=== PATIENT | male | born 1940 | race Caucasian/White ===

== ENCOUNTER 2021-01-19 20:39 | Inpatient (IN) | payer MEDICARE, SELFPAY ==
--- NOTE | 2021-01-19 | ECG_ITS ---
Test Reason : WEAKNESS Blood Pressure : / mmHG Vent. Rate : 116 BPM Atrial Rate : 104 BPM P-R Int : 000 ms QRS Dur : 086 ms QT Int : 344 ms P-R-T Axes : 000 -20 235 degrees QTc Int : 478 ms Atrial fibrillation with rapid ventricular response with premature ventricular or aberrantly conducted complexes Nonspecific T wave abnormality Abnormal ECG When compared with ECG of 15-SEP-2019 12:38, No significant change was found Referred By: Nohemi Das Electronically Signed By:CATERINA PROCTOR MD
--- NOTE | ~2021-01-19 | XR_ITS ---
EXAMINATION: XR CHEST CLINICAL INFORMATION: Shortness of breath COMPARISON: Previous chest x-ray March 2019 TECHNIQUE: Frontal view of the chest was obtained. FINDINGS: The cardiac and mediastinal contours are stable. There are post-CABG changes. The lungs are clear. There is no pleural effusion or pneumothorax. Bony structures are unremarkable. XR/XR chest 1V IMPRESSION: No evidence for acute disease in the chest.
[2021-01-19 20:46] VITALS: BP 138/59; PULSE 105; RESP 20; TEMP 36.6; O2SAT 99; BMI 31.2
--- NOTE | 2021-01-19 20:59 | ED.SOB ---
HPI - SOB/Dyspnea General Chief Complaint: Dyspnea Stated Complaint: RESPIRATORY DIFFICULTY Time Seen by Provider: 01/19/21 20:41 Source: patient Mode of arrival: EMS Limitations: no limitations History of Present Illness HPI Narrative: Patient comes emergency room complaining of shortness of breath. Patient states this afternoon he started having difficulty taking a deep breath, states he has substernal chest pressure. Patient complaining of cough and chills. Patient states he does not have chest pain, it is chest pressure and feeling that he can not get a full breath. Patient has history of asthma, states he has been using his inhalers at home Pertinent past history: asthma Related Data Home Medications Medication Instructions Recorded Confirmed aspirin 81 mg PO DAILY 01/19/21 01/19/21 atorvastatin 40 mg PO DAILY 01/19/21 01/19/21 furosemide 40 mg PO BID 01/19/21 01/19/21 gabapentin 100 mg PO QAM 01/19/21 01/19/21 metoprolol tartrate 50 mg PO BID 01/19/21 01/19/21 pantoprazole 40 mg PO BID 01/19/21 01/19/21 potassium chloride 10 meq PO BID 01/19/21 01/19/21 quetiapine 12.5 mg PO BEDTIME 01/19/21 01/19/21 spironolactone 25 mg PO DAILY 01/19/21 01/19/21 warfarin 5 mg PO DAILY 01/19/21 01/19/21 Allergies Allergy/AdvReac Type Severity Reaction Status Date / Time oxycodone [OXYCODONE] Allergy Intermediate ITCHING Verified 01/20/21 00:06 ANTIBIOITIC-? NAME Allergy Intermediate ITCHING Uncoded 07/23/20 14:50 Review of Systems Review of Systems: Constitutional : No Weight loss, No Fever, No Chills, No Night Sweats, No Fatigue, No Malaise ENT/Mouth : No Hearing loss, No Ear Pain, No Nasal Congestion, No Sinus Pain, No Hoarseness, No sore throat, No Rhinorrhea, No Swallowing Difficulty Eyes: No Eye Pain, No Swelling, No Redness, No Foreign Body, No Discharge, No Vision Changes Cardiovascular : No Chest Pain, complaining of shortness of breath, worse with exertion or lying flat, no palpitations Respiratory : Reports new mild Cough, No Sputum, No Wheezing, No Smoke Exposure, complaining of dyspnea Gastrointestinal : No Nausea, No Vomiting, No Diarrhea, No Constipation, No abdominal Pain, No Hematochezia, No Melena Genitourinary : no irregular bleeding, No Dysuria, No Urinary Frequency, No Hematuria, No Urinary Incontinence, No Urgency, No Flank Pain, No Urinary Flow Changes, No Hesitancy Musculoskeletal : No joint pain, No Myalgias, No Joint Swelling Skin : No Skin Lesions, No rash Neuro : No Weakness, No Numbness, No Paresthesias, No Loss of Consciousness, No Dizziness, No Headache Psych : No Anxiety/Panic, No Depression, No SI/HI/AH/VH, No Social Issues, Heme/Lymph: No Bruising, No Bleeding,No Lymphadenopathy Endocrine : No Polyuria, No Polydipsia, No Temperature Intolerance [facility] Past Medical History Medical History Above knee amputation of left lower extremity Afib FH: mitral valve repair GERD (gastroesophageal reflux disease) Heart failure HLD (hyperlipidemia) HTN (hypertension) Neuropathy Social History Social History Alcohol intake: never Smoking Status: Never smoker Use of substances other than those prescribed or required for medical reasons: No Advance Directives: No Physical Exam Vital Signs: Vital Signs: Last Vital Signs Temp 97.8 F 01/19/21 23:30 Pulse 107 H 01/19/21 23:30 Resp 18 01/19/21 23:30 BP 149/56 H 01/19/21 23:30 Pulse Ox 98 01/19/21 23:30 Body Mass Index 31.2 Appearance: Alert. Oriented X3. No acute distress. Eyes: Pupils equal, round and reactive to light. ENT: Pharynx normal. Neck: Normal inspection. Neck supple. No lymph nodes noted. No crepitus CVS: Rate is irregularly irregular, ranging from 100-150 Respiratory: No respiratory distress. Breath sounds normal. No Wheezing. No rales Abdomen: Soft and nontender. No rigidity. No distention. good BS x4 Skin: Skin warm and dry. Normal skin color. Normal skin turgor. Extremities: No lower extremity edema. BKA on the left side Neuro: Oriented X 3. No motor deficit. No sensory deficit. Moving all extermities. No slurred speech. Course Course Course Narrative: Patient has no chest pain, states that he occasionally feels that he can get a big breath in. D-dimer was slightly elevated at 430, however patient is already on Coumadin and is therapeutic. Patient may need a V/Q scan in the morning. Patient's creatinine is elevated 2.63. CTA cannot be performed At this time, it is unclear why patient feels short of breath. Chest x-ray is negative for any acute pathology, pneumonia is not suspected MDM - SOB/Dyspnea Lab Data Result diagrams: 01/19/21 21:05 01/19/21 21:05 Labs: Lab Results 01/19/21 01/19/21 01/19/21 Range/Units 21:05 21:05 21:05 WBC 10.7 (4.8-10.8) X10*3/uL RBC 3.04 L (4.60-5.80) X10*6/uL Hgb 8.8 L (14.0-18.0) g/dl Hct 28.6 L (42-52) % MCV 94.1 (80-98) fL MCH 28.9 (27.0-33.0) pg MCHC 30.8 L (31.0-36.0) g/dl RDW 17.4 H (11.0-16.0) % Plt Count 341 (160-400) X10*3/uL MPV 10.8 (9.4-12.4) fL Immature Gran % (Auto) 0.4 (0.0-0.4) % Neut % (Auto) 64.4 (45-73) % Lymph % (Auto) 17.1 L (20-40) % Vilas % (Auto) 9.1 (2-11) % Eos % (Auto) 8.5 H (0-4) % Baso % (Auto) 0.5 (0-2) % Lymph # (Auto) 1.8 (1.2-4.9) X10*3/uL Vil[place] # (Auto) 1.0 (0.1-1.2) X10*3/uL Eos # (Auto) 0.9 H (0.0-0.4) X10*3/uL Baso # (Auto) 0.1 (0.0-0.2) X10*3/uL Abs Immat Gran (auto) 0.04 H (0.00-0.03) X10*3/uL Absolute Neuts (auto) 6.9 (2.0-8.3) X10*3/uL Absolute Nucleated RBC 0.000 (0.0-0.012) X10*3/uL Nucleated RBC % (auto) 0.0 (0.0-0.2) /100WBC PT (10.8-13.0) SEC INR (0.9-1.1) D-Dimer NG/ML Sodium 142 (135-145) mmol/L Potassium 4.3 (3.3-5.1) mmol/L Chloride 104 (96-108) mmol/L Carbon Dioxide 27 (22-29) mmol/L Anion Gap 15 (12-20) BUN 60 H (9-16) mg/dL Creatinine 2.62 H (0.5-1.4) mg/dL Estim Creat Clear Calc 21.4 Estimated GFR 24 Random Glucose 129 H (60-115) mg/dL Lactic Acid 1.9 (0.5-2.0) mmol/L Calcium 9.0 (8.4-10.2) mg/dL Total Bilirubin 0.6 (0.0-1.0) mg/dL Direct Bilirubin 0.2 (0.0-0.5) mg/dL AST 23 (5-37) U/L ALT 17 (0-40) U/L Alkaline Phosphatase 116 (39-117) U/L Troponin I High Sens (<3.5-35.0) ng/L B-Natriuretic Peptide (<100) pg/mL Total Protein 7.0 (6.5-8.0) g/dL Albumin 3.9 (3.5-5.0) g/dL Coronavirus (PCR) (Negative) Influenza Type A (PCR) (Negative) Influenza Type B (PCR) (Negative) RSV RNA Qual (PCR) (Negative) 01/19/21 01/19/21 01/19/21 Range/Units 21:05 21:05 21:35 WBC (4.8-10.8) X10*3/uL RBC (4.60-5.80) X10*6/uL Hgb (14.0-18.0) g/dl Hct (42-52) % MCV (80-98) fL MCH (27.0-33.0) pg MCHC (31.0-36.0) g/dl RDW (11.0-16.0) % Plt Count (160-400) X10*3/uL MPV (9.4-12.4) fL Immature Gran % (Auto) (0.0-0.4) % Neut % (Auto) (45-73) % Lymph % (Auto) (20-40) % Vilas % (Auto) (2-11) % Eos % (Auto) (0-4) % Baso % (Auto) (0-2) % Lymph # (Auto) (1.2-4.9) X10*3/uL Vilas # (Auto) (0.1-1.2) X10*3/uL Eos # (Auto) (0.0-0.4) X10*3/uL Baso # (Auto) (0.0-0.2) X10*3/uL Abs Immat Gran (auto) (0.00-0.03) X10*3/uL Absolute Neuts (auto) (2.0-8.3) X10*3/uL Absolute Nucleated RBC (0.0-0.012) X10*3/uL Nucleated RBC % (auto) (0.0-0.2) /100WBC PT 32.4 H (10.8-13.0) SEC INR 2.7 H (0.9-1.1) D-Dimer 430 NG/ML Sodium (135-145) mmol/L Potassium (3.3-5.1) mmol/L Chloride (96-108) mmol/L Carbon Dioxide (22-29) mmol/L Anion Gap (12-20) BUN (9-16) mg/dL Creatinine (0.5-1.4) mg/dL Estim Creat Clear Calc Estimated GFR Random Glucose (60-115) mg/dL Lactic Acid (0.5-2.0) mmol/L Calcium (8.4-10.2) mg/dL Total Bilirubin (0.0-1.0) mg/dL Direct Bilirubin (0.0-0.5) mg/dL AST (5-37) U/L ALT (0-40) U/L Alkaline Phosphatase (39-117) U/L Troponin I High Sens 21.1 (<3.5-35.0) ng/L B-Natriuretic Peptide 140 H (<100) pg/mL Total Protein (6.5-8.0) g/dL Albumin (3.5-5.0) g/dL Coronavirus (PCR) NEGATIVE (Negative) Influenza Type A (PCR) NEGATIVE (Negative) Influenza Type B (PCR) NEGATIVE (Negative) RSV RNA Qual (PCR) NEGATIVE (Negative) Imaging Data Chest x-ray: Radiologist's impression: The cardiac and mediastinal contours are stable. There are post-CABG changes. The lungs are clear. There is no pleural effusion or pneumothorax. Bony structures are unremarkable. XR/XR chest 1V IMPRESSION: No evidence for acute disease in the chest. ECG Data Attestation: I personally reviewed and interpreted this ECG as follows: (Atrial fibrillation, heart rate 116, no ST segment depression or elevation, no T-wave inversions, occasional PVCs) Discharge Plan Discharge Clinical Impression: Acute dyspnea, Acute kidney injury Patient Disposition: Admitted As Inpatient Prescriptions: No Action furosemide 40 mg tablet 40 mg PO BID RF: 0 aspirin 81 mg tablet,delayed release (DR/EC) 81 mg PO DAILY RF: 0 spironolactone 25 mg tablet 25 mg PO DAILY RF: 0 pantoprazole 40 mg tablet,delayed release (DR/EC) 40 mg PO BID RF: 0 metoprolol tartrate 50 mg tablet 50 mg PO BID RF: 0 quetiapine 25 mg tablet 12.5 mg PO BEDTIME RF: 0 atorvastatin 40 mg tablet 40 mg PO DAILY RF: 0 potassium chloride 10 mEq tablet extended release 10 meq PO BID RF: 0 warfarin 5 mg tablet 5 mg PO DAILY RF: 0 gabapentin 100 mg capsule 100 mg PO QAM RF: 0
[2021-01-19 21:16] LABS: MANUAL DIFF FLAG NO
[2021-01-19 21:18] LABS: Basophils Absolute Auto 0.1 X10*3/uL (0.0-0.2); Basophils Percent Auto 0.5 % (0-2); Eosinophils Absolute Auto 0.9 X10*3/uL (0.0-0.4); Eosinophils Percent Auto 8.5 % (0-4); Hematocrit 28.6 % (42-52); Hemoglobin 8.8 g/dl (14.0-18.0); Imm Gran Abs Auto 0.04 X10*3/uL (0.00-0.03); Imm Gran Pct Auto 0.4 % (0.0-0.4); Lymphocytes Absolute Auto 1.8 X10*3/uL (1.2-4.9); Lymphocytes Percent Auto 17.1 % (20-40); Mean Corpuscular HGB Conc 30.8 g/dl (31.0-36.0); Mean Corpuscular Hemoglobin 28.9 pg (27.0-33.0); Mean Corpuscular Volume 94.1 fL (80-98); Mean Platelet Volume 10.8 fL (9.4-12.4); Monocytes Percent Auto 9.1 % (2-11); Neutrophils Absolute Auto 6.9 X10*3/uL (2.0-8.3); Neutrophils Percent Auto 64.4 % (45-73); Platelet Count 341 X10*3/uL (160-400); Red Blood Count 3.04 X10*6/uL (4.60-5.80); Red Cell Distribution Width 17.4 % (11.0-16.0); White Blood Count 10.7 X10*3/uL (4.8-10.8)
[2021-01-19 21:23] LABS: INTERNATIONAL NORM RATIO 2.7 (0.9-1.1); Prothrombin Time 32.4 SEC (10.8-13.0)
[2021-01-19 21:54] LABS: Lactic Acid 1.9 mmol/L (0.5-2.0)
[2021-01-19 21:59] LABS: Alanine Aminotransferase 17 U/L (0-40); Albumin Level 3.9 g/dL (3.5-5.0); Alkaline Phosphatase 116 U/L (39-117); Anion Gap 15 (12-20); Aspartate Amino Transferase 23 U/L (5-37); Bilirubin Direct 0.2 mg/dL (0.0-0.5); Bilirubin Total 0.6 mg/dL (0.0-1.0); Blood Urea Nitrogen 60 mg/dL (9-16); Carbon Dioxide 27 mmol/L (22-29); Chloride 104 mmol/L (96-108); Creatinine Clr Calc Pharmacy 21.4; Estimated Glomerular Filt Rate 24; Glucose Random 129 mg/dL (60-115); Potassium 4.3 mmol/L (3.3-5.1); Sodium 142 mmol/L (135-145)
[2021-01-19 22:01] LABS: B Type Natriuretic Peptide 140 pg/mL (<100); Troponin-I High Sensitivity 21.1 ng/L (<3.5-35.0)
[2021-01-19 22:25] LABS: Influenza A PCR NEGATIVE (Negative); Influenza B PCR NEGATIVE (Negative); Resp Syncy Virus RNA Qual PCR NEGATIVE (Negative); SARS COV2 PCR INHOUSE NEGATIVE (Negative)
--- NOTE | 2021-01-19 22:38 | PC.NURSE ---
PT RESTING UPRIGHT IN BED BREATHING WITH EASE, RR EVEN UNLABORED, SKIN WPD, AOX3. PT REPORTS FEELING MARKEDLY IMPROVED SINCE ARRIVAL, STS SX FEEL RESOLVED. PT AWAITING PROVIDER RE-EVAL.
[2021-01-19 23:30] VITALS: BP 149/56; PULSE 107; RESP 18; TEMP 36.6; O2SAT 98
--- NOTE | 2021-01-19 23:30 | PC.NURSE ---
PATIENT STATES VISITING NURSE DOES HIS MEDS WHEN SHE COMES. DOES NOT KNOW OTHER THAN HAS BOTTLES SOME ARE MORE THAN 2 YEARS OLD.
--- NOTE | 2021-01-19 23:35 | PC.NURSE ---
LUNGS CLEAR TO AUSCULTATION. PATIENT REPORTS FEELING SOB AFTER SITTING UP TO ALLOW AUSCULATION OF LUNGS.
[2021-01-20] VITALS (8 sets, daily range): BP systolic 106–147; BP diastolic 36–97; PULSE 70–106; RESP 15–20; TEMP 36.2–36.7; O2SAT 96–98
--- NOTE | 2021-01-20 | ECG_ITS ---
Test Reason : REPEAT Blood Pressure : / mmHG Vent. Rate : 084 BPM Atrial Rate : 500 BPM P-R Int : 000 ms QRS Dur : 082 ms QT Int : 418 ms P-R-T Axes : 000 -19 -41 degrees QTc Int : 493 ms Atrial fibrillation Nonspecific T wave abnormality Abnormal ECG When compared with ECG of 19-JAN-2021 20:50, Nonspecific T wave abnormality now evident in Anterior leads Referred By: Jerrod Ureña Electronically Signed By:CATERINA PROCTOR MD
[2021-01-20 00:05] LABS: D Dimer 430 NG/ML
[2021-01-20] MEDS: 0.9 % Sodium Chloride 1,000 ML 999 ML IVCONT (00:06)
--- NOTE | 2021-01-20 00:18 | P.HPHOSP_ITS ---
History of Present Illness Date of Service: 01/20/21 Chief Complaint: sob 80-year-old male With a past medical history of hypertension, hyperlipidemia, neuropathy, GERD, CHF, AFib on Coumadin, history of left lower extremity below- knee amputation presented to the hospital with a chief complaint of shortness of breath. Mentions that he was feeling fine until yesterday; today noted to have increased shortness of breath and dyspnea on exertion with minimal activity. As the symptoms were not improving decided to come to the hospital for further evaluation. Denies any chest pain palpitations lightheadedness or dizziness. Denies any GI or symptoms. Review of all other systems is negative except mentioned above ER course: Per ER team patient exam was fairly benign, good air entry on lung exam, EKG showed AFib with heart rate of 116, no ischemic changes, INR was therapeutic at 2.7, on labs noted to have creatinine of 2.6-elevated from prior value of 1.2. Hemoglobin fairly stable at his baseline; admitted to the hospital for further management. COVID-19 negative. [facility] Medical History (Updated 01/30/21 @ 00:01 by Background Daemon) Above knee amputation of left lower extremity Afib FH: mitral valve repair GERD (gastroesophageal reflux disease) Heart failure HLD (hyperlipidemia) HTN (hypertension) Neuropathy PVD (peripheral vascular disease) Surgical History (Updated 01/30/21 @ 00:01 by Background Daemon) Status post transcatheter aortic valve replacement Social History Household Members: None Housing: Assisted Living Facility Alcohol intake: never Smoking Status: Never smoker service: No Current occupational status: retired Meds Allergies Allergy/AdvReac Type Severity Reaction Status Date / Time oxycodone [OXYCODONE] Allergy Intermediate ITCHING Verified 01/20/21 00:06 ANTIBIOITIC-? NAME Allergy Intermediate ITCHING Uncoded 07/23/20 14:50 Active Medications: Current Medications Generic Name Dose Route Start Last Admin Trade Name Freq PRN Reason Stop Dose Admin Acetaminophen 650 mg 01/20/21 00:13 Acetaminophen 325 Mg Tablet PO Q6H PRN Pain, Mild (Pain Scale 1-3) Albuterol/Ipratropium 3 ml 01/20/21 00:13 Albuterol/Iprat 2.5/0.5mg 3 Ml Ampul.Neb INHALE RQ4H PRN Shortness of Breath/Wheezing Aspirin 81 mg 01/20/21 09:00 Aspirin Enteric Coated 81 Mg Tablet.Dr PO DAILY [facility] Atorvastatin Calcium 40 mg 01/20/21 09:00 Atorvastatin Calcium 40 Mg Tablet PO DAILY [facility] Gabapentin 100 mg 01/20/21 00:30 Gabapentin 100 Mg Capsule PO QAM [facility] Sodium Chloride 1,000 mls @ 999 mls/hr 01/19/21 23:53 01/20/21 00:06 Ns IVCONT 01/20/21 00:53 999 mls/hr .Q1H1M ONE Infusion Dextrose/Sodium Chloride 1,000 mls @ 100 mls/hr 01/20/21 00:15 D51/2ns IVCONT .Q10H [facility] Metoprolol Tartrate 50 mg 01/20/21 09:00 Metoprolol Tartrate 50 Mg Tablet PO BID [facility] Protocol Nitroglycerin 0.4 mg 01/20/21 00:13 Nitroglycerin 0.4 Mg Tab.Subl SUBLINGUAL Q5M PRN Chest Pain Non-Formulary Medication 40 mg 01/20/21 09:00 Pantoprazole PO DAILY [facility] Pharmacy Consult 1 each 01/20/21 00:15 Consult Rx Perform Med Rec MISCELLANE ONCE PRN Consult order Potassium Chloride 10 meq 01/20/21 09:00 Potassium Chloride Er 10 Meq Capsule.Er PO BID [facility] Quetiapine Fumarate 12.5 mg 01/20/21 21:00 Quetiapine Fumarate 25 Mg Tablet PO BEDTIME [facility] Sodium Chloride 3 ml 01/20/21 08:00 0.9 % Sodium Chloride Flush 3 Ml Syringe IVFLUSH QSHIFT [facility] Warfarin Sodium 5 mg 01/20/21 09:00 Warfarin Sodium 5 Mg Tablet PO DAILY [facility] Home Medications Medication Instructions Recorded Confirmed Last Taken Type aspirin 81 mg PO DAILY 01/19/21 01/19/21 Unknown History atorvastatin 40 mg PO DAILY 01/19/21 01/19/21 Unknown History furosemide 40 mg PO BID 01/19/21 01/19/21 Unknown History gabapentin 100 mg PO QAM 01/19/21 01/19/21 Unknown History metoprolol tartrate 50 mg PO BID 01/19/21 01/19/21 Unknown History pantoprazole 40 mg PO BID 01/19/21 01/19/21 Unknown History potassium chloride 10 meq PO BID 01/19/21 01/19/21 Unknown History quetiapine 12.5 mg PO BEDTIME 01/19/21 01/19/21 Unknown History spironolactone 25 mg PO DAILY 01/19/21 01/19/21 Unknown History warfarin 5 mg PO DAILY 01/19/21 01/19/21 Unknown History diltiazem HCl 120 mg PO DAILY 01/20/21 01/20/21 Unknown History melatonin 5 mg PO BEDTIME PRN 01/20/21 01/20/21 Unknown History thiamine HCl (vitamin B1) 100 mg PO DAILY 01/20/21 01/20/21 Unknown History Physical Exam Vital Signs and Narrative: Vital Signs: Last Vital Signs Temp 97.8 F 01/19/21 23:30 Pulse 107 H 01/19/21 23:30 Resp 18 01/19/21 23:30 BP 149/56 H 01/19/21 23:30 Pulse Ox 98 01/19/21 23:30 Body Mass Index 31.2 Gen: Appears be in no acute distress HEENT: NCAT, Moist mucosa. Pulmonary: Mildly coarse breath sounds CVS: Normal S1-S2 Abdomen: BS+, Soft, Nontender Extremities: Warm well perfused Neuro: Alert and awake. Results Labs CBC and Chem 7: 01/21/21 06:03 01/22/21 06:13 Labs: Laboratory Results - last 24 hr 01/19/21 01/19/21 01/19/21 21:05 21:05 21:05 MCV 94.1 MCH 28.9 MCHC 30.8 L RDW 17.4 H Plt Count 341 MPV 10.8 Immature Gran % (Auto) 0.4 Neut % (Auto) 64.4 Lymph % (Auto) 17.1 L Gilchrist % (Auto) 9.1 Eos % (Auto) 8.5 H Baso % (Auto) 0.5 Lymph # (Auto) 1.8 Gilchrist # (Auto) 1.0 Eos # (Auto) 0.9 H Baso # (Auto) 0.1 Abs Immat Gran (auto) 0.04 H Absolute Neuts (auto) 6.9 Absolute Nucleated RBC 0.000 Nucleated RBC % (auto) 0.0 PT INR D-Dimer Anion Gap 15 Estim Creat Clear Calc 21.4 Estimated GFR 24 Random Glucose 129 H Lactic Acid 1.9 Calcium 9.0 Total Bilirubin 0.6 Direct Bilirubin 0.2 AST 23 ALT 17 Alkaline Phosphatase 116 Troponin I High Sens B-Natriuretic Peptide Total Protein 7.0 Albumin 3.9 Coronavirus (PCR) Influenza Type A (PCR) Influenza Type B (PCR) RSV RNA Qual (PCR) 01/19/21 01/19/21 01/19/21 21:05 21:05 21:35 MCV MCH MCHC RDW Plt Count MPV Immature Gran % (Auto) Neut % (Auto) Lymph % (Auto) Gilchrist % (Auto) Eos % (Auto) Baso % (Auto) Lymph # (Auto) Gilchrist # (Auto) Eos # (Auto) Baso # (Auto) Abs Immat Gran (auto) Absolute Neuts (auto) Absolute Nucleated RBC Nucleated RBC % (auto) PT 32.4 H INR 2.7 H D-Dimer 430 Anion Gap Estim Creat Clear Calc Estimated GFR Random Glucose Lactic Acid Calcium Total Bilirubin Direct Bilirubin AST ALT Alkaline Phosphatase Troponin I High Sens 21.1 B-Natriuretic Peptide 140 H Total Protein Albumin Coronavirus (PCR) NEGATIVE Influenza Type A (PCR) NEGATIVE Influenza Type B (PCR) NEGATIVE RSV RNA Qual (PCR) NEGATIVE Imaging Radiologist's Impressions: Impressions Chest X-Ray 01/19/21 20:52 IMPRESSION: No evidence for acute disease in the chest. Assessment and Plan (1) Acute dyspnea: Status: Resolved 80-year-old male with a past medical history of hypertension, hyperlipidemia, CHF, AFib on Coumadin, GERD, neuropathy, history of left lower extremity amputation presented to the hospital with a chief complaint of shortness of breath. Shortness of breath: Unclear etiology. EKG nonischemic, initial troponin 21. Follow-up troponin pending. Patient denies any chest pain. COVID-19 negative Chest x-ray showed no acute findings Does not appear to be in fluid overload Telemetry Cycle enzymes Cardiology consultation History of asthma: No significant wheezing noticed. Nebulizations p.r.n.. Acute kidney injury: Patient's creatinine of 1.2. Today on presentation creatinine is 2.6. Hold home diuretics. Avoid nephrotoxins. Monitor renal function. Nephrology consult. Atrial fibrillation: Patient has mild RVR. Continue home metoprolol. INR therapeutic. Continue Coumadin. Hypertension/hyperlipidemia: Continue home aspirin, statin, metoprolol. For all other chronic conditions home medications continued DVT prophylaxis:Patient on Coumadin Code status: Full code
[2021-01-20 01:43] LABS: Troponin-I High Sensitivity 22.7 ng/L (<3.5-35.0)
[2021-01-20] MEDS: Acetaminophen 325 MG TABLET 650 MG PO (02:46)
[2021-01-20] MEDS: Dextrose 5 % and 0.45 % NaCl 1,000 ML 100 ML IVCONT ×2 (02:47→10:29)
--- NOTE | 2021-01-20 04:05 | PC.NURSE ---
REPORT FROM GLENNA PORRAS AT 0300. PT SLEEPING
[2021-01-20] MEDS: Omeprazole 20 MG CAPSULE.DR PO (06:14)
[2021-01-20] MEDS: Metoprolol Tartrate 50 MG TABLET PO ×2 (08:07→20:49)
[2021-01-20] MEDS: Aspirin Enteric Coated 81 MG TABLET.DR PO (08:07)
[2021-01-20] MEDS: Gabapentin 100 MG CAPSULE PO (08:07)
[2021-01-20] MEDS: Atorvastatin Calcium 40 MG TABLET PO (08:07)
--- NOTE | 2021-01-20 08:38 | PC.NURSE ---
Pt alert, rr even, speaks in full sentences, skin is pwdi, and he is in nad. Offered moisturizing cream for dry itchy skin to lower extremity and upper extremities bilat. He was medicated per emar. Currently offers no complaints, awaiting bed assignment.
[2021-01-20 09:05] LABS: Hematocrit 26.9 % (42-52); Hemoglobin 8.1 g/dl (14.0-18.0); Mean Corpuscular HGB Conc 30.1 g/dl (31.0-36.0); Mean Corpuscular Hemoglobin 28.6 pg (27.0-33.0); Mean Corpuscular Volume 95.1 fL (80-98); Mean Platelet Volume 10.5 fL (9.4-12.4); Platelet Count 312 X10*3/uL (160-400); Red Blood Count 2.83 X10*6/uL (4.60-5.80); Red Cell Distribution Width 17.3 % (11.0-16.0); White Blood Count 9.4 X10*3/uL (4.8-10.8)
[2021-01-20 09:10] LABS: INTERNATIONAL NORM RATIO 2.5 (0.9-1.1)
[2021-01-20 09:35] LABS: Anion Gap 12 (12-20); Blood Urea Nitrogen 57 mg/dL (9-16); Calcium 8.7 mg/dL (8.4-10.2); Carbon Dioxide 27 mmol/L (22-29); Chloride 107 mmol/L (96-108); Creatinine Clr Calc Pharmacy 25.3; Estimated Glomerular Filt Rate 29; Glucose Random 132 mg/dL (60-115); Potassium 4.4 mmol/L (3.3-5.1); Sodium 142 mmol/L (135-145)
[2021-01-20 09:36] LABS: Anion Gap 10 (12-20); Blood Urea Nitrogen 57 mg/dL (9-16); Calcium 8.6 mg/dL (8.4-10.2); Carbon Dioxide 29 mmol/L (22-29); Chloride 107 mmol/L (96-108); Estimated Glomerular Filt Rate 29; Glucose Random 133 mg/dL (60-115); Magnesium 1.7 mg/dL (1.6-2.6); Potassium 4.1 mmol/L (3.3-5.1); Sodium 142 mmol/L (135-145)
--- NOTE | 2021-01-20 12:35 | P.PNIM_ITS ---
Subjective Subjective Date of Service: 01/20/21 <Frances Wagner NP - Last Filed: 01/20/21 13:54> 01/20/21 <Jerrod Ureña MD - Last Filed: 01/20/21 14:11> Interval History: Follow up shortness of breath. No breathing difficulties today. <Frances Wagner NP - Last Filed: 01/20/21 13:54> Physical Exam Vital Signs: Vital Signs: Last Vital Signs Temp 97.8 F 01/19/21 23:30 Pulse 77 01/20/21 10:29 Resp 18 01/20/21 10:29 BP 147/74 H 01/20/21 10:29 Pulse Ox 98 01/20/21 10:29 Body Mass Index 31.2 <Frances Wagner NP - Last Filed: 01/20/21 13:54> Appearing in no acute distress head is normocephalic atraumatic eyes pupils are PERRLA sclera is anicteric mouth throat mucous membranes are intact and moist neck is supple no lymphadenopathy, no JVD noted lung sounds are clear to auscultation heart regular rate rhythm, clear S1, S2 positive bowel sounds, abdomen is soft, nontender neuro patient is alert x3, no focal deficits <Frances Wagner NP - Last Filed: 01/20/21 13:54> Objective Data Current Medications Generic Name Dose Route Start Last Admin Trade Name Freq PRN Reason Stop Dose Admin Acetaminophen 650 mg 01/20/21 00:13 01/20/21 02:46 Acetaminophen 325 Mg Tablet PO 650 mg Q6H PRN Administration Pain, Mild (Pain Scale 1-3) Albuterol/Ipratropium 3 ml 01/20/21 00:13 Albuterol/Iprat 2.5/0.5mg 3 Ml Ampul.Neb INHALE RQ4H PRN Shortness of Breath/Wheezing Aspirin 81 mg 01/20/21 09:00 01/20/21 08:07 Aspirin Enteric Coated 81 Mg Tablet. PO 81 mg DAILY [facility]STINE Administration Atorvastatin Calcium 40 mg 01/20/21 09:00 01/20/21 08:07 Atorvastatin Calcium 40 Mg Tablet PO 40 mg DAILY [facility]INE Administration Gabapentin 100 mg 01/20/21 09:00 01/20/21 08:07 Gabapentin 100 Mg Capsule PO 100 mg DAILY [facility]INE Administration Dextrose/Sodium Chloride 1,000 mls @ 100 mls/hr 01/20/21 00:15 01/20/21 10:29 D51/2ns IVCONT 100 mls/hr .Q10H [facility]INE Administration Metoprolol Tartrate 50 mg 01/20/21 09:00 01/20/21 08:07 Metoprolol Tartrate 50 Mg Tablet PO 50 mg BID [facility]STINE Administration Protocol Nitroglycerin 0.4 mg 01/20/21 00:13 Nitroglycerin 0.4 Mg Tab.Subl SUBLINGUAL Q5M PRN Chest Pain Omeprazole 20 mg 01/20/21 06:30 01/20/21 06:14 Omeprazole 20 Mg Capsule.Dr PO 20 mg DAILY@0630 COUNT INCLUDES THE [facility] Administration Pharmacy Consult 1 each 01/20/21 00:15 Consult Rx Perform Med Rec MISCELLANE ONCE PRN Consult order Potassium Chloride 10 meq 01/20/21 09:00 01/20/21 08:07 Potassium Chloride Er 10 Meq Capsule.Er PO 10 meq BID [facility]INE Administration Quetiapine Fumarate 12.5 mg 01/20/21 21:00 Quetiapine Fumarate 25 Mg Tablet PO BEDTIME COUNT INCLUDES THE [facility] Sodium Chloride 3 ml 01/20/21 08:00 01/20/21 08:07 0.9 % Sodium Chloride Flush 3 Ml Syringe IVFLUSH Not Given QSHIFT COUNT INCLUDES THE [facility] Warfarin Sodium 5 mg 01/20/21 16:00 Warfarin Sodium 5 Mg Tablet PO DAILY@1600 COUNT INCLUDES THE [facility] <Frances Wagner NP - Last Filed: 01/20/21 13:54> Labs CBC & Chem 7: : 01/20/21 08:53 01/20/21 08:53 <Frances Wagner NP - Last Filed: 01/20/21 13:54> Assessment and Plan (1) Acute kidney injury: Status: Acute <Frances Wagner NP - Last Filed: 01/20/21 13:54> (2) Acute dyspnea: Status: Acute <Frances Wagner NP - Last Filed: 01/20/21 13:54> Assessment and Plan: 80 year old man admitted with dyspnea initially, he was never noted to by hypoxic and CXR was negative for consolidation. He was found to have urinary retension and arredondo catheter was placed. DARNELL. Secondary to urinary retention. -Stop IV fluids -Nephrology consultation -Follow BMP Urinary retention. Follow catheter was placed and drained over 1000ml. -Monitor output closely to avoid post obstruction diuresis. Afib rvr. Mild. Now controlled. -Continue warfarin and metoprolol Asthma. No exacerbation -nebs as needed. Attending: Dr. Ureña <Frances Wagner NP - Last Filed: 01/20/21 13:54>
--- NOTE | 2021-01-20 13:34 | P.CONCA_ITS ---
History of Present Illness History of Present Illness Date of Service: 01/20/21 Requesting physician: Jerrod Ureña Consult reason: shortness of breath Chief complaint: DARNELL Narrative: We were asked to see Arturo in cardiology consultation today for prior extensive cardiovascular history, has not seen his hose mender for some time as per him. Also has not seen his vascular surgeon for some time. Yesterday while he was at home he felt some tingling and discomfort burning in his right lower extremity, got concerned because of his prior left lower extremity amputation and was very anxious and subsequently got short of breath due to panic attack he says. This was very sudden onset. However he came to the hospital and because of his prior cardiac history he was admitted. He is known to have chronic atrial fibrillation. He is status post transcatheter aortic valve replacement, congestive heart failure, peripheral vascular disease status post left lower extremity amputations, coronary artery disease, hypertension, neuropathy. On admission he was noted to be in atrial fibrillation with controlled ventricular response. Also knows noted to have acute kidney injury, currently receiving IV fluid. He was noted to have slightly elevated BNP but without any overt heart failure. Review of Systems Constitutional: Constitutional: Reports no additional constitutional complaints Cardiovascular: Cardiovascular: Denies chest pain, Denies syncope, Denies leg edema, Denies lightheadedness, Denies radiating jaw, neck or arm pain, Denies palpitations and Reports dyspnea on exertion Respiratory: Respiratory: Reports no additional respiratory complaints and Reports dyspnea on exertion Gastrointestinal: Gastrointestinal: Reports no additional gastrointestinal complaints Genitourinary: Genitourinary: Reports no additional male genitourinary complaints Musculoskeletal: Musculoskeletal: Reports no additional musculoskeletal complaints Neurologic: Reports system reviewed and no additional complaints, except as documented and Denies syncope Psychiatric: Psychiatric: Reports no additional psychiatric complaints Endocrine: Endocrine: Reports no additional endocrine complaints and Denies palpitations [facility] Past Medical History Medical History (Updated 01/20/21 @ 13:39 by Nikos Alaniz MD) Above knee amputation of left lower extremity Afib FH: mitral valve repair GERD (gastroesophageal reflux disease) Heart failure HLD (hyperlipidemia) HTN (hypertension) Neuropathy Social History Social History Alcohol intake: never Smoking Status: Never smoker Use of substances other than those prescribed or required for medical reasons: No Advance Directives: No Meds Allergies Allergy/AdvReac Type Severity Reaction Status Date / Time oxycodone [OXYCODONE] Allergy Intermediate ITCHING Verified 01/20/21 00:06 ANTIBIOITIC-? NAME Allergy Intermediate ITCHING Uncoded 07/23/20 14:50 Active Medications: Current Medications Generic Name Dose Route Start Last Admin Trade Name Freq PRN Reason Stop Dose Admin Acetaminophen 650 mg 01/20/21 00:13 01/20/21 02:46 Acetaminophen 325 Mg Tablet PO 650 mg Q6H PRN Administration Pain, Mild (Pain Scale 1-3) Albuterol/Ipratropium 3 ml 01/20/21 00:13 Albuterol/Iprat 2.5/0.5mg 3 Ml Ampul.Neb INHALE RQ4H PRN Shortness of Breath/Wheezing Aspirin 81 mg 01/20/21 09:00 01/20/21 08:07 Aspirin Enteric Coated 81 Mg Tablet. PO 81 mg DAILY [facility] Administration Atorvastatin Calcium 40 mg 01/20/21 09:00 01/20/21 08:07 Atorvastatin Calcium 40 Mg Tablet PO 40 mg DAILY CHRISTINE Administration Gabapentin 100 mg 01/20/21 09:00 01/20/21 08:07 Gabapentin 100 Mg Capsule PO 100 mg DAILY [facility] Administration Metoprolol Tartrate 50 mg 01/20/21 09:00 01/20/21 08:07 Metoprolol Tartrate 50 Mg Tablet PO 50 mg BID [facility] Administration Protocol Nitroglycerin 0.4 mg 01/20/21 00:13 Nitroglycerin 0.4 Mg Tab.Subl SUBLINGUAL Q5M PRN Chest Pain Omeprazole 20 mg 01/20/21 06:30 01/20/21 06:14 Omeprazole 20 Mg Capsule. PO 20 mg DAILY@0630 [facility] Administration Pharmacy Consult 1 each 01/20/21 00:15 Consult Rx Perform Med Rec MISCELLANE ONCE PRN Consult order Potassium Chloride 10 meq 01/20/21 09:00 01/20/21 08:07 Potassium Chloride Er 10 Meq Capsule.Er PO 10 meq BID [facility] Administration Quetiapine Fumarate 12.5 mg 01/20/21 21:00 Quetiapine Fumarate 25 Mg Tablet PO BEDTIME [facility] Sodium Chloride 3 ml 01/20/21 08:00 01/20/21 08:07 0.9 % Sodium Chloride Flush 3 Ml Syringe IVFLUSH Not Given QSHIFT [facility] Warfarin Sodium 5 mg 01/20/21 16:00 Warfarin Sodium 5 Mg Tablet PO DAILY@1600 [facility] Home Medications Medication Instructions Recorded Confirmed Last Taken Type aspirin 81 mg PO DAILY 01/19/21 01/19/21 Unknown History atorvastatin 40 mg PO DAILY 01/19/21 01/19/21 Unknown History furosemide 40 mg PO BID 01/19/21 01/19/21 Unknown History gabapentin 100 mg PO QAM 01/19/21 01/19/21 Unknown History metoprolol tartrate 50 mg PO BID 01/19/21 01/19/21 Unknown History pantoprazole 40 mg PO BID 01/19/21 01/19/21 Unknown History potassium chloride 10 meq PO BID 01/19/21 01/19/21 Unknown History quetiapine 12.5 mg PO BEDTIME 01/19/21 01/19/21 Unknown History spironolactone 25 mg PO DAILY 01/19/21 01/19/21 Unknown History warfarin 5 mg PO DAILY 01/19/21 01/19/21 Unknown History diltiazem HCl 120 mg PO DAILY 01/20/21 01/20/21 Unknown History melatonin 5 mg PO BEDTIME PRN 01/20/21 01/20/21 Unknown History thiamine HCl (vitamin B1) 100 mg PO DAILY 01/20/21 01/20/21 Unknown History Physical Exam Vital Signs: Vital Signs: Last Vital Signs Temp 97.8 F 01/19/21 23:30 Pulse 77 01/20/21 10:29 Resp 18 01/20/21 10:29 BP 147/74 H 01/20/21 10:29 Pulse Ox 98 01/20/21 10:29 Body Mass Index 31.2 Const: General: cooperative, comfortable, no acute distress, alert and awake Nutritional Appearance: obese Orientation/consciousness: patient oriented x3 HENMT: Head: Yes normocephalic and Yes atraumatic Neck: Neck: Yes trachea midline, Yes supple and Yes no JVD Resp: Effort & Inspection: normal respiratory effort Auscultation: clear to auscultation bilaterally Cardio: Jugular venous distension: no JVD Rhythm: abnormal rhythm irregularly irregular Heart sounds: S1 normal heart sound present and S2 normal heart sound present GI: Auscultation: normal bowel sounds Skin: General skin exam: no rashes or lesions noted Neuro: General: patient oriented x3 and no focal motor deficits Extrem: General: Yes no clubbing, cyanosis or edema Psych: Appearance: grossly normal Results Labs and Meds Result diagrams: 01/20/21 08:53 01/20/21 08:53 Lab results: Laboratory Results - last 24 hr 01/19/21 01/19/21 01/19/21 21:05 21:05 21:05 WBC 10.7 RBC 3.04 L Hgb 8.8 L Hct 28.6 L MCV 94.1 MCH 28.9 MCHC 30.8 L RDW 17.4 H Plt Count 341 MPV 10.8 Immature Gran % (Auto) 0.4 Neut % (Auto) 64.4 Lymph % (Auto) 17.1 L Granite % (Auto) 9.1 Eos % (Auto) 8.5 H Baso % (Auto) 0.5 Lymph # (Auto) 1.8 Granite # (Auto) 1.0 Eos # (Auto) 0.9 H Baso # (Auto) 0.1 Abs Immat Gran (auto) 0.04 H Absolute Neuts (auto) 6.9 Absolute Nucleated RBC 0.000 Nucleated RBC % (auto) 0.0 PT INR D-Dimer Sodium 142 Potassium 4.3 Chloride 104 Carbon Dioxide 27 Anion Gap 15 BUN 60 H Creatinine 2.62 H Estim Creat Clear Calc 21.4 Estimated GFR 24 Random Glucose 129 H Lactic Acid 1.9 Calcium 9.0 Magnesium Total Bilirubin 0.6 Direct Bilirubin 0.2 AST 23 ALT 17 Alkaline Phosphatase 116 Troponin I High Sens B-Natriuretic Peptide Total Protein 7.0 Albumin 3.9 Coronavirus (PCR) Influenza Type A (PCR) Influenza Type B (PCR) RSV RNA Qual (PCR) 01/19/21 01/19/21 01/19/21 21:05 21:05 21:35 WBC RBC Hgb Hct MCV MCH MCHC RDW Plt Count MPV Immature Gran % (Auto) Neut % (Auto) Lymph % (Auto) Granite % (Auto) Eos % (Auto) Baso % (Auto) Lymph # (Auto) Granite # (Auto) Eos # (Auto) Baso # (Auto) Abs Immat Gran (auto) Absolute Neuts (auto) Absolute Nucleated RBC Nucleated RBC % (auto) PT 32.4 H INR 2.7 H D-Dimer 430 Sodium Potassium Chloride Carbon Dioxide Anion Gap BUN Creatinine Estim Creat Clear Calc Estimated GFR Random Glucose Lactic Acid Calcium Magnesium Total Bilirubin Direct Bilirubin AST ALT Alkaline Phosphatase Troponin I High Sens 21.1 B-Natriuretic Peptide 140 H Total Protein Albumin Coronavirus (PCR) NEGATIVE Influenza Type A (PCR) NEGATIVE Influenza Type B (PCR) NEGATIVE RSV RNA Qual (PCR) NEGATIVE 01/20/21 01/20/21 01/20/21 00:55 08:53 08:53 WBC 9.4 RBC 2.83 L Hgb 8.1 L Hct 26.9 L MCV 95.1 MCH 28.6 MCHC 30.1 L RDW 17.3 H Plt Count 312 MPV 10.5 Immature Gran % (Auto) Neut % (Auto) Lymph % (Auto) Granite % (Auto) Eos % (Auto) Baso % (Auto) Lymph # (Auto) Granite # (Auto) Eos # (Auto) Baso # (Auto) Abs Immat Gran (auto) Absolute Neuts (auto) Absolute Nucleated RBC 0.000 Nucleated RBC % (auto) 0.0 PT INR D-Dimer Sodium 142 Potassium 4.1 Chloride 107 Carbon Dioxide 29 Anion Gap 10 L BUN 57 H Creatinine 2.16 H Estim Creat Clear Calc 26.0 Estimated GFR 29 Random Glucose 133 H Lactic Acid Calcium 8.6 Magnesium 1.7 Total Bilirubin Direct Bilirubin AST ALT Alkaline Phosphatase Troponin I High Sens 22.7 B-Natriuretic Peptide Total Protein Albumin Coronavirus (PCR) Influenza Type A (PCR) Influenza Type B (PCR) RSV RNA Qual (PCR) 01/20/21 01/20/21 08:53 08:53 WBC RBC Hgb Hct MCV MCH MCHC RDW Plt Count MPV Immature Gran % (Auto) Neut % (Auto) Lymph % (Auto) Granite % (Auto) Eos % (Auto) Baso % (Auto) Lymph # (Auto) Granite # (Auto) Eos # (Auto) Baso # (Auto) Abs Immat Gran (auto) Absolute Neuts (auto) Absolute Nucleated RBC Nucleated RBC % (auto) PT 30.0 H INR 2.5 H D-Dimer Sodium 142 Potassium 4.4 Chloride 107 Carbon Dioxide 27 Anion Gap 12 BUN 57 H Creatinine 2.22 H Estim Creat Clear Calc 25.3 Estimated GFR 29 Random Glucose 132 H Lactic Acid Calcium 8.7 Magnesium Total Bilirubin Direct Bilirubin AST ALT Alkaline Phosphatase Troponin I High Sens B-Natriuretic Peptide Total Protein Albumin Coronavirus (PCR) Influenza Type A (PCR) Influenza Type B (PCR) RSV RNA Qual (PCR) EKG shows atrial fibrillation with rapid ventricular response with PVC with nonspecific T-wave changes Imaging Radiologist's impression: Impressions Chest X-Ray 01/19/21 20:52 IMPRESSION: No evidence for acute disease in the chest. Assessment and Plan (1) Acute dyspnea: Status: Acute Patient present with acute shortness of breath with no obvious abnormality. Has chronic atrial fibrillation. Not in overt heart failure with minimally elevated BNP, not clinically fluid overloaded. He says that he got very anxious when he got symptoms in his right lower extremity thinking that he would loses right lower extremity as well. I think this appears to be more anxiety/panic attack rather than any cardiovascular issue at this point in time. (2) Afib: Status: Acute Atrial fibrillation, currently rate controlled. Continue current rate control strategy. Currently on metoprolol therapy, continue the same. Also on Cardizem therapy. Last known LVEF within normal limits and is appropriate to continue Cardizem therapy at this point in time. Continue full oral anticoagulation, currently on warfarin therapy. Maintain target INR between 2 and 3. (3) Status post transcatheter aortic valve replacement: Status: Acute Prior history of transcatheter aortic valve replacement, clinically appears to be functioning well. No further interventions or workup required at this point in time. Continue warfarin therapy as above. Blood pressure is well optimized. On the long run SBE prophylaxis as per ACC/[facility] guidelines. (4) PVD (peripheral vascular disease): Status: Acute Peripheral vascular disease status post left lower extremity amputation with significant concern for him for losing his right leg as well. He does have poor pulses distally. He is recommended to continue close follow-up as outpatient with his vascular surgeon which is very important. Will sign of the case. Feel free to call us for any further issues
[2021-01-20] MEDS: Nitroglycerin 0.4 MG TAB.SUBL SUBLINGUAL ×2 (14:32→14:58)
[2021-01-20 15:29] LABS: Troponin-I High Sensitivity 22.3 ng/L (<3.5-35.0)
--- NOTE | 2021-01-20 15:45 | PC.NURSE ---
At approx 1440 pt c/o 5/10 chest pressure. Pt given a total of 2 sl nitro ultimately, ekg done, and MARCELINO Daniels notified who ordered a stat troponin. Pt currently resting quietly. Will continue to monitor.
[2021-01-20] MEDS: Warfarin Sodium 5 MG TABLET PO (16:30)
--- NOTE | 2021-01-20 18:01 | MHC.CM.PN ---
CM met with pt. Awaiting room assignment. A&Ox3. Very pleasant and very talkative. Pt is AKA and uses a wheelchair. Resident at [facility]. IMM reviewed and signed per protocol. HCP on file. Pt tells CM that his HCP has and would probably need to make another. Requests his niece, Brandie Zambrano ([phone]). Pt is unsure of her name. Called into niece, message left to return call. Pt also has a [facility]OLST on file-full code, transfer to hospital. D/C plan is to return to [facility]. Will need BLS transport. Return referral placed. CM to follow for d/c needs.
--- NOTE | 2021-01-20 18:26 | PM.CNNEP ---
History of Present Illness Reason for Consult Consult date: 01/20/21 Chief Complaint Chief complaint: DARNELL History of Present Illness Narrative: Asked to see for DARNELL. PT is a poor historian and info obtainedfrom EHR, however he states he had issue with BPH and urinary retention and has required arredondo in past and once had it place for several weeks !! Arredondo placed and 1000 ml came out within the first 10 minutes ! Past medical history of hypertension, hyperlipidemia, neuropathy, GERD, CHF, TAVR, AFib on Coumadin, history of left lower extremity below-knee amputation presented to the hospital with a chief complaint of shortness of breath. Review of Systems Review of Systems Constitutional : No Weight loss, No Fever, No Chills, No Night Sweats, No Fatigue, No Malaise ENT/Mouth : No Hearing loss, No Ear Pain, No Nasal Congestion, No Sinus Pain, No Hoarseness, No sore throat, No Rhinorrhea, No Swallowing Difficulty Eyes: No Eye Pain, No Swelling, No Redness, No Foreign Body, No Discharge, No Vision Changes Cardiovascular : No Chest Pain, complaining of shortness of breath, worse with exertion or lying flat, no palpitations Respiratory : Reports new mild Cough, No Sputum, No Wheezing, No Smoke Exposure, complaining of dyspnea Gastrointestinal : No Nausea, No Vomiting, No Diarrhea, No Constipation, No abdominal Pain, No Hematochezia, No Melena Genitourinary : no irregular bleeding, No Dysuria, No Urinary Frequency, No Hematuria, No Urinary Incontinence, No Urgency, No Flank Pain, No Urinary Flow Changes, No Hesitancy Musculoskeletal : No joint pain, No Myalgias, No Joint Swelling Skin : No Skin Lesions, No rash Neuro : No Weakness, No Numbness, No Paresthesias, No Loss of Consciousness, No Dizziness, No Headache Psych : No Anxiety/Panic, No Depression, No SI/HI/AH/VH, No Social Issues, Heme/Lymph: No Bruising, No Bleeding,No Lymphadenopathy Endocrine : No Polyuria, No Polydipsia, No Temperature Intolerance Constitutional: Reports no additional constitutional complaints Cardiovascular: Denies chest pain, Denies syncope, Denies leg edema, Denies lightheadedness, Denies radiating jaw, neck or arm pain, Denies palpitations and Reports dyspnea on exertion Respiratory: Reports no additional respiratory complaints and Reports dyspnea on exertion Gastrointestinal: Reports no additional gastrointestinal complaints Genitourinary: Reports no additional male genitourinary complaints Musculoskeletal: Reports no additional musculoskeletal complaints Reports system reviewed and no additional complaints, except as documented and Denies syncope Psychiatric: Reports no additional psychiatric complaints Endocrine: Reports no additional endocrine complaints and Denies palpitations PMFSH Past Medical History Medical History (Updated 01/20/21 @ 13:39 by Nikos Alaniz MD) Above knee amputation of left lower extremity Afib FH: mitral valve repair GERD (gastroesophageal reflux disease) Heart failure HLD (hyperlipidemia) HTN (hypertension) Neuropathy Social History Social History Alcohol intake: never Smoking Status: Never smoker Use of substances other than those prescribed or required for medical reasons: No Advance Directives: No service: No Current occupational status: retired [employer] Interactions Allergies Allergy/AdvReac Type Severity Reaction Status Date / Time oxycodone [OXYCODONE] Allergy Intermediate ITCHING Verified 01/20/21 00:06 ANTIBIOITIC-? NAME Allergy Intermediate ITCHING Uncoded 07/23/20 14:50 Active Medications: Current Medications Generic Name Dose Route Start Last Admin Trade Name Freq PRN Reason Stop Dose Admin Acetaminophen 650 mg 01/20/21 00:13 01/20/21 02:46 Acetaminophen 325 Mg Tablet PO 650 mg Q6H PRN Administration Pain, Mild (Pain Scale 1-3) Albuterol/Ipratropium 3 ml 01/20/21 00:13 Albuterol/Iprat 2.5/0.5mg 3 Ml Ampul.Neb INHALE RQ4H PRN Shortness of Breath/Wheezing Aspirin 81 mg 01/20/21 09:00 01/20/21 08:07 Aspirin Enteric Coated 81 Mg Tablet. PO 81 mg DAILY CHRISTINE Administration Atorvastatin Calcium 40 mg 01/20/21 09:00 01/20/21 08:07 Atorvastatin Calcium 40 Mg Tablet PO 40 mg DAILY [facility]CRISTINE Administration Gabapentin 100 mg 01/20/21 09:00 01/20/21 08:07 Gabapentin 100 Mg Capsule PO 100 mg DAILY CHRISTINE Administration Metoprolol Tartrate 50 mg 01/20/21 09:00 01/20/21 08:07 Metoprolol Tartrate 50 Mg Tablet PO 50 mg BID CHRISTINE Administration Protocol Nitroglycerin 0.4 mg 01/20/21 00:13 01/20/21 14:58 Nitroglycerin 0.4 Mg Tab.Subl SUBLINGUAL 0.4 mg Q5M PRN Administration Chest Pain Omeprazole 20 mg 01/20/21 06:30 01/20/21 06:14 Omeprazole 20 Mg Capsule. PO 20 mg DAILY@0630 [facility] Administration Pharmacy Consult 1 each 01/20/21 00:15 Consult Rx Perform Med Rec MISCELLANE ONCE PRN Consult order Potassium Chloride 10 meq 01/20/21 09:00 01/20/21 08:07 Potassium Chloride Er 10 Meq Capsule.Er PO 10 meq BID [facility] Administration Quetiapine Fumarate 12.5 mg 01/20/21 21:00 Quetiapine Fumarate 25 Mg Tablet PO BEDTIME [facility] Sodium Chloride 3 ml 01/20/21 08:00 01/20/21 16:32 0.9 % Sodium Chloride Flush 3 Ml Syringe IVFLUSH Not Given QSHIFT [facility] Warfarin Sodium 5 mg 01/20/21 16:00 01/20/21 16:30 Warfarin Sodium 5 Mg Tablet PO 5 mg DAILY@1600 [facility] Administration Home Medications Medication Instructions Recorded Confirmed Last Taken Type aspirin 81 mg PO DAILY 01/19/21 01/19/21 Unknown History atorvastatin 40 mg PO DAILY 01/19/21 01/19/21 Unknown History furosemide 40 mg PO BID 01/19/21 01/19/21 Unknown History gabapentin 100 mg PO QAM 01/19/21 01/19/21 Unknown History metoprolol tartrate 50 mg PO BID 01/19/21 01/19/21 Unknown History pantoprazole 40 mg PO BID 01/19/21 01/19/21 Unknown History potassium chloride 10 meq PO BID 01/19/21 01/19/21 Unknown History quetiapine 12.5 mg PO BEDTIME 01/19/21 01/19/21 Unknown History spironolactone 25 mg PO DAILY 01/19/21 01/19/21 Unknown History warfarin 5 mg PO DAILY 01/19/21 01/19/21 Unknown History diltiazem HCl 120 mg PO DAILY 01/20/21 01/20/21 Unknown History melatonin 5 mg PO BEDTIME PRN 01/20/21 01/20/21 Unknown History thiamine HCl (vitamin B1) 100 mg PO DAILY 01/20/21 01/20/21 Unknown History Physical Exam Vital Signs: Last Vital Signs Temp 97.8 F 01/19/21 23:30 Pulse 70 01/20/21 14:58 Resp 20 01/20/21 14:34 BP 140/78 H 01/20/21 14:58 Pulse Ox 97 01/20/21 14:34 Body Mass Index 31.2 Const General: cooperative, comfortable, no acute distress, alert and awake Nutritional Appearance: obese Orientation/consciousness: patient oriented x3 HENMT Head: Yes normocephalic and Yes atraumatic Neck Neck: Yes trachea midline, Yes supple and Yes no JVD Resp Effort & Inspection: normal respiratory effort Auscultation: clear to auscultation bilaterally Cardio Jugular venous distension: no JVD Rhythm: abnormal rhythm irregularly irregular Heart sounds: S1 normal heart sound present and S2 normal heart sound present GI Auscultation: normal bowel sounds Skin General skin exam: no rashes or lesions noted Neuro General: patient oriented x3 and no focal motor deficits Extrem General: Yes no clubbing, cyanosis or edema Psych Appearance: grossly normal Results Lab Results Result Diagrams: 01/20/21 08:53 01/20/21 08:53 Lab results: Chemistry 01/19/21 01/20/21 01/20/21 21:05 08:53 08:53 Sodium 142 142 142 Potassium 4.3 4.1 4.4 Carbon Dioxide 27 29 27 BUN 60 H 57 H 57 H Creatinine 2.62 H 2.16 H 2.22 H Calcium 9.0 8.6 8.7 Hematology 01/19/21 01/20/21 21:05 08:53 WBC 10.7 9.4 Hgb 8.8 L 8.1 L Plt Count [id number] Assessment and Plan (1) Acute kidney injury: Status: Acute 1. DARNELL: OBS uropathy likely playing a signif role if not the whole role in hsi darnell; renal hyporefusion from dehydrattion; other poss such as AGN/AIN seem unlikely 2.Anemai 3. SALVADOR: willneed uro eval 4. H/O HF rec: track uop and watch for post-obs diuresis which can on rare occassions casue IV vol depletion; if renal func does not improve by am then furhter eval as to cause of DARNELL willbe needed will follow ross with team
[2021-01-20] MEDS: QUEtiapine Fumarate 25 MG TABLET 12.5 MG PO (20:50)
[2021-01-20] MEDS: 0.9 % Sodium Chloride Flush 3 ML SYRINGE IVFLUSH (23:47)
[2021-01-21 03:55] VITALS: BP 140/45; PULSE 71; RESP 20; TEMP 36.2; O2SAT 97
--- NOTE | 2021-01-21 04:52 | PC.NURSE ---
around 0400 pt had 3 beats of vtach and a few couplets, pt is asymptomatic and vitals are stable. Dr Anthony is aware.
[2021-01-21] MEDS: Omeprazole 20 MG CAPSULE.DR PO (05:46)
[2021-01-21 06:17] LABS: MANUAL DIFF FLAG NO
[2021-01-21 06:39] LABS: INTERNATIONAL NORM RATIO 2.4 (0.9-1.1); Prothrombin Time 29.1 SEC (10.8-13.0)
[2021-01-21 06:47] LABS: Basophils Absolute Auto 0.1 X10*3/uL (0.0-0.2); Basophils Percent Auto 0.6 % (0-2); Eosinophils Percent Auto 8.3 % (0-4); Hematocrit 26.9 % (42-52); Hemoglobin 8.5 g/dl (14.0-18.0); Imm Gran Abs Auto 0.05 X10*3/uL (0.00-0.03); Imm Gran Pct Auto 0.4 % (0.0-0.4); Lymphocytes Absolute Auto 1.7 X10*3/uL (1.2-4.9); Lymphocytes Percent Auto 14.6 % (20-40); Mean Corpuscular HGB Conc 31.6 g/dl (31.0-36.0); Mean Corpuscular Hemoglobin 28.8 pg (27.0-33.0); Mean Corpuscular Volume 91.2 fL (80-98); Mean Platelet Volume 11.3 fL (9.4-12.4); Monocytes Absolute Auto 0.9 X10*3/uL (0.1-1.2); Monocytes Percent Auto 7.7 % (2-11); Neutrophils Absolute Auto 7.8 X10*3/uL (2.0-8.3); Neutrophils Percent Auto 68.4 % (45-73); Platelet Count 336 X10*3/uL (160-400); Red Blood Count 2.95 X10*6/uL (4.60-5.80); Red Cell Distribution Width 17.2 % (11.0-16.0); White Blood Count 11.4 X10*3/uL (4.8-10.8)
[2021-01-21 06:58] LABS: Anion Gap 13 (12-20); Blood Urea Nitrogen 44 mg/dL (9-16); Calcium 8.7 mg/dL (8.4-10.2); Carbon Dioxide 24 mmol/L (22-29); Chloride 109 mmol/L (96-108); Creatinine Clr Calc Pharmacy 31.5; Estimated Glomerular Filt Rate 37; Glucose Random 88 mg/dL (60-115); Sodium 142 mmol/L (135-145)
[2021-01-21 07:37] VITALS: BP 141/66; PULSE 73; RESP 16; TEMP 36.3; O2SAT 96
--- NOTE | 2021-01-21 08:35 | P.CDIC_ITS ---
CDI Concurrent Query Service Date: 01/21/21 Documentation Clarification: Please clarify if you are treating a proba ble/suspected/likely or confirmed: Specifics: Chronic diastolic and/or systolic Congestive heart failure Please specify if known Chronic Diastolic CHF Provider Response: Other Other Diagnosis: Chronic Diastolic CHF PLEASE DO NOT DELETE/MODIFY EXISTING CONTENT Additional information is needed in order to code to the highest accuracy and appropriate Severity of Illness (SOI). Please clarify the information noted below in your progress notes and discharge summary. Risk Factors/Clinical Indicators/Treatments H&P: PMH Heart failure CHF BNP 140 H Home meds: Furosemide 40mg PO BID Dyspnea on exertion, shortness of breath, for all chronic conditions continue home meds. Cardiology consult CDS: Mariam Zarco CCS, CDIS Contact Number: [phone]. [phone] Please Review the information above and exercise your independent professional judgment in responding to the query. If you concur, pleas document in the PROGRESS NOTES and DISCHARGE SUMMARY. If you do not agree with the query, please document in the query above. THIS QUERY IS PART OF THE PERMANENT MEDICAL RECORD
[2021-01-21] MEDS: Gabapentin 100 MG CAPSULE PO (09:04)
[2021-01-21] MEDS: Aspirin Enteric Coated 81 MG TABLET.DR PO (09:04)
[2021-01-21] MEDS: Metoprolol Tartrate 50 MG TABLET PO ×2 (09:04→21:06)
[2021-01-21] MEDS: Atorvastatin Calcium 40 MG TABLET PO (09:04)
[2021-01-21] MEDS: 0.9 % Sodium Chloride Flush 3 ML SYRINGE IVFLUSH ×3 (09:05→21:07)
--- NOTE | 2021-01-21 11:26 | HO.PM.IMPN ---
Subjective Subjective Date of Service: 01/21/21 Interval History: f/u DARNELL/urinary retention angry about having arredondo Burning in right leg No overnight events He denies shortness of breath Review of Systems Review of Systems: Yes all other systems are reviewed and are negative Constitutional Constitutional: Denies chills and Denies fever(s) Cardiovascular Cardiovascular: Denies chest pain Respiratory Respiratory: Denies cough Gastrointestinal Gastrointestinal: Denies abdominal pain Physical Exam Vital Signs: Vital Signs: Last Vital Signs Temp 97.3 F 01/21/21 07:37 Pulse 73 01/21/21 07:37 Resp 16 01/21/21 07:37 BP 141/66 H 01/21/21 07:37 Pulse Ox 96 01/21/21 07:37 Body Mass Index 31.2 Const: General: no acute distress, alert and awake Nutritional Appearance: well nourished Orientation/consciousness: patient oriented x3 HENMT: Head: Yes normocephalic and Yes atraumatic Eyes: Sclerae: sclerae normal Chest: Chest palpation & inspection: normal inspection of the chest Resp: Effort & Inspection: normal respiratory effort and no respiratory distress Auscultation: clear to auscultation bilaterally Cardio: Rate: regular rate Rhythm: abnormal rhythm (irregular) GI: Palpation (GI): Soft to palpation and nontender : Other: arredondo Skin: General skin exam: no rashes or lesions noted Neuro: General: patient oriented x3 Cranial nerves: Yes CN's II-XII intact bilaterally and Yes Bilaterally intact EOM present Extrem: Other: s/p L AKA; right leg warm, no erythema General: Yes normal to inspection Objective Data Current Medications Generic Name Dose Route Start Last Admin Trade Name Jobyq PRN Reason Stop Dose Admin Acetaminophen 650 mg 01/20/21 00:13 01/20/21 02:46 Acetaminophen 325 Mg Tablet PO 650 mg Q6H PRN Administration Pain, Mild (Pain Scale 1-3) Albuterol/Ipratropium 3 ml 01/20/21 00:13 Albuterol/Iprat 2.5/0.5mg 3 Ml Ampul.Neb INHALE RQ4H PRN Shortness of Breath/Wheezing Aspirin 81 mg 01/20/21 09:00 01/21/21 09:04 Aspirin Enteric Coated 81 Mg Tablet. PO 81 mg DAILY CHRISTINE Administration Atorvastatin Calcium 40 mg 01/20/21 09:00 01/21/21 09:04 Atorvastatin Calcium 40 Mg Tablet PO 40 mg DAILY CHRISTINE Administration Gabapentin 100 mg 01/20/21 09:00 01/21/21 09:04 Gabapentin 100 Mg Capsule PO 100 mg DAILY CHRISTINE Administration Metoprolol Tartrate 50 mg 01/20/21 09:00 01/21/21 09:04 Metoprolol Tartrate 50 Mg Tablet PO 50 mg BID CHRISTINE Administration Protocol Nitroglycerin 0.4 mg 01/20/21 00:13 01/20/21 14:58 Nitroglycerin 0.4 Mg Tab.Subl SUBLINGUAL 0.4 mg Q5M PRN Administration Chest Pain Omeprazole 20 mg 01/20/21 06:30 01/21/21 05:46 Omeprazole 20 Mg Capsule.Dr PO 20 mg DAILY@0630 [facility] Administration Pharmacy Consult 1 each 01/20/21 00:15 Consult Rx Perform Med Rec MISCELLANE ONCE PRN Consult order Potassium Chloride 10 meq 01/20/21 09:00 01/21/21 09:04 Potassium Chloride Er 10 Meq Capsule.Er PO 10 meq BID CHRISTINE Administration Quetiapine Fumarate 12.5 mg 01/20/21 21:00 01/20/21 20:50 Quetiapine Fumarate 25 Mg Tablet PO 12.5 mg BEDTIME CHRISTINE Administration Sodium Chloride 3 ml 01/20/21 08:00 01/21/21 09:05 0.9 % Sodium Chloride Flush 3 Ml Syringe IVFLUSH 3 ml QSHIFT CHRISTINE Administration Warfarin Sodium 5 mg 01/20/21 16:00 01/20/21 16:30 Warfarin Sodium 5 Mg Tablet PO 5 mg DAILY@1600 [facility] Administration Labs CBC & Chem 7: 01/21/21 06:03 01/21/21 06:03 Microbiology Microbiology Results: Microbiology 01/19/21 21:05 Blood - Venous Blood Culture - Preliminary No growth after 24 hours. 01/19/21 21:05 Blood - Venous Blood Culture - Preliminary No growth after 24 hours. Assessment and Plan (1) PVD (peripheral vascular disease): Status: Acute (2) Status post transcatheter aortic valve replacement: Status: Acute (3) Afib: Status: Acute (4) Acute kidney injury: Status: Acute Assessment and Plan: This is 80 year old man admitted with dyspnea initially, he was never noted to by hypoxic and CXR was negative for consolidation. He was found to have urinary retension and arredondo catheter was placed. DARNELL. Secondary to urinary retention. -creatinine improved from 2.62 to 1.78 after arredondo drained 1L -Nephrology following Urinary retention. Follow catheter was placed and drained over 1000ml. Recommended to keep Arredondo in place, patient declined and asking for arredondo removal -will DC Arredondo, voiding trial -urology consult -flomax Afib. HR controlled. INR 2.4 -Continue warfarin and metoprolol -resume cardizem Asthma. No exacerbation -nebs as needed. Chronic HFpEF lasix, spironolactone on hold for DARNELL Monitor fluid status closely gerd Continue Prilosec Mood Continue Seroquel PVD continue asa, statin neuropathy Continue gabapentin DVT ppx - coumadin Attending: Dr. Ureña
[2021-01-21 11:52] VITALS: BP 129/56; PULSE 95; RESP 16; TEMP 36.6; O2SAT 98
--- NOTE | 2021-01-21 12:16 | PC.NURSE ---
[facility] CATH REMOVED AT 1200 PT DTV #1 AT 1800
--- NOTE | 2021-01-21 12:54 | PM.PNNEP ---
Subjective Subjective Date of Service: 01/21/21 Interval history: Seen and examined. events noted Physical Exam Vital Signs: Vital Signs: Last Vital Signs Temp 97.9 F 01/21/21 11:52 Pulse 95 01/21/21 11:52 Resp 16 01/21/21 11:52 BP 129/56 L 01/21/21 11:52 Pulse Ox 98 01/21/21 11:52 Body Mass Index 31.2 Const: General: cooperative, comfortable, no acute distress, alert and awake Nutritional Appearance: obese Orientation/consciousness: patient oriented x3 HENMT: Head: Yes normocephalic and Yes atraumatic Neck: Neck: Yes trachea midline, Yes supple and Yes no JVD Resp: Effort & Inspection: normal respiratory effort Auscultation: clear to auscultation bilaterally Cardio: Jugular venous distension: no JVD Rhythm: abnormal rhythm irregularly irregular Heart sounds: S1 normal heart sound present and S2 normal heart sound present GI: Auscultation: normal bowel sounds Skin: General skin exam: no rashes or lesions noted Neuro: General: patient oriented x3 and no focal motor deficits Extrem: General: Yes no clubbing, cyanosis or edema Psych: Appearance: grossly normal Objective Data Labs CBC & Chem 7: 01/21/21 06:03 01/21/21 06:03 Labs: Laboratory Results - last 24 hr 01/20/21 01/21/21 01/21/21 14:49 06:03 06:03 WBC 11.4 H RBC 2.95 L Hgb 8.5 L Hct 26.9 L MCV 91.2 MCH 28.8 MCHC 31.6 RDW 17.2 H Plt Count 336 MPV 11.3 Immature Gran % (Auto) 0.4 Neut % (Auto) 68.4 Lymph % (Auto) 14.6 L Metcalfe % (Auto) 7.7 Eos % (Auto) 8.3 H Baso % (Auto) 0.6 Lymph # (Auto) 1.7 Metcalfe # (Auto) 0.9 Eos # (Auto) 1.0 H Baso # (Auto) 0.1 Abs Immat Gran (auto) 0.05 H Absolute Neuts (auto) 7.8 Absolute Nucleated RBC 0.000 Nucleated RBC % (auto) 0.0 PT INR Sodium 142 Potassium 4.0 Chloride 109 H Carbon Dioxide 24 Anion Gap 13 BUN 44 H Creatinine 1.78 H Estim Creat Clear Calc 31.5 Estimated GFR 37 Random Glucose 88 Calcium 8.7 Troponin I High Sens 22.3 01/21/21 06:03 WBC RBC Hgb Hct MCV MCH MCHC RDW Plt Count MPV Immature Gran % (Auto) Neut % (Auto) Lymph % (Auto) Metcalfe % (Auto) Eos % (Auto) Baso % (Auto) Lymph # (Auto) Metcalfe # (Auto) Eos # (Auto) Baso # (Auto) Abs Immat Gran (auto) Absolute Neuts (auto) Absolute Nucleated RBC Nucleated RBC % (auto) PT 29.1 H INR 2.4 H Sodium Potassium Chloride Carbon Dioxide Anion Gap BUN Creatinine Estim Creat Clear Calc Estimated GFR Random Glucose Calcium Troponin I High Sens Microbiology Microbiology Results: Microbiology 01/19/21 21:05 Blood - Venous Blood Culture - Preliminary No growth after 24 hours. 01/19/21 21:05 Blood - Venous Blood Culture - Preliminary No growth after 24 hours. Assessment & Plan Assessment and plan (1) Acute kidney injury: Status: Acute Assessment and Plan: 1. DARNELL: OBS uropathy with decr SCr with arredondo in place 2.Anemia: s/pxfusion 3. SALVADOR: will need uro eval 4. H/O HF rec: cont to track renal func/uop;trial of flomax and urol eval; check fe stores; avoid ntoxins will follow ross with team Time Spent With Patient Time: Total time spent is greater than 50% in coordination of care (as documented) at patient's floor/unit and/or counseling patient:
[2021-01-21 13:48] LABS: Iron 17 mcg/dL (45-160); Percent Iron Saturation 4 % (15-50); Total Iron Binding Capacity 385 mcg/dL (228-428); Unsaturated Iron Binding 368 ug/dL
[2021-01-21 13:52] LABS: Ferritin 16 ng/mL (20-250)
[2021-01-21 13:55] VITALS: BMI 31.2
[2021-01-21 15:23] VITALS: BP 146/68; PULSE 105; RESP 16; TEMP 36.3; O2SAT 98
[2021-01-21] MEDS: Tamsulosin HCL 0.4 MG CAPSULE PO (16:16)
[2021-01-21] MEDS: Warfarin Sodium 5 MG TABLET PO (16:16)
--- NOTE | 2021-01-21 18:41 | MHC.CM.PN ---
CM placed return referral to [facility], as face sheet and EMS sheet stated he was there. Received word from Marilia in [employer]scripts that pt was d/c from facility in October. Upon further investigation, Pt is living in the independent living with services at [facility]. I do not know what services he has. I expect he will return to his current living situation. CM to follow for d/c needs.
[2021-01-21 19:20] VITALS: BP 115/44; PULSE 82; RESP 15; TEMP 37.1; O2SAT 96
[2021-01-21 21:06] VITALS: BP 114/47; PULSE 87
[2021-01-21] MEDS: QUEtiapine Fumarate 25 MG TABLET 12.5 MG PO (21:06)
[2021-01-22 03:54] VITALS: BP 135/76; PULSE 95; RESP 20; TEMP 35.9; O2SAT 95
[2021-01-22] MEDS: Omeprazole 20 MG CAPSULE.DR PO (05:38)
[2021-01-22 07:04] LABS: INTERNATIONAL NORM RATIO 2.9 (0.9-1.1); Prothrombin Time 34.7 SEC (10.8-13.0)
[2021-01-22 07:18] LABS: Anion Gap 12 (12-20); Blood Urea Nitrogen 40 mg/dL (9-16); Calcium 8.4 mg/dL (8.4-10.2); Carbon Dioxide 24 mmol/L (22-29); Chloride 110 mmol/L (96-108); Creatinine Clr Calc Pharmacy 30.3; Estimated Glomerular Filt Rate 35; Glucose Random 81 mg/dL (60-115); Potassium 4.1 mmol/L (3.3-5.1); Sodium 142 mmol/L (135-145)
[2021-01-22 07:31] VITALS: BP 132/71; PULSE 76; RESP 17; TEMP 36.6; O2SAT 98
[2021-01-22 08:04] VITALS: BP 147/69; PULSE 85; O2SAT 97
[2021-01-22] MEDS: dilTIAZem HCL CD 120 MG CAP.ER.DEG PO (10:42)
[2021-01-22] MEDS: Aspirin Enteric Coated 81 MG TABLET.DR PO (10:42)
[2021-01-22] MEDS: Atorvastatin Calcium 40 MG TABLET PO (10:42)
[2021-01-22] MEDS: Gabapentin 100 MG CAPSULE PO (10:42)
[2021-01-22] MEDS: Metoprolol Tartrate 50 MG TABLET PO (10:42)
[2021-01-22] MEDS: 0.9 % Sodium Chloride Flush 3 ML SYRINGE IVFLUSH (10:43)
--- NOTE | 2021-01-22 12:09 | P.DS_ITS ---
DS: Providers Provider Date of Service: 01/22/21 Date of admission: 01/20/21 00:13 Primary care physician: Ryan Herrera MD Consults: 01/20/21 00:13 Consult to Cardiology Routine Consulting Provider: Nikos Alaniz Reason for consultation: HINES Consult to Nephrology Routine Consulting Provider: Sandra Chavira Reason for consultation: Darnell 01/21/21 10:06 Consult to Urology Routine Consulting Provider: Quinten Correia Reason for consultation: urinary retension Has provider been notified: No DS: Diagnosis Discharge Diagnosis (1) PVD (peripheral vascular disease): Status: Acute (2) Status post transcatheter aortic valve replacement: Status: Acute (3) Afib: Status: Acute (4) Acute kidney injury: Status: Acute DS: Medications Discharge Medications Home Medications: Home Medications Medication Instructions Recorded Confirmed aspirin 81 mg PO DAILY 01/19/21 01/19/21 atorvastatin 40 mg PO DAILY 01/19/21 01/19/21 furosemide 40 mg PO BID 01/19/21 01/19/21 gabapentin 100 mg PO QAM 01/19/21 01/19/21 metoprolol tartrate 50 mg PO BID 01/19/21 01/19/21 pantoprazole 40 mg PO BID 01/19/21 01/19/21 potassium chloride 10 meq PO BID 01/19/21 01/19/21 quetiapine 12.5 mg PO BEDTIME 01/19/21 01/19/21 spironolactone 25 mg PO DAILY 01/19/21 01/19/21 warfarin 5 mg PO DAILY 01/19/21 01/19/21 diltiazem HCl 120 mg PO DAILY 01/20/21 01/20/21 melatonin 5 mg PO BEDTIME PRN 01/20/21 01/20/21 thiamine HCl (vitamin B1) 100 mg PO DAILY 01/20/21 01/20/21 DS: Summary Hospital Course Hospital Course: This is 80 year old man admitted with dyspnea initially, he was never noted to by hypoxic and CXR was negative for consolidation. He was found to have urinary retension and arredondo catheter was placed. DARNELL. Secondary to urinary retention. -creatinine improved from 2.62 to 1.78 after arredondo drained 1L. Patient requested to have Arredondo removed despite recommendations to keep in place. He was evaluated by Nephrology who recommended holding diuretics on discharge. Patient should follow-up with PCP as an outpatient to follow renal function. He was started on iron supplementation. Urinary retention. Follow catheter was placed and drained over 1000ml. Recommended to keep Arredondo in place, patient declined and asking for arredondo removal. Patient was started on Flomax. Seen by Urology who recommended to continue flomax. Can follow up with urology as an outpatient. Time Spent with Patient Time attestation: Total time spent providing and/or coordinating discharge services: Discharge coordination time: Greater than 30 minutes Physical Exam Vital Signs: Vital Signs: Last Vital Signs Temp 97.9 F 01/22/21 07:31 Pulse 85 01/22/21 08:04 Resp 17 01/22/21 07:31 BP 147/69 H 01/22/21 08:04 Pulse Ox 97 01/22/21 08:04 Body Mass Index 31.2 Const: General: no acute distress, alert and awake Nutritional Appearance: well nourished Orientation/consciousness: patient oriented x3 HENMT: Head: Yes normocephalic and Yes atraumatic Eyes: Sclerae: sclerae normal Chest: Chest palpation & inspection: normal inspection of the chest Resp: Effort & Inspection: normal respiratory effort and no respiratory distress Auscultation: clear to auscultation bilaterally Cardio: Rate: regular rate Rhythm: abnormal rhythm (irregular) GI: Palpation (GI): Soft to palpation and nontender : Other: arredondo Skin: General skin exam: no rashes or lesions noted Neuro: General: patient oriented x3 Cranial nerves: Yes CN's II-XII intact bilaterally and Yes Bilaterally intact EOM present Extrem: Other: s/p L AKA; right leg warm, no erythema General: Yes normal to inspection DS: Data Data Completed and Pending Labs on day of discharge: Laboratory Results - last 24 hr 01/21/21 01/22/21 01/22/21 06:03 06:13 06:13 PT 34.7 H INR 2.9 H Sodium 142 Potassium 4.1 Chloride 110 H Carbon Dioxide 24 Anion Gap 12 BUN 40 H Creatinine 1.85 H Estim Creat Clear Calc 30.3 Estimated GFR 35 Random Glucose 81 Calcium 8.4 Iron 17 L TIBC 385 % Saturation 4 L Unsat Iron Binding 368 Ferritin 16 L Preliminary micro results at discharge 01/19/21 21:05 Blood Culture - Preliminary Blood - Venous No growth after 48 hours. 01/19/21 21:05 Blood Culture - Preliminary Blood - Venous No growth after 48 hours. Discharge Plan Discharge Patient Disposition: Home, Self-Care Referrals: Quinten Correia MD [Physician] - (call office for appt) Ryan Herrera MD [Primary Care Provider] - Calvin Cerrato MD [Physician] - Discharge Medications: New tamsulosin 0.4 mg Capsule 0.4 mg PO DAILY@1730 Qty: 30 RF: 0 ferrous sulfate 325 mg (65 mg iron) tablet 325 mg PO Q OTHER DAY Qty: 30 RF: 0 Continued aspirin 81 mg tablet,delayed release (DR/EC) 81 mg PO DAILY RF: 0 pantoprazole 40 mg tablet,delayed release (DR/EC) 40 mg PO BID RF: 0 metoprolol tartrate 50 mg tablet 50 mg PO BID RF: 0 quetiapine 25 mg tablet 12.5 mg PO BEDTIME RF: 0 atorvastatin 40 mg tablet 40 mg PO DAILY RF: 0 potassium chloride 10 mEq tablet extended release 10 meq PO BID RF: 0 warfarin 5 mg tablet 5 mg PO DAILY RF: 0 gabapentin 100 mg capsule 100 mg PO QAM RF: 0 thiamine HCl (vitamin B1) 100 mg Tablet 100 mg PO DAILY RF: 0 diltiazem HCl 120 mg capsule,extended release 24hr 120 mg PO DAILY RF: 0 melatonin 5 mg Tablet 5 mg PO BEDTIME PRN (Reason: Insomnia) RF: 0 Held furosemide 40 mg tablet 40 mg PO BID RF: 0 Hold Instructions: Resume on 01/29/21. do not restart until seen by your primary care doctor spironolactone 25 mg tablet 25 mg PO DAILY RF: 0 Hold Instructions: Resume on 01/29/21. do not restart until seen by primary care doctor Discharge Orders: Discharge Order (Routine); Ordered 01/22/21 Ordered By: Shereen Menendez Diet: advance to usual diet Activity on Discharge: As tolerated Stand Alone Forms: Patient Portal Discharge page Other Ambulatory Orders: Basic Metabolic Panel (Routine) Timeframe: 20210127 Facility: [facility] - Location: Laboratory Ordered By: Jerrod Ureña Care Plan Goals: To stay healthy and out of the hospital. Health Concerns: DARNELL Urinary Retention Low Iron levels Plan of Treatment: DARNELL - due to urinary retention. Do not take your Lasix/Aldactone until you have been told to do so by your doctors. Check your kidney function next week. Urinary Retention - Folllow up with Dr. Correia. Low Iron levels - Take iron pills every other day
[2021-01-22 12:14] VITALS: BP 117/58; PULSE 87; O2SAT 97
[2021-01-22] MEDS: Acetaminophen 325 MG TABLET 650 MG PO (12:35)
--- NOTE | 2021-01-22 13:03 | MHC.CM.PN ---
PATIENT IS DISCHARGED HOME WITH NO NEED FOR SERVICES. RN AWARE OF PLAN. [facility] TO TRANSPORT. PER RN DISCUSSION WITH PATIENT, CORRECT ADDRESS IS [address] [place] [id number]
--- NOTE | 2021-01-22 13:08 | P.CNUR_ITS ---
History of Present Illness Consult details Narrative: BPH Increase Flomax to 2 tabs each evening Follow-up in 2 weeks in office [facility] Past Medical History Medical History (Updated 01/20/21 @ 13:39 by Nikos Alaniz MD) Above knee amputation of left lower extremity Afib FH: mitral valve repair GERD (gastroesophageal reflux disease) Heart failure HLD (hyperlipidemia) HTN (hypertension) Neuropathy Social History Social History Household Members: None Housing: Assisted Living Facility Alcohol intake: never Smoking Status: Never smoker service: No Current occupational status: retired [employer] Allergies Allergy/AdvReac Type Severity Reaction Status Date / Time oxycodone [OXYCODONE] Allergy Intermediate ITCHING Verified 01/20/21 00:06 ANTIBIOITIC-? NAME Allergy Intermediate ITCHING Uncoded 07/23/20 14:50 Active Medications: Current Medications Generic Name Dose Route Start Last Admin Trade Name Freq PRN Reason Stop Dose Admin Acetaminophen 650 mg 01/20/21 00:13 01/22/21 12:35 Acetaminophen 325 Mg Tablet PO 650 mg Q6H PRN Administration Pain, Mild (Pain Scale 1-3) Albuterol/Ipratropium 3 ml 01/20/21 00:13 Albuterol/Iprat 2.5/0.5mg 3 Ml Ampul.Neb INHALE RQ4H PRN Shortness of Breath/Wheezing Aspirin 81 mg 01/20/21 09:00 01/22/21 10:42 Aspirin Enteric Coated 81 Mg Tablet.Dr PO 81 mg DAILY CHRISTINE Administration Atorvastatin Calcium 40 mg 01/20/21 09:00 01/22/21 10:42 Atorvastatin Calcium 40 Mg Tablet PO 40 mg DAILY CHRISTINE Administration Diltiazem HCl 120 mg 01/22/21 09:00 01/22/21 10:42 Diltiazem Hcl Cd 120 Mg Cap.Er.Deg PO 120 mg DAILY CHRISTINE Administration Protocol Gabapentin 100 mg 01/20/21 09:00 01/22/21 10:42 Gabapentin 100 Mg Capsule PO 100 mg DAILY CHRISTINE Administration Metoprolol Tartrate 50 mg 01/20/21 09:00 01/22/21 10:42 Metoprolol Tartrate 50 Mg Tablet PO 50 mg BID CHRISTINE Administration Protocol Nitroglycerin 0.4 mg 01/20/21 00:13 01/20/21 14:58 Nitroglycerin 0.4 Mg Tab.Subl SUBLINGUAL 0.4 mg Q5M PRN Administration Chest Pain Omeprazole 20 mg 01/20/21 06:30 01/22/21 05:38 Omeprazole 20 Mg Capsule.Dr PO 20 mg DAILY@0630 [facility] Administration Pharmacy Consult 1 each 01/20/21 00:15 Consult Rx Perform Med Rec MISCELLANE ONCE PRN Consult order Potassium Chloride 10 meq 01/20/21 09:00 01/22/21 10:42 Potassium Chloride Er 10 Meq Capsule.Er PO 10 meq BID CHRISTINE Administration Quetiapine Fumarate 12.5 mg 01/20/21 21:00 01/21/21 21:06 Quetiapine Fumarate 25 Mg Tablet PO 12.5 mg BEDTIME CHRISTINE Administration Sodium Chloride 3 ml 01/20/21 08:00 01/22/21 10:43 0.9 % Sodium Chloride Flush 3 Ml Syringe IVFLUSH 3 ml QSHIFT [facility] Administration Tamsulosin HCl 0.4 mg 01/21/21 17:30 01/21/21 16:16 Tamsulosin Hcl 0.4 Mg Capsule PO 0.4 mg DAILY@1730 [facility] Administration Warfarin Sodium 5 mg 01/20/21 16:00 01/21/21 16:16 Warfarin Sodium 5 Mg Tablet PO 5 mg DAILY@1600 [facility] Administration Home Medications Medication Instructions Recorded Confirmed Last Taken Type aspirin 81 mg PO DAILY 01/19/21 01/19/21 Unknown History atorvastatin 40 mg PO DAILY 01/19/21 01/19/21 Unknown History furosemide 40 mg PO BID 01/19/21 01/19/21 Unknown History gabapentin 100 mg PO QAM 01/19/21 01/19/21 Unknown History metoprolol tartrate 50 mg PO BID 01/19/21 01/19/21 Unknown History pantoprazole 40 mg PO BID 01/19/21 01/19/21 Unknown History potassium chloride 10 meq PO BID 01/19/21 01/19/21 Unknown History quetiapine 12.5 mg PO BEDTIME 01/19/21 01/19/21 Unknown History spironolactone 25 mg PO DAILY 01/19/21 01/19/21 Unknown History warfarin 5 mg PO DAILY 01/19/21 01/19/21 Unknown History diltiazem HCl 120 mg PO DAILY 01/20/21 01/20/21 Unknown History melatonin 5 mg PO BEDTIME PRN 01/20/21 01/20/21 Unknown History thiamine HCl (vitamin B1) 100 mg PO DAILY 01/20/21 01/20/21 Unknown History Physical Exam Vital Signs: Vital Signs: Last Vital Signs Temp 97.9 F 01/22/21 07:31 Pulse 87 01/22/21 12:14 Resp 17 01/22/21 07:31 BP 117/58 L 01/22/21 12:14 Pulse Ox 97 01/22/21 12:14 Body Mass Index 31.2 Results Labs Result diagrams: 01/21/21 06:03 01/22/21 06:13 Labs: Abnormal lab results 01/21/21 01/22/21 01/22/21 Range/Units 06:03 06:13 06:13 PT 34.7 H (10.8-13.0) SEC INR 2.9 H (0.9-1.1) Chloride 110 H (96-108) mmol/L BUN 40 H (9-16) mg/dL Creatinine 1.85 H (0.5-1.4) mg/dL Iron 17 L (45-160) mcg/dL % Saturation 4 L (15-50) % Ferritin 16 L (20-250) ng/mL BMP 01/22/21 06:13 Sodium 142 Potassium 4.1 Chloride 110 H Carbon Dioxide 24 BUN 40 H Creatinine 1.85 H Calcium 8.4 All other labs normal.
[2021-01-22 15:21] VITALS: BP 125/60; PULSE 64; RESP 17; TEMP 36.5; O2SAT 98
== END 2021-01-22 15:45 | disposition home or self-care (01) | DRG 683 ==
LOC: HO.ED 01-20 00:21 → HO.EDOVER 01-20 01:08 → HO.S3 01-20 18:35
PROVIDERS: Internal Medicine Nephrology; Nurse Practitioner Acute Care; Physician Assistant Medical; Admitting Provider Hospitalist; Emergency Provider Emergency Medicine; PCP Internal Medicine; Visit Provider Family Medicine
DX: N17.9 Acute kidney failure, unspecified (principal); I50.32 Chronic diastolic (congestive) heart failure; N13.8 Other obstructive and reflux uropathy; K21.9 Gastro-esophageal reflux disease without esophagitis; E78.5 Hyperlipidemia, unspecified; F39 Unspecified mood [affective] disorder; I11.0 Hypertensive heart disease with heart failure; N40.1 Benign prostatic hyperplasia with lower urinary tract symptoms; G62.9 Polyneuropathy, unspecified; I73.9 Peripheral vascular disease, unspecified; I48.91 Unspecified atrial fibrillation; Z20.822 Contact with and (suspected) exposure to COVID-19; Z89.612 Acquired absence of left leg above knee; Z88.5 Allergy status to narcotic agent; Z79.01 Long term (current) use of anticoagulants; Z79.899 Other long term (current) drug therapy
CPT/HCPCS: 0241U; 36415; 71045; 80048; 80076; 82728; 83540; 83605; 83735; 83880; 84484; 85025; 85027; 85379; 85610; 87040; 93005; 99285; C1758

== ENCOUNTER → 2021-02-16 10:26 | Outpatient (BNVA) | payer MEDICARE, SELFPAY | PROVIDERS: PCP Internal Medicine; Visit Provider Urology | DX: Z13.89 Encounter for screening for other disorder (principal) | CPT/HCPCS: 51798; 99212 ==

== ENCOUNTER 2021-02-17 12:53 | Inpatient (IN) | payer MEDICARE, SELFPAY ==
--- NOTE | ~2021-02-17 | NM_ITS ---
EXAMINATION: NM LUNG IMAGE PERFUSION CLINICAL INFORMATION: Hemoptysis, elevated d-dimer COMPARISON: None TECHNIQUE: Following intravenous administration of 2.6 mCi of 90 9M technetium MAA imaging of both lungs were obtained multiple projections. Ventilation study was not performed. FINDINGS: On ventilation imaging there is normal perfusion seen to all segments of the lungs. There is no segmental or subsegmental defects seen. The soft tissues are normal. NM/NM pul perfusion IMPRESSION: Normal perfusion scan.
--- NOTE | ~2021-02-17 | XR_ITS ---
EXAMINATION: XR CHEST CLINICAL INFORMATION: Shortness of breath. COMPARISON: Chest 01/19/2021. TECHNIQUE: Frontal view of the chest was obtained. FINDINGS: Lungs are hypoexpanded and clear. The heart size is borderline enlarged. Pulmonary vascularity is normal. 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 No gross bony abnormality seen. XR/XR chest 1V IMPRESSION: Borderline enlarged heart. Hypoexpanded lungs with no acute process.
--- NOTE | ~2021-02-17 | CT_ITS ---
EXAMINATION: CT CHEST WITHOUT CONTRAST CLINICAL INFORMATION: Hemoptysis. COMPARISON: Nuclear medicine pulmonary perfusion and chest x-ray of 02/07/2021. CTA of chest of 11/02/2016. TECHNIQUE: Multidetector volumetric CT imaging of the chest was done. Axial MIP volume rendering provided. Sagittal and coronal reformatted images were obtained. This CT examination was performed using dose optimization techniques as appropriate, variously including the following: *Automated exposure control *Adjustment of mA and/or kV according to patient size (this includes techniques or standardized protocols for targeted exams where dose is matched to indication/reason for exam; i.e. extremities or head) *Use of iterative reconstruction technique DLP: 345 mGy-cm. FINDINGS: LUNGS: Central airways are patent. There is some bronchial wall thickening seen centrally. There is left lower lobe consolidation with air bronchograms present. There are foci of peripheral disease with some regions of peripheral ground-glass disease with tree-in-bud configuration, likely related to small airways disease. No definite suspicious circumscribed lung nodules are identified. No definite endobronchial lesions appreciated. MEDIASTINUM: Visualized portions of the thyroid appear unremarkable. Heart upper limits of normal in size. No pericardial effusion. TAVR in place. There is some mitral annulus calcification seen. Coronary artery calcifications are noted. Patient is status post median sternotomy and CABG. There is a prominent but nonocclusive thoracic aortic calcification including origin of the arch vessels. The ascending thoracic aorta measures up to 4.3 cm in diameter. There is a 1.8 cm precarinal lymph node present. No hilar lymphadenopathy is appreciated. PLEURA: There are small bilateral pleural effusions. AXILLA: No lymphadenopathy. UPPER ABDOMEN: No adrenal gland masses. There is prominent abdominal aortic calcification present with large amount of calcific cases origin of the celiac and superior mesenteric arteries. I cannot tell whether these may be hemodynamically significant lesions. OSSEOUS STRUCTURES: No suspicious destructive bony lesions identified. There is multilevel degenerative disc disease seen throughout the thoracic spine as well as calcification of the anterior longitudinal ligament. CT/CT chest wo con IMPRESSION: Small bilateral pleural effusions. Airspace disease with air bronchograms within the left lower lobe which may be related to pneumonitis or possible site of hemoptysis with preferential aspiration of blood. Less likely, this could be related to resolving pulmonary edema since no definite predominant central disease is appreciated. Thoracic aortic aneurysm up to 4.3 cm in diameter with TAVR in place. 1.8 cm precarinal lymph node. Atherosclerosis.
--- NOTE | 2021-02-17 13:12 | ECG_ITS ---
Test Reason : SHORTNESS OF BREATH Blood Pressure : / mmHG Vent. Rate : 086 BPM Atrial Rate : 066 BPM P-R Int : 000 ms QRS Dur : 086 ms QT Int : 322 ms P-R-T Axes : 000 -10 180 degrees QTc Int : 385 ms Atrial fibrillation Nonspecific T wave abnormality Abnormal ECG When compared with ECG of 20-JAN-2021 14:39, No significant changes seen Referred By: Generic ED Physician Electronically Signed By:ALDAIR MENG
[2021-02-17 13:14] VITALS: BP 136/70; BP 150/55; PULSE 85; PULSE 86; RESP 20; TEMP 36.8; O2SAT 97; BMI 34.2
[2021-02-17 13:32] LABS: MANUAL DIFF FLAG NO
[2021-02-17 13:42] LABS: Basophils Absolute Auto 0.1 X10*3/uL (0.0-0.2); Basophils Percent Auto 0.7 % (0-2); Eosinophils Absolute Auto 0.7 X10*3/uL (0.0-0.4); Eosinophils Percent Auto 9.3 % (0-4); Hematocrit 28.4 % (42-52); Hemoglobin 8.6 g/dl (14.0-18.0); Imm Gran Abs Auto 0.02 X10*3/uL (0.00-0.03); Imm Gran Pct Auto 0.3 % (0.0-0.4); Lymphocytes Absolute Auto 1.1 X10*3/uL (1.2-4.9); Lymphocytes Percent Auto 14.5 % (20-40); Mean Corpuscular HGB Conc 30.3 g/dl (31.0-36.0); Mean Corpuscular Hemoglobin 27.4 pg (27.0-33.0); Mean Corpuscular Volume 90.4 fL (80-98); Mean Platelet Volume 10.6 fL (9.4-12.4); Monocytes Absolute Auto 0.7 X10*3/uL (0.1-1.2); Monocytes Percent Auto 9.5 % (2-11); Neutrophils Absolute Auto 5.1 X10*3/uL (2.0-8.3); Neutrophils Percent Auto 65.7 % (45-73); Platelet Count 260 X10*3/uL (160-400); Red Blood Count 3.14 X10*6/uL (4.60-5.80); Red Cell Distribution Width 19.3 % (11.0-16.0); White Blood Count 7.7 X10*3/uL (4.8-10.8)
[2021-02-17 14:09] LABS: Anion Gap 12 (12-20); Blood Urea Nitrogen 22 mg/dL (9-16); Calcium 9.3 mg/dL (8.4-10.2); Carbon Dioxide 24 mmol/L (22-29); Chloride 111 mmol/L (96-108); Estimated Glomerular Filt Rate 36; Glucose Random 97 mg/dL (60-115); Sodium 142 mmol/L (135-145)
[2021-02-17 14:15] LABS: B Type Natriuretic Peptide 505 pg/mL (<100); Troponin-I High Sensitivity 31.3 ng/L (<3.5-35.0)
[2021-02-17 15:38] VITALS: BP 168/81; PULSE 89; RESP 20; TEMP 36.8; O2SAT 93
--- NOTE | 2021-02-17 15:39 | ED.GENADULT ---
HPI - General Adult General Chief complaint: General Medical Stated complaint: SOB,SPITTING UP BLOOD Time Seen by Provider: 02/17/21 15:39 Source: EMS Mode of arrival: EMS Limitations: no limitations History of Present Illness HPI narrative: 80-year-old male with history of heart failure, atrial fibrillation chronically anticoagulated on Coumadin, hyperlipidemia, hypertension, neuropathy who presents from his PCP office with complaint of shortness of breath also reporting that he has been coughing up blood for past 17 days. States his symptoms have been progressively getting worse and he was recently taking off of his diuretic. Onset (ago): week(s) (2 weeks) Radiation: non-radiation Severity: moderate Relieving factors: none Exacerbating factors: none Associated symptoms: chest pain (Pressure-like sometimes) Treatments prior to arrival: none Related Data Home Medications Medication Instructions Recorded Confirmed aspirin 81 mg PO DAILY 01/19/21 02/17/21 atorvastatin 40 mg PO DAILY 01/19/21 02/17/21 furosemide 40 mg PO BID 01/19/21 02/17/21 gabapentin 100 mg PO QAM 01/19/21 02/17/21 metoprolol tartrate 50 mg PO BID 01/19/21 02/17/21 pantoprazole 40 mg PO BID 01/19/21 02/17/21 potassium chloride 10 meq PO BID 01/19/21 02/17/21 quetiapine 12.5 mg PO BEDTIME 01/19/21 02/17/21 spironolactone 25 mg PO DAILY 01/19/21 02/17/21 warfarin 5 mg PO DAILY 01/19/21 01/19/21 diltiazem HCl 120 mg PO DAILY 01/20/21 02/17/21 melatonin 5 mg PO BEDTIME PRN 01/20/21 02/17/21 thiamine HCl (vitamin B1) 100 mg PO DAILY 01/20/21 02/17/21 allopurinol 1 tab PO DAILY 02/17/21 02/17/21 Previous Rx's Medication Instructions Recorded ferrous sulfate 325 mg PO Q OTHER DAY #30 tab 01/22/21 tamsulosin 0.4 mg capsule 0.8 mg PO BEDTIME 90 Days #180 cap 02/16/21 Allergies Allergy/AdvReac Type Severity Reaction Status Date / Time oxycodone [OXYCODONE] Allergy Intermediate ITCHING Verified 01/20/21 00:06 ANTIBIOITIC-? NAME Allergy Intermediate ITCHING Uncoded 07/23/20 14:50 Review of Systems Review of Systems: Constitutional: No Weight loss, No Fever, No Chills, No Night Sweats, No Fatigue, No Malaise ENT/Mouth: No Hearing loss, No Ear Pain, No Nasal Congestion, No Sinus Pain, No Hoarseness, No sore throat, No Rhinorrhea, No Swallowing Difficulty Eyes: No Eye Pain, No Swelling, No Redness, No Foreign Body, No Discharge, No Vision Changes Cardiovascular: + Chest Pain, + SOB, No Orthopnea, + Edema, No Palpitations Respiratory: No Cough, No Sputum, No Wheezing, No Smoke Exposure, No Dyspnea Gastrointestinal: No Nausea, No Vomiting, No Diarrhea, No Constipation, No abdominal Pain, No Hematochezia, No Melena Genitourinary: no irregular bleeding, No Dysuria, No Urinary Frequency, No Hematuria, No Urinary Incontinence, No Urgency, No Flank Pain, No Urinary Flow Changes, No Hesitancy Musculoskeletal: No joint pain, No Myalgias, No Joint Swelling Skin: No Skin Lesions, No rash Neuro: No Weakness, No Numbness, No Paresthesias, No Loss of Consciousness, No Dizziness, No Headache Psych: No Anxiety/Panic, No Depression, No SI/HI/AH/VH, No Social Issues Heme/Lymph: No Bruising, No Bleeding,No Lymphadenopathy Endocrine: No Polyuria, No Polydipsia, No Temperature Intolerance Yes all other systems are reviewed and are negative [facility] Past Medical History Medical History Above knee amputation of left lower extremity Afib FH: mitral valve repair GERD (gastroesophageal reflux disease) Heart failure HLD (hyperlipidemia) HTN (hypertension) Neuropathy PVD (peripheral vascular disease) Surgical History Status post transcatheter aortic valve replacement Social History Social History Household Members: None Housing: Assisted Living Facility Alcohol intake: never Smoking Status: Never smoker Advance Directives: Yes Advance Directives on File: Yes Advance Directives Date on File: 01/20/21 service: No Current occupational status: retired Physical Exam Vital Signs: Vital Signs: Last Vital Signs Temp 97.7 F 02/17/21 19:40 Pulse 90 02/17/21 19:40 Resp 16 02/17/21 20:00 BP 143/74 H 02/17/21 19:40 Pulse Ox 95 02/17/21 19:40 Body Mass Index 34.2 Reviewed Const: General: cooperative; No acute distress or intoxicated appearing Nutritional Appearance: overweight Orientation/consciousness: patient oriented x3 HENMT: Head: Yes normal to inspection Ears: hearing grossly normal bilaterally Eyes: General: appearance normal, both eyes and all related structures Visual Alegre: normal visual alegre by confrontation Neck: Neck: Yes normal visual inspection, No positive Brudzinski's sign, No positive Kernig's sign and No tender Thyroid: Thyroid normal Chest: Chest palpation & inspection: normal inspection of the chest Resp: Effort & Inspection: normal respiratory effort Auscultation: diminished lung sounds bilateral (Basis) Cardio: Jugular venous distension: no JVD Rhythm: abnormal rhythm (Regularly irregular) Heart sounds: S1 normal heart sound present GI: Inspection: Yes normal to inspection Palpation (GI): Soft to palpation Percussion: Yes normal to percussion Auscultation: normal bowel sounds : General: Yes no CVA tenderness Back/Spine/Pelvis: Back: no CVA tenderness Skin: General skin exam: no rashes or lesions noted Neuro: General: patient oriented x3 Extrem: General: Yes normal to inspection Course Course Course Narrative: Showed me tissue paper way he had pinkish phlegm and states this is very mild sometimes forget where his just argelia blood in his phlegm. Right lower extremity with 3+ edema above the knee amputation on the left. Lung sounds diminished at the bases with slight crackle history of HF will go ahead and give IV Lasix 40 mg workup initiated including D-dimer he is on Coumadin. Reevaluation(s) Reevaluation #1: H&H essentially at his baseline, INR 2, platelet 260. Slightly elevated D-dimer age adjusted however given his hemoptysis V/Q scan will be done due to poor renal function. Reevaluation #2: V/Q scan negative, troponin without delta. Heart score 4 VSS, without any further hemoptysis. Given that he is on Coumadin and hemoptysis admission requested patient placed in hospitalist for observation. Consultations Consultation #1: Case discussed with Dr. Anthony hospitalist for admission Medical Decision Making Lab Data Result diagrams: 02/17/21 13:27 02/17/21 13:27 Labs: Lab Results 02/17/21 02/17/21 02/17/21 Range/Units 13:27 13:27 13:27 WBC 7.7 (4.8-10.8) X10*3/uL RBC 3.14 L (4.60-5.80) X10*6/uL Hgb 8.6 L (14.0-18.0) g/dl Hct 28.4 L (42-52) % MCV 90.4 (80-98) fL MCH 27.4 (27.0-33.0) pg MCHC 30.3 L (31.0-36.0) g/dl RDW 19.3 H (11.0-16.0) % Plt Count 260 (160-400) X10*3/uL MPV 10.6 (9.4-12.4) fL Immature Gran % (Auto) 0.3 (0.0-0.4) % Neut % (Auto) 65.7 (45-73) % Lymph % (Auto) 14.5 L (20-40) % [place] % (Auto) 9.5 (2-11) % Eos % (Auto) 9.3 H (0-4) % Baso % (Auto) 0.7 (0-2) % Lymph # (Auto) 1.1 L (1.2-4.9) X10*3/uL [place] # (Auto) 0.7 (0.1-1.2) X10*3/uL Eos # (Auto) 0.7 H (0.0-0.4) X10*3/uL Baso # (Auto) 0.1 (0.0-0.2) X10*3/uL Abs Immat Gran (auto) 0.02 (0.00-0.03) X10*3/uL Absolute Neuts (auto) 5.1 (2.0-8.3) X10*3/uL Absolute Nucleated RBC 0.000 (0.0-0.012) X10*3/uL Nucleated RBC % (auto) 0.0 (0.0-0.2) /100WBC PT 23.7 H D (10.8-13.0) SEC INR 2.0 H (0.9-1.1) APTT 36.1 (24.1-38.0) SEC D-Dimer 604 NG/ML Hold Blue Top SEE NOTE Sodium 142 (135-145) mmol/L Potassium 5.0 D (3.3-5.1) mmol/L Chloride 111 H (96-108) mmol/L Carbon Dioxide 24 (22-29) mmol/L Anion Gap 12 (12-20) BUN 22 H (9-16) mg/dL Creatinine 1.83 H (0.5-1.4) mg/dL Estim Creat Clear Calc 32.0 Estimated GFR 36 Random Glucose 97 (60-115) mg/dL Calcium 9.3 D (8.4-10.2) mg/dL Magnesium 2.0 (1.6-2.6) mg/dL Ferritin 52 (20-250) ng/mL Total Bilirubin 1.1 H (0.0-1.0) mg/dL Direct Bilirubin 0.5 (0.0-0.5) mg/dL AST 20 (5-37) U/L ALT 16 (0-40) U/L Alkaline Phosphatase 137 H (39-117) U/L Lactate Dehydrogenase 234 (118-273) U/L Troponin I High Sens (<3.5-35.0) ng/L C-Reactive Protein 1.99 H (< or = 0.50) mg/dL B-Natriuretic Peptide (<100) pg/mL Total Protein 6.7 (6.5-8.0) g/dL Albumin 3.7 (3.5-5.0) g/dL Lipase 39 (8-78) U/L Procalcitonin ng/mL Urine Color Urine Appearance Urine pH (5.0-8.0) Ur Specific [place] (1.005-1.025) Urine Protein (NEG-TRACE) MG/DL Urine Glucose (UA) (NEG) MG/DL Urine Ketones (NEG) MG/DL Urine Blood (NEG) Urine Nitrite (NEG) Ur Leukocyte Esterase (NEG) Urine RBC (0) /HPF Urine WBC (0-4) /HPF Ur Squamous Epith Cells /LPF Urine Bacteria /LPF Coronavirus (PCR) (Negative) Influenza Type A (PCR) (Negative) Influenza Type B (PCR) (Negative) RSV RNA Qual (PCR) (Negative) 02/17/21 02/17/21 02/17/21 Range/Units 13:27 13:31 16:09 WBC (4.8-10.8) X10*3/uL RBC (4.60-5.80) X10*6/uL Hgb (14.0-18.0) g/dl Hct (42-52) % MCV (80-98) fL MCH (27.0-33.0) pg MCHC (31.0-36.0) g/dl RDW (11.0-16.0) % Plt Count (160-400) X10*3/uL MPV (9.4-12.4) fL Immature Gran % (Auto) (0.0-0.4) % Neut % (Auto) (45-73) % Lymph % (Auto) (20-40) % [place] % (Auto) (2-11) % Eos % (Auto) (0-4) % Baso % (Auto) (0-2) % Lymph # (Auto) (1.2-4.9) X10*3/uL [place] # (Auto) (0.1-1.2) X10*3/uL Eos # (Auto) (0.0-0.4) X10*3/uL Baso # (Auto) (0.0-0.2) X10*3/uL Abs Immat Gran (auto) (0.00-0.03) X10*3/uL Absolute Neuts (auto) (2.0-8.3) X10*3/uL Absolute Nucleated RBC (0.0-0.012) X10*3/uL Nucleated RBC % (auto) (0.0-0.2) /100WBC PT (10.8-13.0) SEC INR (0.9-1.1) APTT (24.1-38.0) SEC D-Dimer NG/ML Hold Blue Top Sodium (135-145) mmol/L Potassium (3.3-5.1) mmol/L Chloride (96-108) mmol/L Carbon Dioxide (22-29) mmol/L Anion Gap (12-20) BUN (9-16) mg/dL Creatinine (0.5-1.4) mg/dL Estim Creat Clear Calc Estimated GFR Random Glucose (60-115) mg/dL Calcium (8.4-10.2) mg/dL Magnesium (1.6-2.6) mg/dL Ferritin (20-250) ng/mL Total Bilirubin (0.0-1.0) mg/dL Direct Bilirubin (0.0-0.5) mg/dL AST (5-37) U/L ALT (0-40) U/L Alkaline Phosphatase (39-117) U/L Lactate Dehydrogenase (118-273) U/L Troponin I High Sens 31.3 30.8 (<3.5-35.0) ng/L C-Reactive Protein (< or = 0.50) mg/dL B-Natriuretic Peptide 505 H (<100) pg/mL Total Protein (6.5-8.0) g/dL Albumin (3.5-5.0) g/dL Lipase (8-78) U/L Procalcitonin 0.04 ng/mL Urine Color Urine Appearance Urine pH (5.0-8.0) Ur Specific [place] (1.005-1.025) Urine Protein (NEG-TRACE) MG/DL Urine Glucose (UA) (NEG) MG/DL Urine Ketones (NEG) MG/DL Urine Blood (NEG) Urine Nitrite (NEG) Ur Leukocyte Esterase (NEG) Urine RBC (0) /HPF Urine WBC (0-4) /HPF Ur Squamous Epith Cells /LPF Urine Bacteria /LPF Coronavirus (PCR) (Negative) Influenza Type A (PCR) (Negative) Influenza Type B (PCR) (Negative) RSV RNA Qual (PCR) (Negative) 02/17/21 02/17/21 Range/Units 16:09 18:00 WBC (4.8-10.8) X10*3/uL RBC (4.60-5.80) X10*6/uL Hgb (14.0-18.0) g/dl Hct (42-52) % MCV (80-98) fL MCH (27.0-33.0) pg MCHC (31.0-36.0) g/dl RDW (11.0-16.0) % Plt Count (160-400) X10*3/uL MPV (9.4-12.4) fL Immature Gran % (Auto) (0.0-0.4) % Neut % (Auto) (45-73) % Lymph % (Auto) (20-40) % [place] % (Auto) (2-11) % Eos % (Auto) (0-4) % Baso % (Auto) (0-2) % Lymph # (Auto) (1.2-4.9) X10*3/uL [place] # (Auto) (0.1-1.2) X10*3/uL Eos # (Auto) (0.0-0.4) X10*3/uL Baso # (Auto) (0.0-0.2) X10*3/uL Abs Immat Gran (auto) (0.00-0.03) X10*3/uL Absolute Neuts (auto) (2.0-8.3) X10*3/uL Absolute Nucleated RBC (0.0-0.012) X10*3/uL Nucleated RBC % (auto) (0.0-0.2) /100WBC PT (10.8-13.0) SEC INR (0.9-1.1) APTT (24.1-38.0) SEC D-Dimer NG/ML Hold Blue Top Sodium (135-145) mmol/L Potassium (3.3-5.1) mmol/L Chloride (96-108) mmol/L Carbon Dioxide (22-29) mmol/L Anion Gap (12-20) BUN (9-16) mg/dL Creatinine (0.5-1.4) mg/dL Estim Creat Clear Calc Estimated GFR Random Glucose (60-115) mg/dL Calcium (8.4-10.2) mg/dL Magnesium (1.6-2.6) mg/dL Ferritin (20-250) ng/mL Total Bilirubin (0.0-1.0) mg/dL Direct Bilirubin (0.0-0.5) mg/dL AST (5-37) U/L ALT (0-40) U/L Alkaline Phosphatase (39-117) U/L Lactate Dehydrogenase (118-273) U/L Troponin I High Sens (<3.5-35.0) ng/L C-Reactive Protein (< or = 0.50) mg/dL B-Natriuretic Peptide (<100) pg/mL Total Protein (6.5-8.0) g/dL Albumin (3.5-5.0) g/dL Lipase (8-78) U/L Procalcitonin ng/mL Urine Color YELLOW Urine Appearance CLEAR Urine pH 7.0 (5.0-8.0) Ur Specific [place] 1.015 (1.005-1.025) Urine Protein 1+ H (NEG-TRACE) MG/DL Urine Glucose (UA) NEG (NEG) MG/DL Urine Ketones NEG (NEG) MG/DL Urine Blood 3+ H (NEG) Urine Nitrite NEG (NEG) Ur Leukocyte Esterase NEG (NEG) Urine RBC 10-14 H (0) /HPF Urine WBC 0-2 (0-4) /HPF Ur Squamous Epith Cells TRACE /LPF Urine Bacteria NONE /LPF Coronavirus (PCR) NEGATIVE (Negative) Influenza Type A (PCR) NEGATIVE (Negative) Influenza Type B (PCR) NEGATIVE (Negative) RSV RNA Qual (PCR) NEGATIVE (Negative) Imaging Data Chest x-ray: Radiologist's impression: [address] [id number] ReportSigned Patient: Arturo ZambranoMR#: [id number]: 1940cct:[id number]/Sex: 80 / MADM Date: 02/17/21Loc: EDAttending Dr: Ordering Physician: Generic ED Physician Date of Service: 02/17/21 Procedure(s): XR chest 1V Accession Number(s): [id number] cc: Generic ED Physician~ EXAMINATION: XR CHEST CLINICAL INFORMATION: Shortness of breath. COMPARISON: Chest 01/19/2021. TECHNIQUE: Frontal view of the chest was obtained. FINDINGS: Lungs are hypoexpanded and clear. The heart size is borderline enlarged. Pulmonary vascularity is normal. 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 No gross bony abnormality seen. XR/XR chest 1V IMPRESSION: Borderline enlarged heart. Hypoexpanded lungs with no acute process. Dictated By:TRISTEN NICOLE MDSigned By:<Electronically signed by TRISTEN NICOLE MD in OV>02/17/21 1614 DD/ 1312TD/TT: Aircraft Machinist: CARLOS ECG Data Interpretation: Atrial fibrillation Rate 86 Nonspecific T wave abnormality Abnormal ECG When compared with ECG of 20-JAN-2021 14:39, Inverted T waves have replaced nonspecific T wave abnormality in Lateral leads QT has shortened Discharge Plan Discharge Clinical Impression: Hemoptysis Patient Disposition: Admitted As Inpatient
--- NOTE | 2021-02-17 15:41 | PC.NURSE ---
patient a&o, residential monitor afib 90s, vss, pt awaiting to see provider
[2021-02-17 16:04] LABS: Alanine Aminotransferase 16 U/L (0-40); Albumin Level 3.7 g/dL (3.5-5.0); Alkaline Phosphatase 137 U/L (39-117); Aspartate Amino Transferase 20 U/L (5-37); Bilirubin Direct 0.5 mg/dL (0.0-0.5); Bilirubin Total 1.1 mg/dL (0.0-1.0); C Reactive Protein 1.99 mg/dL (< or = 0.50); Lactate Dehydrogenase 234 U/L (118-273); Lipase 39 U/L (8-78); Total Protein 6.7 g/dL (6.5-8.0)
[2021-02-17 16:12] LABS: Prothrombin Time 23.7 SEC (10.8-13.0)
[2021-02-17 16:15] LABS: D Dimer 604 NG/ML; Partial Thromboplastin Time 36.1 SEC (24.1-38.0)
[2021-02-17 16:24] LABS: Ferritin 52 ng/mL (20-250)
[2021-02-17 16:27] LABS: Procalcitonin 0.04 ng/mL
[2021-02-17] MEDS: Furosemide 40 MG/4 ML VIAL IVPUSH (16:30)
--- NOTE | 2021-02-17 16:31 | PC.NURSE ---
medicated per order
[2021-02-17 16:51] LABS: Troponin-I High Sensitivity 30.8 ng/L (<3.5-35.0)
[2021-02-17 16:55] LABS: Influenza A PCR NEGATIVE (Negative); Influenza B PCR NEGATIVE (Negative); Resp Syncy Virus RNA Qual PCR NEGATIVE (Negative); SARS COV2 PCR INHOUSE NEGATIVE (Negative)
[2021-02-17 17:59] VITALS: BP 173/79; PULSE 111; RESP 20; O2SAT 93
[2021-02-17 18:10] LABS: Glucose Urine UA NEG (NEG); Leukocyte Esterase Urine NEG (NEG); Nitrite Urine NEG (NEG); Specific Gravity - Urine 1.015 (1.005-1.025); Urine Blood 3+ (NEG); Urine Ketones NEG (NEG); Urine Protein 1+ MG/DL (NEG-TRACE)
[2021-02-17 18:11] LABS: Appearance Urine CLEAR; Color Urine YELLOW
[2021-02-17 18:33] LABS: Squamous Epithelial Cell Urine TRACE /LPF; WBC Urine 0-2 /HPF (0-4)
[2021-02-17 19:40] VITALS: BP 143/74; PULSE 90; RESP 16; TEMP 36.5; O2SAT 95
[2021-02-17 20:00] VITALS: RESP 16
--- NOTE | 2021-02-17 20:12 | PC.NURSE ---
pt requested a peanut butter and jelly sandwich to eat, refused all other sandwich and dinner options. peanut butter and jelly left at bedside, pt now refusing to eat peanut butter and jelly, once again offered other options and patient is refusing other options at this time. pt encouraged to inform nurse if he changes his mind and wants food. call feliberto in reach.
[2021-02-17 23:19] VITALS: BP 136/82; PULSE 124; RESP 20; TEMP 36.7; O2SAT 91
--- NOTE | 2021-02-17 23:29 | PC.NURSE ---
pt 02 sat dropped down to 91% on room air during vitals, pt stated he felt short of breath. 2L 02 nasal cannula applied. heart rate went up to 140 during vitals but pt recovered quickly, currently at 110/min. hospitalist notified, no new orders at this time.
--- NOTE | 2021-02-17 23:46 | PM.IMHP ---
History of Present Illness Date of Service: 02/17/21 Chief Complaint: Shortness of breath 80-year-old male with a past medical history of hypertension, hyperlipidemia, neuropathy, peripheral vascular disease, left [id number] amputation, mitral valve repair, GERD, CHF presented to the hospital with a chief complaint of shortness of breath. Patient mentions that over the past 1-2 weeks he has been having increased shortness of breath and also noted to have cough with blood-tinged sputum. Denies any fevers. Denies any numbness tingling. Noted mild swelling in his legs. Mentions his complaint with his home medications. Today he had a PCP appointment who suggested him to go to the hospital for further evaluation. Denies any GI or symptoms. Review of all other systems is negative except mentioned above ER course: Per ER team patient noted to be short of breath, saturating 91 92% on room air, placed on supplemental oxygen. Coarse breath sounds. Given Lasix IV x1. Creatinine similar to the prior values when discharged in January. V/Q scan negative for any acute blood loss. Chest x-ray otherwise negative for any pneumonia. Admitted to the hospital for further management. [facility] Medical History (Updated 02/19/21 @ 09:20 by Joe Wagner MD) Above knee amputation of left lower extremity Afib Atherosclerotic cardiovascular disease GERD (gastroesophageal reflux disease) Heart failure HLD (hyperlipidemia) HTN (hypertension) Neuropathy Persistent atrial fibrillation PVD (peripheral vascular disease) Surgical History (Updated 02/18/21 @ 11:05 by Tomasz Louis MD) Status post aorto-coronary artery bypass graft Status post mitral valve repair Status post transcatheter aortic valve replacement Social History Household Members: Other Housing: Assisted Living Facility Alcohol intake: never Smoking Status: Never smoker Second Hand Smoke Exposure: No Advance Directives Date on File: 01/20/21 service: No Current occupational status: retired Meds Allergies Allergy/AdvReac Type Severity Reaction Status Date / Time oxycodone [OXYCODONE] Allergy Intermediate ITCHING Verified 01/20/21 00:06 ANTIBIOITIC-? NAME Allergy Intermediate ITCHING Uncoded 07/23/20 14:50 Active Medications: Current Medications Generic Name Dose Route Start Last Admin Trade Name Freq PRN Reason Stop Dose Admin Acetaminophen 650 mg 02/17/21 23:25 Acetaminophen 325 Mg Tablet PO Q6H PRN Pain, Mild (Pain Scale 1-3) Allopurinol 100 mg 02/18/21 09:00 Allopurinol 100 Mg Tablet PO DAILY [facility] Aspirin 81 mg 02/18/21 09:00 Aspirin Enteric Coated 81 Mg Tablet.Dr PO DAILY [facility] Atorvastatin Calcium 40 mg 02/18/21 09:00 Atorvastatin Calcium 40 Mg Tablet PO DAILY [facility] Diltiazem HCl 120 mg 02/18/21 09:00 Diltiazem Hcl Cd 120 Mg Cap.Er.Deg PO DAILY [facility] Protocol Gabapentin 100 mg 02/17/21 23:45 Gabapentin 100 Mg Capsule PO QAM [facility] Metoprolol Tartrate 50 mg 02/18/21 09:00 Metoprolol Tartrate 50 Mg Tablet PO BID [facility] Protocol Non-Formulary Medication 5 mg 02/17/21 23:42 Melatonin PO BEDTIME PRN Insomnia Non-Formulary Medication 40 mg 02/18/21 09:00 Pantoprazole PO BID [facility] Quetiapine Fumarate 12.5 mg 02/18/21 21:00 Quetiapine Fumarate 25 Mg Tablet PO BEDTIME [facility] Senna 17.2 mg 02/17/21 23:25 Sennosides 8.6 Mg Tablet PO BEDTIME PRN Constipation Sodium Chloride 3 ml 02/18/21 00:00 0.9 % Sodium Chloride Flush 3 Ml Syringe [facility] Spironolactone 25 mg 02/18/21 09:00 Spironolactone 25 Mg Tablet PO DAILY [facility] Protocol Tamsulosin HCl 0.8 mg 02/18/21 21:00 Tamsulosin Hcl 0.4 Mg Capsule PO BEDTIME [facility] Thiamine HCl 100 mg 02/18/21 09:00 Thiamine Hcl 100 Mg Tablet PO DAILY [facility] Home Medications Medication Instructions Recorded Confirmed Last Taken Type aspirin 81 mg PO DAILY 01/19/21 02/17/21 Unknown History atorvastatin 40 mg PO DAILY 01/19/21 02/17/21 Unknown History furosemide 40 mg PO BID 01/19/21 02/17/21 Unknown History gabapentin 100 mg PO QAM 01/19/21 02/17/21 Unknown History metoprolol tartrate 50 mg PO BID 01/19/21 02/17/21 Unknown History pantoprazole 40 mg PO BID 01/19/21 02/17/21 Unknown History potassium chloride 10 meq PO BID 01/19/21 02/17/21 Unknown History quetiapine 12.5 mg PO BEDTIME 01/19/21 02/17/21 Unknown History spironolactone 25 mg PO DAILY 01/19/21 02/17/21 Unknown History warfarin 5 mg PO SUMOWEFR 01/19/21 02/18/21 Unknown History diltiazem HCl 120 mg PO DAILY 01/20/21 02/17/21 Unknown History melatonin 5 mg PO BEDTIME PRN 01/20/21 02/17/21 Unknown History thiamine HCl (vitamin B1) 100 mg PO DAILY 01/20/21 02/17/21 Unknown History allopurinol 1 tab PO DAILY 02/17/21 02/17/21 Unknown History warfarin 2.5 mg PO TUTHSA 02/18/21 02/18/21 Unknown History Physical Exam Vital Signs and Narrative: Vital Signs: Last Vital Signs Temp 98.1 F 02/17/21 23:19 Pulse 124 H 02/17/21 23:19 Resp 20 02/17/21 23:19 BP 136/82 02/17/21 23:19 Pulse Ox 91 L 02/17/21 23:19 Body Mass Index 34.2 Gen: Appears be in no acute distress HEENT: NCAT, Moist mucosa. Pulmonary: Course breath sounds CVS: Normal S1-S2 Abdomen: BS+, Soft, Nontender Extremities: Warm well perfused; 2+ pitting edema on the right lower extremity; left lower extremity above knee amputation. Neuro: Alert and awake. Results Labs CBC and Chem 7: 02/24/21 05:20 02/24/21 05:20 Labs: Laboratory Results - last 24 hr 02/17/21 02/17/21 02/17/21 13:27 13:27 13:27 MCV 90.4 MCH 27.4 MCHC 30.3 L RDW 19.3 H Plt Count 260 MPV 10.6 Immature Gran % (Auto) 0.3 Neut % (Auto) 65.7 Lymph % (Auto) 14.5 L [place] % (Auto) 9.5 Eos % (Auto) 9.3 H Baso % (Auto) 0.7 Lymph # (Auto) 1.1 L [place] # (Auto) 0.7 Eos # (Auto) 0.7 H Baso # (Auto) 0.1 Abs Immat Gran (auto) 0.02 Absolute Neuts (auto) 5.1 Absolute Nucleated RBC 0.000 Nucleated RBC % (auto) 0.0 PT 23.7 H D INR 2.0 H APTT 36.1 D-Dimer 604 Hold Blue Top SEE NOTE Anion Gap 12 Estim Creat Clear Calc 32.0 Estimated GFR 36 Random Glucose 97 Calcium 9.3 D Magnesium 2.0 Ferritin 52 Total Bilirubin 1.1 H Direct Bilirubin 0.5 AST 20 ALT 16 Alkaline Phosphatase 137 H Lactate Dehydrogenase 234 Troponin I High Sens C-Reactive Protein 1.99 H B-Natriuretic Peptide Total Protein 6.7 Albumin 3.7 Lipase 39 Procalcitonin Urine Color Urine Appearance Urine pH Ur Specific Lanse Urine Protein Urine Glucose (UA) Urine Ketones Urine Blood Urine Nitrite Ur Leukocyte Esterase Urine RBC Urine WBC Ur Squamous Epith Cells Urine Bacteria Coronavirus (PCR) Influenza Type A (PCR) Influenza Type B (PCR) RSV RNA Qual (PCR) 02/17/21 02/17/21 02/17/21 13:27 13:31 16:09 MCV MCH MCHC RDW Plt Count MPV Immature Gran % (Auto) Neut % (Auto) Lymph % (Auto) [place] % (Auto) Eos % (Auto) Baso % (Auto) Lymph # (Auto) [place] # (Auto) Eos # (Auto) Baso # (Auto) Abs Immat Gran (auto) Absolute Neuts (auto) Absolute Nucleated RBC Nucleated RBC % (auto) PT INR APTT D-Dimer Hold Blue Top Anion Gap Estim Creat Clear Calc Estimated GFR Random Glucose Calcium Magnesium Ferritin Total Bilirubin Direct Bilirubin AST ALT Alkaline Phosphatase Lactate Dehydrogenase Troponin I High Sens 31.3 30.8 C-Reactive Protein B-Natriuretic Peptide 505 H Total Protein Albumin Lipase Procalcitonin 0.04 Urine Color Urine Appearance Urine pH Ur Specific [place]se Urine Protein Urine Glucose (UA) Urine Ketones Urine Blood Urine Nitrite Ur Leukocyte Esterase Urine RBC Urine WBC Ur Squamous Epith Cells Urine Bacteria Coronavirus (PCR) Influenza Type A (PCR) Influenza Type B (PCR) RSV RNA Qual (PCR) 02/17/21 02/17/21 16:09 18:00 MCV MCH MCHC RDW Plt Count MPV Immature Gran % (Auto) Neut % (Auto) Lymph % (Auto) [place] % (Auto) Eos % (Auto) Baso % (Auto) Lymph # (Auto) [place] # (Auto) Eos # (Auto) Baso # (Auto) Abs Immat Gran (auto) Absolute Neuts (auto) Absolute Nucleated RBC Nucleated RBC % (auto) PT INR APTT D-Dimer Hold Blue Top Anion Gap Estim Creat Clear Calc Estimated GFR Random Glucose Calcium Magnesium Ferritin Total Bilirubin Direct Bilirubin AST ALT Alkaline Phosphatase Lactate Dehydrogenase Troponin I High Sens C-Reactive Protein B-Natriuretic Peptide Total Protein Albumin Lipase Procalcitonin Urine Color YELLOW Urine Appearance CLEAR Urine pH 7.0 Ur Specific Lanse 1.015 Urine Protein 1+ H Urine Glucose (UA) NEG Urine Ketones NEG Urine Blood 3+ H Urine Nitrite NEG Ur Leukocyte Esterase NEG Urine RBC 10-14 H Urine WBC 0-2 Ur Squamous Epith Cells TRACE Urine Bacteria NONE Coronavirus (PCR) NEGATIVE Influenza Type A (PCR) NEGATIVE Influenza Type B (PCR) NEGATIVE RSV RNA Qual (PCR) NEGATIVE Imaging Radiologist's Impressions: Impressions Chest X-Ray 02/17/21 13:12 IMPRESSION: Borderline enlarged heart. Hypoexpanded lungs with no acute process. Pulmonary Perfusion Imaging 02/17/21 16:22 IMPRESSION: Normal perfusion scan. Assessment and Plan (1) Hemoptysis: Status: Acute 80-year-old male with a past medical history of hypertension, hyperlipidemia, CHF, peripheral vascular disease, history of left [id number] amputation, GERD, BPH, AFib on Coumadin presented to the hospital with a chief complaint of shortness of breath/cough with blood-tinged sputum. Noted to be in mild CHF exacerbation. Mild CHF exacerbation: Continue Lasix 40 mg IV daily. I's and O's and daily weights. Cardiology consult. Troponins indeterminate. EKG nonischemic. Monitor renal function while diuresing. Cough with blood-tinged sputum: Chest x-ray negative for acute findings. V/Q scan negative for any blood clots. Patient on Coumadin at home-> will hold for now. H&H stable. Renal insufficiency: Patient's creatinine when discharged about a month ago was 1.8; today also noted to be 1.8. Monitor renal function while diuresing. If worsening will defer to the MD to consider Nephrology consult. Microscopic hematuria: Noted in prior admissions as well. Recommended follow-up with Urology. For all other chronic conditions, home medications will be continued DVT prophylaxis: SCD boots Code status: Full code
[2021-02-18] VITALS (8 sets, daily range): BP systolic 123–167; BP diastolic 41–96; PULSE 72–114; RESP 16–20; TEMP 36.3–37.1; O2SAT 96–99
[2021-02-18] MEDS: 0.9 % Sodium Chloride Flush 3 ML SYRINGE IVFLUSH ×2 (00:09→16:42)
[2021-02-18] MEDS: Omeprazole 20 MG CAPSULE.DR PO ×2 (06:24→16:44)
[2021-02-18 07:23] LABS: MANUAL DIFF FLAG NO
[2021-02-18 07:26] LABS: Basophils Absolute Auto 0.1 X10*3/uL (0.0-0.2); Basophils Percent Auto 0.9 % (0-2); Eosinophils Absolute Auto 0.7 X10*3/uL (0.0-0.4); Eosinophils Percent Auto 7.8 % (0-4); Hematocrit 29.6 % (42-52); Hemoglobin 9.1 g/dl (14.0-18.0); Imm Gran Abs Auto 0.03 X10*3/uL (0.00-0.03); Imm Gran Pct Auto 0.3 % (0.0-0.4); Lymphocytes Percent Auto 11.1 % (20-40); Mean Corpuscular HGB Conc 30.7 g/dl (31.0-36.0); Mean Corpuscular Hemoglobin 27.5 pg (27.0-33.0); Mean Corpuscular Volume 89.4 fL (80-98); Mean Platelet Volume 11.3 fL (9.4-12.4); Monocytes Percent Auto 11.3 % (2-11); Neutrophils Absolute Auto 6.2 X10*3/uL (2.0-8.3); Neutrophils Percent Auto 68.6 % (45-73); Platelet Count 282 X10*3/uL (160-400); Red Blood Count 3.31 X10*6/uL (4.60-5.80); Red Cell Distribution Width 19.6 % (11.0-16.0)
[2021-02-18 08:09] LABS: Anion Gap 15 (12-20); Blood Urea Nitrogen 21 mg/dL (9-16); Calcium 9.2 mg/dL (8.4-10.2); Carbon Dioxide 25 mmol/L (22-29); Chloride 106 mmol/L (96-108); Creatinine Clr Calc Pharmacy 30.8; Estimated Glomerular Filt Rate 34; Glucose Random 97 mg/dL (60-115); Potassium 3.9 mmol/L (3.3-5.1); Sodium 142 mmol/L (135-145)
[2021-02-18] MEDS: Aspirin Enteric Coated 81 MG TABLET.DR PO (08:40)
[2021-02-18] MEDS: Atorvastatin Calcium 40 MG TABLET PO (08:40)
[2021-02-18] MEDS: Gabapentin 100 MG CAPSULE PO (08:40)
[2021-02-18] MEDS: Thiamine HCL 100 MG TABLET PO (08:40)
[2021-02-18] MEDS: allopurinoL 100 MG TABLET PO (08:40)
[2021-02-18] MEDS: dilTIAZem HCL CD 120 MG CAP.ER.DEG PO (08:41)
[2021-02-18] MEDS: Metoprolol Tartrate 50 MG TABLET PO ×2 (08:41→21:32)
[2021-02-18] MEDS: Spironolactone 25 MG TABLET PO (08:41)
[2021-02-18] MEDS: Furosemide 40 MG/4 ML VIAL IVPUSH (08:42)
--- NOTE | 2021-02-18 09:09 | PC.NURSE ---
Pt eating bkfst. Alert and oriented. awaiting bed upstairs
--- NOTE | 2021-02-18 09:40 | P.CDIC_ITS ---
[facility] Concurrent Query Service Date: 02/18/21 Documentation Clarification: Please clarify if you are treating a proba ble/suspected/likely or confirmed: Acute on Chronic Diastolic CHF Acute on Chronic Systolic CHF Acute on Chronic Diastolic and Systolic CHF Other CHF, please specify if known Provider Response: Acute on Chronic Diastolic and/or Systolic CHF PLEASE DO NOT DELETE/MODIFY EXISTING CONTENT Additional information is needed in order to code to the highest accuracy and appropriate Severity of Illness (SOI). Please clarify the information noted below in your progress notes and discharge summary. Risk Factors/Clinical Indicators/Treatments 80 year old male admitted with shortness of breath, spitting up blood, 3+ edema RLE PMH: CHF, Atrial Fibrillation, Hypertension AKA left lower extremity, PVD CXR: borderline enlarged heart, hypo- expanded lungs with no acute process EKG: Atrial Fibrillation Treated with IV Lasix and oxygen Cardiology consult pending CDS: Aliza Delvalle RN Contact Number: [phone] Please Review the information above and exercise your independent professional judgment in responding to the query. If you concur, pleas document in the PROGRESS NOTES and DISCHARGE SUMMARY. If you do not agree with the query, please document in the query above. THIS QUERY IS PART OF THE PERMANENT MEDICAL RECORD
--- NOTE | 2021-02-18 11:00 | PM.CNCAR ---
History of Present Illness History of Present Illness Date of Service: 02/18/21 Consult reason: congestive heart failure Chief complaint: Hemoptysis Narrative: This is a cardiology consultation regarding congestive heart failure. Patient is presenting with complaints of blood-tinged sputum. He has also been having some shortness of breath recently. Some chest pressure type sensation intermittently but that has been present for a longer time. When he came in, he was saturating about 91-92% on room air and then placed on oxygen. Thought to have congestive heart failure exacerbation and hence we have been asked to see him. There is a prior history transcatheter aortic valve replacement as well as mitral valve repair. He also has atrial fibrillation. He has undergone left above knee amputation. There is also prior history of CABG. Does not seem like he has a regular cardiology follow-up. 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 Review of Systems Review of Systems: Yes all other systems are reviewed and are negative Cardiovascular: Cardiovascular: Reports as per HPI, Reports no additional cardiovascular complaints, Denies acrocyanosis, Denies cool extremities, Denies painful fingertips, Denies chest pain, Denies chest pain at rest, Denies diaphoresis, Denies syncope, Denies irregular heart rhythm, Denies claudication, Denies leg edema, Denies lightheadedness, Denies palpitations and Reports dyspnea Respiratory: Respiratory: Reports hemoptysis and Reports dyspnea Neurologic: Denies syncope Endocrine: Endocrine: Denies palpitations ON LICENSE OF [facility] Past Medical History Medical History (Updated 02/18/21 @ 11:15 by Tomasz Louis MD) Above knee amputation of left lower extremity Afib Atherosclerotic cardiovascular disease GERD (gastroesophageal reflux disease) Heart failure HLD (hyperlipidemia) HTN (hypertension) Neuropathy Persistent atrial fibrillation PVD (peripheral vascular disease) Family History Family history: reviewed and not pertinent Surgical History Surgical History (Updated 02/18/21 @ 11:05 by Tomasz Louis MD) Status post aorto-coronary artery bypass graft Status post mitral valve repair Status post transcatheter aortic valve replacement Social History Social History Household Members: None Housing: Assisted Living Facility Alcohol intake: never Smoking Status: Never smoker Use of substances other than those prescribed or required for medical reasons: No Advance Directives: Yes Advance Directives on File: Yes Advance Directives Date on File: 01/20/21 service: No Current occupational status: retired Meds Allergies Allergy/AdvReac Type Severity Reaction Status Date / Time oxycodone [OXYCODONE] Allergy Intermediate ITCHING Verified 01/20/21 00:06 ANTIBIOITIC-? NAME Allergy Intermediate ITCHING Uncoded 07/23/20 14:50 Active Medications: Current Medications Generic Name Dose Route Start Last Admin Trade Name Freq PRN Reason Stop Dose Admin Acetaminophen 650 mg 02/17/21 23:25 Acetaminophen 325 Mg Tablet PO Q6H PRN Pain, Mild (Pain Scale 1-3) Allopurinol 100 mg 02/18/21 09:00 02/18/21 08:40 Allopurinol 100 Mg Tablet PO 100 mg DAILY [facility] Administration Aspirin 81 mg 02/18/21 09:00 02/18/21 08:40 Aspirin Enteric Coated 81 Mg Tablet. PO 81 mg DAILY [facility] Administration Atorvastatin Calcium 40 mg 02/18/21 09:00 02/18/21 08:40 Atorvastatin Calcium 40 Mg Tablet PO 40 mg DAILY [facility] Administration Diltiazem HCl 120 mg 02/18/21 09:00 02/18/21 08:41 Diltiazem Hcl Cd 120 Mg Cap.Er.Deg PO 120 mg DAILY [facility] Administration Protocol Furosemide 40 mg 02/18/21 09:00 02/18/21 08:42 Furosemide 40 Mg/4 Ml Vial IVPUSH 40 mg DAILY [facility] Administration Protocol Gabapentin 100 mg 02/18/21 09:00 02/18/21 08:40 Gabapentin 100 Mg Capsule PO 100 mg DAILY [facility] Administration Melatonin 3 mg 02/18/21 00:38 Melatonin 3 Mg Tablet PO BEDTIME PRN Sleep Metoprolol Tartrate 50 mg 02/18/21 09:00 02/18/21 08:41 Metoprolol Tartrate 50 Mg Tablet PO 50 mg BID [facility]INE Administration Protocol Omeprazole 20 mg 02/18/21 06:30 02/18/21 06:24 Omeprazole 20 Mg Capsule. PO 20 mg 0630,1600 [facility] Administration Quetiapine Fumarate 12.5 mg 02/18/21 21:00 Quetiapine Fumarate 25 Mg Tablet PO BEDTIME [facility] Senna 17.2 mg 02/17/21 23:25 Sennosides 8.6 Mg Tablet PO BEDTIME PRN Constipation Sodium Chloride 3 ml 02/18/21 00:00 02/18/21 00:09 0.9 % Sodium Chloride Flush 3 Ml Syringe IVFLUSH 3 ml QSHIFT [facility] Administration Spironolactone 25 mg 02/18/21 09:00 02/18/21 08:41 Spironolactone 25 Mg Tablet PO 25 mg DAILY [facility] Administration Protocol Tamsulosin HCl 0.8 mg 02/18/21 21:00 Tamsulosin Hcl 0.4 Mg Capsule PO BEDTIME [facility] Thiamine HCl 100 mg 02/18/21 09:00 02/18/21 08:40 Thiamine Hcl 100 Mg Tablet PO 100 mg DAILY [facility] Administration Home Medications Medication Instructions Recorded Confirmed Last Taken Type aspirin 81 mg PO DAILY 01/19/21 02/17/21 Unknown History atorvastatin 40 mg PO DAILY 01/19/21 02/17/21 Unknown History furosemide 40 mg PO BID 01/19/21 02/17/21 Unknown History gabapentin 100 mg PO QAM 01/19/21 02/17/21 Unknown History metoprolol tartrate 50 mg PO BID 01/19/21 02/17/21 Unknown History pantoprazole 40 mg PO BID 01/19/21 02/17/21 Unknown History potassium chloride 10 meq PO BID 01/19/21 02/17/21 Unknown History quetiapine 12.5 mg PO BEDTIME 01/19/21 02/17/21 Unknown History spironolactone 25 mg PO DAILY 01/19/21 02/17/21 Unknown History warfarin 5 mg PO SUMOWEFR 01/19/21 02/18/21 Unknown History diltiazem HCl 120 mg PO DAILY 01/20/21 02/17/21 Unknown History melatonin 5 mg PO BEDTIME PRN 01/20/21 02/17/21 Unknown History thiamine HCl (vitamin B1) 100 mg PO DAILY 01/20/21 02/17/21 Unknown History allopurinol 1 tab PO DAILY 02/17/21 02/17/21 Unknown History warfarin 2.5 mg PO TUTHSA 02/18/21 02/18/21 Unknown History Physical Exam Vital Signs: Vital Signs: Last Vital Signs Temp 98.1 F 02/18/21 08:05 Pulse 114 H 02/18/21 08:41 Resp 17 02/18/21 08:05 BP 167/96 H 02/18/21 08:41 Pulse Ox 97 02/18/21 08:05 Body Mass Index 34.2 Const: General: cooperative, comfortable and no acute distress Orientation/consciousness: patient oriented x3 HENMT: Other: Unremarkable Neck: Neck: Yes normal visual inspection Chest: Chest palpation & inspection: normal inspection of the chest Resp: Auscultation: no crackles, wheezes and diminished lung sounds Cardio: Jugular venous distension: no JVD Palpation: normal PMI Heart sounds: S1 normal heart sound present, S2 normal heart sound present, no gallops, Murmur heart sound present systolic II/ and at the right sternal border and no rubs GI: Palpation (GI): Soft to palpation Back/Spine/Pelvis: Other: unremarkable Skin: General skin exam: no rashes or lesions noted Neuro: General: patient oriented x3 Extrem: Other: Left above knee amputation. Psych: Mental Status: mental status grossly normal Results Labs and Meds Result diagrams: 02/18/21 06:47 02/18/21 06:47 Lab results: Laboratory Results - last 24 hr 02/17/21 02/17/21 02/17/21 13:27 13:27 13:27 WBC 7.7 RBC 3.14 L Hgb 8.6 L Hct 28.4 L MCV 90.4 MCH 27.4 MCHC 30.3 L RDW 19.3 H Plt Count 260 MPV 10.6 Immature Gran % (Auto) 0.3 Neut % (Auto) 65.7 Lymph % (Auto) 14.5 L [place] % (Auto) 9.5 Eos % (Auto) 9.3 H Baso % (Auto) 0.7 Lymph # (Auto) 1.1 L [place] # (Auto) 0.7 Eos # (Auto) 0.7 H Baso # (Auto) 0.1 Abs Immat Gran (auto) 0.02 Absolute Neuts (auto) 5.1 Absolute Nucleated RBC 0.000 Nucleated RBC % (auto) 0.0 PT 23.7 H D INR 2.0 H APTT 36.1 D-Dimer 604 Hold Blue Top SEE NOTE Sodium 142 Potassium 5.0 D Chloride 111 H Carbon Dioxide 24 Anion Gap 12 BUN 22 H Creatinine 1.83 H Estim Creat Clear Calc 32.0 Estimated GFR 36 Random Glucose 97 Calcium 9.3 D Magnesium 2.0 Ferritin 52 Total Bilirubin 1.1 H Direct Bilirubin 0.5 AST 20 ALT 16 Alkaline Phosphatase 137 H Lactate Dehydrogenase 234 Troponin I High Sens C-Reactive Protein 1.99 H B-Natriuretic Peptide Total Protein 6.7 Albumin 3.7 Lipase 39 Procalcitonin Urine Color Urine Appearance Urine pH Ur Specific [place] Urine Protein Urine Glucose (UA) Urine Ketones Urine Blood Urine Nitrite Ur Leukocyte Esterase Urine RBC Urine WBC Ur Squamous Epith Cells Urine Bacteria Coronavirus (PCR) Influenza Type A (PCR) Influenza Type B (PCR) RSV RNA Qual (PCR) 02/17/21 02/17/21 02/17/21 13:27 13:31 16:09 WBC RBC Hgb Hct MCV MCH MCHC RDW Plt Count MPV Immature Gran % (Auto) Neut % (Auto) Lymph % (Auto) [place] % (Auto) Eos % (Auto) Baso % (Auto) Lymph # (Auto) [place] # (Auto) Eos # (Auto) Baso # (Auto) Abs Immat Gran (auto) Absolute Neuts (auto) Absolute Nucleated RBC Nucleated RBC % (auto) PT INR APTT D-Dimer Hold Blue Top Sodium Potassium Chloride Carbon Dioxide Anion Gap BUN Creatinine Estim Creat Clear Calc Estimated GFR Random Glucose Calcium Magnesium Ferritin Total Bilirubin Direct Bilirubin AST ALT Alkaline Phosphatase Lactate Dehydrogenase Troponin I High Sens 31.3 30.8 C-Reactive Protein B-Natriuretic Peptide 505 H Total Protein Albumin Lipase Procalcitonin 0.04 Urine Color Urine Appearance Urine pH Ur Specific [place] Urine Protein Urine Glucose (UA) Urine Ketones Urine Blood Urine Nitrite Ur Leukocyte Esterase Urine RBC Urine WBC Ur Squamous Epith Cells Urine Bacteria Coronavirus (PCR) Influenza Type A (PCR) Influenza Type B (PCR) RSV RNA Qual (PCR) 02/17/21 02/17/21 02/18/21 16:09 18:00 06:47 WBC 9.0 RBC 3.31 L Hgb 9.1 L Hct 29.6 L MCV 89.4 MCH 27.5 MCHC 30.7 L RDW 19.6 H Plt Count 282 MPV 11.3 Immature Gran % (Auto) 0.3 Neut % (Auto) 68.6 Lymph % (Auto) 11.1 L [place] % (Auto) 11.3 H Eos % (Auto) 7.8 H Baso % (Auto) 0.9 Lymph # (Auto) 1.0 L [place] # (Auto) 1.0 Eos # (Auto) 0.7 H Baso # (Auto) 0.1 Abs Immat Gran (auto) 0.03 Absolute Neuts (auto) 6.2 Absolute Nucleated RBC 0.000 Nucleated RBC % (auto) 0.0 PT INR APTT D-Dimer Hold Blue Top Sodium Potassium Chloride Carbon Dioxide Anion Gap BUN Creatinine Estim Creat Clear Calc Estimated GFR Random Glucose Calcium Magnesium Ferritin Total Bilirubin Direct Bilirubin AST ALT Alkaline Phosphatase Lactate Dehydrogenase Troponin I High Sens C-Reactive Protein B-Natriuretic Peptide Total Protein Albumin Lipase Procalcitonin Urine Color YELLOW Urine Appearance CLEAR Urine pH 7.0 Ur Specific [place] 1.015 Urine Protein 1+ H Urine Glucose (UA) NEG Urine Ketones NEG Urine Blood 3+ H Urine Nitrite NEG Ur Leukocyte Esterase NEG Urine RBC 10-14 H Urine WBC 0-2 Ur Squamous Epith Cells TRACE Urine Bacteria NONE Coronavirus (PCR) NEGATIVE Influenza Type A (PCR) NEGATIVE Influenza Type B (PCR) NEGATIVE RSV RNA Qual (PCR) NEGATIVE 02/18/21 06:47 WBC RBC Hgb Hct MCV MCH MCHC RDW Plt Count MPV Immature Gran % (Auto) Neut % (Auto) Lymph % (Auto) [place] % (Auto) Eos % (Auto) Baso % (Auto) Lymph # (Auto) [place] # (Auto) Eos # (Auto) Baso # (Auto) Abs Immat Gran (auto) Absolute Neuts (auto) Absolute Nucleated RBC Nucleated RBC % (auto) PT INR APTT D-Dimer Hold Blue Top Sodium 142 Potassium 3.9 D Chloride 106 Carbon Dioxide 25 Anion Gap 15 BUN 21 H Creatinine 1.90 H Estim Creat Clear Calc 30.8 Estimated GFR 34 Random Glucose 97 Calcium 9.2 Magnesium Ferritin Total Bilirubin Direct Bilirubin AST ALT Alkaline Phosphatase Lactate Dehydrogenase Troponin I High Sens C-Reactive Protein B-Natriuretic Peptide Total Protein Albumin Lipase Procalcitonin Urine Color Urine Appearance Urine pH Ur Specific [place] Urine Protein Urine Glucose (UA) Urine Ketones Urine Blood Urine Nitrite Ur Leukocyte Esterase Urine RBC Urine WBC Ur Squamous Epith Cells Urine Bacteria Coronavirus (PCR) Influenza Type A (PCR) Influenza Type B (PCR) RSV RNA Qual (PCR) ECG Attestation: I personally reviewed and interpreted this ECG as follows: Interpretation: EKG with atrial fibrillation at 86/Min and nonspecific ST-T changes. Imaging Radiologist's impression: Impressions Chest X-Ray 02/17/21 13:12 IMPRESSION: Borderline enlarged heart. Hypoexpanded lungs with no acute process. Pulmonary Perfusion Imaging 02/17/21 16:22 IMPRESSION: Normal perfusion scan. Assessment and Plan (1) Acute on chronic diastolic (congestive) heart failure: Status: Acute (2) Persistent atrial fibrillation: Status: Acute (3) Atherosclerotic cardiovascular disease: Problem details: Cardiac catheterization-2017- Left main-minimal irregularities; LAD- chronic occlusion; proximal circumflex-60% stenosis; RCA minor irregularities; PAL graft is patent; vein graft to 1st diagonal not commented Status: Acute (4) Status post aorto-coronary artery bypass graft: Status: Acute (5) Status post mitral valve repair: Status: Acute (6) Status post transcatheter aortic valve replacement: Problem details: 2016 Status: Inactive High sensitivity troponins are 31 and 30. BNP is 505 which is elevated compared to prior value of 140. Creatinine is 1.9 and that seems to be about his baseline. Chest x-ray reported to have no acute process. CT chest report is not in expanse. Lung perfusion scan is normal. Possible acute on chronic diastolic heart failure. In the past, it appears that his LVEF was low before valve intervention but after TAVR it apparently improved to 50 to 55%. We will get an echocardiogram for cardiac function assessment as well as to assess his valves. Agree with JACK Craven. We will follow with you.
--- NOTE | 2021-02-18 11:32 | PC.NURSE ---
patient a&ox3, engine monitor afib 70s-80s, pt has no c/o pain or discomfort, uses urinal independently- output 400, will continue to monitor.
--- NOTE | 2021-02-18 13:03 | P.PNIM_ITS ---
Subjective Subjective Date of Service: 02/19/21 Interval History: Seen in /fu for heart failure and PNA associated with hemoptysis Review of Systems Gen: no fever Resp: no sob, no cough (hemoptysis) CV: no chest, no HINES, no leg edema GI: No n/v, no abd pain Neuro: No confusion Physical Exam Vital Signs: Vital Signs: Last Vital Signs Temp 98.1 F 02/18/21 08:05 Pulse 114 H 02/18/21 08:41 Resp 17 02/18/21 08:05 BP 167/96 H 02/18/21 08:41 Pulse Ox 97 02/18/21 08:05 Body Mass Index 34.2 General: AO X 3, no acute distress Resp: CTA bilateral CVS: S1,S2,RRR, no JVD GI: +BS, NT, no distention Skin: No rash, Ext:left AKA, no appreciable edema Neuro: motor grossly intact Psych: appropriate affect Objective Data Current Medications Generic Name Dose Route Start Last Admin Trade Name Freq PRN Reason Stop Dose Admin Acetaminophen 650 mg 02/17/21 23:25 Acetaminophen 325 Mg Tablet PO Q6H PRN Pain, Mild (Pain Scale 1-3) Allopurinol 100 mg 02/18/21 09:00 02/18/21 08:40 Allopurinol 100 Mg Tablet PO 100 mg DAILY [facility]INE Administration Aspirin 81 mg 02/18/21 09:00 02/18/21 08:40 Aspirin Enteric Coated 81 Mg Tablet.Dr PO 81 mg DAILY [facility]INE Administration Atorvastatin Calcium 40 mg 02/18/21 09:00 02/18/21 08:40 Atorvastatin Calcium 40 Mg Tablet PO 40 mg DAILY [facility] Administration Diltiazem HCl 120 mg 02/18/21 09:00 02/18/21 08:41 Diltiazem Hcl Cd 120 Mg Cap.Er.Deg PO 120 mg DAILY [facility]INE Administration Protocol Furosemide 40 mg 02/18/21 09:00 02/18/21 08:42 Furosemide 40 Mg/4 Ml Vial IVPUSH 40 mg DAILY [facility] Administration Protocol Gabapentin 100 mg 02/18/21 09:00 02/18/21 08:40 Gabapentin 100 Mg Capsule PO 100 mg DAILY [facility] Administration Melatonin 3 mg 02/18/21 00:38 Melatonin 3 Mg Tablet PO BEDTIME PRN Sleep Metoprolol Tartrate 50 mg 02/18/21 09:00 02/18/21 08:41 Metoprolol Tartrate 50 Mg Tablet PO 50 mg BID CHRISTINE Administration Protocol Omeprazole 20 mg 02/18/21 06:30 02/18/21 06:24 Omeprazole 20 Mg Capsule. PO 20 mg 0630,1600 [facility] Administration Quetiapine Fumarate 12.5 mg 02/18/21 21:00 Quetiapine Fumarate 25 Mg Tablet PO BEDTIME [facility] Senna 17.2 mg 02/17/21 23:25 Sennosides 8.6 Mg Tablet PO BEDTIME PRN Constipation Sodium Chloride 3 ml 02/18/21 00:00 02/18/21 11:12 0.9 % Sodium Chloride Flush 3 Ml Syringe IVFLUSH Not Given QSHIFT [facility] Spironolactone 25 mg 02/18/21 09:00 02/18/21 08:41 Spironolactone 25 Mg Tablet PO 25 mg DAILY [facility] Administration Protocol Tamsulosin HCl 0.8 mg 02/18/21 21:00 Tamsulosin Hcl 0.4 Mg Capsule PO BEDTIME [facility] Thiamine HCl 100 mg 02/18/21 09:00 02/18/21 08:40 Thiamine Hcl 100 Mg Tablet PO 100 mg DAILY [facility] Administration Labs CBC & Chem 7: 02/19/21 07:42 02/19/21 07:42 Assessment and Plan (1) Hemoptysis: Status: Acute Assessment and Plan: 80-year-old male with a past medical history of hypertension, hyperlipidemia, CHF, peripheral vascular disease, history of left [id number] amputation, GERD, BPH, AFib on Coumadin presented to the hospital with a chief complaint of shortness of breath/cough with blood-tinged sputum. Noted to be in mild CHF e xacerbation. Mild CHF exacerbatio- acute on chronic diastolic heart failure, no evidence of acute ischemic -IV diuretic, cardiology input noted Cough with blood-tinged sputum. VQ scan negative for PE, CT chest shows airspace disease and likely consistent with PNA.. Will add Abx and consult pulmonology Renal insufficiency: At baseline Microscopic hematuria: Noted in prior admissions as well. Recommended follow- up with Urology. For all other chronic conditions, home medications will be continued DVT prophylaxis: SCD boots Code status: Full code
--- NOTE | 2021-02-18 13:28 | MHC.CM.PN ---
CM MET WITH PT WHO REPORTS HE LIVES AT [facility]. PT HAS HAD AN AKA AND USES A W/C. HE REPORTS HE DOES RECEIVED NURSING SERVICES THROUGH THE FACILITY BUT IS INDEPENDENT WITH SELF CARE. PT HAS A HCP AND MOLST ON FILE. PT CONFIRMS HIS PCP IS DESTINY MULLEN. IMM DELIVERED CURRENT DC PLAN IS TO RETURN TO [facility] VIA [facility]
--- NOTE | 2021-02-18 13:35 | PC.NURSE ---
Report to Teresa PORRAS on IMC
--- NOTE | 2021-02-18 13:49 | PC.NURSE ---
patient a&ox3, currently eating lunch, no complaints at this time, will continue to monitor.
[2021-02-18] MEDS: Doxycycline Hyclate 100 MG in 0.9 % Sodium Chloride 250 ML 166.67 MG IV (14:59)
[2021-02-18] MEDS: cefTRIAXone sodium 1 GM in 0.9 % Sodium Chloride 50 ML IV (16:42)
[2021-02-18] MEDS: QUEtiapine Fumarate 25 MG TABLET 12.5 MG PO (21:31)
[2021-02-18] MEDS: Tamsulosin HCL 0.4 MG CAPSULE 0.8 MG PO (21:31)
[2021-02-19] VITALS (8 sets, daily range): BP systolic 121–137; BP diastolic 57–68; PULSE 52–85; RESP 18–20; TEMP 36.1–37.3; O2SAT 96–98
[2021-02-19] MEDS: Doxycycline Hyclate 100 MG in 0.9 % Sodium Chloride 250 ML 166.67 MG IV ×2 (01:31→14:19)
[2021-02-19] MEDS: 0.9 % Sodium Chloride Flush 3 ML SYRINGE IVFLUSH ×4 (01:35→21:14)
--- NOTE | 2021-02-19 03:58 | P.EN_ITS ---
Event Note Date of Service: 02/19/21 Event Note: Sinus pause: Patient had 2.4 seconds sinus pause. Patient asympt omatic. Will defer to the a.m. team to follow up with Cardiology.
--- NOTE | 2021-02-19 03:58 | PM.EVENT ---
Event Note Date of Service: 02/19/21 Event Note: Sinus pause: Patient had 2.4 seconds sinus pause. Patient asymptomatic. Will defer to the a.m. team to follow up with Cardiology.
--- NOTE | 2021-02-19 03:59 | PC.NURSE ---
at 0342 pt had 2.4 sec. pause asymptomatic md aware
[2021-02-19] MEDS: Omeprazole 20 MG CAPSULE.DR PO ×2 (05:47→15:51)
--- NOTE | 2021-02-19 07:30 | CA_ITS ---
Transthoracic Echocardiogram Patient (Last, First, Middle): Arturo Zambrano, Gender: Male Date of : 1940 Age: 80 Procedure Date: 02/19/2021 Procedure Type: Transthoracic Echocardiogram [place] [facility] [place]: 162.56 cm Weight: 90.27 kg BSA: 1.95 m2 Heart Rate: bpm BP: 136 / 93 mmHg Tracer Lathe Set Up Operator: Referring MD: Tomi Anthony MD Symptoms: chf Study Quality: Fair ECG Rhythm: Sinus Conclusions: - Normal left ventricular size and systolic function. - A bioprosthetic aortic valve is present. The prosthetic aortic valve appears to be functioning normally. - There is mild mitral valve stenosis. - Mild to moderate pulmonary hypertension is present Findings Left Ventricle Normal left ventricular size and systolic function. There is mildly increased left ventricular wall thickness. The visually estimated ejection fraction is between 60-65%. There is no evidence of regional wall motion abnormalities. Diastolic function is indeterminate on the basis of available data. Right Ventricle Normal right ventricular cavity size and systolic function. Atria The left atrium is severely dilated. Aortic Valve A bioprosthetic aortic valve is present. The prosthetic aortic valve appears to be functioning normally. There is no aortic valve stenosis. The peak aortic velocity is 1.60 m/s. The aortic valve area is 2.34 cm2. There is trace (trivial) aortic valve regurgitation. Mitral Valve There is severe mitral annular calcification. There is no mitral valve regurgitation. There is mild mitral valve stenosis. The mean mitral valve gradient is 5.00 mmHg. The calculated mitral valve area by pressure half time is 1.73 cm2. Pulmonic Valve The pulmonic valve is likely normal. Tricuspid Valve Normal tricuspid valve structure and function. There is mild to moderate tricuspid valve regurgitation. Moderately elevated right atrial pressure. Mild to moderate pulmonary hypertension is present. Great Vessels There is mild dilatation of the ascending aorta. The visualized portions of the pulmonary artery and branches are normal. Venous The inferior vena cava is dilated and collapses greater than 50% with inspiration. Pericardium/Pleural There is no evidence of pericardial effusion. Prior Study Comparison No significant change compared to prior study dated: 12/20/2018. Measurements 2D Linear Measurements IVSd: 1.30 0.6-0.9/0.6-1.0 cm LVIDd: 4.84 3.9-5.3/4.2-5.9 cm LVIDd Index: 2.48 2.4-3.2/2.2-3.1 cm/m2 LVIDs: 3.15 2.0-3.6 cm LVPWd: 1.35 0.7-1.1 cm Ao Root: 3.80 2.1-3.5 cm LA Diam: 5.40 2.7-3.8/3.0-4.0 cm LAIDs Index: 2.77 1.5-2.3 cm/m2 LV Mass: 319.08 67-162/88-224 g LV Mass Index: 163.63 43-95/49-115 g/m2 LVOT Diam: 2.20 3.0+(-)1.3 cm 2D Systolic Function EF 4C: 60.20 >55% EF 2C: 61.90 >55% EF BiP: 61.60 >55% Mitral Valve MV VTI: 0.53 MV Pk Tyson: 1.81 MV Mn Tyson: 0.81 MV Pk Grad: 13.00 MV Mn Grad: 4.00 MV Pk E: 1.65 MV Decel Time: 433.00 E'Lateral: 7.35 E'Medial: 3.67 E/E' Med: 45.00 E/E' Lat: 22.40 PHT: 127.00 MVA PHT: 1.73 MVA Continuity: 1.52 Decel [place]: 3.81 Aortic Valve AoV Pk Tyson: 1.60 AoV Mn Tyson: 1.03 AoV VTI: 0.34 AoV Pk Grad: 10.00 Aov Mn Grad: 5.00 KRISTIE Cont.VTI: 2.34 LVOT LVOT Pk Tyson: 0.99 LVOT Mn Tyson: 0.56 LVOT VTI: 0.21 LVOT Pk Grad: 4.00 LVOT Mn Grad: 2.00 LVOT Diam: 2.20 LVOT Area: 3.80 Diastolic Function MV Pk E: 1.65 E'Medial: 3.67 E/E' Med: 45.00 E' Laterial: 7.35 E/E' Lat: 22.40 Tricuspid Valve TR Pk Tyson: 3.32 TR Pk Grad: 44.00 RA Press: 4.00 RVSP: 48.00 Great Vessels Aorta Ao Root-2D: 3.80 2.0-3.7 cm Ao Asc: 3.80 2.1-3.4 cm Pulmonary Valve PV Pk Tyson: 1.18 Peak PV Grad: 6.00 Updated in Other Vendor System with Status of Final Sam Pham MD electronically signed on 02/19/2021 7:23:50 PM with status of Final
[2021-02-19 08:43] LABS: Hematocrit 26.3 % (42-52); Hemoglobin 7.9 g/dl (14.0-18.0); Mean Corpuscular Hemoglobin 26.8 pg (27.0-33.0); Mean Corpuscular Volume 89.2 fL (80-98); Mean Platelet Volume 11.6 fL (9.4-12.4); Platelet Count 285 X10*3/uL (160-400); Red Blood Count 2.95 X10*6/uL (4.60-5.80); Red Cell Distribution Width 19.6 % (11.0-16.0)
[2021-02-19 08:58] LABS: Anion Gap 14 (12-20); Blood Urea Nitrogen 25 mg/dL (9-16); Calcium 8.5 mg/dL (8.4-10.2); Carbon Dioxide 26 mmol/L (22-29); Chloride 106 mmol/L (96-108); Creatinine Clr Calc Pharmacy 28.6; Estimated Glomerular Filt Rate 31; Glucose Random 80 mg/dL (60-115); Potassium 3.7 mmol/L (3.3-5.1); Sodium 142 mmol/L (135-145)
--- NOTE | 2021-02-19 09:16 | P.CONPL_ITS ---
History of Present Illness History of Present Illness Consult date: 02/19/21 Chief complaint: Hemoptysis Narrative: 80-year-old male with a past medical history of hypertension, hyperlipidemia, neuropathy, peripheral vascular disease, left yyvfn-[id number]-vlex amputation, mitral valve repair, GERD, CHF presented to the hospital with a chief complaint of shortness of breath. Patient mentions that over the past 1-2 weeks he has been having increased shortness of breath and also noted to have cough with blood-tinged sputum. Denies any fevers. Denies any numbness tingling. Noted mild swelling in his legs. Mentions his complaint with his home medications. Today he had a PCP appointment who suggested him to go to the hospital for further evaluation. In the ER the patient noted to be short of breath, saturating 91 92% on room air, placed on supplemental oxygen. Coarse breath sounds. Given Lasix IV x1. Creatinine similar to the prior values when discharged in January. V/Q scan negative for any acute blood loss. Chest x-ray otherwise negative for any pneumonia. Admitted to the hospital for further management. In the Hospital the patient had a CT chest noted mediastinal LN and LLL consolidation with GGO. Currently he is on CTX and Doxy. Still coughing up yellow mucus mixed in with blood. About a julius size every 1-2 hours. Review of Systems Constitutional: Constitutional: Denies night sweats ENT: Denies change in voice, Denies lip swelling, Denies mouth pain, Reports nasal congestion, Reports nasal discharge and Denies tongue swelling Cardiovascular: Cardiovascular: Denies chest pain and Reports dyspnea Respiratory: Respiratory: Reports change in phlegm color, Reports cough, Reports hemoptysis and Reports dyspnea Gastrointestinal: Gastrointestinal: Denies abdominal pain Musculoskeletal: Musculoskeletal: Denies no additional musculoskeletal complaints Neurologic: Denies Neuro-related abnormal movements Psychiatric: Psychiatric: Denies no additional psychiatric complaints Hematologic/Lymphatic: Hematologic/Lymphatic: Denies easy bleeding and Denies lymphadenopathy Allergic/Immunologic: Allergic/Immunologic: Denies lip swelling and Denies tongue swelling PMF Past Medical History Medical History (Updated 02/19/21 @ 09:20 by Joe Wagner MD) Above knee amputation of left lower extremity Afib Atherosclerotic cardiovascular disease GERD (gastroesophageal reflux disease) Heart failure HLD (hyperlipidemia) HTN (hypertension) Neuropathy Persistent atrial fibrillation PVD (peripheral vascular disease) Family History Family history: reviewed and not pertinent Surgical History Surgical History (Updated 02/18/21 @ 11:05 by Tomasz Louis MD) Status post aorto-coronary artery bypass graft Status post mitral valve repair Status post transcatheter aortic valve replacement Social History Social History Household Members: Other Housing: Assisted Living Facility Alcohol intake: never Smoking Status: Never smoker Second Hand Smoke Exposure: No Advance Directives Date on File: 01/20/21 service: No Current occupational status: retired Meds Allergies Allergy/AdvReac Type Severity Reaction Status Date / Time oxycodone [OXYCODONE] Allergy Intermediate ITCHING Verified 01/20/21 00:06 ANTIBIOITIC-? NAME Allergy Intermediate ITCHING Uncoded 07/23/20 14:50 Active Medications: Current Medications Generic Name Dose Route Start Last Admin Trade Name Freq PRN Reason Stop Dose Admin Acetaminophen 650 mg 02/17/21 23:25 Acetaminophen 325 Mg Tablet PO Q6H PRN Pain, Mild (Pain Scale 1-3) Allopurinol 100 mg 02/18/21 09:00 02/18/21 08:40 Allopurinol 100 Mg Tablet PO 100 mg DAILY CHRISTINE Administration Aspirin 81 mg 02/18/21 09:00 02/18/21 08:40 Aspirin Enteric Coated 81 Mg Tablet.Dr PO 81 mg DAILY CHRISTINE Administration Atorvastatin Calcium 40 mg 02/18/21 09:00 02/18/21 08:40 Atorvastatin Calcium 40 Mg Tablet PO 40 mg DAILY CHRISTINE Administration Diltiazem HCl 120 mg 02/18/21 09:00 02/18/21 08:41 Diltiazem Hcl Cd 120 Mg Cap.Er.Deg PO 120 mg DAILY CHRISTINE Administration Protocol Furosemide 40 mg 02/18/21 09:00 02/18/21 08:42 Furosemide 40 Mg/4 Ml Vial IVPUSH 40 mg DAILY CHRISTINE Administration Protocol Gabapentin 100 mg 02/18/21 09:00 02/18/21 08:40 Gabapentin 100 Mg Capsule PO 100 mg DAILY CHRISTINE Administration Ceftriaxone Sodium 1 gm/ 50 mls @ 100 mls/hr 02/18/21 15:00 02/18/21 17:44 Sodium Chloride IV Infused Q24H CHRISTINE Infusion Doxycycline Hyclate 100 mg/ 250 mls @ 166.67 mls/hr 02/18/21 14:00 02/19/21 03:21 Sodium Chloride IV Infused Q12H CHRISTINE Infusion Melatonin 3 mg 02/18/21 00:38 Melatonin 3 Mg Tablet PO BEDTIME PRN Sleep Metoprolol Tartrate 50 mg 02/18/21 09:00 02/18/21 21:32 Metoprolol Tartrate 50 Mg Tablet PO 50 mg BID CHRISTINE Administration Protocol Omeprazole 20 mg 02/18/21 06:30 02/19/21 05:47 Omeprazole 20 Mg Capsule.Dr PO 20 mg 0630,1600 CHRISTINE Administration Quetiapine Fumarate 12.5 mg 02/18/21 21:00 02/18/21 21:31 Quetiapine Fumarate 25 Mg Tablet PO 12.5 mg BEDTIME CHRISTINE Administration Senna 17.2 mg 02/17/21 23:25 Sennosides 8.6 Mg Tablet PO BEDTIME PRN Constipation Sodium Chloride 3 ml 02/18/21 00:00 02/19/21 01:35 0.9 % Sodium Chloride Flush 3 Ml Syringe IVFLUSH 3 ml QSHIFT CHRISTINE Administration Spironolactone 25 mg 02/18/21 09:00 02/18/21 08:41 Spironolactone 25 Mg Tablet PO 25 mg DAILY CHRISTINE Administration Protocol Tamsulosin HCl 0.8 mg 02/18/21 21:00 02/18/21 21:31 Tamsulosin Hcl 0.4 Mg Capsule PO 0.8 mg BEDTIME CHRISTINE Administration Thiamine HCl 100 mg 02/18/21 09:00 02/18/21 08:40 Thiamine Hcl 100 Mg Tablet PO 100 mg DAILY CHRISTINE Administration Home Medications Medication Instructions Recorded Confirmed Last Taken Type aspirin 81 mg PO DAILY 01/19/21 02/17/21 Unknown History atorvastatin 40 mg PO DAILY 01/19/21 02/17/21 Unknown History furosemide 40 mg PO BID 01/19/21 02/17/21 Unknown History gabapentin 100 mg PO QAM 01/19/21 02/17/21 Unknown History metoprolol tartrate 50 mg PO BID 01/19/21 02/17/21 Unknown History pantoprazole 40 mg PO BID 01/19/21 02/17/21 Unknown History potassium chloride 10 meq PO BID 01/19/21 02/17/21 Unknown History quetiapine 12.5 mg PO BEDTIME 01/19/21 02/17/21 Unknown History spironolactone 25 mg PO DAILY 01/19/21 02/17/21 Unknown History warfarin 5 mg PO SUMOWEFR 01/19/21 02/18/21 Unknown History diltiazem HCl 120 mg PO DAILY 01/20/21 02/17/21 Unknown History melatonin 5 mg PO BEDTIME PRN 01/20/21 02/17/21 Unknown History thiamine HCl (vitamin B1) 100 mg PO DAILY 01/20/21 02/17/21 Unknown History allopurinol 1 tab PO DAILY 02/17/21 02/17/21 Unknown History warfarin 2.5 mg PO TUTHSA 02/18/21 02/18/21 Unknown History Physical Exam Vital Signs: Vital Signs: Last Vital Signs Temp 98.0 F 02/19/21 08:00 Pulse 69 02/19/21 08:00 Resp 20 02/19/21 08:00 BP 130/62 02/19/21 08:00 Pulse Ox 98 02/19/21 08:00 Body Mass Index 34.2 Const: General: alert Neck: Neck: Yes normal visual inspection, Yes full ROM and Yes no lymphadenopathy Chest: Chest palpation & inspection: normal inspection of the chest Resp: Auscultation: diminished lung sounds Cardio: Rate: regular rate Rhythm: regular rhythm Heart sounds: S1 normal heart sound present and S2 normal heart sound present GI: Palpation (GI): Soft to palpation and nontender Auscultation: normal bowel sounds Skin: General skin exam: rashes and/or lesions noted Results Laboratory Findings CBC and BMP: 02/19/21 07:42 02/19/21 07:42 ABG, PT/INR, D-dimer: PT/INR, D-dimer PT 23.7 SEC (10.8-13.0) H D 02/17/21 13:27 INR 2.0 (0.9-1.1) H 02/17/21 13:27 D-Dimer 604 NG/ML 02/17/21 13:27 Abnormal lab findings: Abnormal Labs 02/17/21 02/17/21 02/17/21 13:27 13:27 13:27 RBC 3.14 L Hgb 8.6 L Hct 28.4 L MCH MCHC 30.3 L RDW 19.3 H Lymph % (Auto) 14.5 L Anderson % (Auto) Eos % (Auto) 9.3 H Lymph # (Auto) 1.1 L Eos # (Auto) 0.7 H PT 23.7 H D INR 2.0 H Chloride 111 H BUN 22 H Creatinine 1.83 H Total Bilirubin 1.1 H Alkaline Phosphatase 137 H C-Reactive Protein 1.99 H B-Natriuretic Peptide Urine Protein Urine Blood Urine RBC 02/17/21 02/17/21 02/18/21 13:27 18:00 06:47 RBC 3.31 L Hgb 9.1 L Hct 29.6 L MCH MCHC 30.7 L RDW 19.6 H Lymph % (Auto) 11.1 L Anderson % (Auto) 11.3 H Eos % (Auto) 7.8 H Lymph # (Auto) 1.0 L Eos # (Auto) 0.7 H PT INR Chloride BUN Creatinine Total Bilirubin Alkaline Phosphatase C-Reactive Protein B-Natriuretic Peptide 505 H Urine Protein 1+ H Urine Blood 3+ H Urine RBC 10-14 H 02/18/21 02/19/21 02/19/21 06:47 07:42 07:42 RBC 2.95 L Hgb 7.9 L Hct 26.3 L MCH 26.8 L MCHC 30.0 L RDW 19.6 H Lymph % (Auto) Anderson % (Auto) Eos % (Auto) Lymph # (Auto) Eos # (Auto) PT INR Chloride BUN 21 H 25 H Creatinine 1.90 H 2.05 H Total Bilirubin Alkaline Phosphatase C-Reactive Protein B-Natriuretic Peptide Urine Protein Urine Blood Urine RBC Assessment and Plan (1) Hemoptysis: Status: Acute (2) Mediastinal lymphadenopathy: Status: Acute (3) LLL pneumonia: Qualifiers: Pneumonia type: due to unspecified organism Qualified Code(s): J18.9 - Pneumonia, unspecified organism Status: Acute Holding anticoagulation Continue Abx Sputum culture Legionella/strep urine studies If no better consider bronchoscopy
[2021-02-19] MEDS: Aspirin Enteric Coated 81 MG TABLET.DR PO (09:49)
[2021-02-19] MEDS: dilTIAZem HCL CD 120 MG CAP.ER.DEG PO (09:49)
[2021-02-19] MEDS: Gabapentin 100 MG CAPSULE PO (09:50)
[2021-02-19] MEDS: Atorvastatin Calcium 40 MG TABLET PO (09:50)
[2021-02-19] MEDS: allopurinoL 100 MG TABLET PO (09:50)
[2021-02-19] MEDS: Thiamine HCL 100 MG TABLET PO (09:50)
[2021-02-19] MEDS: Furosemide 40 MG/4 ML VIAL IVPUSH (09:50)
[2021-02-19] MEDS: Spironolactone 25 MG TABLET PO (09:54)
--- NOTE | 2021-02-19 10:15 | MHC.CM.PN ---
DP TO HOME TODAY WITH [employer]UMPTION OF [employer], PROVIDED BY [facility]. FAMILY PROVIDING TRANSPORTATION. [place] IS OXYGEN PROVIDED. PT STATES THAT HE IS SET WITH O2 AND SUPPLIES.
--- NOTE | 2021-02-19 12:10 | P.PNIM_ITS ---
Subjective Subjective Date of Service: 02/23/21 Interval History: Seen in /fu for heart failure and PNA associate with hemoptysis. He is still coughing at times with hemoptysis Review of Systems Gen: no fever Resp: no sob, no cough (hemoptysis) CV: no chest, no HINES, no leg edema GI: No n/v, no abd pain Neuro: No confusion Physical Exam Vital Signs: Vital Signs: Last Vital Signs Temp 98.0 F 02/19/21 08:00 Pulse 77 02/19/21 09:49 Resp 20 02/19/21 08:00 BP 130/62 02/19/21 09:49 Pulse Ox 98 02/19/21 08:00 Body Mass Index 34.2 General: AO X 3, no acute distress Resp: Rhonchi CVS: S1,S2,RRR, no leg edema GI: +BS, NT, no distention Skin: No rash Neuro: motor grossly intact Psych: appropriate affect Objective Data Current Medications Generic Name Dose Route Start Last Admin Trade Name Freq PRN Reason Stop Dose Admin Acetaminophen 650 mg 02/17/21 23:25 Acetaminophen 325 Mg Tablet PO Q6H PRN Pain, Mild (Pain Scale 1-3) Allopurinol 100 mg 02/18/21 09:00 02/19/21 09:50 Allopurinol 100 Mg Tablet PO 100 mg DAILY CHRISTINE Administration Aspirin 81 mg 02/18/21 09:00 02/19/21 09:49 Aspirin Enteric Coated 81 Mg Tablet.Dr PO 81 mg DAILY CHRISTINE Administration Atorvastatin Calcium 40 mg 02/18/21 09:00 02/19/21 09:50 Atorvastatin Calcium 40 Mg Tablet PO 40 mg DAILY CHRISTINE Administration Diltiazem HCl 120 mg 02/18/21 09:00 02/19/21 09:49 Diltiazem Hcl Cd 120 Mg Cap.Er.Deg PO 120 mg DAILY CHRISTINE Administration Protocol Furosemide 40 mg 02/18/21 09:00 02/19/21 09:50 Furosemide 40 Mg/4 Ml Vial IVPUSH 40 mg DAILY CHRISTINE Administration Protocol Gabapentin 100 mg 02/18/21 09:00 02/19/21 09:50 Gabapentin 100 Mg Capsule PO 100 mg DAILY CHRISTINE Administration Ceftriaxone Sodium 1 gm/ 50 mls @ 100 mls/hr 02/18/21 15:00 02/18/21 17:44 Sodium Chloride IV Infused Q24H CHRISTINE Infusion Doxycycline Hyclate 100 mg/ 250 mls @ 166.67 mls/hr 02/18/21 14:00 02/19/21 03:21 Sodium Chloride IV Infused Q12H CHRISTINE Infusion Melatonin 3 mg 02/18/21 00:38 Melatonin 3 Mg Tablet PO BEDTIME PRN Sleep Metoprolol Tartrate 50 mg 02/18/21 09:00 02/19/21 10:35 Metoprolol Tartrate 50 Mg Tablet PO Not Given BID CHRISTINE Protocol Omeprazole 20 mg 02/18/21 06:30 02/19/21 05:47 Omeprazole 20 Mg Capsule.Dr PO 20 mg 0630,1600 CHRISTINE Administration Quetiapine Fumarate 12.5 mg 02/18/21 21:00 02/18/21 21:31 Quetiapine Fumarate 25 Mg Tablet PO 12.5 mg BEDTIME CHRISTINE Administration Senna 17.2 mg 02/17/21 23:25 Sennosides 8.6 Mg Tablet PO BEDTIME PRN Constipation Sodium Chloride 3 ml 02/18/21 00:00 02/19/21 09:50 0.9 % Sodium Chloride Flush 3 Ml Syringe IVFLUSH 3 ml QSHIFT CHRISTINE Administration Spironolactone 25 mg 02/18/21 09:00 02/19/21 09:54 Spironolactone 25 Mg Tablet PO 25 mg DAILY CHRISTINE Administration Protocol Tamsulosin HCl 0.8 mg 02/18/21 21:00 02/18/21 21:31 Tamsulosin Hcl 0.4 Mg Capsule PO 0.8 mg BEDTIME CHRISTINE Administration Thiamine HCl 100 mg 02/18/21 09:00 02/19/21 09:50 Thiamine Hcl 100 Mg Tablet PO 100 mg DAILY CHRISITNE Administration Labs CBC & Chem 7: 02/22/21 04:19 02/23/21 05:28 Assessment and Plan (1) Hemoptysis: Status: Acute Assessment and Plan: 80-year-old male with a past medical history of hypertension, hyperlipidemia, CHF, peripheral vascular disease, history of left ipqgp-[id number] amputation, GERD, BPH, AFib on Coumadin presented to the hospital with a chief complaint of shortness of breath/cough with blood-tinged sputum. Noted to be in mild CHF exacerbation. Mild CHF exacerbatio- acute on chronic diastolic heart failure, no evidence of acute ischemic -IV diuretic, cardiology input noted Cough with blood-tinged sputum. VQ scan negative for PE, CT chest shows airspace disease and likely consistent with PNA.. Will add Abx and consult pulmonology Renal insufficiency: At baseline Microscopic hematuria: Noted in prior admissions as well. Recommended follow- up with Urology. For all other chronic conditions, home medications will be continued DVT prophylaxis: SCD boots Code status: Full code
--- NOTE | 2021-02-19 12:23 | PC.NURSE ---
Overnight HR 35-60s. At 0900 HR 60-80S, had metropolol scheduled BID 50mg PO- clarified with MD if wanted to hold or give - instructed per MD to hold for now. As of 1230 HR remains 70-90s at this time other VSS. Weaned off o2- pt sat 96% at room air at this time, up OOB to chair, no SOB reported. Still had some coarse and fine crackles in lungs. Will monitor o2 and resp status
--- NOTE | 2021-02-19 13:35 | MHC.CM.PN ---
DP Male 80 DX Hemoptysis He will return to [facility].
--- NOTE | 2021-02-19 13:37 | P.PNCA_ITS ---
Subjective Subjective Date of Service: 02/19/21 Interval history: He states that he feels slightly better than yesterday. Review of Systems Review of Systems Yes all other systems are reviewed and are negative Cardiovascular: Reports as per HPI, Reports no additional cardiovascular complaints, Denies acrocyanosis, Denies cool extremities, Denies painful fin gertips, Denies chest pain, Denies chest pain at rest, Denies diaphoresis, Denies syncope, Denies irregular heart rhythm, Denies claudication, Denies leg edema, Denies lightheadedness, Denies palpitations and Reports dyspnea Respiratory: Reports hemoptysis and Reports dyspnea Denies syncope Endocrine: Denies palpitations Physical Exam Vital Signs: Last Vital Signs Temp 97.3 F 02/19/21 12:45 Pulse 85 02/19/21 12:45 Resp 20 02/19/21 12:45 BP 131/68 02/19/21 12:45 Pulse Ox 96 02/19/21 12:45 Body Mass Index 34.2 Const General: cooperative, comfortable and no acute distress Orientation/consciousness: patient oriented x3 HENUT Other: Unremarkable Neck Neck: Yes normal visual inspection Chest Chest palpation & inspection: normal inspection of the chest Resp Auscultation: no crackles, wheezes and diminished lung sounds Cardio Jugular venous distension: no JVD Palpation: normal PMI Heart sounds: S1 normal heart sound present, S2 normal heart sound present, no gallops, Murmur heart sound present systolic II/ and at the right sternal border and no rubs GI Palpation (GI): Soft to palpation Back/Spine/Pelvis Other: unremarkable Skin General skin exam: no rashes or lesions noted Neuro General: patient oriented x3 Extrem Other: Left above knee amputation. Psych Mental Status: mental status grossly normal Results Labs and Meds Result diagrams: 02/19/21 07:42 02/19/21 07:42 Lab results: Laboratory Results - last 24 hr 02/19/21 02/19/21 07:42 07:42 WBC 8.0 RBC 2.95 L Hgb 7.9 L Hct 26.3 L MCV 89.2 MCH 26.8 L MCHC 30.0 L RDW 19.6 H Plt Count 285 MPV 11.6 Absolute Nucleated RBC 0.000 Nucleated RBC % (auto) 0.0 Sodium 142 Potassium 3.7 Chloride 106 Carbon Dioxide 26 Anion Gap 14 BUN 25 H Creatinine 2.05 H Estim Creat Clear Calc 28.6 Estimated GFR 31 Random Glucose 80 Calcium 8.5 D Progress Note: A&P Assessment and plan (1) Acute on chronic diastolic (congestive) heart failure: Status: Acute (2) Persistent atrial fibrillation: Status: Acute (3) Atherosclerotic cardiovascular disease: Problem details: Cardiac catheterization-2017- Left main-minimal irregularities; LAD- chronic occlusion; proximal circumflex-60% stenosis; RCA minor irregularities; PAL graft is patent; vein graft to 1st diagonal not commented Status: Acute (4) Status post aorto-coronary artery bypass graft: Status: Acute (5) Status post mitral valve repair: Status: Acute (6) Status post transcatheter aortic valve replacement: Problem details: 2017 Status: Inactive Assessment and Plan: High sensitivity troponins are 31 and 30. BNP is 505 which is elevated compared to prior value of 140. Creatinine is 1.9 and that seems to be about his baseline. Chest x-ray reported to have no acute process. CT chest findings suggestive of pneumonia. Lung perfusion scan is normal. In the past, it appears that his LVEF was low before valve intervention but after TAVR it apparently improved to 50 to 55%. We can get an echocardiogram for further assessment. Otherwise, clinically he is not too volume overloaded and we can focus on treating the pneumonia. No need for aggressive diuresis. Fall Risk Details Current Medications: Current Medications Generic Name Dose Route Start Last Admin Trade Name Freq PRN Reason Stop Dose Admin Acetaminophen 650 mg 02/17/21 23:25 Acetaminophen 325 Mg Tablet PO Q6H PRN Pain, Mild (Pain Scale 1-3) Allopurinol 100 mg 02/18/21 09:00 02/19/21 09:50 Allopurinol 100 Mg Tablet PO 100 mg DAILY CHRISTINE Administration Aspirin 81 mg 02/18/21 09:00 02/19/21 09:49 Aspirin Enteric Coated 81 Mg Tablet. PO 81 mg DAILY CHRISTINE Administration Atorvastatin Calcium 40 mg 02/18/21 09:00 02/19/21 09:50 Atorvastatin Calcium 40 Mg Tablet PO 40 mg DAILY CHRISTINE Administration Diltiazem HCl 120 mg 02/18/21 09:00 02/19/21 09:49 Diltiazem Hcl Cd 120 Mg Cap.Er.Deg PO 120 mg DAILY CHRISTINE Administration Protocol Furosemide 20 mg 02/20/21 09:00 Furosemide 40 Mg/4 Ml Vial IVPUSH DAILY CHRISTINE Protocol Gabapentin 100 mg 02/18/21 09:00 02/19/21 09:50 Gabapentin 100 Mg Capsule PO 100 mg DAILY CHRISTINE Administration Ceftriaxone Sodium 1 gm/ 50 mls @ 100 mls/hr 02/18/21 15:00 02/18/21 17:44 Sodium Chloride IV Infused Q24H CHRISTINE Infusion Doxycycline Hyclate 100 mg/ 250 mls @ 166.67 mls/hr 02/18/21 14:00 02/19/21 03:21 Sodium Chloride IV Infused Q12H CHRISTINE Infusion Melatonin 3 mg 02/18/21 00:38 Melatonin 3 Mg Tablet PO BEDTIME PRN Sleep Metoprolol Tartrate 50 mg 02/18/21 09:00 02/19/21 10:35 Metoprolol Tartrate 50 Mg Tablet PO Not Given BID CHRISTINE Protocol Omeprazole 20 mg 02/18/21 06:30 02/19/21 05:47 Omeprazole 20 Mg Capsule.Dr PO 20 mg 0630,1600 CHRISTINE Administration Quetiapine Fumarate 12.5 mg 02/18/21 21:00 02/18/21 21:31 Quetiapine Fumarate 25 Mg Tablet PO 12.5 mg BEDTIME CHRISTINE Administration Senna 17.2 mg 02/17/21 23:25 Sennosides 8.6 Mg Tablet PO BEDTIME PRN Constipation Sodium Chloride 3 ml 02/18/21 00:00 02/19/21 09:50 0.9 % Sodium Chloride Flush 3 Ml Syringe IVFLUSH 3 ml QSHIFT CHRISTINE Administration Spironolactone 25 mg 02/18/21 09:00 02/19/21 09:54 Spironolactone 25 Mg Tablet PO 25 mg DAILY CHRISTINE Administration Protocol Tamsulosin HCl 0.8 mg 02/18/21 21:00 02/18/21 21:31 Tamsulosin Hcl 0.4 Mg Capsule PO 0.8 mg BEDTIME CHRISTINE Administration Thiamine HCl 100 mg 02/18/21 09:00 02/19/21 09:50 Thiamine Hcl 100 Mg Tablet PO 100 mg DAILY CHRISTINE Administration Time Spent With Patient Time: Total time spent is greater than 50% in coordination of care (as documented) at patient's floor/unit and/or counseling patient: Time with patient: less than 15 minutes
[2021-02-19] MEDS: cefTRIAXone sodium 1 GM in 0.9 % Sodium Chloride 50 ML IV (15:47)
[2021-02-19] MEDS: Tamsulosin HCL 0.4 MG CAPSULE 0.8 MG PO (21:13)
[2021-02-19] MEDS: QUEtiapine Fumarate 25 MG TABLET 12.5 MG PO (21:14)
[2021-02-19] MEDS: Melatonin 3 MG TABLET PO (21:25)
[2021-02-20] VITALS (10 sets, daily range): BP systolic 106–157; BP diastolic 55–73; PULSE 60–82; RESP 18–20; TEMP 36.2–37.1; O2SAT 94–99
[2021-02-20] MEDS: Doxycycline Hyclate 100 MG in 0.9 % Sodium Chloride 250 ML 166.67 MG IV ×2 (02:10→13:11)
[2021-02-20] MEDS: Omeprazole 20 MG CAPSULE.DR PO ×2 (05:38→17:07)
[2021-02-20] MEDS: 0.9 % Sodium Chloride Flush 3 ML SYRINGE IVFLUSH ×2 (09:09→14:35)
[2021-02-20] MEDS: Gabapentin 100 MG CAPSULE PO (09:10)
[2021-02-20] MEDS: Aspirin Enteric Coated 81 MG TABLET.DR PO (09:10)
[2021-02-20] MEDS: dilTIAZem HCL CD 120 MG CAP.ER.DEG PO (09:10)
[2021-02-20] MEDS: Spironolactone 25 MG TABLET PO (09:10)
[2021-02-20] MEDS: Furosemide 40 MG/4 ML VIAL 20 MG IVPUSH (09:10)
[2021-02-20] MEDS: allopurinoL 100 MG TABLET PO (09:11)
[2021-02-20] MEDS: Atorvastatin Calcium 40 MG TABLET PO (09:11)
[2021-02-20] MEDS: Thiamine HCL 100 MG TABLET PO (09:11)
[2021-02-20] MEDS: Metoprolol Tartrate 50 MG TABLET PO ×2 (09:11→21:20)
--- NOTE | 2021-02-20 09:52 | PM.PNCARD ---
Subjective Subjective Date of Service: 02/20/21 Interval history: He is complaining of shortness of breath. He has wheezing. Physical Exam Vital Signs: Last Vital Signs Temp 97.1 F 02/20/21 07:28 Pulse 78 02/20/21 09:11 Resp 18 02/20/21 07:28 BP 149/64 H 02/20/21 09:11 Pulse Ox 98 02/20/21 07:28 Body Mass Index 34.2 GENERAL APPEARANCE: Short of breath, wheezing. HEENT: unremarkable. HEAD: normocephalic, atraumatic. NECK/THYROID: no carotid bruit, positive JVD. SKIN: no suspicious lesions, warm and dry. HEART: no murmurs, regular rate and rhythm, S1, S2 normal. LUNGS: Bilateral wheezes and rhonchi. ABDOMEN: normal, bowel sounds present, soft, nontender, nondistended. EXTREMITIES: no clubbing, cyanosis, or edema. PERIPHERAL PULSES: equal. NEUROLOGIC: nonfocal, alert and oriented. Results Labs and Meds Result diagrams: 02/19/21 07:42 02/19/21 07:42 Progress Note: A&P Assessment and plan (1) LLL pneumonia: Status: Acute (2) Acute on chronic diastolic (congestive) heart failure: Status: Acute Assessment and Plan: 80-year-old gentleman who is presenting with shortness of breath and cough. He was diagnosed with pneumonia and is on antibiotics. He has background of transcatheter aortic valve replacement as well as mitral valve repair. He has mild mitral stenosis on echocardiogram. Clinically he is wheezing and short of breath. He has JVD on exam. He was taking 40 mg p.o. Lasix b.i.d. at home. I think we should give him 40 mg IV Lasix b.i.d. He should get some nebulizers to see if his wheezing improves with that. We will follow along with you. Thank you for allowing me to participate in the care of your patient. Please feel free to contact me if you have any questions. Fall Risk Details Current Medications: Current Medications Generic Name Dose Route Start Last Admin Trade Name Freq PRN Reason Stop Dose Admin Acetaminophen 650 mg 02/17/21 23:25 Acetaminophen 325 Mg Tablet PO Q6H PRN Pain, Mild (Pain Scale 1-3) Allopurinol 100 mg 02/18/21 09:00 02/20/21 09:11 Allopurinol 100 Mg Tablet PO 100 mg DAILY [facility]RISTINE Administration Aspirin 81 mg 02/18/21 09:00 02/20/21 09:10 Aspirin Enteric Coated 81 Mg Tablet. PO 81 mg DAILY [facility]RISTINE Administration Atorvastatin Calcium 40 mg 02/18/21 09:00 02/20/21 09:11 Atorvastatin Calcium 40 Mg Tablet PO 40 mg DAILY [facility]STINE Administration Diltiazem HCl 120 mg 02/18/21 09:00 02/20/21 09:10 Diltiazem Hcl Cd 120 Mg Cap.Er.Deg PO 120 mg DAILY CHRISTINE Administration Protocol Furosemide 40 mg 02/20/21 09:30 02/20/21 09:34 Furosemide 40 Mg/4 Ml Vial IVPUSH Not Given BID@0900,1800 [facility] Protocol Gabapentin 100 mg 02/18/21 09:00 02/20/21 09:10 Gabapentin 100 Mg Capsule PO 100 mg DAILY [facility]STINE Administration Ceftriaxone Sodium 1 gm/ 50 mls @ 100 mls/hr 02/18/21 15:00 02/19/21 16:36 Sodium Chloride IV Infused Q24H [facility]INE Infusion Doxycycline Hyclate 100 mg/ 250 mls @ 166.67 mls/hr 02/18/21 14:00 02/20/21 04:01 Sodium Chloride IV Infused Q12H [facility]INE Infusion Melatonin 3 mg 02/18/21 00:38 02/19/21 21:25 Melatonin 3 Mg Tablet PO 3 mg BEDTIME PRN Administration Sleep Metoprolol Tartrate 50 mg 02/18/21 09:00 02/20/21 09:11 Metoprolol Tartrate 50 Mg Tablet PO 50 mg BID CH[facility]STINE Administration Protocol Omeprazole 20 mg 02/18/21 06:30 02/20/21 05:38 Omeprazole 20 Mg Capsule. PO 20 mg 0630,1600 [facility] Administration Quetiapine Fumarate 12.5 mg 02/18/21 21:00 02/19/21 21:14 Quetiapine Fumarate 25 Mg Tablet PO 12.5 mg BEDTIME [facility]INE Administration Senna 17.2 mg 02/17/21 23:25 Sennosides 8.6 Mg Tablet PO BEDTIME PRN Constipation Sodium Chloride 3 ml 02/18/21 00:00 02/20/21 09:09 0.9 % Sodium Chloride Flush 3 Ml Syringe IVFLUSH 3 ml QSHIFT [facility]STINE Administration Spironolactone 25 mg 02/18/21 09:00 02/20/21 09:10 Spironolactone 25 Mg Tablet PO 25 mg DAILY [facility]STINE Administration Protocol Tamsulosin HCl 0.8 mg 02/18/21 21:00 02/19/21 21:13 Tamsulosin Hcl 0.4 Mg Capsule PO 0.8 mg BEDTIME [facility]INE Administration Thiamine HCl 100 mg 02/18/21 09:00 02/20/21 09:11 Thiamine Hcl 100 Mg Tablet PO 100 mg DAILY [facility]STINE Administration Time Spent With Patient Time: Total time spent is greater than 50% in coordination of care (as documented) at patient's floor/unit and/or counseling patient: Time with patient: 15 - 24 minutes
[2021-02-20] MEDS: Albuterol/Iprat 2.5/0.5MG 3 ML AMPUL.NEB INHALE ×2 (11:51→20:01)
--- NOTE | 2021-02-20 12:00 | P.PNIM_ITS ---
Subjective Subjective Date of Service: 02/20/21 Interval History: Patient complaining of persistent cough with blood tinged sputum, also complaining of shortness of breath, denies fever chills ROS General no headache no dizziness no fever chills. CVS no chest pain, no palpitation. Respiratory productive cough/shortness of breath Gastrointestinal no nausea no vomiting, no abdominal pain Physical Exam Vital Signs: Vital Signs: Last Vital Signs Temp 97.6 F 02/20/21 11:09 Pulse 73 02/20/21 11:09 Resp 20 02/20/21 11:09 BP 148/60 H 02/20/21 11:09 Pulse Ox 99 02/20/21 11:09 Body Mass Index 34.2 General patient resting comfortably in no acute distress. Neck supple, pos. JVD. CVS regular rate rhythm, Respiratory lungs bilateral rhonchi, no respiratory distress, no use of accessory muscles Gastrointestinal abdomen soft, nontender, bowel sounds audible, no guarding , no rigidity. 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 Neuro nonfocal , speech clear. Skin no rash Objective Data Current Medications Generic Name Dose Route Start Last Admin Trade Name Freq PRN Reason Stop Dose Admin Acetaminophen 650 mg 02/17/21 23:25 Acetaminophen 325 Mg Tablet PO Q6H PRN Pain, Mild (Pain Scale 1-3) Albuterol/Ipratropium 3 ml 02/20/21 14:00 02/20/21 11:51 Albuterol/Iprat 2.5/0.5mg 3 Ml Ampul.Neb INHALE 3 ml RQ6H WHILE AWAKE CHRISTINE Administration Allopurinol 100 mg 02/18/21 09:00 02/20/21 09:11 Allopurinol 100 Mg Tablet PO 100 mg DAILY CHRISTINE Administration Aspirin 81 mg 02/18/21 09:00 02/20/21 09:10 Aspirin Enteric Coated 81 Mg Tablet.Dr PO 81 mg DAILY CHRISTINE Administration Atorvastatin Calcium 40 mg 02/18/21 09:00 02/20/21 09:11 Atorvastatin Calcium 40 Mg Tablet PO 40 mg DAILY CHRISTINE Administration Diltiazem HCl 120 mg 02/18/21 09:00 02/20/21 09:10 Diltiazem Hcl Cd 120 Mg Cap.Er.Deg PO 120 mg DAILY CHRISTINE Administration Protocol Furosemide 40 mg 02/20/21 09:30 02/20/21 09:34 Furosemide 40 Mg/4 Ml Vial IVPUSH Not Given BID@0900,1800 [facility] Protocol Gabapentin 100 mg 02/18/21 09:00 02/20/21 09:10 Gabapentin 100 Mg Capsule PO 100 mg DAILY [facility]INE Administration Guaifenesin/Dextromethorphan 10 ml 02/20/21 10:15 Guaifenesin Dm 200/20/10 Ml 10 Ml Syrup PO Q6H [facility]INE Ceftriaxone Sodium 1 gm/ 50 mls @ 100 mls/hr 02/18/21 15:00 02/19/21 16:36 Sodium Chloride IV Infused Q24H [facility]STINE Infusion Doxycycline Hyclate 100 mg/ 250 mls @ 166.67 mls/hr 02/18/21 14:00 02/20/21 04:01 Sodium Chloride IV Infused Q12H [facility]STINE Infusion Melatonin 3 mg 02/18/21 00:38 02/19/21 21:25 Melatonin 3 Mg Tablet PO 3 mg BEDTIME PRN Administration Sleep Metoprolol Tartrate 50 mg 02/18/21 09:00 02/20/21 09:11 Metoprolol Tartrate 50 Mg Tablet PO 50 mg BID CH[facility]STINE Administration Protocol Omeprazole 20 mg 02/18/21 06:30 02/20/21 05:38 Omeprazole 20 Mg Capsule.Dr PO 20 mg 0630,1600 [facility] Administration Quetiapine Fumarate 12.5 mg 02/18/21 21:00 02/19/21 21:14 Quetiapine Fumarate 25 Mg Tablet PO 12.5 mg BEDTIME [facility]INE Administration Senna 17.2 mg 02/17/21 23:25 Sennosides 8.6 Mg Tablet PO BEDTIME PRN Constipation Sodium Chloride 3 ml 02/18/21 00:00 02/20/21 09:09 0.9 % Sodium Chloride Flush 3 Ml Syringe IVFLUSH 3 ml QSHIFT [facility]STINE Administration Spironolactone 25 mg 02/18/21 09:00 02/20/21 09:10 Spironolactone 25 Mg Tablet PO 25 mg DAILY [facility]STINE Administration Protocol Tamsulosin HCl 0.8 mg 02/18/21 21:00 02/19/21 21:13 Tamsulosin Hcl 0.4 Mg Capsule PO 0.8 mg BEDTIME [facility]STINE Administration Thiamine HCl 100 mg 02/18/21 09:00 02/20/21 09:11 Thiamine Hcl 100 Mg Tablet PO 100 mg DAILY CHRISTINE Administration Labs CBC & Chem 7: 02/19/21 07:42 02/19/21 07:42 Microbiology Microbiology Results: Microbiology 02/19/21 15:08 Sputum - Expectorated Gram Stain - Final 02/19/21 15:08 Sputum - Expectorated Sputum Culture - Preliminary Culture in progress. Assessment and Plan (1) Acute on chronic diastolic (congestive) heart failure: Status: Acute (2) Persistent atrial fibrillation: Status: Acute (3) Status post mitral valve repair: Status: Acute (4) Hemoptysis: Status: Acute (5) LLL pneumonia: Status: Acute Assessment and Plan: 80-year-old male with a past medical history of hypertension, hyperlipidemia, CHF, peripheral vascular disease, history of left [id number] amputation, GERD, BPH, AFib on Coumadin presented to the hospital with a chief complaint of shortness of breath/cough with blood-tinged sputum. Noted to be in mild CHF exacerbation. Mild acute on chronic diastolic heart failure exacerbation, patient noted to have elevated JVD in bilateral wheeze question due to CHF therefore dose of iv Lasix increased to 40 mg b.i.d. by Cardiology Will follow daily weight,I/Os , no evidence of acute ischemia, echo showed EF 60-65% no evidence of regional wall motion abnormality and indeterminate d iastolic function Pneumonia/with history of asthma patient with persistent Cough with blood-tinged sputum. VQ scan negative for PE, CT chest shows airspace disease and likely consistent with PNA. Will continue IV antibiotics add cough medication and nebulizers follow CBC and clinical course closely. Chronic atrial fibrillation stable ventricular rate, continue diltiazem 120 daily and Lopressor 50 b.i.d., Coumadin on hold due to hemoptysis. Renal insufficiency: At baseline follow BMP Microscopic hematuria: Noted in prior admissions as well. Recommended follow- up with Urology. Will continue Flomax with history of urinary retention. Mood continue Seroquel DVT prophylaxis: SCD boots due to hemoptysis Code status: Full code
[2021-02-20 13:02] LABS: Hematocrit 31.3 % (42-52); Hemoglobin 9.2 g/dl (14.0-18.0); Mean Corpuscular HGB Conc 29.4 g/dl (31.0-36.0); Mean Corpuscular Hemoglobin 26.5 pg (27.0-33.0); Mean Corpuscular Volume 90.2 fL (80-98); Mean Platelet Volume 11.4 fL (9.4-12.4); Platelet Count 315 X10*3/uL (160-400); Red Blood Count 3.47 X10*6/uL (4.60-5.80); Red Cell Distribution Width 19.7 % (11.0-16.0)
[2021-02-20 13:29] LABS: Anion Gap 17 (12-20); Blood Urea Nitrogen 29 mg/dL (9-16); Calcium 8.9 mg/dL (8.4-10.2); Carbon Dioxide 26 mmol/L (22-29); Chloride 105 mmol/L (96-108); Creatinine Clr Calc Pharmacy 28.6; Estimated Glomerular Filt Rate 31; Glucose Random 90 mg/dL (60-115); Potassium 4.2 mmol/L (3.3-5.1); Sodium 144 mmol/L (135-145)
[2021-02-20] MEDS: cefTRIAXone sodium 1 GM in 0.9 % Sodium Chloride 50 ML IV (14:35)
[2021-02-20] MEDS: guaiFENesin DM 200/20/10 ML 10 ML SYRUP PO ×2 (17:05→22:35)
[2021-02-20] MEDS: Furosemide 40 MG/4 ML VIAL IVPUSH (17:05)
[2021-02-20] MEDS: Tamsulosin HCL 0.4 MG CAPSULE 0.8 MG PO (21:20)
[2021-02-20] MEDS: QUEtiapine Fumarate 25 MG TABLET 12.5 MG PO (21:21)
[2021-02-20] MEDS: Acetaminophen 325 MG TABLET 650 MG PO (22:33)
[2021-02-20] MEDS: Melatonin 3 MG TABLET PO (22:33)
[2021-02-21] VITALS (10 sets, daily range): BP systolic 121–159; BP diastolic 57–69; PULSE 55–95; RESP 17–20; TEMP 36.2–37.2; O2SAT 94–97; BMI 31.6
[2021-02-21] MEDS: 0.9 % Sodium Chloride Flush 3 ML SYRINGE IVFLUSH ×4 (01:05→22:53)
[2021-02-21] MEDS: Doxycycline Hyclate 100 MG in 0.9 % Sodium Chloride 250 ML 166.67 MG IV ×2 (01:05→13:37)
[2021-02-21] MEDS: Omeprazole 20 MG CAPSULE.DR PO ×2 (05:52→15:00)
[2021-02-21] MEDS: guaiFENesin DM 200/20/10 ML 10 ML SYRUP PO ×4 (05:52→22:52)
[2021-02-21 06:37] LABS: MANUAL DIFF FLAG NO
[2021-02-21 07:06] LABS: Basophils Absolute Auto 0.1 X10*3/uL (0.0-0.2); Basophils Percent Auto 0.8 % (0-2); Eosinophils Absolute Auto 0.9 X10*3/uL (0.0-0.4); Eosinophils Percent Auto 12.1 % (0-4); Hematocrit 28.6 % (42-52); Hemoglobin 8.7 g/dl (14.0-18.0); Imm Gran Abs Auto 0.02 X10*3/uL (0.00-0.03); Imm Gran Pct Auto 0.3 % (0.0-0.4); Lymphocytes Absolute Auto 1.4 X10*3/uL (1.2-4.9); Lymphocytes Percent Auto 19.2 % (20-40); Mean Corpuscular HGB Conc 30.4 g/dl (31.0-36.0); Mean Corpuscular Hemoglobin 26.7 pg (27.0-33.0); Mean Corpuscular Volume 87.7 fL (80-98); Mean Platelet Volume 11.6 fL (9.4-12.4); Monocytes Absolute Auto 0.9 X10*3/uL (0.1-1.2); Monocytes Percent Auto 11.8 % (2-11); Neutrophils Absolute Auto 4.2 X10*3/uL (2.0-8.3); Neutrophils Percent Auto 55.8 % (45-73); Platelet Count 304 X10*3/uL (160-400); Red Blood Count 3.26 X10*6/uL (4.60-5.80); Red Cell Distribution Width 19.5 % (11.0-16.0); White Blood Count 7.5 X10*3/uL (4.8-10.8)
[2021-02-21 07:17] LABS: Anion Gap 15 (12-20); Blood Urea Nitrogen 33 mg/dL (9-16); Calcium 9.1 mg/dL (8.4-10.2); Carbon Dioxide 27 mmol/L (22-29); Chloride 103 mmol/L (96-108); Creatinine Clr Calc Pharmacy 25.3; Estimated Glomerular Filt Rate 28; Glucose Random 89 mg/dL (60-115); Potassium 4.2 mmol/L (3.3-5.1); Sodium 141 mmol/L (135-145)
[2021-02-21] MEDS: Thiamine HCL 100 MG TABLET PO (07:38)
[2021-02-21] MEDS: Furosemide 40 MG/4 ML VIAL IVPUSH (07:38)
[2021-02-21] MEDS: dilTIAZem HCL CD 120 MG CAP.ER.DEG PO (07:39)
[2021-02-21] MEDS: Atorvastatin Calcium 40 MG TABLET PO (07:39)
[2021-02-21] MEDS: Spironolactone 25 MG TABLET PO (07:39)
[2021-02-21] MEDS: Aspirin Enteric Coated 81 MG TABLET.DR PO (07:39)
[2021-02-21] MEDS: Gabapentin 100 MG CAPSULE PO (07:39)
[2021-02-21] MEDS: Metoprolol Tartrate 50 MG TABLET PO ×2 (07:39→22:53)
[2021-02-21] MEDS: allopurinoL 100 MG TABLET PO (07:39)
[2021-02-21] MEDS: Albuterol/Iprat 2.5/0.5MG 3 ML AMPUL.NEB INHALE ×3 (07:49→20:19)
--- NOTE | 2021-02-21 14:30 | P.PNIM_ITS ---
Subjective Subjective Date of Service: 02/21/21 Interval History: Patient with persistent cough and hemoptysis,, noted to have worsening creatinine this morning hematocrit dropped but stable, patient feels cough medication is not helping with cough, denies fever chills no other acute issues overnight ROS General no headache, no dizziness no fever chills. CVS no chest pain, no palpitation. Respiratory cough with hemoptysis/shortness of breath Gastrointestinal no nausea, no vomiting, no abdominal pain Physical Exam Vital Signs: Vital Signs: Last Vital Signs Temp 98.2 F 02/21/21 11:09 Pulse 58 02/21/21 13:28 Resp 20 02/21/21 11:09 BP 121/61 02/21/21 11:09 Pulse Ox 95 02/21/21 11:09 Body Mass Index 31.6 General mild distress due to recurrent cough Neck supple CVS regular rate rhythm, Respiratory lungs bilateral rhonchi, no wheeze, no respiratory distress, no use of accessory muscles Gastrointestinal abdomen soft, nontender, bowel sounds audible, no guarding , no rigidity. 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 Neuro nonfocal , speech clear. Skin no rash Objective Data Current Medications Generic Name Dose Route Start Last Admin Trade Name Freq PRN Reason Stop Dose Admin Acetaminophen 650 mg 02/17/21 23:25 02/20/21 22:33 Acetaminophen 325 Mg Tablet PO 650 mg Q6H PRN Administration Pain, Mild (Pain Scale 1-3) Albuterol/Ipratropium 3 ml 02/20/21 14:00 02/21/21 13:27 Albuterol/Iprat 2.5/0.5mg 3 Ml Ampul.Neb INHALE 3 ml RQ6H WHILE AWAKE [facility]INE Administration Allopurinol 100 mg 02/18/21 09:00 02/21/21 07:39 Allopurinol 100 Mg Tablet PO 100 mg DAILY [facility]INE Administration Aspirin 81 mg 02/18/21 09:00 02/21/21 07:39 Aspirin Enteric Coated 81 Mg Tablet. PO 81 mg DAILY [facility]STINE Administration Atorvastatin Calcium 40 mg 02/18/21 09:00 02/21/21 07:39 Atorvastatin Calcium 40 Mg Tablet PO 40 mg DAILY [facility]STINE Administration Diltiazem HCl 120 mg 02/18/21 09:00 02/21/21 07:39 Diltiazem Hcl Cd 120 Mg Cap.Er.Deg PO 120 mg DAILY CHRISTINE Administration Protocol Gabapentin 100 mg 02/18/21 09:00 02/21/21 07:39 Gabapentin 100 Mg Capsule PO 100 mg DAILY [facility]INE Administration Guaifenesin/Dextromethorphan 10 ml 02/20/21 10:15 02/21/21 10:28 Guaifenesin Dm 200/20/10 Ml 10 Ml Syrup PO 10 ml Q6H [facility]INE Administration Ceftriaxone Sodium 1 gm/ 50 mls @ 100 mls/hr 02/18/21 15:00 02/20/21 15:08 Sodium Chloride IV Infused Q24H [facility]STINE Infusion Doxycycline Hyclate 100 mg/ 250 mls @ 166.67 mls/hr 02/18/21 14:00 02/21/21 13:37 Sodium Chloride IV 166.67 mls/hr Q12H [facility]INE Administration Melatonin 3 mg 02/18/21 00:38 02/20/21 22:33 Melatonin 3 Mg Tablet PO 3 mg BEDTIME PRN Administration Sleep Metoprolol Tartrate 50 mg 02/18/21 09:00 02/21/21 07:39 Metoprolol Tartrate 50 Mg Tablet PO 50 mg BID CH[facility]STINE Administration Protocol Omeprazole 20 mg 02/18/21 06:30 02/21/21 05:52 Omeprazole 20 Mg Capsule.Dr PO 20 mg 0630,1600 [facility]INE Administration Quetiapine Fumarate 12.5 mg 02/18/21 21:00 02/20/21 21:21 Quetiapine Fumarate 25 Mg Tablet PO 12.5 mg BEDTIME [facility]INE Administration Senna 17.2 mg 02/17/21 23:25 Sennosides 8.6 Mg Tablet PO BEDTIME PRN Constipation Sodium Chloride 3 ml 02/18/21 00:00 02/21/21 07:38 0.9 % Sodium Chloride Flush 3 Ml Syringe IVFLUSH 3 ml QSHIFT CH[facility]STINE Administration Tamsulosin HCl 0.8 mg 02/18/21 21:00 02/20/21 21:20 Tamsulosin Hcl 0.4 Mg Capsule PO 0.8 mg BEDTIME [facility]INE Administration Thiamine HCl 100 mg 02/18/21 09:00 02/21/21 07:38 Thiamine Hcl 100 Mg Tablet PO 100 mg DAILY CH[facility]STINE Administration Labs CBC & Chem 7: 02/21/21 06:04 02/21/21 06:04 Microbiology Microbiology Results: Microbiology 02/19/21 15:08 Sputum - Expectorated Gram Stain - Final 02/19/21 15:08 Sputum - Expectorated Sputum Culture - Final Assessment and Plan (1) LLL pneumonia: Status: Acute (2) Mediastinal lymphadenopathy: Status: Acute (3) Acute on chronic diastolic (congestive) heart failure: Status: Acute (4) Persistent atrial fibrillation: Status: Acute (5) Status post aorto-coronary artery bypass graft: Status: Acute (6) Atherosclerotic cardiovascular disease: Problem details: Cardiac catheterization-2017- Left main-minimal irregularities; LAD- chronic occlusion; proximal circumflex-60% stenosis; RCA minor irregularities; PAL graft is patent; vein graft to 1st diagonal not commented Status: Acute (7) Hemoptysis: Status: Acute (8) Status post mitral valve repair: Status: Acute (9) BPH w urinary obs/LUTS: Status: Acute Assessment and Plan: 80-year-old male with a past medical history of hypertension, hyperlipidemia, CHF, peripheral vascular disease, history of left [id number] amputation, GERD, BPH, AFib on Coumadin presented to the hospital with a chief complaint of shortness of breath/cough with blood-tinged sputum. Noted to be in mild CHF exacerbation. Mild acute on chronic diastolic heart failure exacerbation, status post IV Lasix 1.4 L negative, noted to have bump in creatinine, no leg edema, will DC Lasix and discussed further care with Cardiology no evidence of acute ischemia, echo showed EF 60-65% no evidence of regional wall motion abnormality and indeterminate diastolic function Pneumonia/with history of asthma patient with persistent Cough with blood-tinged sputum. VQ scan negative for PE, CT chest shows airspace disease left lower lobe. continue IV antibiotics,cough medication and nebulizers, slight drop in hematocrit but remains stable, will discuss with pulmonology at a.m. for bronchoscopy Chronic atrial fibrillation stable ventricular rate, continue diltiazem 120 daily and Lopressor 50 b.i.d., Coumadin on hold due to hemoptysis. Acute Renal insufficiency: Recently diagnosed to have DARNELL in January due to obstructive uropathy, Slight bump in creatinine likely due to diuresis also ? component of urinary retention, will check bladder scan q.shift and follow BMP, continue Flomax Microscopic hematuria: Noted in prior admissions as well. Recommended follow- up with Urology. Will continue Flomax with history of urinary retention. Mood continue Seroquel DVT prophylaxis: SCD boots due to hemoptysis Code status: Full code
[2021-02-21] MEDS: cefTRIAXone sodium 1 GM in 0.9 % Sodium Chloride 50 ML IV (15:00)
[2021-02-21] MEDS: Tamsulosin HCL 0.4 MG CAPSULE 0.8 MG PO (22:52)
[2021-02-21] MEDS: QUEtiapine Fumarate 25 MG TABLET 12.5 MG PO (22:52)
[2021-02-22] VITALS (11 sets, daily range): BP systolic 128–157; BP diastolic 52–71; PULSE 57–104; RESP 18–20; TEMP 36.2–36.8; O2SAT 94–97; BMI 30.7
[2021-02-22] MEDS: Doxycycline Hyclate 100 MG in 0.9 % Sodium Chloride 250 ML 166.67 MG IV ×2 (03:53→14:19)
[2021-02-22] MEDS: guaiFENesin DM 200/20/10 ML 10 ML SYRUP PO ×4 (03:53→23:16)
[2021-02-22 04:34] LABS: MANUAL DIFF FLAG NO
[2021-02-22 04:43] LABS: Basophils Absolute Auto 0.1 X10*3/uL (0.0-0.2); Basophils Percent Auto 0.9 % (0-2); Eosinophils Absolute Auto 0.9 X10*3/uL (0.0-0.4); Eosinophils Percent Auto 11.9 % (0-4); Hematocrit 29.5 % (42-52); Imm Gran Abs Auto 0.02 X10*3/uL (0.00-0.03); Imm Gran Pct Auto 0.3 % (0.0-0.4); Lymphocytes Absolute Auto 1.3 X10*3/uL (1.2-4.9); Lymphocytes Percent Auto 16.8 % (20-40); Mean Corpuscular HGB Conc 30.5 g/dl (31.0-36.0); Mean Corpuscular Hemoglobin 26.8 pg (27.0-33.0); Mean Corpuscular Volume 87.8 fL (80-98); Monocytes Absolute Auto 0.9 X10*3/uL (0.1-1.2); Neutrophils Absolute Auto 4.6 X10*3/uL (2.0-8.3); Neutrophils Percent Auto 59.1 % (45-73); Platelet Count 319 X10*3/uL (160-400); Red Blood Count 3.36 X10*6/uL (4.60-5.80); Red Cell Distribution Width 19.4 % (11.0-16.0); White Blood Count 7.7 X10*3/uL (4.8-10.8)
[2021-02-22 05:08] LABS: Anion Gap 18 (12-20); Blood Urea Nitrogen 33 mg/dL (9-16); Calcium 8.8 mg/dL (8.4-10.2); Carbon Dioxide 25 mmol/L (22-29); Chloride 103 mmol/L (96-108); Creatinine Clr Calc Pharmacy 27.8; Estimated Glomerular Filt Rate 32; Glucose Random 78 mg/dL (60-115); Potassium 3.7 mmol/L (3.3-5.1); Sodium 142 mmol/L (135-145)
[2021-02-22] MEDS: Omeprazole 20 MG CAPSULE.DR PO ×2 (06:11→16:19)
[2021-02-22] MEDS: Albuterol/Iprat 2.5/0.5MG 3 ML AMPUL.NEB INHALE ×2 (07:44→15:05)
[2021-02-22] MEDS: Metoprolol Tartrate 50 MG TABLET PO ×2 (09:41→23:17)
[2021-02-22] MEDS: Aspirin Enteric Coated 81 MG TABLET.DR PO (09:41)
[2021-02-22] MEDS: Gabapentin 100 MG CAPSULE PO (09:41)
[2021-02-22] MEDS: allopurinoL 100 MG TABLET PO (09:41)
[2021-02-22] MEDS: 0.9 % Sodium Chloride Flush 3 ML SYRINGE IVFLUSH ×3 (09:41→23:17)
[2021-02-22] MEDS: Thiamine HCL 100 MG TABLET PO (09:41)
[2021-02-22] MEDS: Atorvastatin Calcium 40 MG TABLET PO (09:41)
[2021-02-22] MEDS: dilTIAZem HCL CD 120 MG CAP.ER.DEG PO (09:42)
--- NOTE | 2021-02-22 10:55 | P.PNIM_ITS ---
Subjective Subjective Date of Service: 02/22/21 Interval History: Patient is sitting on chair feels better is still bringing up blood tinged sputum, coughs with deep breathing, no fever no chills, no other acute issues overnight. ROS General no headache, no dizziness no fever chills. CVS no chest pain, no palpitation. Respiratory cough with hemoptysis/less shortness of breath Gastrointestinal no nausea, no vomiting, no abdominal pain Physical Exam Vital Signs: Vital Signs: Last Vital Signs Temp 97.2 F 02/22/21 07:25 Pulse 96 02/22/21 09:42 Resp 20 02/22/21 07:25 BP 157/71 H 02/22/21 09:42 Pulse Ox 96 02/22/21 07:25 Body Mass Index 30.7 General no respiratory distress, recurrent cough during lung exam Neck supple CVS regular rate rhythm, Respiratory lungs bilateral diffuse rhonchi, no wheeze, no respiratory distress, no use of accessory muscles Gastrointestinal abdomen soft, nontender, bowel sounds audible, no guarding , no rigidity. 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 Neuro nonfocal , speech clear. Skin no rash Objective Data Current Medications Generic Name Dose Route Start Last Admin Trade Name Freq PRN Reason Stop Dose Admin Acetaminophen 650 mg 02/17/21 23:25 02/20/21 22:33 Acetaminophen 325 Mg Tablet PO 650 mg Q6H PRN Administration Pain, Mild (Pain Scale 1-3) Albuterol/Ipratropium 3 ml 02/20/21 14:00 02/22/21 07:44 Albuterol/Iprat 2.5/0.5mg 3 Ml Ampul.Neb INHALE 3 ml RQ6H WHILE AWAKE [facility]STINE Administration Allopurinol 100 mg 02/18/21 09:00 02/22/21 09:41 Allopurinol 100 Mg Tablet PO 100 mg DAILY [facility]INE Administration Aspirin 81 mg 02/18/21 09:00 02/22/21 09:41 Aspirin Enteric Coated 81 Mg Tablet. PO 81 mg DAILY CH[facility]STINE Administration Atorvastatin Calcium 40 mg 02/18/21 09:00 02/22/21 09:41 Atorvastatin Calcium 40 Mg Tablet PO 40 mg DAILY [facility]INE Administration Diltiazem HCl 120 mg 02/18/21 09:00 02/22/21 09:42 Diltiazem Hcl Cd 120 Mg Cap.Er.Deg PO 120 mg DAILY CH[facility]STINE Administration Protocol Gabapentin 100 mg 02/18/21 09:00 02/22/21 09:41 Gabapentin 100 Mg Capsule PO 100 mg DAILY [facility]INE Administration Guaifenesin/Dextromethorphan 10 ml 02/20/21 10:15 02/22/21 09:46 Guaifenesin Dm 200/20/10 Ml 10 Ml Syrup PO 10 ml Q6H [facility]INE Administration Ceftriaxone Sodium 1 gm/ 50 mls @ 100 mls/hr 02/18/21 15:00 02/21/21 15:52 Sodium Chloride IV Infused Q24H [facility]INE Infusion Doxycycline Hyclate 100 mg/ 250 mls @ 166.67 mls/hr 02/18/21 14:00 02/22/21 05:42 Sodium Chloride IV Infused Q12H [facility]INE Infusion Melatonin 3 mg 02/18/21 00:38 02/20/21 22:33 Melatonin 3 Mg Tablet PO 3 mg BEDTIME PRN Administration Sleep Metoprolol Tartrate 50 mg 02/18/21 09:00 02/22/21 09:41 Metoprolol Tartrate 50 Mg Tablet PO 50 mg BID CH[facility]STINE Administration Protocol Omeprazole 20 mg 02/18/21 06:30 02/22/21 06:11 Omeprazole 20 Mg Capsule.Dr PO 20 mg 0630,1600 [facility]INE Administration Quetiapine Fumarate 12.5 mg 02/18/21 21:00 02/21/21 22:52 Quetiapine Fumarate 25 Mg Tablet PO 12.5 mg BEDTIME [facility]INE Administration Senna 17.2 mg 02/17/21 23:25 Sennosides 8.6 Mg Tablet PO BEDTIME PRN Constipation Sodium Chloride 3 ml 02/18/21 00:00 02/22/21 09:41 0.9 % Sodium Chloride Flush 3 Ml Syringe IVFLUSH 3 ml QSHIFT [facility]STINE Administration Tamsulosin HCl 0.8 mg 02/18/21 21:00 02/21/21 22:52 Tamsulosin Hcl 0.4 Mg Capsule PO 0.8 mg BEDTIME [facility]STINE Administration Thiamine HCl 100 mg 02/18/21 09:00 02/22/21 09:41 Thiamine Hcl 100 Mg Tablet PO 100 mg DAILY CH[facility]STINE Administration Labs CBC & Chem 7: 02/22/21 04:19 02/22/21 04:19 Microbiology Microbiology Results: Microbiology 02/19/21 15:08 Sputum - Expectorated Gram Stain - Final 02/19/21 15:08 Sputum - Expectorated Sputum Culture - Final Assessment and Plan (1) LLL pneumonia: Status: Acute (2) Mediastinal lymphadenopathy: Status: Acute (3) Acute on chronic diastolic (congestive) heart failure: Status: Acute (4) Persistent atrial fibrillation: Status: Acute (5) Status post aorto-coronary artery bypass graft: Status: Acute (6) Status post mitral valve repair: Status: Acute (7) Hemoptysis: Status: Acute (8) Atherosclerotic cardiovascular disease: Problem details: Cardiac catheterization-2017- Left main-minimal irregularities; LAD- chronic occlusion; proximal circumflex-60% stenosis; RCA minor irregularities; PAL graft is patent; vein graft to 1st diagonal not commented Status: Acute Assessment and Plan: 80-year-old male with a past medical history of hypertension, hyperlipidemia, CHF, peripheral vascular disease, history of left [id number] amputation, GERD, BPH, AFib on Coumadin presented to the hospital with a chief complaint of shortness of breath/cough with blood-tinged sputum. Noted to be in mild CHF exacerbation. Mild acute on chronic diastolic heart failure exacerbation, status post IV Lasix 1.4 L negative, noted to have bump in creatinine, no leg edema, therefore Lasix stopped Patient previously on Lasix 40 mg b.i.d. and Aldactone that was held last month due to renal failure Patient repeat echocardiogram showed improvement in EF 60-65%, after TAVR procedure,no evidence of regional wall motion abnormality and indeterminate diastolic function Will resume Lasix 40 mg by mouth daily and discuss further diuretic treatment with Cardiology. Pneumonia/with history of asthma patient with persistent Cough with blood-tinged sputum. VQ scan negative for PE, CT chest shows airspace disease left lower lobe. continue IV Ceftriaxone and doxy day 5,cough medication and nebulizers, slight drop in hematocrit but remains stable, spoke with he will reassess patient for bronchoscopy As per patient he has hemoptysis for 3 weeks prior to presentation. INR was in therapeutic range prior to presentation. Chronic atrial fibrillation stable ventricular rate, continue diltiazem 120 daily and Lopressor 50 b.i.d., Coumadin on hold due to hemoptysis. Acute Renal insufficiency: Recently diagnosed to have DARNELL in January due to obstructive uropathy, creatinine now at baseline, Slight bump in creatinine was likely due to diuresis also ? component of urinary retention, will check bladder scan q.shift and follow BMP, continue Flomax. Microscopic hematuria: Noted in prior admissions as well. Recommended follow- up with Urology. Will continue Flomax with history of urinary retention. Mood continue Seroquel DVT prophylaxis: SCD boots due to hemoptysis Code status: Full code
--- NOTE | 2021-02-22 12:24 | PM.PNCARD ---
Subjective Subjective Date of Service: 02/22/21 Interval history: Still coughing up some blood-tinged sputum. Shortness of breath is okay. Review of Systems Review of Systems Cough, sputum Yes all other systems are reviewed and are negative Physical Exam Vital Signs: Last Vital Signs Temp 98.2 F 02/22/21 11:32 Pulse 67 02/22/21 11:32 Resp 20 02/22/21 11:32 BP 150/57 H 02/22/21 11:32 Pulse Ox 97 02/22/21 11:32 Body Mass Index 30.7 GENERAL APPEARANCE: Mild wheezes, looks comfortable. HEENT: unremarkable. HEAD: normocephalic, atraumatic. NECK/THYROID: no carotid bruit, positive JVD. SKIN: no suspicious lesions, warm and dry. HEART: no murmurs, regular rate and rhythm, S1, S2 normal. LUNGS: Bilateral wheezes and crackles. ABDOMEN: normal, bowel sounds present, soft, nontender, nondistended. EXTREMITIES: no clubbing, cyanosis, or edema. PERIPHERAL PULSES: equal. NEUROLOGIC: nonfocal, alert and oriented. Results Labs and Meds Result diagrams: 02/22/21 04:19 02/22/21 04:19 Lab results: Laboratory Results - last 24 hr 02/22/21 02/22/21 04:19 04:19 WBC 7.7 RBC 3.36 L Hgb 9.0 L Hct 29.5 L MCV 87.8 MCH 26.8 L MCHC 30.5 L RDW 19.4 H Plt Count 319 MPV 11.0 Immature Gran % (Auto) 0.3 Neut % (Auto) 59.1 Lymph % (Auto) 16.8 L [place] % (Auto) 11.0 Eos % (Auto) 11.9 H Baso % (Auto) 0.9 Lymph # (Auto) 1.3 [place] # (Auto) 0.9 Eos # (Auto) 0.9 H Baso # (Auto) 0.1 Abs Immat Gran (auto) 0.02 Absolute Neuts (auto) 4.6 Absolute Nucleated RBC 0.000 Nucleated RBC % (auto) 0.0 Sodium 142 Potassium 3.7 Chloride 103 Carbon Dioxide 25 Anion Gap 18 BUN 33 H Creatinine 2.03 H Estim Creat Clear Calc 27.8 Estimated GFR 32 Random Glucose 78 Calcium 8.8 Progress Note: A&P Assessment and plan (1) LLL pneumonia: Status: Acute (2) Acute on chronic diastolic (congestive) heart failure: Status: Acute Assessment and Plan: 80-year-old gentleman who is presenting with shortness of breath and cough. He was diagnosed with pneumonia and is on antibiotics. He has background of transcatheter aortic valve replacement as well as mitral valve repair. He has mild mitral stenosis on echocardiogram. He has improved with antibiotics and nebulizers. He still has some JVD. I think his home dose of 40 mg p.o. b.i.d. Lasix should be continued. He continues to have some hemoptysis. Thank you for allowing me to participate in the care of your patient. Please feel free to contact me if you have any questions. Fall Risk Details Current Medications: Current Medications Generic Name Dose Route Start Last Admin Trade Name Freq PRN Reason Stop Dose Admin Acetaminophen 650 mg 02/17/21 23:25 02/20/21 22:33 Acetaminophen 325 Mg Tablet PO 650 mg Q6H PRN Administration Pain, Mild (Pain Scale 1-3) Albuterol/Ipratropium 3 ml 02/20/21 14:00 02/22/21 07:44 Albuterol/Iprat 2.5/0.5mg 3 Ml Ampul.Neb INHALE 3 ml RQ6H WHILE AWAKE CHRISTINE Administration Allopurinol 100 mg 02/18/21 09:00 02/22/21 09:41 Allopurinol 100 Mg Tablet PO 100 mg DAILY CHRISTINE Administration Atorvastatin Calcium 40 mg 02/18/21 09:00 02/22/21 09:41 Atorvastatin Calcium 40 Mg Tablet PO 40 mg DAILY CHRISTINE Administration Diltiazem HCl 120 mg 02/18/21 09:00 02/22/21 09:42 Diltiazem Hcl Cd 120 Mg Cap.Er.Deg PO 120 mg DAILY CHRISTINE Administration Protocol Furosemide 40 mg 02/22/21 11:00 Furosemide 40 Mg Tablet PO DAILY CHRISTINE Protocol Gabapentin 100 mg 02/18/21 09:00 02/22/21 09:41 Gabapentin 100 Mg Capsule PO 100 mg DAILY CHRISTINE Administration Guaifenesin/Dextromethorphan 10 ml 02/20/21 10:15 02/22/21 09:46 Guaifenesin Dm 200/20/10 Ml 10 Ml Syrup PO 10 ml Q6H CHRISTINE Administration Ceftriaxone Sodium 1 gm/ 50 mls @ 100 mls/hr 02/18/21 15:00 02/21/21 15:52 Sodium Chloride IV Infused Q24H CHRISTINE Infusion Doxycycline Hyclate 100 mg/ 250 mls @ 166.67 mls/hr 02/18/21 14:00 02/22/21 05:42 Sodium Chloride IV Infused Q12H CHRISTINE Infusion Melatonin 3 mg 02/18/21 00:38 02/20/21 22:33 Melatonin 3 Mg Tablet PO 3 mg BEDTIME PRN Administration Sleep Metoprolol Tartrate 50 mg 02/18/21 09:00 02/22/21 09:41 Metoprolol Tartrate 50 Mg Tablet PO 50 mg BID CHRISTINE Administration Protocol Omeprazole 20 mg 02/18/21 06:30 02/22/21 06:11 Omeprazole 20 Mg Capsule.Dr PO 20 mg 0630,1600 CHRISTINE Administration Quetiapine Fumarate 12.5 mg 02/18/21 21:00 02/21/21 22:52 Quetiapine Fumarate 25 Mg Tablet PO 12.5 mg BEDTIME CHRISTINE Administration Senna 17.2 mg 02/17/21 23:25 Sennosides 8.6 Mg Tablet PO BEDTIME PRN Constipation Sodium Chloride 3 ml 02/18/21 00:00 02/22/21 09:41 0.9 % Sodium Chloride Flush 3 Ml Syringe IVFLUSH 3 ml QSHIFT CHRISTINE Administration Tamsulosin HCl 0.8 mg 02/18/21 21:00 02/21/21 22:52 Tamsulosin Hcl 0.4 Mg Capsule PO 0.8 mg BEDTIME CHRISTINE Administration Thiamine HCl 100 mg 02/18/21 09:00 02/22/21 09:41 Thiamine Hcl 100 Mg Tablet PO 100 mg DAILY CHRISTINE Administration Time Spent With Patient Time: Total time spent is greater than 50% in coordination of care (as documented) at patient's floor/unit and/or counseling patient: Time with patient: 15 - 24 minutes
--- NOTE | 2021-02-22 14:29 | P.PNCC_ITS ---
Subjective Subjective Date of Service: 02/22/21 Interval History: 80-year-old gentleman, former cigar smoker, quit 1998, with underlying history of hypertension, hyperlipidemia, PVD, left [id number] amputation, mitral valve repair, TAVR, CAD status post CABG, AFib on Coumadin admitted on 02/17/2021 with dyspnea and blood-tinged sputum/small volume hemoptysis. Patient states that when he coughs his sputum is maximo to red in color. He denies coughing more than a spoonful. His CT chest was significant for mediastinal lymph node and left lower lobe multifocal infiltrates. He has been treated empirically for community-acquired pneumonia and for exacerbation of underlying chronic congestive heart failure and his Coumadin has been held. Today patient reports improvement in his streak hemoptysis. Physical Exam Vital Signs: Vital Signs: Last Vital Signs Temp 98.2 F 02/22/21 11:32 Pulse 67 02/22/21 11:32 Resp 20 02/22/21 11:32 BP 150/57 H 02/22/21 11:32 Pulse Ox 97 02/22/21 11:32 Body Mass Index 30.7 Const: General: no acute distress, alert and awake Eyes: Sclerae: sclerae normal EOM: EOMs intact bilaterally Neck: Neck: Yes no lymphadenopathy, Yes trachea midline and Yes supple Resp: Effort & Inspection: normal respiratory effort and no respiratory distress Auscultation: clear to auscultation bilaterally Cardio: Rate: regular rate Rhythm: regular rhythm Heart sounds: no gallops, no murmurs and no rubs GI: Palpation (GI): Soft to palpation and Other GI palpation findings present ( Nontender) Auscultation: normal bowel sounds Extrem: General: Yes no pedal edema, No clubbing, No cyanosis and Yes other (Left [id number] amputation) Objective Data Labs CBC & Chem 7: 02/22/21 04:19 02/22/21 04:19 Labs: Laboratory Results - last 24 hr 02/22/21 02/22/21 04:19 04:19 WBC 7.7 RBC 3.36 L Hgb 9.0 L Hct 29.5 L MCV 87.8 MCH 26.8 L MCHC 30.5 L RDW 19.4 H Plt Count 319 MPV 11.0 Immature Gran % (Auto) 0.3 Neut % (Auto) 59.1 Lymph % (Auto) 16.8 L [place] % (Auto) 11.0 Eos % (Auto) 11.9 H Baso % (Auto) 0.9 Lymph # (Auto) 1.3 [place] # (Auto) 0.9 Eos # (Auto) 0.9 H Baso # (Auto) 0.1 Abs Immat Gran (auto) 0.02 Absolute Neuts (auto) 4.6 Absolute Nucleated RBC 0.000 Nucleated RBC % (auto) 0.0 Sodium 142 Potassium 3.7 Chloride 103 Carbon Dioxide 25 Anion Gap 18 BUN 33 H Creatinine 2.03 H Estim Creat Clear Calc 27.8 Estimated GFR 32 Random Glucose 78 Calcium 8.8 Microbiology Microbiology Results: Microbiology 02/19/21 15:08 Sputum - Expectorated Gram Stain - Final 02/19/21 15:08 Sputum - Expectorated Sputum Culture - Final Progress Note: A&P Assessment and plan (1) Hemoptysis: Status: Acute Assessment and Plan: Impression: 80-year-old gentleman admitted with dyspnea likely secondary to heart failure exacerbation a component with small volume hemoptysis while anticoagulated with Coumadin for likely underlying AFib. Hemoptysis is improvi ng of Coumadin. No evidence of community-acquired pneumonia. Recommendation: Consider discontinuation of ceftriaxone and doxycycline. Consider holding Coumadin for the 7-10 days after small volume hemoptysis resolves. No indication for bronchoscopy at this time.
[2021-02-22] MEDS: cefTRIAXone sodium 1 GM in 0.9 % Sodium Chloride 50 ML IV (16:09)
[2021-02-22] MEDS: Furosemide 40 MG TABLET PO (16:19)
[2021-02-22] MEDS: Tamsulosin HCL 0.4 MG CAPSULE 0.8 MG PO (23:16)
[2021-02-22] MEDS: QUEtiapine Fumarate 25 MG TABLET 12.5 MG PO (23:17)
[2021-02-23] VITALS (10 sets, daily range): BP systolic 115–144; BP diastolic 46–69; PULSE 60–79; RESP 16–20; TEMP 36.1–36.7; O2SAT 93–96; BMI 31.6
[2021-02-23] MEDS: guaiFENesin DM 200/20/10 ML 10 ML SYRUP PO ×4 (03:29→21:01)
[2021-02-23] MEDS: Doxycycline Hyclate 100 MG in 0.9 % Sodium Chloride 250 ML 166.67 MG IV ×2 (03:29→14:27)
[2021-02-23 03:47] LABS: Magnesium 1.7 mg/dL (1.6-2.6); Potassium 3.8 mmol/L (3.3-5.1)
[2021-02-23] MEDS: Omeprazole 20 MG CAPSULE.DR PO ×2 (05:04→17:14)
[2021-02-23 06:23] LABS: INTERNATIONAL NORM RATIO 1.6 (0.9-1.1); Prothrombin Time 19.6 SEC (10.8-13.0)
[2021-02-23 06:42] LABS: Anion Gap 16 (12-20); Blood Urea Nitrogen 32 mg/dL (9-16); Calcium 8.7 mg/dL (8.4-10.2); Carbon Dioxide 23 mmol/L (22-29); Chloride 106 mmol/L (96-108); Creatinine Clr Calc Pharmacy 29.4; Estimated Glomerular Filt Rate 34; Glucose Random 99 mg/dL (60-115); Sodium 141 mmol/L (135-145)
[2021-02-23 06:44] LABS: B Type Natriuretic Peptide 103 pg/mL (<100)
[2021-02-23] MEDS: Albuterol/Iprat 2.5/0.5MG 3 ML AMPUL.NEB INHALE ×2 (07:42→21:23)
--- NOTE | 2021-02-23 08:24 | MHC.CM.PN ---
dc plan remains the same, to [facility]. cm to cont. to follow.
[2021-02-23] MEDS: Furosemide 40 MG TABLET PO ×2 (08:58→17:11)
[2021-02-23] MEDS: Metoprolol Tartrate 50 MG TABLET PO ×2 (08:58→21:02)
[2021-02-23] MEDS: Thiamine HCL 100 MG TABLET PO (08:58)
[2021-02-23] MEDS: allopurinoL 100 MG TABLET PO (08:58)
[2021-02-23] MEDS: Gabapentin 100 MG CAPSULE PO (08:58)
[2021-02-23] MEDS: dilTIAZem HCL CD 120 MG CAP.ER.DEG PO (08:59)
[2021-02-23] MEDS: Atorvastatin Calcium 40 MG TABLET PO (08:59)
[2021-02-23] MEDS: 0.9 % Sodium Chloride Flush 3 ML SYRINGE IVFLUSH ×3 (09:00→23:43)
--- NOTE | 2021-02-23 12:40 | PM.PNCARD ---
Subjective Subjective Date of Service: 02/23/21 Interval history: Feeling better. Still coughing bloody sputum Physical Exam Vital Signs: Last Vital Signs Temp 97.9 F 02/23/21 11:20 Pulse 60 02/23/21 11:20 Resp 18 02/23/21 11:20 BP 125/62 02/23/21 11:20 Pulse Ox 94 02/23/21 11:20 Body Mass Index 31.6 GENERAL APPEARANCE: Mild wheezes, looks comfortable. HEENT: unremarkable. HEAD: normocephalic, atraumatic. NECK/THYROID: no carotid bruit, positive JVD. SKIN: no suspicious lesions, warm and dry. HEART: no murmurs, regular rate and rhythm, S1, S2 normal. LUNGS: Bilateral wheezes and crackles. ABDOMEN: normal, bowel sounds present, soft, nontender, nondistended. EXTREMITIES: no clubbing, cyanosis, or edema. PERIPHERAL PULSES: equal. NEUROLOGIC: nonfocal, alert and oriented. Results Labs and Meds Result diagrams: 02/22/21 04:19 02/23/21 05:28 Lab results: Laboratory Results - last 24 hr 02/23/21 02/23/21 02/23/21 03:18 05:28 05:28 PT INR Sodium 141 Potassium 3.8 4.0 Chloride 106 Carbon Dioxide 23 Anion Gap 16 BUN 32 H Creatinine 1.89 H Estim Creat Clear Calc 29.4 Estimated GFR 34 Random Glucose 99 Calcium 8.7 Magnesium 1.7 B-Natriuretic Peptide 103 H 02/23/21 05:28 PT 19.6 H INR 1.6 H Sodium Potassium Chloride Carbon Dioxide Anion Gap BUN Creatinine Estim Creat Clear Calc Estimated GFR Random Glucose Calcium Magnesium B-Natriuretic Peptide Progress Note: A&P Assessment and plan (1) LLL pneumonia: Status: Acute (2) Acute on chronic diastolic (congestive) heart failure: Status: Acute (3) Persistent atrial fibrillation: Status: Acute Assessment and Plan: 80-year-old gentleman who is presenting with shortness of breath and cough. He was diagnosed with pneumonia and is on antibiotics. He has background of transcatheter aortic valve replacement as well as mitral valve repair. He has mild mitral stenosis on echocardiogram. He has improved with antibiotics and nebulizers. He still has some JVD. I think his home dose of 40 mg p.o. b.i.d. Lasix should be continued. He continues to have some hemoptysis. Thank you for allowing me to participate in the care of your patient. Please feel free to contact me if you have any questions. Fall Risk Details Current Medications: Current Medications Generic Name Dose Route Start Last Admin Trade Name Freq PRN Reason Stop Dose Admin Acetaminophen 650 mg 02/17/21 23:25 02/20/21 22:33 Acetaminophen 325 Mg Tablet PO 650 mg Q6H PRN Administration Pain, Mild (Pain Scale 1-3) Albuterol/Ipratropium 3 ml 02/20/21 14:00 02/23/21 07:42 Albuterol/Iprat 2.5/0.5mg 3 Ml Ampul.Neb INHALE 3 ml RQ6H WHILE AWAKE CHRISTINE Administration Allopurinol 100 mg 02/18/21 09:00 02/23/21 08:58 Allopurinol 100 Mg Tablet PO 100 mg DAILY CHRISTINE Administration Atorvastatin Calcium 40 mg 02/18/21 09:00 02/23/21 08:59 Atorvastatin Calcium 40 Mg Tablet PO 40 mg DAILY CHRISTINE Administration Diltiazem HCl 120 mg 02/18/21 09:00 02/23/21 08:59 Diltiazem Hcl Cd 120 Mg Cap.Er.Deg PO 120 mg DAILY CHRISTINE Administration Protocol Furosemide 40 mg 02/22/21 18:00 02/23/21 08:58 Furosemide 40 Mg Tablet PO 40 mg BID@0900,1800 CHRISTINE Administration Protocol Gabapentin 100 mg 02/18/21 09:00 02/23/21 08:58 Gabapentin 100 Mg Capsule PO 100 mg DAILY CHRISTINE Administration Guaifenesin/Dextromethorphan 10 ml 02/20/21 10:15 02/23/21 08:58 Guaifenesin Dm 200/20/10 Ml 10 Ml Syrup PO 10 ml Q6H CHRISTINE Administration Ceftriaxone Sodium 1 gm/ 50 mls @ 100 mls/hr 02/18/21 15:00 02/22/21 16:55 Sodium Chloride IV Infused Q24H CHRISTINE Infusion Doxycycline Hyclate 100 mg/ 250 mls @ 166.67 mls/hr 02/18/21 14:00 02/23/21 05:01 Sodium Chloride IV Infused Q12H CHRISTINE Infusion Melatonin 3 mg 02/18/21 00:38 02/20/21 22:33 Melatonin 3 Mg Tablet PO 3 mg BEDTIME PRN Administration Sleep Metoprolol Tartrate 50 mg 02/18/21 09:00 02/23/21 08:58 Metoprolol Tartrate 50 Mg Tablet PO 50 mg BID CHRISTINE Administration Protocol Omeprazole 20 mg 02/18/21 06:30 02/23/21 05:04 Omeprazole 20 Mg Capsule.Dr PO 20 mg 0630,1600 CHRISTINE Administration Quetiapine Fumarate 12.5 mg 02/18/21 21:00 02/22/21 23:17 Quetiapine Fumarate 25 Mg Tablet PO 12.5 mg BEDTIME CHRISTINE Administration Senna 17.2 mg 02/17/21 23:25 Sennosides 8.6 Mg Tablet PO BEDTIME PRN Constipation Sodium Chloride 3 ml 02/18/21 00:00 02/23/21 09:00 0.9 % Sodium Chloride Flush 3 Ml Syringe IVFLUSH 3 ml QSHIFT CHRISTINE Administration Tamsulosin HCl 0.8 mg 02/18/21 21:00 02/22/21 23:16 Tamsulosin Hcl 0.4 Mg Capsule PO 0.8 mg BEDTIME CHRISTINE Administration Thiamine HCl 100 mg 02/18/21 09:00 02/23/21 08:58 Thiamine Hcl 100 Mg Tablet PO 100 mg DAILY CHRISTINE Administration Time Spent With Patient Time: Total time spent is greater than 50% in coordination of care (as documented) at patient's floor/unit and/or counseling patient: Time with patient: less than 15 minutes
--- NOTE | 2021-02-23 16:22 | HO.PM.IMPN ---
Subjective Subjective Date of Service: 03/09/21 Interval History: f/u on heart failure, and pneumonia with hemoptysus Review of Systems Gen: no fever Resp: no sob, no cough (hemoptysis) CV: no chest, no HINES, no leg edema GI: No n/v, no abd pain Neuro: No confusion Physical Exam Vital Signs: Vital Signs: Last Vital Signs Temp 96.9 F 02/23/21 15:33 Pulse 75 02/23/21 15:33 Resp 20 02/23/21 15:33 BP 141/69 H 02/23/21 15:33 Pulse Ox 96 02/23/21 15:33 Body Mass Index 31.6 General no respiratory distress, recurrent cough during lung exam Neck supple CVS regular rate rhythm, Respiratory lungs bilateral diffuse rhonchi, no wheeze, no respiratory distress, no use of accessory muscles Gastrointestinal abdomen soft, nontender, bowel sounds audible, no guarding , no rigidity. 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 Neuro nonfocal , speech clear. Skin no rash Objective Data Current Medications Generic Name Dose Route Start Last Admin Trade Name Jobyq PRN Reason Stop Dose Admin Acetaminophen 650 mg 02/17/21 23:25 02/20/21 22:33 Acetaminophen 325 Mg Tablet PO 650 mg Q6H PRN Administration Pain, Mild (Pain Scale 1-3) Albuterol/Ipratropium 3 ml 02/20/21 14:00 02/23/21 15:50 Albuterol/Iprat 2.5/0.5mg 3 Ml Ampul.Neb INHALE Not Given RQ6H WHILE AWAKE [facility] Allopurinol 100 mg 02/18/21 09:00 02/23/21 08:58 Allopurinol 100 Mg Tablet PO 100 mg DAILY CHRISTINE Administration Atorvastatin Calcium 40 mg 02/18/21 09:00 02/23/21 08:59 Atorvastatin Calcium 40 Mg Tablet PO 40 mg DAILY CHRISTINE Administration Diltiazem HCl 120 mg 02/18/21 09:00 02/23/21 08:59 Diltiazem Hcl Cd 120 Mg Cap.Er.Deg PO 120 mg DAILY CHRISTINE Administration Protocol Furosemide 40 mg 02/22/21 18:00 02/23/21 08:58 Furosemide 40 Mg Tablet PO 40 mg BID@0900,1800 [facility] Administration Protocol Gabapentin 100 mg 02/18/21 09:00 02/23/21 08:58 Gabapentin 100 Mg Capsule PO 100 mg DAILY CHRISTINE Administration Guaifenesin/Dextromethorphan 10 ml 02/20/21 10:15 02/23/21 08:58 Guaifenesin Dm 200/20/10 Ml 10 Ml Syrup PO 10 ml Q6H CHRISTINE Administration Ceftriaxone Sodium 1 gm/ 50 mls @ 100 mls/hr 02/18/21 15:00 02/22/21 16:55 Sodium Chloride IV Infused Q24H CHRISTINE Infusion Doxycycline Hyclate 100 mg/ 250 mls @ 166.67 mls/hr 02/18/21 14:00 02/23/21 14:27 Sodium Chloride IV 166.67 mls/hr Q12H CHRISTINE Administration Melatonin 3 mg 02/18/21 00:38 02/20/21 22:33 Melatonin 3 Mg Tablet PO 3 mg BEDTIME PRN Administration Sleep Metoprolol Tartrate 50 mg 02/18/21 09:00 02/23/21 08:58 Metoprolol Tartrate 50 Mg Tablet PO 50 mg BID CHRISTINE Administration Protocol Omeprazole 20 mg 02/18/21 06:30 02/23/21 05:04 Omeprazole 20 Mg Capsule.Dr PO 20 mg 0630,1600 CHRISTINE Administration Quetiapine Fumarate 12.5 mg 02/18/21 21:00 02/22/21 23:17 Quetiapine Fumarate 25 Mg Tablet PO 12.5 mg BEDTIME CHRISTINE Administration Senna 17.2 mg 02/17/21 23:25 Sennosides 8.6 Mg Tablet PO BEDTIME PRN Constipation Sodium Chloride 3 ml 02/18/21 00:00 02/23/21 09:00 0.9 % Sodium Chloride Flush 3 Ml Syringe IVFLUSH 3 ml QSHIFT CHRISTINE Administration Tamsulosin HCl 0.8 mg 02/18/21 21:00 02/22/21 23:16 Tamsulosin Hcl 0.4 Mg Capsule PO 0.8 mg BEDTIME CHRISTINE Administration Thiamine HCl 100 mg 02/18/21 09:00 02/23/21 08:58 Thiamine Hcl 100 Mg Tablet PO 100 mg DAILY CHRISTINE Administration Labs CBC & Chem 7: 02/24/21 05:20 02/24/21 05:20 Microbiology Microbiology Results: Microbiology 02/19/21 15:08 Sputum - Expectorated Gram Stain - Final 02/19/21 15:08 Sputum - Expectorated Sputum Culture - Final Assessment and Plan (1) Hemoptysis: Status: Resolved Assessment and Plan: 80-year-old male with a past medical history of hypertension, hyperlipidemia, CHF, peripheral vascular disease, history of left [id number] amputation, GERD, BPH, AFib on Coumadin presented to the hospital with a chief complaint of shortness of breath/cough with blood-tinged sputum. Noted to be in mild CHF exacerbation. Mild acute on chronic diastolic heart failure exacerbation, status post IV Lasix 1.4 L negative, noted to have bump in creatinine, no leg edema, therefore Lasix stopped Patient previously on Lasix 40 mg b.i.d. and Aldactone that was held last month due to renal failure Patient repeat echocardiogram showed improvement in EF 60-65%, after TAVR procedure,no evidence of regional wall motion abnormality and indeterminate diastolic function Will continue Lasix 40 mg by mouth daily and discuss further diuretic treatment with Cardiology. Pneumonia/with history of asthma patient with persistent Cough with blood-tinged sputum. VQ scan negative for PE, CT chest shows airspace disease left lower lobe. continue IV Ceftriaxone and doxy day ,cough medication and nebulizers, slight drop in hematocrit but remains stable, spoke with he will reassess patient for bronchoscopy As per patient he has hemoptysis for 3 weeks prior to presentation. INR was in therapeutic range prior to presentation. DC IV antibiotics. Hold coumadin if hemoptysis persists, no indication for bronchoscopy per pulmonology, Chronic atrial fibrillation stable ventricular rate, continue diltiazem 120 daily and Lopressor 50 b.i.d., Coumadin on hold due to hemoptysis. Acute Renal insufficiency: Recently diagnosed to have DARNELL in January due to obstructive uropathy, creatinine now at baseline, Slight bump in creatinine was likely due to diuresis also ? component of urinary retention, will check bladder scan q.shift and follow BMP, continue Flomax. Microscopic hematuria: Noted in prior admissions as well. Recommended follow-up with Urology. Will continue Flomax with history of urinary retention. Mood continue Seroquel DVT prophylaxis: SCD boots due to hemoptysis Home in a day to 2
[2021-02-23] MEDS: Tamsulosin HCL 0.4 MG CAPSULE 0.8 MG PO (21:02)
[2021-02-23] MEDS: Amoxicillin/Potassium Clav 500 MG TABLET PO (21:02)
[2021-02-23] MEDS: QUEtiapine Fumarate 25 MG TABLET 12.5 MG PO (21:03)
[2021-02-24] MEDS: Doxycycline Hyclate 100 MG in 0.9 % Sodium Chloride 250 ML 166.67 MG IV (02:05)
[2021-02-24 03:18] VITALS: BP 137/67; PULSE 69; RESP 18; TEMP 36.4; O2SAT 97
[2021-02-24] MEDS: guaiFENesin DM 200/20/10 ML 10 ML SYRUP PO ×3 (03:41→16:55)
[2021-02-24 06:00] VITALS: BMI 32.3
[2021-02-24] MEDS: Omeprazole 20 MG CAPSULE.DR PO ×2 (06:35→16:55)
[2021-02-24 06:50] LABS: Hematocrit 28.6 % (42-52); Hemoglobin 8.8 g/dl (14.0-18.0); Mean Corpuscular HGB Conc 30.8 g/dl (31.0-36.0); Mean Corpuscular Hemoglobin 26.9 pg (27.0-33.0); Mean Corpuscular Volume 87.5 fL (80-98); Mean Platelet Volume 11.5 fL (9.4-12.4); Platelet Count 299 X10*3/uL (160-400); Red Blood Count 3.27 X10*6/uL (4.60-5.80); White Blood Count 9.4 X10*3/uL (4.8-10.8)
[2021-02-24 06:51] LABS: Anion Gap 17 (12-20); Blood Urea Nitrogen 33 mg/dL (9-16); Calcium 8.7 mg/dL (8.4-10.2); Carbon Dioxide 22 mmol/L (22-29); Chloride 105 mmol/L (96-108); Creatinine Clr Calc Pharmacy 29.7; Estimated Glomerular Filt Rate 34; Glucose Random 85 mg/dL (60-115); Potassium 3.7 mmol/L (3.3-5.1); Sodium 140 mmol/L (135-145)
[2021-02-24 07:17] VITALS: PULSE 84; O2SAT 95
[2021-02-24] MEDS: Albuterol/Iprat 2.5/0.5MG 3 ML AMPUL.NEB INHALE ×2 (07:17→14:12)
[2021-02-24 07:33] VITALS: BP 117/50; PULSE 80; RESP 18; TEMP 36.3; O2SAT 94
[2021-02-24] MEDS: Metoprolol Tartrate 50 MG TABLET PO (07:40)
[2021-02-24] MEDS: Amoxicillin/Potassium Clav 500 MG TABLET PO (07:40)
[2021-02-24] MEDS: Atorvastatin Calcium 40 MG TABLET PO (07:40)
[2021-02-24] MEDS: Thiamine HCL 100 MG TABLET PO (07:40)
[2021-02-24] MEDS: 0.9 % Sodium Chloride Flush 3 ML SYRINGE IVFLUSH ×2 (07:40→16:55)
[2021-02-24] MEDS: Gabapentin 100 MG CAPSULE PO (07:40)
[2021-02-24] MEDS: allopurinoL 100 MG TABLET PO (07:40)
[2021-02-24] MEDS: Furosemide 40 MG TABLET PO ×2 (07:40→16:55)
[2021-02-24 11:29] VITALS: BP 116/58; PULSE 74; RESP 19; TEMP 36.4; O2SAT 95
--- NOTE | 2021-02-24 13:19 | MHC.CM.PN ---
Patient will be discharging home today no services. Patient will need chair van for transportation. CM will continue to follow for discharge needs.
[2021-02-24 14:14] VITALS: PULSE 76; O2SAT 98
--- NOTE | 2021-02-24 14:18 | P.DS_ITS ---
DS: Providers Provider Date of Service: 02/24/21 Date of admission: 02/17/21 23:25 Primary care physician: Ryan Herrera MD Consults: 02/17/21 23:25 Consult to Cardiology Routine Consulting Provider: Tomasz Louis Reason for consultation: CHF; Dyspnea; p/w Hemoptysis 02/18/21 01:07 Consult to Pulmonology Routine Consulting Provider: Suzan Lopez Reason for consultation: hemoptysis 02/18/21 13:16 Consult to Pulmonology Routine Consulting Provider: Joe Wagner Reason for consultation: Hemoptysis Has provider been notified: No DS: Diagnosis Discharge Diagnosis (1) Hemoptysis: Status: Acute DS: Medications Discharge Medications Home Medications: Home Medications Medication Instructions Recorded Confirmed aspirin 81 mg PO DAILY 01/19/21 02/17/21 atorvastatin 40 mg PO DAILY 01/19/21 02/17/21 furosemide 40 mg PO BID 01/19/21 02/17/21 gabapentin 100 mg PO QAM 01/19/21 02/17/21 metoprolol tartrate 50 mg PO BID 01/19/21 02/17/21 pantoprazole 40 mg PO BID 01/19/21 02/17/21 potassium chloride 10 meq PO BID 01/19/21 02/17/21 quetiapine 12.5 mg PO BEDTIME 01/19/21 02/17/21 spironolactone 25 mg PO DAILY 01/19/21 02/17/21 warfarin 5 mg PO SUMOWEFR 01/19/21 02/18/21 diltiazem HCl 120 mg PO DAILY 01/20/21 02/17/21 melatonin 5 mg PO BEDTIME PRN 01/20/21 02/17/21 thiamine HCl (vitamin B1) 100 mg PO DAILY 01/20/21 02/17/21 allopurinol 1 tab PO DAILY 02/17/21 02/17/21 warfarin 2.5 mg PO TUTHSA 02/18/21 02/18/21 Previous Rx's Medication Instructions Recorded ferrous sulfate 325 mg PO Q OTHER DAY #30 tab 01/22/21 tamsulosin 0.4 mg capsule 0.8 mg PO BEDTIME 90 Days #180 cap 02/16/21 DS: Summary Hospital Course Hospital Course: Chief Complaint: Shortness of breath 80-year-old male with a past medical history of hypertension, hyperlipidemia, neuropathy, peripheral vascular disease, left yicgu-nhl-qhid amputation, mitral valve repair, GERD, CHF presented to the hospital with a chief complaint of shortness of breath. Patient mentions that over the past 1-2 weeks he has been having increased shortness of breath and also noted to have cough with blood- tinged sputum. Denies any fevers. Denies any numbness tingling. Noted mild swelling in his legs. Mentions his complaint with his home medications. Today he had a PCP appointment who suggested him to go to the hospital for further evaluation. Denies any GI or symptoms. Review of all other systems is negative except mentioned above ER course: Per ER team patient noted to be short of breath, saturating 91 92% on room air, placed on supplemental oxygen. Coarse breath sounds. Given Lasix IV x1. Creatinine similar to the prior values when discharged in January. V/Q scan negative for any acute blood loss. Chest x-ray otherwise negative for any pneumonia. Admitted to the hospital for further management. PMHx Above knee amputation of left lower extremity Afib FH: mitral valve repair GERD (gastroesophageal reflux disease) Heart failure HLD (hyperlipidemia) HTN (hypertension) Neuropathy PVD (peripheral vascular disease) PSHx Status post transcatheter aortic valve replacement Hospital course 80-year-old male with a past medical history of hypertension, hyperlipidemia, CHF, peripheral vascular disease, history of left fzeoh-mau-rmkn amputation, GERD, BPH, AFib on Coumadin presented to the hospital with a chief complaint of shortness of breath/cough with blood-tinged sputum. Noted to be in mild CHF exacerbation. Acute on chronic diastolic heart failure exacerbation patient admitted to intermediate care unit and treated with intravenous Lasix, is greater than 5 L negative, his shortness of breath has improved, Hemoptysis resolved, his renal function remains stable therefore patient is being discharged home on Lasix 40 mg b.i.d. and Aldactone , patient was followed closely by Cardiology and they agree with above treatment plan. Patient repeat echocardiogram showed improvement in EF 60-65%, after TAVR procedure,no evidence of regional wall motion abnormality and indeterminate diastolic function Hemoptysis Resolved, V/Q scan negative for PE, CT chest shows airspace disease left lower lobe, patient was empirically treated with IV ceftriaxone and doxycycline, his hematocrit remains stable. Patient was seen in consultation by from pulmonology he failed hematuria is related to heart failure exacerbation while on Coumadin, he recommend to hold Coumadin for 7-10 days Instructed patient to resume Coumadin on March 03 with goal of INR between between 2-2.5 Chronic atrial fibrillation stable ventricular rate, continue diltiazem 120 daily and Lopressor 50 b.i.d., Coumadin to be resume from March 03. Acute Renal insufficiency: Recently diagnosed to have DARNELL in January due to obstructive uropathy, creatinine now at baseline, Slight bump in creatinine was likely due to diuresis and with some component of urinary retention, bladder scan is less than 250 recommend to continue Flomax Microscopic hematuria: Noted in prior admissions as well. Recommended follow- up with Urology. Will continue Flomax with history of urinary retention. Mood continue Seroquel Time Spent with Patient Time attestation: Total time spent providing and/or coordinating discharge services: Discharge coordination time: Greater than 30 minutes Physical Exam Vital Signs: Vital Signs: Last Vital Signs Temp 97.5 F 02/24/21 11:29 Pulse 76 02/24/21 14:14 Resp 19 02/24/21 11:29 BP 116/58 L 02/24/21 11:29 Pulse Ox 95 02/24/21 11:29 Body Mass Index 32.3 General no respiratory distress, cough during lung exam with brown phlegm Neck supple CVS regular rate rhythm, Respiratory lungs coarse breath sound, no wheeze, no respiratory distress, no use of accessory muscles Gastrointestinal abdomen soft, nontender, bowel sounds audible, no guarding , no rigidity. 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 Neuro nonfocal , speech clear. Skin no rash DS: Data Data Completed and Pending Labs on day of discharge: Laboratory Results - last 24 hr 02/24/21 02/24/21 05:20 05:20 WBC 9.4 RBC 3.27 L Hgb 8.8 L Hct 28.6 L MCV 87.5 MCH 26.9 L MCHC 30.8 L RDW 19.0 H Plt Count 299 MPV 11.5 Absolute Nucleated RBC 0.000 Nucleated RBC % (auto) 0.0 Sodium 140 Potassium 3.7 Chloride 105 Carbon Dioxide 22 Anion Gap 17 BUN 33 H Creatinine 1.92 H Estim Creat Clear Calc 29.7 Estimated GFR 34 Random Glucose 85 Calcium 8.7 Discharge Plan Discharge Patient Disposition: Home Health Service Discharge Diagnosis: Acute on chronic diastolic heart failure Hemoptysis Referrals: [facility] [Other] - 1 Week (RESUMPTION OF SERVICES) Ryan Herrera MD [Primary Care Provider] - 1 Week (Please call to make a follow up appointment ) Discharge Medications: New dextromethorphan-guaifenesin 10-100 mg/5 mL Syrup 10 ml PO Q6H Qty: 240 RF: 0 Continued furosemide 40 mg tablet 40 mg PO BID RF: 0 Hold Instructions: Resume on 01/29/21. do not restart until seen by your primary care doctor aspirin 81 mg tablet,delayed release (DR/EC) 81 mg PO DAILY RF: 0 spironolactone 25 mg tablet 25 mg PO DAILY RF: 0 Hold Instructions: Resume on 01/29/21. do not restart until seen by primary care doctor pantoprazole 40 mg tablet,delayed release (DR/EC) 40 mg PO BID RF: 0 metoprolol tartrate 50 mg tablet 50 mg PO BID RF: 0 quetiapine 25 mg tablet 12.5 mg PO BEDTIME RF: 0 atorvastatin 40 mg tablet 40 mg PO DAILY RF: 0 potassium chloride 10 mEq tablet extended release 10 meq PO BID RF: 0 gabapentin 100 mg capsule 100 mg PO QAM RF: 0 thiamine HCl (vitamin B1) 100 mg Tablet 100 mg PO DAILY RF: 0 diltiazem HCl 120 mg capsule,extended release 24hr 120 mg PO DAILY RF: 0 melatonin 5 mg Tablet 5 mg PO BEDTIME PRN (Reason: Insomnia) RF: 0 ferrous sulfate 325 mg (65 mg iron) tablet 325 mg PO Q OTHER DAY Qty: 30 RF: 0 allopurinol 100 mg tablet 1 tab PO DAILY RF: 0 tamsulosin 0.4 mg capsule 0.8 mg PO BEDTIME 90 Days Qty: 180 RF: 1 Held warfarin 5 mg tablet 5 mg PO SUMOWEFR RF: 0 Hold Instructions: Resume on 03/03/21. warfarin 5 mg Tablet 2.5 mg PO TUTHSA RF: 0 Hold Instructions: Resume on 03/03/21. Discharge Orders: Discharge Order (Routine); Ordered 02/24/21 Ordered By: Cande Henriquez Diet: low fat, low cholesterol and low salt diet Activity on Discharge: As tolerated Stand Alone Forms: Patient Portal Discharge page Care Plan Goals: Follow PT INR closely to keep INR between 2 and 2.5 resume Coumadin from 01/03, check PT INR on March 06 ,2 days after starting Coumadin Health Concerns: Acute on chronic congestive heart failure hemoptysis likely due to heart failure, hemoptysis has resolved, hold Coumadin for 1 more week, resume Coumadin Follow PT INR closely and keep INR between 2 and 2.5. Previously patient was on warfarin 2.5 mg on Monday and Monday and 5 mg rest of the days Plan of Treatment: Hold Coumadin Assessment: As per discharge summary
--- NOTE | 2021-02-24 15:14 | MHC.CM.PN ---
Patient has been medically cleared for dc to home today to resume services ([facility] @ [phone]) and dc summary has been confirmed to be received by [facility] at fax # [phone]. CM attempted to inform family of dc plan but contact listed had no phone number and phone number listed on HCP is no longer in services. IMM addressed with Patient (original given to him and a copy placed on the chart)and Patient is aware of and in agreement with the dc plan.Patient will return home tonight at 6 PM, via [facility].Home care has been notified that next INR needs to be checked on 03/06/21 .
[2021-02-24 15:45] VITALS: BP 115/63; PULSE 73; RESP 18; TEMP 36; O2SAT 97
[2021-02-27 14:59] LABS: Legionella Ag Urine NOT DETECTED
[2021-02-27 15:01] LABS: Strep Pneumo Ag urine NOT DETECTED
== END 2021-02-24 18:05 | disposition home health service (06) | DRG 291 ==
LOC: HO.ED 21:29 → HO.EDOVER 23:35 → HO.IMC 02-18 13:06
PROVIDERS: Hospitalist; Internal Medicine; Nurse Practitioner Primary Care; Admitting Provider Hospitalist; Emergency Provider Emergency Medicine; PCP Internal Medicine; Visit Provider Hospitalist
DX: I11.0 Hypertensive heart disease with heart failure (principal); J18.9 Pneumonia, unspecified organism; R04.2 Hemoptysis; I48.19 Other persistent atrial fibrillation; I50.33 Acute on chronic diastolic (congestive) heart failure; I50.23 Acute on chronic systolic (congestive) heart failure; I25.10 Atherosclerotic heart disease of native coronary artery without angina pectoris; R31.29 Other microscopic hematuria; N40.0 Benign prostatic hyperplasia without lower urinary tract symptoms; I49.5 Sick sinus syndrome; K21.9 Gastro-esophageal reflux disease without esophagitis; I05.0 Rheumatic mitral stenosis; F39 Unspecified mood [affective] disorder; R59.0 Localized enlarged lymph nodes; E78.5 Hyperlipidemia, unspecified; Z20.822 Contact with and (suspected) exposure to COVID-19; Z89.612 Acquired absence of left leg above knee; Z87.891 Personal history of nicotine dependence; Z95.2 Presence of prosthetic heart valve; Z88.5 Allergy status to narcotic agent; Z79.01 Long term (current) use of anticoagulants; Z79.82 Long term (current) use of aspirin; Z79.899 Other long term (current) drug therapy
CPT/HCPCS: 0241U; 36415; 51798; 71045; 71250; 78580; 80048; 80076; 81001; 82728; 83615; 83690; 83735; 83880; 84132; 84145; 84484; 85025; 85027; 85379; 85610; 85730; 86140; 87070; 87205; 87449; 87899; 93005; 93306; 96374; 99212; 99285; A9540; J0696; J1940

== ENCOUNTER 2021-11-12 15:38 | Inpatient (IN) | payer OTHER, SELFPAY ==
--- NOTE | ~2021-11-12 | XR_ITS ---
EXAMINATION: XR CHEST CLINICAL INFORMATION: History of atrial fibrillation with rapid ventricular response. COMPARISON: 02/17/2021 TECHNIQUE: Frontal view of the chest was obtained. FINDINGS: Median sternotomy wires appear intact. Cardiac leads overlie the chest. The lungs are well expanded. Minimal linear left basilar atelectasis. No dense consolidation. No edema or effusion. No pneumothorax. The cardiomediastinal silhouette is normal in size with a calcified aorta. Aortic valvular hardware. XR/XR chest 1V IMPRESSION: Minimal left basilar atelectasis. Otherwise clear lungs.
--- NOTE | ~2021-11-12 | XR_ITS ---
EXAMINATION: XR CHEST CLINICAL INFORMATION: Cough COMPARISON: Multiple previous chest x-rays with the last chest x-ray dated 11/12/2021. CT chest 02/18/2021. TECHNIQUE: Frontal view of the chest was obtained. FINDINGS: Cardiac mediastinal silhouette is unchanged with mild cardiomegaly. Intact-appearing sternotomy wires and TAVR are again noted. The lungs are symmetrically expanded. Stable minimal left lateral basilar atelectasis. No significant pleural effusion, pulmonary edema or pneumothorax. XR/XR chest 1V IMPRESSION: No convincing radiographic evidence of pneumonia. No evidence of overt pulmonary edema. No significant interval change is noted compared to last x-ray of 11/12/2021.
--- NOTE | ~2021-11-12 | US_ITS ---
EXAMINATION: US RETROPERITONEAL LIMITED (RENAL ONLY) CLINICAL INFORMATION: Worsening renal function. COMPARISON: CT abdomen and pelvis 12/30/2018, renal ultrasound 05/07/2017 TECHNIQUE: Sonographic evaluation of the kidneys was performed including grayscale and color Doppler. FINDINGS: RIGHT KIDNEY: 8.9 x 4.8 x 5.1 cm (SAG x AP x TRV). The kidney is normal in overall size and contour, though there is mildly increased cortical echogenicity suggestive of parenchymal renal disease. Renal cortical thickness is normal. The previously seen septated cyst at the upper pole of the kidney is nonvisualized. There is an anechoic 0.7 x 0.9 x 0.9 cm cyst at the lower pole. LEFT KIDNEY: 10 x 4.5 x 4.5 cm (SAG x AP x TRV). The kidney is normal in size and contour though there is mildly increased cortical echogenicity suggestive of parenchymal renal disease. Renal cortical thickness is normal. There is a complex septated cyst at the lower pole which now measures 4.3 x 3 x 3.1 cm with septations measure 2 to 3 mm. No definite nodularity. US/US renal BI IMPRESSION: Mildly increased bilateral cortical echogenicity which is nonspecific but suggestive of parenchymal renal disease. Redemonstration of a complex septated cyst at the lower pole of the left kidney which is mildly increased in size from the prior. The previously seen septated cyst at the upper pole of the right kidney is not visualized on the present study. Further evaluation with contrast-enhanced CT or MR could be considered. Given reported compromised renal function, if noncontrast imaging would be pursued, a noncontrast MRI would be favored over CT.
--- NOTE | 2021-11-12 15:51 | ECG_ITS ---
Test Reason : sob Blood Pressure : / mmHG Vent. Rate : 117 BPM Atrial Rate : 000 BPM P-R Int : 000 ms QRS Dur : 088 ms QT Int : 336 ms P-R-T Axes : 000 -11 157 degrees QTc Int : 468 ms Atrial fibrillation with rapid ventricular response Nonspecific T wave abnormality Abnormal ECG When compared with ECG of 17-FEB-2021 13:17, Nonspecific T wave abnormality no longer evident in Anterior leads Referred By: Noehmi Das Electronically Signed By:CATERINA PROCTOR MD
--- NOTE | 2021-11-12 15:52 | ED.GENADULT ---
HPI - General Adult General Chief complaint: General Medical Stated complaint: not feeling well Time Seen by Provider: 11/12/21 15:43 Source: patient and EMS Mode of arrival: EMS Limitations: no limitations History of Present Illness HPI narrative: Patient comes to the emergency room complaining of not feeling well. Patient states that he started not feeling since yesterday. Patient states that he does not know how to describe what he is feeling. Patient states that he has no pain anywhere, no nausea, no headache, no chest pain or shortness of breath, no abdominal pain or UTI symptoms. Patient denies any episodes of fever or chills Related Data Home Medications Medication Instructions Recorded Confirmed aspirin 81 mg tablet,delayed 81 mg PO DAILY 01/19/21 02/17/21 release atorvastatin 40 mg tablet 40 mg PO DAILY 01/19/21 02/17/21 furosemide 40 mg tablet 40 mg PO BID 01/19/21 02/17/21 gabapentin 100 mg capsule 100 mg PO QAM 01/19/21 02/17/21 metoprolol tartrate 50 mg tablet 50 mg PO BID 01/19/21 02/17/21 pantoprazole 40 mg tablet,delayed 40 mg PO BID 01/19/21 02/17/21 release potassium chloride 10 mEq 10 meq PO BID 01/19/21 02/17/21 tablet,extended release quetiapine 25 mg tablet 12.5 mg PO BEDTIME 01/19/21 02/17/21 spironolactone 25 mg tablet 25 mg PO DAILY 01/19/21 02/17/21 warfarin 5 mg tablet 5 mg PO SUMOWEFR 01/19/21 02/18/21 diltiazem HCl 120 mg 120 mg PO DAILY 01/20/21 02/17/21 capsule,extended release 24 hr melatonin 5 mg tablet 5 mg PO BEDTIME PRN 01/20/21 02/17/21 thiamine HCl (vitamin B1) 100 mg 100 mg PO DAILY 01/20/21 02/17/21 tablet allopurinol 100 mg tablet 1 tab PO DAILY 02/17/21 02/17/21 warfarin 5 mg tablet 2.5 mg PO TUTHSA 02/18/21 02/18/21 Previous Rx's Medication Instructions Recorded ferrous sulfate 325 mg (65 mg 325 mg PO Q OTHER DAY #30 tab 01/22/21 iron) tablet tamsulosin 0.4 mg capsule 0.8 mg PO BEDTIME 90 Days #180 cap 02/16/21 dextromethorphan-guaifenesin 10 10 ml PO Q6H #240 ml 02/24/21 mg-100 mg/5 mL oral syrup Allergies Allergy/AdvReac Type Severity Reaction Status Date / Time oxycodone [OXYCODONE] Allergy Intermediate ITCHING Verified 01/20/21 00:06 ANTIBIOITIC-? NAME Allergy Intermediate ITCHING Uncoded 07/23/20 14:50 Review of Systems Review of Systems: Constitutional : No Weight loss, No Fever, No Chills, No Night Sweats, No Fatigue, including a generalized malaise ENT/Mouth : No Hearing loss, No Ear Pain, No Nasal Congestion, No Sinus Pain, No Hoarseness, No sore throat, No Rhinorrhea, No Swallowing Difficulty Eyes: No Eye Pain, No Swelling, No Redness, No Foreign Body, No Discharge, No Vision Changes Cardiovascular : No Chest Pain, No SOB, No Dyspnea on Exertion, No Orthopnea, No Edema, No Palpitations Respiratory : No Cough, No Sputum, No Wheezing, No Smoke Exposure, No Dyspnea Gastrointestinal : No Nausea, No Vomiting, No Diarrhea, No Constipation, No abdominal Pain, No Hematochezia, No Melena Genitourinary : no irregular bleeding, No Dysuria, No Urinary Frequency, No Hematuria, No Urinary Incontinence, No Urgency, No Flank Pain, No Urinary Flow Changes, No Hesitancy Musculoskeletal : No joint pain, No Myalgias, No Joint Swelling Skin : No Skin Lesions, No rash Neuro : No Weakness, No Numbness, No Paresthesias, No Loss of Consciousness, No Dizziness, No Headache Psych : No Anxiety/Panic, No Depression, No SI/HI/AH/VH, No Social Issues, Heme/Lymph: No Bruising, No Bleeding,No Lymphadenopathy Endocrine : No Polyuria, No Polydipsia, No Temperature Intolerance [facility] Past Medical History Medical History Above knee amputation of left lower extremity Afib 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 GERD (gastroesophageal reflux disease) Heart failure HLD (hyperlipidemia) HTN (hypertension) Neuropathy Persistent atrial fibrillation PVD (peripheral vascular disease) Surgical History Status post aorto-coronary artery bypass graft Status post mitral valve repair Status post transcatheter aortic valve replacement Social History Social History Household Members: Other Household Members Other:: facility Housing: Assisted Living Facility Do you presently have visiting nurse or other home services: Yes Alcohol intake: former Patient Tobacco Use Status: Former Tobacco user Second Hand Smoke Exposure: No Use of substances other than those prescribed or required for medical reasons: No Advance Directives: Yes Advance Directives on File: Yes Advance Directives Date on File: 01/20/21 service: No Current occupational status: retired Physical Exam Vital Signs: Vital Signs: Last Vital Signs Temp 100.8 F H 11/12/21 16:03 Pulse 116 H 11/12/21 20:00 Resp 25 H 11/12/21 20:00 BP 133/79 11/12/21 20:00 Pulse Ox 90 L 11/12/21 20:00 BMI result Body Mass Index 29.3 Const: Other: Appearance: Alert. Oriented X3. No acute distress. Eyes: Pupils equal, round and reactive to light. ENT: Pharynx normal. Neck: Normal inspection. Neck supple. No lymph nodes noted. No crepitus CVS: Irregularly irregular, heart rate approximately 100 Normal S1 and S2 Respiratory: No respiratory distress. Breath sounds normal. No Wheezing. No rales Abdomen: Soft and nontender. No rigidity. No distention. good BS x4 Skin: Skin warm and dry. Normal skin color. Normal skin turgor. 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 No Lacerations. No Rash Neuro: Oriented X 3. No motor deficit. No sensory deficit. Moving all extermities. No slurred speech. Course Course Course Narrative: Patient tested positive for COVID-19. Patient has been in atrial fibrillation with RVR. Patient states that approximately 2 weeks ago he was supposed to be taking metoprolol and Cardizem, but his Cardizem was stopped. In the emergency room, patient received 2 doses of 5 mg of IV metoprolol. Patient's heart rate decreased to 110-120. Patient remains asymptomatic, no chest pain or shortness of breath. Patient was also given 1 dose of IV Cardizem Patient's troponin 1. Was elevated at 231.7, likely secondary to demand ischemia. Troponin 2 pending. Patient remains asymptomatic. Sign-out given to Dr. Camara Medical Decision Making Lab Data Result diagrams: 11/12/21 16:17 11/12/21 17:45 Labs: Lab Results 11/12/21 11/12/21 11/12/21 Range/Units 16:17 16:17 16:17 WBC 6.3 (4.8-10.8) X10*3/uL RBC 4.07 L (4.60-5.80) X10*6/uL Hgb 11.4 L (14.0-18.0) g/dl Hct 35.2 L (42.0-52.0) % MCV 86.5 (80.0-98.0) fL MCH 28.0 (27.0-33.0) pg MCHC 32.4 (31.0-36.0) g/dl RDW 15.9 (11.0-16.0) % Plt Count 254 (160-400) X10*3/uL MPV 10.9 (9.4-12.4) fL Immature Gran % (Auto) 0.3 (0.0-0.4) % Neut % (Auto) 77.6 H (45-73) % Lymph % (Auto) 8.3 L (20-40) % Parmer % (Auto) 13.0 H (2-11) % Eos % (Auto) 0.3 (0-4) % Baso % (Auto) 0.5 (0-2) % Lymph # (Auto) 0.5 L (1.2-4.9) X10*3/uL Parmer # (Auto) 0.8 (0.1-1.2) X10*3/uL Eos # (Auto) 0.0 (0.0-0.4) X10*3/uL Baso # (Auto) 0.0 (0.0-0.2) X10*3/uL Abs Immat Gran (auto) 0.02 (0.00-0.03) X10*3/uL Absolute Neuts (auto) 4.9 (2.0-8.3) x10*3/uL Absolute Nucleated RBC 0.000 (0.0-0.012) X10*3/uL Nucleated RBC % (auto) 0.0 (0.0-0.2) /100WBC PT 35.2 H (9.9-13.0) SEC INR 3.0 H (0.9-1.1) Sodium (135-145) mmol/L Potassium (3.3-5.1) mmol/L Chloride (96-108) mmol/L Carbon Dioxide (22-29) mmol/L Anion Gap (12-20) BUN (9-16) mg/dL Creatinine (0.5-1.4) mg/dL Estim Creat Clear Calc Estimated GFR Random Glucose (60-115) mg/dL Lactic Acid (0.5-2.0) mmol/L Calcium (8.4-10.2) mg/dL Total Bilirubin (0.0-1.0) mg/dL Direct Bilirubin (0.0-0.5) mg/dL AST (5-37) U/L ALT (0-40) U/L Alkaline Phosphatase (39-117) U/L Troponin I High Sens 231.7 H* (<3.5-35.0) ng/L B-Natriuretic Peptide (<100) pg/mL Total Protein (6.5-8.0) g/dL Albumin (3.5-5.0) g/dL Urine Color Urine Appearance Urine pH (5.0-8.0) Ur Specific [place] (1.005-1.025) Urine Protein (NEG-TRACE) MG/DL Urine Glucose (UA) (NEG) MG/DL Urine Ketones (NEG) MG/DL Urine Blood (NEG) Urine Nitrite (NEG) Ur Leukocyte Esterase (NEG) Urine RBC (0) /HPF Urine WBC (0-4) /HPF Ur Squamous Epith Cells /LPF Ur Renal Epithelial Cell /LPF Urine Bacteria /LPF COVID-19 (NIALL) (Negative) COVID-19 Clin Com 11/12/21 11/12/21 11/12/21 Range/Units 16:17 16:17 17:24 WBC (4.8-10.8) X10*3/uL RBC (4.60-5.80) X10*6/uL Hgb (14.0-18.0) g/dl Hct (42.0-52.0) % MCV (80.0-98.0) fL MCH (27.0-33.0) pg MCHC (31.0-36.0) g/dl RDW (11.0-16.0) % Plt Count (160-400) X10*3/uL MPV (9.4-12.4) fL Immature Gran % (Auto) (0.0-0.4) % Neut % (Auto) (45-73) % Lymph % (Auto) (20-40) % Parmer % (Auto) (2-11) % Eos % (Auto) (0-4) % Baso % (Auto) (0-2) % Lymph # (Auto) (1.2-4.9) X10*3/uL Parmer # (Auto) (0.1-1.2) X10*3/uL Eos # (Auto) (0.0-0.4) X10*3/uL Baso # (Auto) (0.0-0.2) X10*3/uL Abs Immat Gran (auto) (0.00-0.03) X10*3/uL Absolute Neuts (auto) (2.0-8.3) x10*3/uL Absolute Nucleated RBC (0.0-0.012) X10*3/uL Nucleated RBC % (auto) (0.0-0.2) /100WBC PT (9.9-13.0) SEC INR (0.9-1.1) Sodium (135-145) mmol/L Potassium (3.3-5.1) mmol/L Chloride (96-108) mmol/L Carbon Dioxide (22-29) mmol/L Anion Gap (12-20) BUN (9-16) mg/dL Creatinine (0.5-1.4) mg/dL Estim Creat Clear Calc Estimated GFR Random Glucose (60-115) mg/dL Lactic Acid 1.6 (0.5-2.0) mmol/L Calcium (8.4-10.2) mg/dL Total Bilirubin (0.0-1.0) mg/dL Direct Bilirubin (0.0-0.5) mg/dL AST (5-37) U/L ALT (0-40) U/L Alkaline Phosphatase (39-117) U/L Troponin I High Sens (<3.5-35.0) ng/L B-Natriuretic Peptide 459 H (<100) pg/mL Total Protein (6.5-8.0) g/dL Albumin (3.5-5.0) g/dL Urine Color Urine Appearance Urine pH (5.0-8.0) Ur Specific [place] (1.005-1.025) Urine Protein (NEG-TRACE) MG/DL Urine Glucose (UA) (NEG) MG/DL Urine Ketones (NEG) MG/DL Urine Blood (NEG) Urine Nitrite (NEG) Ur Leukocyte Esterase (NEG) Urine RBC (0) /HPF Urine WBC (0-4) /HPF Ur Squamous Epith Cells /LPF Ur Renal Epithelial Cell /LPF Urine Bacteria /LPF COVID-19 (NIALL) Positive A (Negative) COVID-19 Clin Com See Note 11/12/21 11/12/21 Range/Units 17:45 18:50 WBC (4.8-10.8) X10*3/uL RBC (4.60-5.80) X10*6/uL Hgb (14.0-18.0) g/dl Hct (42.0-52.0) % MCV (80.0-98.0) fL MCH (27.0-33.0) pg MCHC (31.0-36.0) g/dl RDW (11.0-16.0) % Plt Count (160-400) X10*3/uL MPV (9.4-12.4) fL Immature Gran % (Auto) (0.0-0.4) % Neut % (Auto) (45-73) % Lymph % (Auto) (20-40) % Parmer % (Auto) (2-11) % Eos % (Auto) (0-4) % Baso % (Auto) (0-2) % Lymph # (Auto) (1.2-4.9) X10*3/uL Parmer # (Auto) (0.1-1.2) X10*3/uL Eos # (Auto) (0.0-0.4) X10*3/uL Baso # (Auto) (0.0-0.2) X10*3/uL Abs Immat Gran (auto) (0.00-0.03) X10*3/uL Absolute Neuts (auto) (2.0-8.3) x10*3/uL Absolute Nucleated RBC (0.0-0.012) X10*3/uL Nucleated RBC % (auto) (0.0-0.2) /100WBC PT (9.9-13.0) SEC INR (0.9-1.1) Sodium 137 (135-145) mmol/L Potassium 4.7 D (3.3-5.1) mmol/L Chloride 102 (96-108) mmol/L Carbon Dioxide 22 (22-29) mmol/L Anion Gap 18 (12-20) BUN 38 H (9-16) mg/dL Creatinine 2.68 H (0.5-1.4) mg/dL Estim Creat Clear Calc 21.4 Estimated GFR 23 Random Glucose 76 (60-115) mg/dL Lactic Acid (0.5-2.0) mmol/L Calcium 9.5 D (8.4-10.2) mg/dL Total Bilirubin 0.7 (0.0-1.0) mg/dL Direct Bilirubin 0.4 (0.0-0.5) mg/dL AST 35 D (5-37) U/L ALT 24 (0-40) U/L Alkaline Phosphatase 123 H (39-117) U/L Troponin I High Sens (<3.5-35.0) ng/L B-Natriuretic Peptide (<100) pg/mL Total Protein 7.7 (6.5-8.0) g/dL Albumin 4.0 (3.5-5.0) g/dL Urine Color YELLOW Urine Appearance HAZY Urine pH 6.0 (5.0-8.0) Ur Specific [place] 1.025 (1.005-1.025) Urine Protein 2+ H (NEG-TRACE) MG/DL Urine Glucose (UA) NEG (NEG) MG/DL Urine Ketones NEG (NEG) MG/DL Urine Blood 3+ H (NEG) Urine Nitrite NEG (NEG) Ur Leukocyte Esterase NEG (NEG) Urine RBC 50-75 H (0) /HPF Urine WBC 0-2 (0-4) /HPF Ur Squamous Epith Cells TRACE /LPF Ur Renal Epithelial Cell TRACE /LPF Urine Bacteria TRACE /LPF COVID-19 (NIALL) (Negative) COVID-19 Clin Com Discharge Plan Discharge Clinical Impression: COVID-19, Atrial fibrillation with RVR, Acute on chronic renal failure Prescriptions: No [facility] furosemide 40 mg tablet 40 mg PO BID RF: 0 Hold Instructions: Resume on 01/29/21. do not restart until seen by your primary care doctor aspirin 81 mg tablet,delayed release (DR/EC) 81 mg PO DAILY RF: 0 spironolactone 25 mg tablet 25 mg PO DAILY RF: 0 Hold Instructions: Resume on 01/29/21. do not restart until seen by primary care doctor pantoprazole 40 mg tablet,delayed release (DR/EC) 40 mg PO BID RF: 0 metoprolol tartrate 50 mg tablet 50 mg PO BID RF: 0 quetiapine 25 mg tablet 12.5 mg PO BEDTIME RF: 0 atorvastatin 40 mg tablet 40 mg PO DAILY RF: 0 potassium chloride 10 mEq tablet extended release 10 meq PO BID RF: 0 warfarin 5 mg tablet 5 mg PO SUMOWEFR RF: 0 Hold Instructions: Resume on 03/03/21. gabapentin 100 mg capsule 100 mg PO QAM RF: 0 thiamine HCl (vitamin B1) 100 mg Tablet 100 mg PO DAILY RF: 0 diltiazem HCl 120 mg capsule,extended release 24hr 120 mg PO DAILY RF: 0 melatonin 5 mg Tablet 5 mg PO BEDTIME PRN (Reason: Insomnia) RF: 0 ferrous sulfate 325 mg (65 mg iron) tablet 325 mg PO Q OTHER DAY Qty: 30 RF: 0 allopurinol 100 mg tablet 1 tab PO DAILY RF: 0 warfarin 5 mg Tablet 2.5 mg PO TUTHSA RF: 0 Hold Instructions: Resume on 03/03/21. dextromethorphan-guaifenesin 10-100 mg/5 mL Syrup 10 ml PO Q6H Qty: 240 RF: 0 tamsulosin 0.4 mg capsule 0.8 mg PO BEDTIME 90 Days Qty: 180 RF: 1
[2021-11-12 16:03] VITALS: BP 160/100; BP 171/90; PULSE 123; PULSE 96; RESP 18; TEMP 38.2; O2SAT 97; BMI 29.3
[2021-11-12 16:24] LABS: MANUAL DIFF FLAG NO
[2021-11-12 16:25] LABS: Basophils Percent Auto 0.5 % (0-2); Eosinophils Percent Auto 0.3 % (0-4); Hematocrit 35.2 % (42.0-52.0); Hemoglobin 11.4 g/dl (14.0-18.0); Imm Gran Abs Auto 0.02 X10*3/uL (0.00-0.03); Imm Gran Pct Auto 0.3 % (0.0-0.4); Lymphocytes Absolute Auto 0.5 X10*3/uL (1.2-4.9); Lymphocytes Percent Auto 8.3 % (20-40); Mean Corpuscular HGB Conc 32.4 g/dl (31.0-36.0); Mean Corpuscular Volume 86.5 fL (80.0-98.0); Mean Platelet Volume 10.9 fL (9.4-12.4); Monocytes Absolute Auto 0.8 X10*3/uL (0.1-1.2); Neutrophils Absolute Auto 4.9 x10*3/uL (2.0-8.3); Neutrophils Percent Auto 77.6 % (45-73); Platelet Count 254 X10*3/uL (160-400); Red Blood Count 4.07 X10*6/uL (4.60-5.80); Red Cell Distribution Width 15.9 % (11.0-16.0); White Blood Count 6.3 X10*3/uL (4.8-10.8)
[2021-11-12] MEDS: 0.9 % Sodium Chloride 1,000 ML 100 ML IVCONT (16:28)
[2021-11-12 16:33] LABS: Prothrombin Time 35.2 SEC (9.9-13.0)
[2021-11-12 16:39] LABS: Lactic Acid 1.6 mmol/L (0.5-2.0)
[2021-11-12 16:49] LABS: B Type Natriuretic Peptide 459 pg/mL (<100)
[2021-11-12 17:05] LABS: Troponin-I High Sensitivity 231.7 ng/L (<3.5-35.0)
[2021-11-12 17:37] LABS: COVID-19 Test Positive (Negative)
[2021-11-12] MEDS: Metoprolol Tartrate 5 MG/5 ML VIAL 2.5 MG IVPUSH (18:03)
[2021-11-12 18:06] VITALS: BP 170/93; PULSE 120; RESP 18; O2SAT 95
[2021-11-12 18:10] LABS: Alanine Aminotransferase 24 U/L (0-40); Alkaline Phosphatase 123 U/L (39-117); Anion Gap 18 (12-20); Aspartate Amino Transferase 35 U/L (5-37); Bilirubin Direct 0.4 mg/dL (0.0-0.5); Bilirubin Total 0.7 mg/dL (0.0-1.0); Blood Urea Nitrogen 38 mg/dL (9-16); Calcium 9.5 mg/dL (8.4-10.2); Carbon Dioxide 22 mmol/L (22-29); Chloride 102 mmol/L (96-108); Creatinine Clr Calc Pharmacy 21.4; Estimated Glomerular Filt Rate 23; Glucose Random 76 mg/dL (60-115); Potassium 4.7 mmol/L (3.3-5.1); Sodium 137 mmol/L (135-145); Total Protein 7.7 g/dL (6.5-8.0)
[2021-11-12 18:55] LABS: Appearance Urine HAZY; Color Urine YELLOW; Glucose Urine UA NEG (NEG); Leukocyte Esterase Urine NEG (NEG); Nitrite Urine NEG (NEG); Specific Gravity - Urine 1.025 (1.005-1.025); UACC Culture Trigger NO; Urine Blood 3+ (NEG); Urine Ketones NEG (NEG); Urine Protein 2+ MG/DL (NEG-TRACE)
[2021-11-12 19:02] LABS: Bacteria Urine TRACE /LPF; RBC Urine 50-75 /HPF (0); Renal Epithelial Cells Urine TRACE /LPF; Squamous Epithelial Cell Urine TRACE /LPF; WBC Urine 0-2 /HPF (0-4)
[2021-11-12] MEDS: Metoprolol Tartrate 5 MG/5 ML VIAL IVPUSH (19:27)
--- NOTE | 2021-11-12 19:39 | PC.NURSE ---
PATIENT REFUSED ,SUPPER TRAY ,STATED WAS NOT HUNGRY .
[2021-11-12 20:00] VITALS: BP 133/79; PULSE 116; RESP 25; O2SAT 90
[2021-11-12] MEDS: Acetaminophen 325 MG TABLET 650 MG PO (20:51)
[2021-11-12] MEDS: dilTIAZem HCL 50 MG/10 ML VIAL 10 MG IVPUSH (20:52)
[2021-11-12 22:05] LABS: Troponin-I High Sensitivity 285.5 ng/L (<3.5-35.0)
[2021-11-12 23:40] VITALS: BP 136/85; PULSE 106; RESP 19; TEMP 36.4; O2SAT 95
[2021-11-13] VITALS (11 sets, daily range): BP systolic 122–162; BP diastolic 43–113; PULSE 68–148; RESP 14–26; TEMP 36.4–36.9; O2SAT 95–98
[2021-11-13] MEDS: Metoprolol Tartrate 5 MG/5 ML VIAL IVPUSH ×2 (01:21→09:23)
--- NOTE | 2021-11-13 01:51 | ECG_ITS ---
Test Reason : med clearance Blood Pressure : / mmHG Vent. Rate : 103 BPM Atrial Rate : 000 BPM P-R Int : 000 ms QRS Dur : 088 ms QT Int : 380 ms P-R-T Axes : 000 -13 249 degrees QTc Int : 497 ms Atrial fibrillation with rapid ventricular response Nonspecific T wave abnormality Abnormal ECG When compared with ECG of 12-NOV-2021 17:17, No significant change was found Referred By: Chandni Camara Electronically Signed By:CATERINA PROCTOR MD
[2021-11-13 03:04] LABS: Troponin-I High Sensitivity 344.3 ng/L (<3.5-35.0)
--- NOTE | 2021-11-13 05:37 | PM.IMHP ---
History of Present Illness Date of Service: 11/13/21 Chief Complaint: Generalized weakness 81-year-old male with a past medical history of hypertension, hyperlipidemia, peripheral vascular disease, CAD, AFib on Coumadin, neuropathy, CHF, history of mitral valve repair, history of Bioprosthetic Aortic valve, BPH presented to the hospital with a chief complaint of not feeling well. Patient is a poor historian. Patient reports that over the past 2 days he has been not feeling well, generally weak; denies any chest pain or palpitations. Reports occasional cough and shortness of breath on exertion. Denies any nausea vomiting diarrhea. Denies any urinary symptoms. Denies any falls or trauma. Denies any numbness tingling or focal weakness. Review of all other systems is negative except mentioned above ER course: Per ER team patient on presentation noted to be mildly dehydrated; patient was in AFib with rapid ventricular response. ER team mentioned that patient was stopped on diltiazem recently-reasons unclear; patient unable to provide reasons.. Patient was given diltiazem IV push with improvement in heart rate. Incidentally patient was noted to be positive for COVID-19. Chest x-ray showed no acute findings. Patient saturating well on room air. Admitted for further management [facility] Medical History Above knee amputation of left lower extremity Afib 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 GERD (gastroesophageal reflux disease) Heart failure HLD (hyperlipidemia) HTN (hypertension) Neuropathy Persistent atrial fibrillation PVD (peripheral vascular disease) Pertinent family history: reviewed Surgical History Status post aorto-coronary artery bypass graft Status post mitral valve repair Status post transcatheter aortic valve replacement Social History Household Members: Other Household Members Other:: facility Housing: Assisted Living Facility Do you presently have visiting nurse or other home services: Yes Alcohol intake: former Patient Tobacco Use Status: Former Tobacco user Second Hand Smoke Exposure: No Use of substances other than those prescribed or required for medical reasons: No Advance Directives: Yes Advance Directives on File: Yes Advance Directives Date on File: 01/20/21 service: No Current occupational status: retired Meds Allergies Allergy/AdvReac Type Severity Reaction Status Date / Time oxycodone [OXYCODONE] Allergy Intermediate ITCHING Verified 01/20/21 00:06 ANTIBIOITIC-? NAME Allergy Intermediate ITCHING Uncoded 07/23/20 14:50 Active Medications: Current Medications Sodium Chloride (Ns) 1,000 mls @ 100 mls/hr IVCONT .Q10H [facility] Last Admin: 11/13/21 02:29 Dose: Not Given Documented by: Melatonin (Melatonin 3 Mg Tablet) 6 mg PO BEDTIME PRN PRN Reason: Insomnia Senna (Sennosides 8.6 Mg Tablet) 17.2 mg PO BEDTIME PRN PRN Reason: Constipation Sodium Chloride (0.9 % Sodium Chloride Flush 3 Ml Syringe) 3 ml IVFLUSH QSHIFT [facility] Home Medications Medication Instructions Recorded Confirmed Last Taken Type atorvastatin 40 mg tablet 40 mg PO DAILY 01/19/21 11/13/21 Unknown History furosemide 40 mg tablet 40 mg PO BID 01/19/21 11/13/21 Unknown History gabapentin 100 mg capsule 100 mg PO QAM 01/19/21 11/13/21 Unknown History metoprolol tartrate 50 mg tablet 50 mg PO BID 01/19/21 11/13/21 Unknown History pantoprazole 40 mg tablet,delayed 40 mg PO BID 01/19/21 11/13/21 Unknown History release potassium chloride 10 mEq 10 meq PO BID 01/19/21 11/13/21 Unknown History tablet,extended release quetiapine 25 mg tablet 12.5 mg PO BEDTIME 01/19/21 11/13/21 Unknown History warfarin 5 mg tablet 5 mg PO SUMOWEFR 01/19/21 11/13/21 Unknown History diltiazem HCl 120 mg 120 mg PO DAILY 01/20/21 11/13/21 Unknown History capsule,extended release 24 hr melatonin 5 mg tablet 5 mg PO BEDTIME PRN 01/20/21 11/13/21 Unknown History thiamine HCl (vitamin B1) 100 mg 100 mg PO DAILY 01/20/21 11/13/21 Unknown History tablet warfarin 5 mg tablet 2.5 mg PO TUTHSA 02/18/21 11/13/21 Unknown History Physical Exam Vital Signs and Narrative: Vital Signs: Last Vital Signs Temp 98.3 F 11/13/21 03:48 Pulse 95 11/13/21 03:48 Resp 15 11/13/21 04:00 BP 154/72 H 11/13/21 03:48 Pulse Ox 98 11/13/21 03:48 BMI result Body Mass Index 29.3 Gen: Appears be in no acute distress HEENT: NCAT, Moist mucosa. Pulmonary: Vesicular breath sounds, fair air entry CVS: Normal S1-S2 Abdomen: BS+, Soft, Nontender Extremities: Warm well perfused Neuro: Alert and awake. Results Labs CBC and Chem 7: 11/12/21 16:17 11/12/21 17:45 Labs: Laboratory Results - last 24 hr 11/12/21 11/12/21 11/12/21 16:17 16:17 16:17 MCV 86.5 MCH 28.0 MCHC 32.4 RDW 15.9 Plt Count 254 MPV 10.9 Immature Gran % (Auto) 0.3 Neut % (Auto) 77.6 H Lymph % (Auto) 8.3 L [place] % (Auto) 13.0 H Eos % (Auto) 0.3 Baso % (Auto) 0.5 Lymph # (Auto) 0.5 L [place] # (Auto) 0.8 Eos # (Auto) 0.0 Baso # (Auto) 0.0 Abs Immat Gran (auto) 0.02 Absolute Neuts (auto) 4.9 Absolute Nucleated RBC 0.000 Nucleated RBC % (auto) 0.0 PT 35.2 H INR 3.0 H Anion Gap Estim Creat Clear Calc Estimated GFR Random Glucose Lactic Acid Calcium Total Bilirubin Direct Bilirubin AST ALT Alkaline Phosphatase Troponin I High Sens 231.7 H* B-Natriuretic Peptide Total Protein Albumin Urine Color Urine Appearance Urine pH Ur Specific [place] Urine Protein Urine Glucose (UA) Urine Ketones Urine Blood Urine Nitrite Ur Leukocyte Esterase Urine RBC Urine WBC Ur Squamous Epith Cells Ur Renal Epithelial Cell Urine Bacteria COVID-19 ([facility]) COVID-19 Clin Com 11/12/21 11/12/21 11/12/21 16:17 16:17 17:24 MCV MCH MCHC RDW Plt Count MPV Immature Gran % (Auto) Neut % (Auto) Lymph % (Auto) [place] % (Auto) Eos % (Auto) Baso % (Auto) Lymph # (Auto) [place] # (Auto) Eos # (Auto) Baso # (Auto) Abs Immat Gran (auto) Absolute Neuts (auto) Absolute Nucleated RBC Nucleated RBC % (auto) PT INR Anion Gap Estim Creat Clear Calc Estimated GFR Random Glucose Lactic Acid 1.6 Calcium Total Bilirubin Direct Bilirubin AST ALT Alkaline Phosphatase Troponin I High Sens B-Natriuretic Peptide 459 H Total Protein Albumin Urine Color Urine Appearance Urine pH Ur Specific [place] Urine Protein Urine Glucose (UA) Urine Ketones Urine Blood Urine Nitrite Ur Leukocyte Esterase Urine RBC Urine WBC Ur Squamous Epith Cells Ur Renal Epithelial Cell Urine Bacteria COVID-19 ([facility]ALL) Positive A COVID-19 Clin Com See Note 11/12/21 11/12/21 11/12/21 17:45 18:50 21:24 MCV MCH MCHC RDW Plt Count MPV Immature Gran % (Auto) Neut % (Auto) Lymph % (Auto) [place] % (Auto) Eos % (Auto) Baso % (Auto) Lymph # (Auto) [place] # (Auto) Eos # (Auto) Baso # (Auto) Abs Immat Gran (auto) Absolute Neuts (auto) Absolute Nucleated RBC Nucleated RBC % (auto) PT INR Anion Gap 18 Estim Creat Clear Calc 21.4 Estimated GFR 23 Random Glucose 76 Lactic Acid Calcium 9.5 D Total Bilirubin 0.7 Direct Bilirubin 0.4 AST 35 D ALT 24 Alkaline Phosphatase 123 H Troponin I High Sens 285.5 H* B-Natriuretic Peptide Total Protein 7.7 Albumin 4.0 Urine Color YELLOW Urine Appearance HAZY Urine pH 6.0 Ur Specific [place] 1.025 Urine Protein 2+ H Urine Glucose (UA) NEG Urine Ketones NEG Urine Blood 3+ H Urine Nitrite NEG Ur Leukocyte Esterase NEG Urine RBC 50-75 H Urine WBC 0-2 Ur Squamous Epith Cells TRACE Ur Renal Epithelial Cell TRACE Urine Bacteria TRACE COVID-19 ([facility]) COVID-19 Clin Com 11/13/21 02:31 MCV MCH MCHC RDW Plt Count MPV Immature Gran % (Auto) Neut % (Auto) Lymph % (Auto) [place] % (Auto) Eos % (Auto) Baso % (Auto) Lymph # (Auto) [place] # (Auto) Eos # (Auto) Baso # (Auto) Abs Immat Gran (auto) Absolute Neuts (auto) Absolute Nucleated RBC Nucleated RBC % (auto) PT INR Anion Gap Estim Creat Clear Calc Estimated GFR Random Glucose Lactic Acid Calcium Total Bilirubin Direct Bilirubin AST ALT Alkaline Phosphatase Troponin I High Sens 344.3 H* B-Natriuretic Peptide Total Protein Albumin Urine Color Urine Appearance Urine pH Ur Specific [place] Urine Protein Urine Glucose (UA) Urine Ketones Urine Blood Urine Nitrite Ur Leukocyte Esterase Urine RBC Urine WBC Ur Squamous Epith Cells Ur Renal Epithelial Cell Urine Bacteria COVID-19 ([facility]) COVID-19 Clin Com Imaging Radiologist's Impressions: Impressions Chest X-Ray 11/12/21 16:57 IMPRESSION: Minimal left basilar atelectasis. Otherwise clear lungs. Assessment and Plan (1) COVID-19: Status: Acute (2) Atrial fibrillation with RVR: Status: Acute (3) Acute on chronic renal failure: Status: Acute 81-year-old male with a past medical history of hypertension, hyperlipidemia, peripheral vascular disease, CAD, AFib on Coumadin, neuropathy, dCHF, history of mitral valve repair, history of Bioprosthetic Aortic valve, BPH presented to the hospital with a chief complaint of not feeling well. Noted to be in AFib with RVR. Admitted for further management. AFib with RVR: Reportedly patient has not been taking his home diltiazem. Patient heart rate is improved with IV diltiazem push in the ER. Will continue home diltiazem and metoprolol. Monitor on telemetry. Currently heart rate 100-110. Patient is on Coumadin. INR therapeutic 3.0. Elevated troponins: Patient denies any chest pain but reports dyspnea on exertion/generalized weakness. EKG nonischemic. Cardiology was notofied. COVID-19 positive: Patient is symptomatic. Saturating well on room air. Chest x-ray showed no acute findings. Supportive care. DARNELL on CKD: baseline creartinine around 2.2-2.3; today cr-2.69; Avoid nephrotoxins. Lasix held. History of dCHF: Stable. Hold Lasix for Now History of BPH: Continue home Flomax. History of Type 2 diabetes mellitus with peripheral angiopathy AKA LEFT 2019 ->Controlled. currentl not on meds. DVT prophylaxis: Patient on Coumadin Code status: Full code ECHO: February 2021: Conclusions: - Normal left ventricular size and systolic function.? - A bioprosthetic aortic valve is present.? The prosthetic aortic valve appears to be functioning normally.? - There is mild mitral valve stenosis. ? - Mild to moderate pulmonary hypertension is present ? ? ? Quality Stroke Does the patient have a stroke diagnosis?: No VTE Prior VTE?: No VTE Risk Level:: Medical - moderate - high VTE Device Contraindication: Treatment Not Indicated VTE Drug Contraindication: N/A - Med Ordered
[2021-11-13 07:43] LABS: INTERNATIONAL NORM RATIO 2.9 (0.9-1.1)
--- NOTE | 2021-11-13 07:43 | P.EN_ITS ---
Event Note Date of Service: 11/13/21 Event Note: 81-year-old male with a past medical history of hypertension, hype rlipidemia, peripheral vascular disease, CAD, AFib on Coumadin, neuropathy, dCHF, history of mitral valve repair, history of Bioprosthetic Aortic valve, BPH presented to the hospital with a chief complaint of not feeling well.? Noted to be in AFib with RVR.? Admitted for further management.? AFib with RVR Reportedly patient has not been taking his home diltiazem.? continue home diltiazem and metoprolol. Monitor on telemetry.? Continue warfarin Still with epsiodes of elevated HR, one dose of IV metoprolol in ED If HR continues to be elevated consider cardizem drip Elevated troponin Denies any chest pain but reports dyspnea on exertion/generalized weakness.? EKG nonischemic.? Cardiology consulted COVID-19 positive Patient asymptomatic? supportive care DARNELL on CKD baseline creatinine around 2.2 Avoid nephrotoxins. Lasix held. History of CHF. Stable.? Hold Lasix for Now History of BPH Continue home Flomax.? History of Type 2 diabetes mellitus with peripheral angiopathy Controlled.? currently not on meds. DVT prophylaxis coumadin Code status: Full code Attending Dr. Linn
[2021-11-13 08:01] LABS: Magnesium 1.8 mg/dL (1.6-2.6)
[2021-11-13] MEDS: Furosemide 40 MG TABLET PO ×2 (09:08→18:24)
[2021-11-13] MEDS: dilTIAZem HCL CD 120 MG CAP.ER.DEG PO (09:08)
[2021-11-13] MEDS: Atorvastatin Calcium 40 MG TABLET PO (09:08)
[2021-11-13] MEDS: Omeprazole 40 MG CAPSULE.DR PO ×2 (09:09→20:10)
[2021-11-13] MEDS: 0.9 % Sodium Chloride Flush 3 ML SYRINGE IVFLUSH (09:09)
[2021-11-13] MEDS: Thiamine HCL 100 MG TABLET PO (09:09)
[2021-11-13] MEDS: Metoprolol Tartrate 50 MG TABLET PO ×2 (09:09→20:10)
[2021-11-13] MEDS: Ferrous Sulfate 324 MG TABLET.DR PO (09:09)
[2021-11-13] MEDS: Gabapentin 100 MG CAPSULE PO (09:09)
[2021-11-13] MEDS: ondansetron HCL 4 MG/2 ML VIAL IVPUSH (09:22)
--- NOTE | 2021-11-13 12:29 | PM.CNCAR ---
History of Present Illness History of Present Illness Date of Service: 11/13/21 Requesting physician: Frances Wagner Consult reason: atrial fibrillation Chief complaint: DARNELL on CKD; afib with rvr Narrative: I was requested to see Arturo in cardiology consultation today for management of atrial fibrillation. Patient is a poor historian. Present hospital saying not feeling well. Prior history remarkable for multiple cardiovascular issues including chronic atrial fibrillation on Coumadin, CAD, mitral valve repair, aortic valve replacement, BPH, history of CHF. Patient presented to the hospital with no specific complaints. Was noted to be mildly dehydrated with DARNELL as well as noted to be positive for COVID. Also noted to be in AFib with rapid ventricular response. More recently his Cardizem was discontinued. Not sure who he follows with. He has not very verbal with his complaints. Review of Systems Review of Systems: Yes Unobtainable due to mental status PMFSH Past Medical History Medical History Above knee amputation of left lower extremity Afib 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 GERD (gastroesophageal reflux disease) Heart failure HLD (hyperlipidemia) HTN (hypertension) Neuropathy Persistent atrial fibrillation PVD (peripheral vascular disease) Surgical History Surgical History Status post aorto-coronary artery bypass graft Status post mitral valve repair Status post transcatheter aortic valve replacement Social History Social History Household Members: Other Household Members Other:: facility Housing: Assisted Living Facility Do you presently have visiting nurse or other home services: Yes Alcohol intake: former Patient Tobacco Use Status: Former Tobacco user Second Hand Smoke Exposure: No Use of substances other than those prescribed or required for medical reasons: No Advance Directives: Yes Advance Directives on File: Yes Advance Directives Date on File: 01/20/21 service: No Current occupational status: retired Meds Allergies Allergy/AdvReac Type Severity Reaction Status Date / Time oxycodone [OXYCODONE] Allergy Intermediate ITCHING Verified 01/20/21 00:06 ANTIBIOITIC-? NAME Allergy Intermediate ITCHING Uncoded 07/23/20 14:50 Active Medications: Current Medications Atorvastatin Calcium (Atorvastatin Calcium 40 Mg Tablet) 40 mg PO DAILY CHRISTINE Last Admin: 11/13/21 09:08 Dose: 40 mg Documented by: Diltiazem HCl (Diltiazem Hcl Cd 120 Mg Cap.Er.Deg) 120 mg PO DAILY REPLACED BY [facility]; Protocol Last Admin: 11/13/21 09:08 Dose: 120 mg Documented by: Ferrous Sulfate (Ferrous Sulfate 324 Mg Tablet.) 324 mg PO Q48H REPLACED BY [facility] Last Admin: 11/13/21 09:09 Dose: 324 mg Documented by: Furosemide (Furosemide 40 Mg Tablet) 40 mg PO BIDWM REPLACED BY [facility]; Protocol Last Admin: 11/13/21 09:08 Dose: 40 mg Documented by: Gabapentin (Gabapentin 100 Mg Capsule) 100 mg PO DAILY REPLACED BY [facility] Last Admin: 11/13/21 09:09 Dose: 100 mg Documented by: Sodium Chloride (Ns) 1,000 mls @ 100 mls/hr IVCONT .Q10H REPLACED BY [facility] Last Infusion: 11/13/21 06:31 Dose: Infused Documented by: Melatonin (Melatonin 3 Mg Tablet) 6 mg PO BEDTIME PRN PRN Reason: Insomnia Metoprolol Tartrate (Metoprolol Tartrate 50 Mg Tablet) 50 mg PO BID REPLACED BY [facility]; Protocol Last Admin: 11/13/21 09:09 Dose: 50 mg Documented by: Omeprazole (Omeprazole 40 Mg Capsule.) 40 mg PO BID REPLACED BY [facility] Last Admin: 11/13/21 09:09 Dose: 40 mg Documented by: Ondansetron HCl (Ondansetron Hcl 4 Mg/2 Ml Vial) 4 mg IVPUSH Q8H PRN PRN Reason: Nausea Last Admin: 11/13/21 09:22 Dose: 4 mg Documented by: Quetiapine Fumarate (Quetiapine Fumarate 25 Mg Tablet) 12.5 mg PO BEDTIME REPLACED BY [facility] Senna (Sennosides 8.6 Mg Tablet) 17.2 mg PO BEDTIME PRN PRN Reason: Constipation Sodium Chloride (0.9 % Sodium Chloride Flush 3 Ml Syringe) 3 ml IVFLUSH QSHIFT REPLACED BY [facility] Last Admin: 11/13/21 09:09 Dose: 3 ml Documented by: Tamsulosin HCl (Tamsulosin Hcl 0.4 Mg Capsule) 0.8 mg PO BEDTIME REPLACED BY [facility] Thiamine HCl (Thiamine Hcl 100 Mg Tablet) 100 mg PO DAILY REPLACED BY [facility] Last Admin: 11/13/21 09:09 Dose: 100 mg Documented by: Warfarin Sodium (Warfarin Sodium 2.5 Mg Tablet) 2.5 mg PO TuThSa@1800 REPLACED BY [facility] Warfarin Sodium (Warfarin Sodium 5 Mg Tablet) 5 mg PO SuMoWeFr@1800 REPLACED BY [facility] Home Medications Medication Instructions Recorded Confirmed Last Taken Type atorvastatin 40 mg tablet 40 mg PO DAILY 01/19/21 11/13/21 Unknown History furosemide 40 mg tablet 40 mg PO BID 01/19/21 11/13/21 Unknown History gabapentin 100 mg capsule 100 mg PO QAM 01/19/21 11/13/21 Unknown History metoprolol tartrate 50 mg tablet 50 mg PO BID 01/19/21 11/13/21 Unknown History pantoprazole 40 mg tablet,delayed 40 mg PO BID 01/19/21 11/13/21 Unknown History release potassium chloride 10 mEq 10 meq PO BID 01/19/21 11/13/21 Unknown History tablet,extended release quetiapine 25 mg tablet 12.5 mg PO BEDTIME 01/19/21 11/13/21 Unknown History warfarin 5 mg tablet 5 mg PO SUMOWEFR 01/19/21 11/13/21 Unknown History diltiazem HCl 120 mg 120 mg PO DAILY 01/20/21 11/13/21 Unknown History capsule,extended release 24 hr melatonin 5 mg tablet 5 mg PO BEDTIME PRN 01/20/21 11/13/21 Unknown History thiamine HCl (vitamin B1) 100 mg 100 mg PO DAILY 01/20/21 11/13/21 Unknown History tablet warfarin 5 mg tablet 2.5 mg PO TUTHSA 02/18/21 11/13/21 Unknown History Physical Exam Vital Signs: Vital Signs: Last Vital Signs Temp 98.4 F 11/13/21 11:42 Pulse 82 11/13/21 11:42 Resp 17 11/13/21 11:42 BP 134/76 11/13/21 11:42 Pulse Ox 95 11/13/21 11:42 BMI result Body Mass Index 29.3 Const: General: cooperative, comfortable, no acute distress and alert Nutritional Appearance: overweight HENMT: Head: Yes normocephalic and Yes atraumatic Neck: Neck: Yes trachea midline, Yes supple and Yes no JVD Resp: Effort & Inspection: decreased respiratory effort Auscultation: no crackles Cardio: Jugular venous distension: no JVD Rate: regular rate Rhythm: abnormal rhythm irregularly irregular Heart sounds: S1 normal heart sound present, S2 normal heart sound present, no click and no gallops GI: Auscultation: normal bowel sounds Neuro: General: no focal motor deficits Extrem: General: Yes no clubbing, cyanosis or edema Objective Labs and Meds Result diagrams: 11/12/21 16:17 11/12/21 17:45 Lab results: Laboratory Results - last 24 hr 11/12/21 11/12/21 11/12/21 16:17 16:17 16:17 WBC 6.3 RBC 4.07 L Hgb 11.4 L Hct 35.2 L MCV 86.5 MCH 28.0 MCHC 32.4 RDW 15.9 Plt Count 254 MPV 10.9 Immature Gran % (Auto) 0.3 Neut % (Auto) 77.6 H Lymph % (Auto) 8.3 L Chase % (Auto) 13.0 H Eos % (Auto) 0.3 Baso % (Auto) 0.5 Lymph # (Auto) 0.5 L Chase # (Auto) 0.8 Eos # (Auto) 0.0 Baso # (Auto) 0.0 Abs Immat Gran (auto) 0.02 Absolute Neuts (auto) 4.9 Absolute Nucleated RBC 0.000 Nucleated RBC % (auto) 0.0 PT 35.2 H INR 3.0 H Sodium Potassium Chloride Carbon Dioxide Anion Gap BUN Creatinine Estim Creat Clear Calc Estimated GFR Random Glucose Lactic Acid Calcium Magnesium Total Bilirubin Direct Bilirubin AST ALT Alkaline Phosphatase Troponin I High Sens 231.7 H* B-Natriuretic Peptide Total Protein Albumin Urine Color Urine Appearance Urine pH Ur Specific [place] Urine Protein Urine Glucose (UA) Urine Ketones Urine Blood Urine Nitrite Ur Leukocyte Esterase Urine RBC Urine WBC Ur Squamous Epith Cells Ur Renal Epithelial Cell Urine Bacteria COVID-19 ([facility]) COVID-19 Clin Com 11/12/21 11/12/21 11/12/21 16:17 16:17 17:24 WBC RBC Hgb Hct MCV MCH MCHC RDW Plt Count MPV Immature Gran % (Auto) Neut % (Auto) Lymph % (Auto) Chase % (Auto) Eos % (Auto) Baso % (Auto) Lymph # (Auto) Chase # (Auto) Eos # (Auto) Baso # (Auto) Abs Immat Gran (auto) Absolute Neuts (auto) Absolute Nucleated RBC Nucleated RBC % (auto) PT INR Sodium Potassium Chloride Carbon Dioxide Anion Gap BUN Creatinine Estim Creat Clear Calc Estimated GFR Random Glucose Lactic Acid 1.6 Calcium Magnesium Total Bilirubin Direct Bilirubin AST ALT Alkaline Phosphatase Troponin I High Sens B-Natriuretic Peptide 459 H Total Protein Albumin Urine Color Urine Appearance Urine pH Ur Specific [place] Urine Protein Urine Glucose (UA) Urine Ketones Urine Blood Urine Nitrite Ur Leukocyte Esterase Urine RBC Urine WBC Ur Squamous Epith Cells Ur Renal Epithelial Cell Urine Bacteria COVID-19 ([facility]) Positive A COVID-19 Clin Com See Note 11/12/21 11/12/21 11/12/21 17:45 18:50 21:24 WBC RBC Hgb Hct MCV MCH MCHC RDW Plt Count MPV Immature Gran % (Auto) Neut % (Auto) Lymph % (Auto) Chase % (Auto) Eos % (Auto) Baso % (Auto) Lymph # (Auto) Chase # (Auto) Eos # (Auto) Baso # (Auto) Abs Immat Gran (auto) Absolute Neuts (auto) Absolute Nucleated RBC Nucleated RBC % (auto) PT INR Sodium 137 Potassium 4.7 D Chloride 102 Carbon Dioxide 22 Anion Gap 18 BUN 38 H Creatinine 2.68 H Estim Creat Clear Calc 21.4 Estimated GFR 23 Random Glucose 76 Lactic Acid Calcium 9.5 D Magnesium Total Bilirubin 0.7 Direct Bilirubin 0.4 AST 35 D ALT 24 Alkaline Phosphatase 123 H Troponin I High Sens 285.5 H* B-Natriuretic Peptide Total Protein 7.7 Albumin 4.0 Urine Color YELLOW Urine Appearance HAZY Urine pH 6.0 Ur Specific [place] 1.025 Urine Protein 2+ H Urine Glucose (UA) NEG Urine Ketones NEG Urine Blood 3+ H Urine Nitrite NEG Ur Leukocyte Esterase NEG Urine RBC 50-75 H Urine WBC 0-2 Ur Squamous Epith Cells TRACE Ur Renal Epithelial Cell TRACE Urine Bacteria TRACE COVID-19 ([facility]) COVID-19 Clin Com 11/13/21 11/13/21 11/13/21 02:31 07:10 07:10 WBC RBC Hgb Hct MCV MCH MCHC RDW Plt Count MPV Immature Gran % (Auto) Neut % (Auto) Lymph % (Auto) Chase % (Auto) Eos % (Auto) Baso % (Auto) Lymph # (Auto) [place] # (Auto) Eos # (Auto) Baso # (Auto) Abs Immat Gran (auto) Absolute Neuts (auto) Absolute Nucleated RBC Nucleated RBC % (auto) PT 34.0 H INR 2.9 H Sodium Potassium Chloride Carbon Dioxide Anion Gap BUN Creatinine Estim Creat Clear Calc Estimated GFR Random Glucose Lactic Acid Calcium Magnesium 1.8 Total Bilirubin Direct Bilirubin AST ALT Alkaline Phosphatase Troponin I High Sens 344.3 H* B-Natriuretic Peptide Total Protein Albumin Urine Color Urine Appearance Urine pH Ur Specific [place] Urine Protein Urine Glucose (UA) Urine Ketones Urine Blood Urine Nitrite Ur Leukocyte Esterase Urine RBC Urine WBC Ur Squamous Epith Cells Ur Renal Epithelial Cell Urine Bacteria COVID-19 ([facility]) COVID-19 Clin Com Imaging Radiologist's impression: Impressions Chest X-Ray 11/12/21 16:57 IMPRESSION: Minimal left basilar atelectasis. Otherwise clear lungs. Assessment and Plan (1) Atrial fibrillation with RVR: Status: Acute Patient present with vague symptoms of weakness most likely due to dehydration and acute kidney injury and was noted to have atrial fibrillation rapid ventricular response most likely due to underlying medical issues. Has COVID positive status. Currently rate is well controlled with initiation Cardizem therapy. Continue metoprolol and Cardizem therapy. Continue warfarin therapy for anticoagulation. He seems like he is doing better now. Can be discharged from cardiac perspective and follow up with his own latrine cleaner as outpatient. Maintain target INR between 2 and 3. Continue supportive care. Will sign of the case. Thank you for allowing me to partake in his care Procedures Date of Service Date of Service: 11/13/21
[2021-11-13] MEDS: 0.9 % Sodium Chloride 1,000 ML 100 ML IVCONT (13:12)
--- NOTE | 2021-11-13 16:51 | PHA.MEDREC ---
Pharmacy Consult ? Medication Reconciliation Pharmacy has completed the medication reconciliation. Patient is a [facility] patient. Med rec was entered incorrectly overnight, adjudicated by me. Pt is followed by Dr Shelley.
[2021-11-13] MEDS: Tamsulosin HCL 0.4 MG CAPSULE 0.8 MG PO (20:09)
[2021-11-13] MEDS: QUEtiapine Fumarate 25 MG TABLET 12.5 MG PO (20:10)
[2021-11-13] MEDS: Warfarin Sodium 2.5 MG TABLET PO (20:45)
[2021-11-14 06:47] LABS: MANUAL DIFF FLAG NO
[2021-11-14 06:52] LABS: Basophils Percent Auto 0.8 % (0-2); Eosinophils Absolute Auto 0.1 X10*3/uL (0.0-0.4); Eosinophils Percent Auto 1.8 % (0-4); Hematocrit 31.8 % (42.0-52.0); Hemoglobin 10.3 g/dl (14.0-18.0); Imm Gran Abs Auto 0.01 X10*3/uL (0.00-0.03); Imm Gran Pct Auto 0.2 % (0.0-0.4); Lymphocytes Absolute Auto 0.9 X10*3/uL (1.2-4.9); Lymphocytes Percent Auto 18.6 % (20-40); Mean Corpuscular HGB Conc 32.4 g/dl (31.0-36.0); Mean Corpuscular Hemoglobin 27.8 pg (27.0-33.0); Mean Corpuscular Volume 85.9 fL (80.0-98.0); Monocytes Absolute Auto 0.6 X10*3/uL (0.1-1.2); Monocytes Percent Auto 11.1 % (2-11); Neutrophils Absolute Auto 3.4 x10*3/uL (2.0-8.3); Neutrophils Percent Auto 67.5 % (45-73); Platelet Count 207 X10*3/uL (160-400); Red Cell Distribution Width 15.9 % (11.0-16.0); White Blood Count 5.1 X10*3/uL (4.8-10.8)
[2021-11-14 07:21] LABS: Anion Gap 17 (12-20); Blood Urea Nitrogen 54 mg/dL (9-16); Calcium 8.6 mg/dL (8.4-10.2); Carbon Dioxide 20 mmol/L (22-29); Chloride 104 mmol/L (96-108); Creatinine Clr Calc Pharmacy 17.7; Estimated Glomerular Filt Rate 18; Glucose Random 74 mg/dL (60-115); Sodium 137 mmol/L (135-145)
[2021-11-14 08:19] VITALS: BP 143/66; PULSE 83; RESP 18; O2SAT 96
[2021-11-14] MEDS: Atorvastatin Calcium 40 MG TABLET PO (08:20)
[2021-11-14] MEDS: Thiamine HCL 100 MG TABLET PO (08:20)
[2021-11-14] MEDS: dilTIAZem HCL CD 120 MG CAP.ER.DEG PO (08:20)
[2021-11-14] MEDS: Omeprazole 40 MG CAPSULE.DR PO ×2 (08:20→23:10)
[2021-11-14] MEDS: 0.9 % Sodium Chloride 500 ML 100 ML IVCONT ×4 (08:20→23:12)
[2021-11-14] MEDS: Gabapentin 100 MG CAPSULE PO (08:20)
[2021-11-14] MEDS: Metoprolol Tartrate 50 MG TABLET PO ×2 (08:20→23:10)
--- NOTE | 2021-11-14 08:27 | PC.NURSE ---
pt cleaned up, sat up, and linen changed. breakfast offered and medicated per emar. throughout entire time in room pt was extremely rude and verbally abusive to this rn.
--- NOTE | 2021-11-14 11:45 | MHC.CM.PN ---
Attempted to meet with patient in regards to discharge planning. Patient currently sleeping. Attempted to reach patient's HCP, Tracy via telephone at [phone]. There was no answer and no ability to leave a voicemail. Patient is active with [facility]. Left a voicemail for Chely at [facility] at [phone], requesting a return call for patient's current services. Case management assessment completed using medical record. Copy of HCP verified to be on file. PCP is Dr Crews. IMM left at bedside. Patient tested positive for Covid on 11/12. Due to not having any information about current services being received, a discharge disposition can't be determined at this time. Continue to monitor for d/c needs.
[2021-11-14 12:11] VITALS: BP 131/54; PULSE 69; RESP 12; O2SAT 95
[2021-11-14 12:57] LABS: INTERNATIONAL NORM RATIO 3.2 (0.9-1.1); Prothrombin Time 37.4 SEC (9.9-13.0)
--- NOTE | 2021-11-14 14:08 | HO.PM.IMPN ---
Subjective Subjective Date of Service: 11/14/21 Review of Systems Follow up Darnell on CKD Feeling fine today No pain All other systems are reviewed and are negative Physical Exam Vital Signs: Vital Signs: Last Vital Signs Temp 98.4 F 11/13/21 11:42 Pulse 69 11/14/21 12:11 Resp 12 11/14/21 12:11 BP 131/54 L 11/14/21 12:11 Pulse Ox 95 11/14/21 12:11 BMI result Body Mass Index 29.3 Appearing in no acute distress lung sounds are clear to auscultation heart regular rate rhythm, clear S1, S2 positive bowel sounds, abdomen is soft, nontender neuro patient is alert x3, no focal deficits \ Left BKA Objective Data Active Medications Atorvastatin Calcium (Atorvastatin Calcium 40 Mg Tablet) 40 mg PO DAILY [facility] Last Admin: 11/14/21 08:20 Dose: 40 mg Documented by: TARAS Diltiazem HCl (Diltiazem Hcl Cd 120 Mg Cap.Er.Deg) 120 mg PO DAILY [facility]; Protocol Last Admin: 11/14/21 08:20 Dose: 120 mg Documented by: TARAS Ferrous Sulfate (Ferrous Sulfate 324 Mg Tablet.) 324 mg PO Q48H [facility] Last Admin: 11/13/21 09:09 Dose: 324 mg Documented by: LIVIER Furosemide (Furosemide 40 Mg Tablet) 40 mg PO BIDWM [facility]; Protocol Last Admin: 11/13/21 18:24 Dose: 40 mg Documented by: MAURO Gabapentin (Gabapentin 100 Mg Capsule) 100 mg PO DAILY [facility] Last Admin: 11/14/21 08:20 Dose: 100 mg Documented by: TARAS Sodium Chloride (Ns) 500 mls @ 100 mls/hr IVCONT .Q5H [facility] Last Admin: 11/14/21 13:13 Dose: 100 mls/hr Documented by: TARAS Melatonin (Melatonin 3 Mg Tablet) 6 mg PO BEDTIME PRN PRN Reason: Insomnia Metoprolol Tartrate (Metoprolol Tartrate 50 Mg Tablet) 50 mg PO BID [facility]; Protocol Last Admin: 11/14/21 08:20 Dose: 50 mg Documented by: TARAS Omeprazole (Omeprazole 40 Mg Capsule.) 40 mg PO BID [facility] Last Admin: 11/14/21 08:20 Dose: 40 mg Documented by: TARAS Ondansetron HCl (Ondansetron Hcl 4 Mg/2 Ml Vial) 4 mg IVPUSH Q8H PRN PRN Reason: Nausea Last Admin: 11/13/21 09:22 Dose: 4 mg Documented by: LIVIER Quetiapine Fumarate (Quetiapine Fumarate 25 Mg Tablet) 12.5 mg PO BEDTIME [facility] Last Admin: 11/13/21 20:10 Dose: 12.5 mg Documented by: RODRÍGUEZ Senna (Sennosides 8.6 Mg Tablet) 17.2 mg PO BEDTIME PRN PRN Reason: Constipation Sodium Chloride (0.9 % Sodium Chloride Flush 3 Ml Syringe) 3 ml IVFLUSH QSHIFT [facility] Last Admin: 11/14/21 13:13 Dose: Not Given Documented by: TARAS Non-Admin Reason: IV Running Tamsulosin HCl (Tamsulosin Hcl 0.4 Mg Capsule) 0.8 mg PO BEDTIME [facility] Last Admin: 11/13/21 20:09 Dose: 0.8 mg Documented by: RODRÍGUEZ Thiamine HCl (Thiamine Hcl 100 Mg Tablet) 100 mg PO DAILY [facility] Last Admin: 11/14/21 08:20 Dose: 100 mg Documented by: TARAS Warfarin Sodium (Warfarin Sodium 2.5 Mg Tablet) 2.5 mg PO TuThSa@1800 [facility] Last Admin: 11/13/21 20:45 Dose: 2.5 mg Documented by: RODRÍGUEZ Warfarin Sodium (Warfarin Sodium 5 Mg Tablet) 5 mg PO SuMoWeFr@1800 [facility] Labs CBC & Chem 7: 11/14/21 06:32 11/14/21 06:32 Labs: Laboratory Results - last 24 hr 11/14/21 11/14/21 11/14/21 06:32 06:32 12:46 MCV 85.9 MCH 27.8 MCHC 32.4 RDW 15.9 Plt Count 207 MPV 12.0 Immature Gran % (Auto) 0.2 Neut % (Auto) 67.5 Lymph % (Auto) 18.6 L [place] % (Auto) 11.1 H Eos % (Auto) 1.8 Baso % (Auto) 0.8 Lymph # (Auto) 0.9 L [place] # (Auto) 0.6 Eos # (Auto) 0.1 Baso # (Auto) 0.0 Abs Immat Gran (auto) 0.01 Absolute Neuts (auto) 3.4 Absolute Nucleated RBC 0.000 Nucleated RBC % (auto) 0.0 PT 37.4 H INR 3.2 H Anion Gap 17 Estim Creat Clear Calc 17.7 Estimated GFR 18 Random Glucose 74 Calcium 8.6 D Microbiology Microbiology Results: Microbiology 11/12/21 17:45 Blood Culture - Preliminary Blood - Venous No growth after 24 hours. 11/12/21 16:17 Blood Culture - Preliminary Blood - Venous No growth after 24 hours. Assessment and Plan (1) COVID-19: Status: Acute (2) Atrial fibrillation with RVR: Status: Acute (3) Acute on chronic renal failure: Status: Acute Assessment and Plan: 81-year-old male with a past medical history of hypertension, hyperlipidemia, peripheral vascular disease, CAD, AFib on Coumadin, neuropathy, dCHF, history of mitral valve repair, history of Bioprosthetic Aortic valve, BPH presented to the hospital with a chief complaint of not feeling well.? Noted to be in AFib with RVR.? Admitted for further management.? DARNELL on CKD. Still elevated baseline creatinine around 2.2 Avoid nephrotoxins. Lasix held. Supratherapeutic INR Hold for tonight follow INR AFib with RVR Reportedly patient has not been taking his home diltiazem.? continue home diltiazem and metoprolol. Monitor on telemetry.? Continue warfarin Elevated troponin Denies any chest pain but reports dyspnea on exertion/generalized weakness.? EKG nonischemic.? Cardiology consulted COVID-19 positive Patient asymptomatic? supportive care History of CHF. Stable.? Hold Lasix for Now History of BPH Continue home Flomax.? History of Type 2 diabetes mellitus with peripheral angiopathy Controlled.? currently not on meds. DVT prophylaxis coumadin Code status: Full code Attending Dr. Linn Quality Stroke Does the patient have a stroke diagnosis?: No VTE Prior VTE?: No VTE Risk Level:: Medical - moderate - high VTE Device Contraindication: Treatment Not Indicated VTE Drug Contraindication: N/A - Med Ordered
[2021-11-14 15:37] LABS: Anion Gap 16 (12-20); Blood Urea Nitrogen 60 mg/dL (9-16); Calcium 8.8 mg/dL (8.4-10.2); Carbon Dioxide 24 mmol/L (22-29); Chloride 103 mmol/L (96-108); Creatinine Clr Calc Pharmacy 16.4; Estimated Glomerular Filt Rate 17; Glucose Random 82 mg/dL (60-115); Sodium 139 mmol/L (135-145)
[2021-11-14 17:49] VITALS: BP 131/62; PULSE 68; RESP 18; TEMP 36.5; O2SAT 96
[2021-11-14] MEDS: QUEtiapine Fumarate 25 MG TABLET 12.5 MG PO (23:10)
[2021-11-14] MEDS: Tamsulosin HCL 0.4 MG CAPSULE 0.8 MG PO (23:11)
[2021-11-14 23:38] VITALS: BP 133/54; PULSE 74; RESP 18; TEMP 36.6; O2SAT 95
--- NOTE | 2021-11-15 05:05 | PC.NURSE ---
I assumed care of this pt at 1900. The pt has been alert and oriented x 3, makes eye contact with RN, calm and cooperative, normal affect. He has denied chest pain. Respirations are spontaneous and non-labored. Room air sats have remained WNL, RR WNL and non-labored, pt is able to speak in full sentences, no cyanosis. Pt has slept through most of the night, occasional waking to void. WIll continue to monitor.
[2021-11-15 05:32] VITALS: BP 112/63; PULSE 78; RESP 14; O2SAT 96
[2021-11-15 09:59] LABS: INTERNATIONAL NORM RATIO 2.5 (0.9-1.1); Prothrombin Time 29.2 SEC (9.9-13.0)
[2021-11-15 10:30] LABS: Anion Gap 15 (12-20); Blood Urea Nitrogen 65 mg/dL (9-16); Calcium 8.6 mg/dL (8.4-10.2); Carbon Dioxide 21 mmol/L (22-29); Chloride 106 mmol/L (96-108); Creatinine Clr Calc Pharmacy 16.4; Estimated Glomerular Filt Rate 17; Glucose Random 79 mg/dL (60-115); Potassium 3.8 mmol/L (3.3-5.1); Sodium 138 mmol/L (135-145)
[2021-11-15] MEDS: dilTIAZem HCL CD 120 MG CAP.ER.DEG PO (10:31)
[2021-11-15] MEDS: Thiamine HCL 100 MG TABLET PO (10:31)
[2021-11-15] MEDS: Metoprolol Tartrate 50 MG TABLET PO ×2 (10:31→20:42)
[2021-11-15] MEDS: Atorvastatin Calcium 40 MG TABLET PO (10:31)
[2021-11-15] MEDS: Ferrous Sulfate 324 MG TABLET.DR PO (10:32)
[2021-11-15] MEDS: Omeprazole 40 MG CAPSULE.DR PO ×2 (10:32→20:42)
[2021-11-15] MEDS: Gabapentin 100 MG CAPSULE PO (10:32)
[2021-11-15] MEDS: 0.9 % Sodium Chloride Flush 3 ML SYRINGE IVFLUSH ×3 (10:33→20:42)
[2021-11-15] MEDS: 0.9 % Sodium Chloride 500 ML 100 ML IVCONT (10:39)
--- NOTE | 2021-11-15 10:46 | PM.CNNEP ---
History of Present Illness Reason for Consult Consult date: 11/15/21 Chief Complaint Chief complaint: DARNELL on CKD; afib with rvr History of Present Illness Narrative: 81-year-old male with a past medical history of hypertension, hyperlipidemia, peripheral vascular disease, CAD, AFib on Coumadin, neuropathy, CHF, history of mitral valve repair, history of Bioprosthetic Aortic valve, BPH presented to the hospital with a chief complaint of not feeling well. Patient is a poor historian.? Patient reports that over the past 2 days he has been not feeling well, generally weak; denies any chest pain or palpitations.? Reports occasional cough and shortness of breath on exertion.? Denies any nausea vomiting diarrhea.? Denies any urinary symptoms.? Denies any falls or trauma.? Denies any numbness tingling or focal weakness.? He has a h/o DARNELL due to bladder outlet obstruction in January 2021 Review of Systems Constitutional: Denies anorexia and Denies fever(s) Cardiovascular: Denies chest pain Gastrointestinal: Denies abdominal pain Genitourinary: Denies difficulty urinating PMFSH Past Medical History Medical History Above knee amputation of left lower extremity Afib 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 GERD (gastroesophageal reflux disease) Heart failure HLD (hyperlipidemia) HTN (hypertension) Neuropathy Persistent atrial fibrillation PVD (peripheral vascular disease) Family History Pertinent family history: reviewed Surgical History Surgical History Status post aorto-coronary artery bypass graft Status post mitral valve repair Status post transcatheter aortic valve replacement Social History Social History Household Members: Friend(s) Household Members Other:: facility Housing: Apartment Do you presently have visiting nurse or other home services: Yes Alcohol intake: former Patient Tobacco Use Status: Former Tobacco user Second Hand Smoke Exposure: No Advance Directives Date on File: 01/20/21 service: No Current occupational status: retired Meds Allergies Allergy/AdvReac Type Severity Reaction Status Date / Time oxycodone [OXYCODONE] Allergy Intermediate ITCHING Verified 01/20/21 00:06 ANTIBIOITIC-? NAME Allergy Intermediate ITCHING Uncoded 07/23/20 14:50 Active Medications: Current Medications Atorvastatin Calcium (Atorvastatin Calcium 40 Mg Tablet) 40 mg PO DAILY [facility] Last Admin: 11/15/21 10:31 Dose: 40 mg Documented by: Diltiazem HCl (Diltiazem Hcl Cd 120 Mg Cap.Er.Deg) 120 mg PO DAILY [facility]; Protocol Last Admin: 11/15/21 10:31 Dose: 120 mg Documented by: Ferrous Sulfate (Ferrous Sulfate 324 Mg Tablet.) 324 mg PO Q48H [facility] Last Admin: 11/15/21 10:32 Dose: 324 mg Documented by: Furosemide (Furosemide 40 Mg Tablet) 40 mg PO BIDWM [facility]; Protocol Last Admin: 11/13/21 18:24 Dose: 40 mg Documented by: Gabapentin (Gabapentin 100 Mg Capsule) 100 mg PO DAILY [facility] Last Admin: 11/15/21 10:32 Dose: 100 mg Documented by: Sodium Chloride (Ns) 500 mls @ 100 mls/hr IVCONT .Q5H [facility] Last Admin: 11/15/21 10:39 Dose: 100 mls/hr Documented by: Melatonin (Melatonin 3 Mg Tablet) 6 mg PO BEDTIME PRN PRN Reason: Insomnia Metoprolol Tartrate (Metoprolol Tartrate 50 Mg Tablet) 50 mg PO BID [facility]; Protocol Last Admin: 11/15/21 10:31 Dose: 50 mg Documented by: Omeprazole (Omeprazole 40 Mg Capsule.) 40 mg PO BID [facility] Last Admin: 11/15/21 10:32 Dose: 40 mg Documented by: Ondansetron HCl (Ondansetron Hcl 4 Mg/2 Ml Vial) 4 mg IVPUSH Q8H PRN PRN Reason: Nausea Last Admin: 11/13/21 09:22 Dose: 4 mg Documented by: Quetiapine Fumarate (Quetiapine Fumarate 25 Mg Tablet) 12.5 mg PO BEDTIME [facility] Last Admin: 11/14/21 23:10 Dose: 12.5 mg Documented by: Senna (Sennosides 8.6 Mg Tablet) 17.2 mg PO BEDTIME PRN PRN Reason: Constipation Sodium Chloride (0.9 % Sodium Chloride Flush 3 Ml Syringe) 3 ml IVFLUSH QSHIFT [facility] Last Admin: 11/15/21 10:33 Dose: 3 ml Documented by: Tamsulosin HCl (Tamsulosin Hcl 0.4 Mg Capsule) 0.8 mg PO BEDTIME [facility] Last Admin: 11/14/21 23:11 Dose: 0.8 mg Documented by: Thiamine HCl (Thiamine Hcl 100 Mg Tablet) 100 mg PO DAILY [facility] Last Admin: 11/15/21 10:31 Dose: 100 mg Documented by: Warfarin Sodium (Warfarin Sodium 2.5 Mg Tablet) 2.5 mg PO TuThSa@1800 [facility] Last Admin: 11/13/21 20:45 Dose: 2.5 mg Documented by: Warfarin Sodium (Warfarin Sodium 5 Mg Tablet) 5 mg PO SuMoWeFr@1800 [facility] Home Medications Medication Instructions Recorded Confirmed Last Taken Type atorvastatin 40 mg tablet 40 mg PO DAILY 01/19/21 11/13/21 Unknown History furosemide 40 mg tablet 20 mg PO DAILY 01/19/21 11/13/21 Unknown History pantoprazole 40 mg tablet,delayed 40 mg PO DAILY 01/19/21 11/13/21 Unknown History release potassium chloride 10 mEq 10 meq PO BID 01/19/21 11/13/21 Unknown History tablet,extended release melatonin 5 mg tablet 5 mg PO BEDTIME PRN 01/20/21 11/13/21 Unknown History allopurinol 100 mg tablet 50 mg PO SUMOWEFR 11/13/21 11/13/21 Unknown History docusate sodium 100 mg capsule 1 cap PO BID 11/13/21 11/13/21 Unknown History metoprolol succinate 25 mg 25 mg PO DAILY 11/13/21 11/13/21 Unknown History tablet,extended release 24 hr tamsulosin 0.4 mg capsule 0.4 cap PO DAILY 11/13/21 11/13/21 Unknown History warfarin 3 mg tablet 3 mg PO DAILY 11/13/21 11/13/21 Unknown History Physical Exam Vital Signs: Last Vital Signs Temp 97.9 F 11/14/21 23:38 Pulse 78 11/15/21 05:32 Resp 14 11/15/21 05:32 BP 112/63 11/15/21 05:32 Pulse Ox 96 11/15/21 05:32 BMI result Body Mass Index 29.3 Const Other: Appearance: Alert. Oriented X3. No acute distress. Eyes: Pupils equal, round and reactive to light. ENT: Pharynx normal. Neck: Normal inspection. Neck supple. No lymph nodes noted. No crepitus CVS: Irregularly irregular, heart rate approximately 100 Normal S1 and S2 Respiratory: No respiratory distress. Breath sounds normal. No Wheezing. No rales Abdomen: Soft and nontender. No rigidity. No distention. good BS x4 Skin: Skin warm and dry. Normal skin color. Normal skin turgor. 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 No Lacerations. No Rash Neuro: Oriented X 3. No motor deficit. No sensory deficit. Moving all extermities. No slurred speech. Results Lab Results Result Diagrams: 11/19/21 05:34 11/19/21 05:34 Lab results: Chemistry 11/12/21 11/14/21 11/14/21 17:45 06:32 15:03 Sodium 137 137 139 Potassium 4.7 D 4.0 4.0 Carbon Dioxide 22 20 L 24 BUN 38 H 54 H 60 H Creatinine 2.68 H 3.24 H 3.50 H Calcium 9.5 D 8.6 D 8.8 11/15/21 09:41 Sodium 138 Potassium 3.8 Carbon Dioxide 21 L BUN 65 H Creatinine 3.49 H Calcium 8.6 Hematology 11/12/21 11/14/21 16:17 06:32 WBC 6.3 5.1 Hgb 11.4 L 10.3 L Plt Count 254 207 Urinalysis 11/12/21 18:50 Urine Color YELLOW Urine Appearance HAZY Urine pH 6.0 Ur Specific Florien 1.025 Urine Protein 2+ H Urine Glucose (UA) NEG Urine Ketones NEG Urine Blood 3+ H Urine Nitrite NEG Ur Leukocyte Esterase NEG Urine RBC 50-75 H Urine WBC 0-2 Ur Squamous Epith Cells TRACE Assessment and Plan (1) COVID-19: Status: Acute (2) Atrial fibrillation with RVR: Status: Acute (3) Acute on chronic renal failure: Status: Acute DARNELL on CKD. baseline creatinine around 1.8 With a h/o SALVADOR, would r/o urinary retention Check renal ultrasound Pt is refusing arredondo Avoid nephrotoxins. Lasix on hold for now Keep I > O COVID-19 positive Patient asymptomatic? supportive care Procedures Date of Service Date of Service: 11/15/21
--- NOTE | 2021-11-15 10:48 | P.CDIC_ITS ---
CDI Concurrent Query Documentation Clarification: PHYSICIAN'S DOCUMENTATION REQUEST Date of Query: 11/15/21 1048 Patient Name: Arturo Zambrano Admit Date: 11/13/21 Dear Doctor, A review of the medical record indicates additional documentation may be needed. Please review below and update the documentation accordingly. Risk Factors/Clinical Indicators/Treatments PN: DARNELL on CKD Baseline cr. around 2.2-2.3 Avoid nephrotoxins. Please clarify which of the following accurately represents the patient's renal status: SPECIFICS: * Acute renal failure (with type, appropriate) on Chronic Kidney Disease (CKD) 1-5 * CKD, please provide stage * Other (please specify) * Unable to determine Criteria for DARNELL* Stages of Chronic Kidney Disease* 1. Increase in serum creatinine by ? 0.3 mg/dL Level D escription GFR (?26.5 micromol/L) within 48 hours, or G1 Normal or High > 90 2. Increase in serum creatinine to ?1.5 times baseline, G2 Mildly decreased 60 ? 89 which is known or presumed to have occurred within 7 days, or G3a Mildly to moderately decreased 45 ? 59 3. Urine volume <0.5 mL/kg/hour for six hours G3b Moderately to severely decreased 30 - 44 G4 Severely decreased 15 ? 29 G5 Kidney failure < 15 Use of terms such as suspected, likely, concern for, or probable (associated wi th a specific diagnosis that is being evaluated, monitored, or treated as if it exists) are acceptable and can be coded in the inpatient setting, when documented at the time of discharge. Thank you, Mariam Zarco [facility], CDIS Extension: [phone] Please use your independent medical judgment in providing your response. THIS QUERY IS PART OF THE PERMANENT MEDICAL RECORD
--- NOTE | 2021-11-15 11:25 | PC.NURSE ---
pt alert and oriented, vss. pt denies pain. pt noted to have wet non-productive cough, LS wheezes BUL. pt denies sob/dizziness. no complaints. breakfast given, meds given, fluids hung as documented. pt resting quietly quietly.
[2021-11-15 12:01] VITALS: BP 151/73; PULSE 98; RESP 18; TEMP 36.6; O2SAT 97
[2021-11-15 14:09] VITALS: BP 146/65; PULSE 72; RESP 20; O2SAT 98
--- NOTE | 2021-11-15 14:11 | HO.PM.IMPN ---
Subjective Subjective Date of Service: 11/15/21 Review of Systems follow-up acute renal failure Feel okay today denies any pain Urinating in his urinal Physical Exam Vital Signs: Vital Signs: Last Vital Signs Temp 97.8 F 11/15/21 12:01 Pulse 98 11/15/21 12:01 Resp 18 11/15/21 12:01 BP 151/73 H 11/15/21 12:01 Pulse Ox 97 11/15/21 12:01 BMI result Body Mass Index 29.3 Appearing in no acute distress lung sounds are clear to auscultation heart regular rate rhythm, clear S1, S2 positive bowel sounds, abdomen is soft, nontender neuro patient is alert x3, no focal deficits Left leg below the knee amputation, chronic Objective Data Active Medications Atorvastatin Calcium (Atorvastatin Calcium 40 Mg Tablet) 40 mg PO DAILY [facility] Last Admin: 11/15/21 10:31 Dose: 40 mg Documented by: JIMMY Diltiazem HCl (Diltiazem Hcl Cd 120 Mg Cap.Er.Deg) 120 mg PO DAILY [facility]; Protocol Last Admin: 11/15/21 10:31 Dose: 120 mg Documented by: JIMMY Ferrous Sulfate (Ferrous Sulfate 324 Mg Tablet.) 324 mg PO Q48H [facility] Last Admin: 11/15/21 10:32 Dose: 324 mg Documented by: JIMMY Furosemide (Furosemide 40 Mg Tablet) 40 mg PO BIDWM [facility]; Protocol Last Admin: 11/13/21 18:24 Dose: 40 mg Documented by: MAURO Gabapentin (Gabapentin 100 Mg Capsule) 100 mg PO DAILY [facility] Last Admin: 11/15/21 10:32 Dose: 100 mg Documented by: JIMMY Sodium Chloride (Ns) 500 mls @ 100 mls/hr IVCONT .Q5H [facility] Last Admin: 11/15/21 10:39 Dose: 100 mls/hr Documented by: JIMMY Melatonin (Melatonin 3 Mg Tablet) 6 mg PO BEDTIME PRN PRN Reason: Insomnia Metoprolol Tartrate (Metoprolol Tartrate 50 Mg Tablet) 50 mg PO BID [facility]; Protocol Last Admin: 11/15/21 10:31 Dose: 50 mg Documented by: JIMMY Omeprazole (Omeprazole 40 Mg Capsule.) 40 mg PO BID [facility] Last Admin: 11/15/21 10:32 Dose: 40 mg Documented by: JIMMY Ondansetron HCl (Ondansetron Hcl 4 Mg/2 Ml Vial) 4 mg IVPUSH Q8H PRN PRN Reason: Nausea Last Admin: 11/13/21 09:22 Dose: 4 mg Documented by: LIVIER Quetiapine Fumarate (Quetiapine Fumarate 25 Mg Tablet) 12.5 mg PO BEDTIME [facility] Last Admin: 11/14/21 23:10 Dose: 12.5 mg Documented by: RODRÍGUEZ Senna (Sennosides 8.6 Mg Tablet) 17.2 mg PO BEDTIME PRN PRN Reason: Constipation Sodium Chloride (0.9 % Sodium Chloride Flush 3 Ml Syringe) 3 ml IVFLUSH QSHIFT [facility] Last Admin: 11/15/21 10:33 Dose: 3 ml Documented by: JIMMY Tamsulosin HCl (Tamsulosin Hcl 0.4 Mg Capsule) 0.8 mg PO BEDTIME [facility] Last Admin: 11/14/21 23:11 Dose: 0.8 mg Documented by: RODRÍGUEZ Thiamine HCl (Thiamine Hcl 100 Mg Tablet) 100 mg PO DAILY [facility] Last Admin: 11/15/21 10:31 Dose: 100 mg Documented by: JIMMY Warfarin Sodium (Warfarin Sodium 2.5 Mg Tablet) 2.5 mg PO TuThSa@1800 [facility] Last Admin: 11/13/21 20:45 Dose: 2.5 mg Documented by: RODRÍGUEZ Warfarin Sodium (Warfarin Sodium 5 Mg Tablet) 5 mg PO SuMoWeFr@1800 [facility] Labs CBC & Chem 7: 11/14/21 06:32 11/15/21 09:41 Labs: Laboratory Results - last 24 hr 11/14/21 11/15/21 11/15/21 15:03 09:41 09:41 PT 29.2 H INR 2.5 H Anion Gap 16 15 Estim Creat Clear Calc 16.4 16.4 Estimated GFR 17 17 Random Glucose 82 79 Calcium 8.8 8.6 Microbiology Microbiology Results: Microbiology 11/12/21 17:45 Blood Culture - Preliminary Blood - Venous No growth after 48 hours. 11/12/21 16:17 Blood Culture - Preliminary Blood - Venous No growth after 48 hours. Assessment and Plan (1) Atrial fibrillation with RVR: Status: Acute (2) Acute on chronic renal failure: Status: Acute (3) COVID-19: Status: Acute Assessment and Plan: 81-year-old male with a past medical history of hypertension, hyperlipidemia, peripheral vascular disease, CAD, AFib on Coumadin, neuropathy, CHF, history of mitral valve repair, history of Bioprosthetic Aortic valve, BPH presented to the hospital with a chief complaint of not feeling well.? Noted to be in AFib with RVR.? Admitted for further management.? DARNELL on CKD. Still elevated baseline creatinine around 2.2 Avoid nephrotoxins. Lasix held. Nephrology following Renal ultrasound pending Patient refused Quintana catheter Bladder scan to assess for any retention Supratherapeutic INR. Resolved follow INR AFib with RVR Reportedly patient has not been taking his home diltiazem.? continue home diltiazem and metoprolol. Monitor on telemetry.? Continue warfarin Elevated troponin Denies any chest pain but reports dyspnea on exertion/generalized weakness.? EKG nonischemic.? Cardiology consulted COVID-19 positive Patient asymptomatic? supportive care History of CHF. Stable.? Hold Lasix for Now History of BPH Continue home Flomax.? History of Type 2 diabetes mellitus with peripheral angiopathy Controlled.? currently not on meds. DVT prophylaxis coumadin Code status: Full code Attending Dr. Ureña Quality Stroke Does the patient have a stroke diagnosis?: No VTE Prior VTE?: No VTE Risk Level:: Medical - moderate - high VTE Device Contraindication: Treatment Not Indicated VTE Drug Contraindication: N/A - Med Ordered
[2021-11-15 15:10] VITALS: BP 142/64; PULSE 65; RESP 18; TEMP 36.9; O2SAT 95
[2021-11-15] MEDS: Warfarin Sodium 5 MG TABLET PO (16:47)
[2021-11-15] MEDS: 0.9 % Sodium Chloride 1,000 ML 100 ML IVCONT (18:10)
[2021-11-15 19:09] VITALS: BP 132/60; PULSE 60; RESP 18; TEMP 36.7; O2SAT 96
[2021-11-15] MEDS: Tamsulosin HCL 0.4 MG CAPSULE 0.8 MG PO (20:41)
[2021-11-15] MEDS: QUEtiapine Fumarate 25 MG TABLET 12.5 MG PO (20:42)
[2021-11-16] VITALS: BP 110/64; PULSE 64; RESP 18; TEMP 37.1; O2SAT 95
[2021-11-16] MEDS: 0.9 % Sodium Chloride 1,000 ML 100 ML IVCONT ×2 (03:43→14:40)
[2021-11-16 04:00] VITALS: BP 118/64; PULSE 83; RESP 20; TEMP 37.4; O2SAT 97
[2021-11-16 06:59] LABS: Hematocrit 31.5 % (42.0-52.0); Hemoglobin 10.2 g/dl (14.0-18.0); Mean Corpuscular HGB Conc 32.4 g/dl (31.0-36.0); Mean Corpuscular Hemoglobin 27.6 pg (27.0-33.0); Mean Corpuscular Volume 85.4 fL (80.0-98.0); Mean Platelet Volume 12.3 fL (9.4-12.4); Platelet Count 181 X10*3/uL (160-400); Red Blood Count 3.69 X10*6/uL (4.60-5.80); Red Cell Distribution Width 15.9 % (11.0-16.0); White Blood Count 3.9 X10*3/uL (4.8-10.8)
[2021-11-16 07:03] LABS: INTERNATIONAL NORM RATIO 2.3 (0.9-1.1); Prothrombin Time 26.6 SEC (9.9-13.0)
[2021-11-16 07:33] LABS: Anion Gap 13 (12-20); Blood Urea Nitrogen 61 mg/dL (9-16); Calcium 7.8 mg/dL (8.4-10.2); Carbon Dioxide 21 mmol/L (22-29); Chloride 109 mmol/L (96-108); Creatinine Clr Calc Pharmacy 17.7; Estimated Glomerular Filt Rate 18; Glucose Random 96 mg/dL (60-115); Potassium 3.9 mmol/L (3.3-5.1); Sodium 139 mmol/L (135-145)
[2021-11-16 07:35] VITALS: BP 145/68; PULSE 81; RESP 18; TEMP 37.4; O2SAT 98
[2021-11-16] MEDS: Atorvastatin Calcium 40 MG TABLET PO (08:53)
[2021-11-16] MEDS: Thiamine HCL 100 MG TABLET PO (08:53)
[2021-11-16] MEDS: dilTIAZem HCL CD 120 MG CAP.ER.DEG PO (08:53)
[2021-11-16] MEDS: Omeprazole 40 MG CAPSULE.DR PO ×2 (08:53→19:50)
[2021-11-16] MEDS: Gabapentin 100 MG CAPSULE PO (08:53)
[2021-11-16] MEDS: Metoprolol Tartrate 50 MG TABLET PO ×2 (08:53→19:50)
--- NOTE | 2021-11-16 11:00 | PM.PNNEP ---
Subjective Subjective Date of Service: 11/19/21 Interval history: Events noted Physical Exam Vital Signs: Vital Signs: Last Vital Signs Temp 99.3 F 11/16/21 07:35 Pulse 81 11/16/21 07:35 Resp 18 11/16/21 07:35 BP 145/68 H 11/16/21 07:35 Pulse Ox 98 11/16/21 07:35 BMI result Body Mass Index 29.3 Const: Other: Appearance: Alert. No acute distress. Eyes: Pupils equal, round and reactive to light. ENT: Pharynx normal. Neck: Normal inspection. Neck supple. No lymph nodes noted. No crepitus CVS: Irregularly irregular, heart rate approximately 100 Normal S1 and S2 Respiratory: No respiratory distress. Breath sounds normal. No Wheezing. No rales Abdomen: Soft and nontender. No rigidity. No distention. good BS x4 Skin: Skin warm and dry. Normal skin color. Normal skin turgor. 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 No Lacerations. No Rash Neuro: Oriented X 3. No motor deficit. No sensory deficit. Moving all extermities. No slurred speech. Objective Data Labs CBC & Chem 7: 11/19/21 05:34 11/19/21 05:34 Labs: Laboratory Results - last 24 hr 11/16/21 11/16/21 11/16/21 06:15 06:15 06:15 WBC 3.9 L RBC 3.69 L Hgb 10.2 L Hct 31.5 L MCV 85.4 MCH 27.6 MCHC 32.4 RDW 15.9 Plt Count 181 MPV 12.3 Absolute Nucleated RBC 0.000 Nucleated RBC % (auto) 0.0 PT 26.6 H INR 2.3 H Sodium 139 Potassium 3.9 Chloride 109 H Carbon Dioxide 21 L Anion Gap 13 BUN 61 H Creatinine 3.24 H Estim Creat Clear Calc 17.7 Estimated GFR 18 Random Glucose 96 Calcium 7.8 L D Microbiology Microbiology Results: Microbiology 11/12/21 17:45 Blood - Venous Blood Culture - Preliminary No growth after 48 hours. 11/12/21 16:17 Blood - Venous Blood Culture - Preliminary No growth after 48 hours. Procedures Date of Service Date of Service: 11/16/21 Assessment & Plan Assessment and plan (1) COVID-19: Status: Acute (2) Atrial fibrillation with RVR: Status: Acute (3) Acute on chronic renal failure: Status: Acute Assessment and Plan: DARNELL on CKD. baseline creatinine around 1.8 No obstruction by sono UA shows blood and protein- worisome for GN Serology ordered Avoid nephrotoxins. Lasix on hold for now Keep I > O COVID-19 positive Patient asymptomatic? supportive care Time Spent With Patient Time: Total time spent is greater than 50% in coordination of care (as documented) at patient's floor/unit and/or counseling patient: Time with patient: 15 - 24 minutes Progress Note: Quality Stroke Does the patient have a stroke diagnosis?: No
[2021-11-16 11:32] VITALS: BP 138/64; PULSE 73; RESP 17; TEMP 37.7; O2SAT 96
--- NOTE | 2021-11-16 11:49 | P.PNIM_ITS ---
Subjective Subjective Date of Service: 11/16/21 Review of Systems Follow-up acute renal failure Feel okay today denies any pain Urinating in his urinal Physical Exam Vital Signs: Vital Signs: Last Vital Signs Temp 99.9 F 11/16/21 11:32 Pulse 73 11/16/21 11:32 Resp 17 11/16/21 11:32 BP 138/64 11/16/21 11:32 Pulse Ox 96 11/16/21 11:32 BMI result Body Mass Index 29.3 Appearing in no acute distress lung sounds are clear to auscultation heart regular rate rhythm, clear S1, S2 positive bowel sounds, abdomen is soft, nontender neuro patient is alert x3, no focal deficits Left leg below the knee amputation, chronic Objective Data Active Medications Atorvastatin Calcium (Atorvastatin Calcium 40 Mg Tablet) 40 mg PO DAILY [facility] Last Admin: 11/16/21 08:53 Dose: 40 mg Documented by: CONNIE Diltiazem HCl (Diltiazem Hcl Cd 120 Mg Cap.Er.Deg) 120 mg PO DAILY [facility]; Protocol Last Admin: 11/16/21 08:53 Dose: 120 mg Documented by: CONNIE Ferrous Sulfate (Ferrous Sulfate 324 Mg Tablet.) 324 mg PO Q48H [facility] Last Admin: 11/15/21 10:32 Dose: 324 mg Documented by: JIMMY Furosemide (Furosemide 40 Mg Tablet) 40 mg PO BIDWM [facility]; Protocol Last Admin: 11/13/21 18:24 Dose: 40 mg Documented by: MAURO Gabapentin (Gabapentin 100 Mg Capsule) 100 mg PO DAILY [facility] Last Admin: 11/16/21 08:53 Dose: 100 mg Documented by: CONNIE Sodium Chloride (Ns) 1,000 mls @ 100 mls/hr IVCONT .Q10H [facility] Last Admin: 11/16/21 03:43 Dose: 100 mls/hr Documented by: SERA Melatonin (Melatonin 3 Mg Tablet) 6 mg PO BEDTIME PRN PRN Reason: Insomnia Metoprolol Tartrate (Metoprolol Tartrate 50 Mg Tablet) 50 mg PO BID [facility]; Protocol Last Admin: 11/16/21 08:53 Dose: 50 mg Documented by: CONNIE Omeprazole (Omeprazole 40 Mg Capsule.) 40 mg PO BID [facility] Last Admin: 11/16/21 08:53 Dose: 40 mg Documented by: CONNIE Ondansetron HCl (Ondansetron Hcl 4 Mg/2 Ml Vial) 4 mg IVPUSH Q8H PRN PRN Reason: Nausea Last Admin: 11/13/21 09:22 Dose: 4 mg Documented by: LIVIER Quetiapine Fumarate (Quetiapine Fumarate 25 Mg Tablet) 12.5 mg PO BEDTIME [facility] Last Admin: 11/15/21 20:42 Dose: 12.5 mg Documented by: CHARY Senna (Sennosides 8.6 Mg Tablet) 17.2 mg PO BEDTIME PRN PRN Reason: Constipation Sodium Chloride (0.9 % Sodium Chloride Flush 3 Ml Syringe) 3 ml IVFLUSH QSHIFT [facility] Last Admin: 11/16/21 08:53 Dose: Not Given Documented by: CONNIE Non-Admin Reason: IV Running Tamsulosin HCl (Tamsulosin Hcl 0.4 Mg Capsule) 0.8 mg PO BEDTIME [facility] Last Admin: 11/15/21 20:41 Dose: 0.8 mg Documented by: CHARY Thiamine HCl (Thiamine Hcl 100 Mg Tablet) 100 mg PO DAILY [facility] Last Admin: 11/16/21 08:53 Dose: 100 mg Documented by: CONNIE Warfarin Sodium (Warfarin Sodium 2.5 Mg Tablet) 2.5 mg PO TuThSa@1800 [facility] Last Admin: 11/13/21 20:45 Dose: 2.5 mg Documented by: RODRÍGUEZ Warfarin Sodium (Warfarin Sodium 5 Mg Tablet) 5 mg PO SuMoWeFr@1800 [facility] Last Admin: 11/15/21 16:47 Dose: 5 mg Documented by: CHARY Labs CBC & Chem 7: 11/16/21 06:15 11/16/21 06:15 Labs: Laboratory Results - last 24 hr 11/16/21 11/16/21 11/16/21 06:15 06:15 06:15 MCV 85.4 MCH 27.6 MCHC 32.4 RDW 15.9 Plt Count 181 MPV 12.3 Absolute Nucleated RBC 0.000 Nucleated RBC % (auto) 0.0 PT 26.6 H INR 2.3 H Anion Gap 13 Estim Creat Clear Calc 17.7 Estimated GFR 18 Random Glucose 96 Calcium 7.8 L D Assessment and Plan (1) Atrial fibrillation with RVR: Status: Acute (2) Acute on chronic renal failure: Status: Acute Assessment and Plan: 81-year-old male with a past medical history of hypertension, hyperlipidemia, peripheral vascular disease, CAD, AFib on Coumadin, neuropathy, CHF, history of mitral valve repair, history of Bioprosthetic Aortic valve, BPH presented to the hospital with a chief complaint of not feeling well.? Noted to be in AFib with RVR.? Admitted for further management.? DARNELL on CKD. Still elevated baseline creatinine around 2.2 Avoid nephrotoxins. Lasix held. 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 Resolved follow INR AFib with RVR. No further episodes Reportedly patient has not been taking his home diltiazem.? continue home diltiazem and metoprolol. Monitor on telemetry.? Continue warfarin Elevated troponin Denies any chest pain but reports dyspnea on exertion/generalized weakness.? EKG nonischemic.? Cardiology consulted COVID-19 positive Patient asymptomatic? supportive care History of CHF. Stable.? Hold Lasix for Now History of BPH Continue home Flomax.? History of Type 2 diabetes mellitus with peripheral angiopathy Controlled.? currently not on meds. DVT prophylaxis coumadin Code status: Full code Attending Dr. Ureña Quality Stroke Does the patient have a stroke diagnosis?: No VTE Prior VTE?: No VTE Risk Level:: Medical - moderate - high VTE Device Contraindication: Treatment Not Indicated VTE Drug Contraindication: N/A - Med Ordered
[2021-11-16 12:16] LABS: Creatinine Urine 97.27 mg/dL
[2021-11-16 12:18] LABS: Total Protein Urine Random 85 mg/dL (<12)
[2021-11-16 13:10] LABS: Lactate Dehydrogenase 216 U/L (118-273)
[2021-11-16 14:29] LABS: EOS Counted 0 CELLS; EOS QC POS YES; EOS Stain Quality OK YES; WBC, Counted 25 CELLS
[2021-11-16 15:25] VITALS: BP 114/59; PULSE 56; RESP 18; TEMP 36.8; O2SAT 97
[2021-11-16] MEDS: Warfarin Sodium 2.5 MG TABLET PO (15:56)
[2021-11-16 19:33] VITALS: BP 162/72; PULSE 89; RESP 18; TEMP 37.1; O2SAT 98
[2021-11-16] MEDS: Tamsulosin HCL 0.4 MG CAPSULE 0.8 MG PO (19:50)
[2021-11-16] MEDS: QUEtiapine Fumarate 25 MG TABLET 12.5 MG PO (19:50)
[2021-11-16 22:38] LABS: Appearance Urine CLEAR; Color Urine YELLOW; Glucose Urine UA NEG (NEG); Leukocyte Esterase Urine TRACE (NEG); Nitrite Urine NEG (NEG); UACC Culture Trigger YES; Urine Blood 2+ (NEG); Urine Ketones NEG (NEG); Urine Protein 1+ MG/DL (NEG-TRACE)
[2021-11-16 22:51] LABS: Bacteria Urine 1+ /LPF; Mucus Urine 1+ /LPF; Squamous Epithelial Cell Urine 1+ /LPF
[2021-11-17] VITALS (8 sets, daily range): BP systolic 110–168; BP diastolic 54–81; PULSE 37–69; RESP 16–20; TEMP 36.7–37.6; O2SAT 93–98
[2021-11-17] MEDS: 0.9 % Sodium Chloride Flush 3 ML SYRINGE IVFLUSH ×2 (00:48→07:55)
[2021-11-17 06:48] LABS: INTERNATIONAL NORM RATIO 1.9 (0.9-1.1); Prothrombin Time 22.4 SEC (9.9-13.0)
[2021-11-17 06:55] LABS: Anion Gap 15 (12-20); Blood Urea Nitrogen 57 mg/dL (9-16); Calcium 8.2 mg/dL (8.4-10.2); Carbon Dioxide 20 mmol/L (22-29); Chloride 114 mmol/L (96-108); Creatinine Clr Calc Pharmacy 20.2; Estimated Glomerular Filt Rate 22; Glucose Random 80 mg/dL (60-115); Potassium 4.6 mmol/L (3.3-5.1); Sodium 144 mmol/L (135-145)
[2021-11-17] MEDS: Metoprolol Tartrate 50 MG TABLET PO ×2 (07:55→20:37)
[2021-11-17] MEDS: dilTIAZem HCL CD 120 MG CAP.ER.DEG PO (07:55)
[2021-11-17] MEDS: 0.9 % Sodium Chloride 1,000 ML 100 ML IVCONT ×2 (07:55→20:40)
[2021-11-17] MEDS: Omeprazole 40 MG CAPSULE.DR PO ×2 (07:55→20:36)
[2021-11-17] MEDS: Atorvastatin Calcium 40 MG TABLET PO (07:55)
[2021-11-17] MEDS: Gabapentin 100 MG CAPSULE PO (07:55)
[2021-11-17] MEDS: Thiamine HCL 100 MG TABLET PO (07:55)
[2021-11-17] MEDS: Ferrous Sulfate 324 MG TABLET.DR PO (07:56)
--- NOTE | 2021-11-17 10:23 | P.PNIM_ITS ---
Subjective Subjective Date of Service: 11/17/21 Review of Systems Follow-up acute renal failure Feel okay today denies any pain Urinating in his urinal Physical Exam Vital Signs: Vital Signs: Last Vital Signs Temp 98.2 F 11/17/21 07:35 Pulse 69 11/17/21 07:35 Resp 18 11/17/21 07:35 BP 168/81 H 11/17/21 07:35 Pulse Ox 93 11/17/21 07:35 BMI result Body Mass Index 29.3 Appearing in no acute distress head is normocephalic atraumatic eyes pupils are PERRLA sclera is anicteric mouth throat mucous membranes are intact and moist neck is supple no lymphadenopathy, no JVD noted lung sounds are clear to auscultation heart regular rate rhythm, clear S1, S2 positive bowel sounds, abdomen is soft, nontender neuro patient is alert x3, no focal deficits Objective Data Active Medications Atorvastatin Calcium (Atorvastatin Calcium 40 Mg Tablet) 40 mg PO DAILY [facility] Last Admin: 11/17/21 07:55 Dose: 40 mg Documented by: ADIEL Diltiazem HCl (Diltiazem Hcl Cd 120 Mg Cap.Er.Deg) 120 mg PO DAILY [facility]; Protocol Last Admin: 11/17/21 07:55 Dose: 120 mg Documented by: ADIEL Ferrous Sulfate (Ferrous Sulfate 324 Mg Tablet.Dr) 324 mg PO Q48H [facility] Last Admin: 11/17/21 07:56 Dose: 324 mg Documented by: ADIEL Furosemide (Furosemide 40 Mg Tablet) 40 mg PO BIDWM [facility]; Protocol Last Admin: 11/13/21 18:24 Dose: 40 mg Documented by: MAURO Gabapentin (Gabapentin 100 Mg Capsule) 100 mg PO DAILY [facility] Last Admin: 11/17/21 07:55 Dose: 100 mg Documented by: ADIEL Sodium Chloride (Ns) 1,000 mls @ 100 mls/hr IVCONT .Q10H [facility] Last Admin: 11/17/21 07:55 Dose: 100 mls/hr Documented by: ADIEL Melatonin (Melatonin 3 Mg Tablet) 6 mg PO BEDTIME PRN PRN Reason: Insomnia Metoprolol Tartrate (Metoprolol Tartrate 50 Mg Tablet) 50 mg PO BID [facility]; Protocol Last Admin: 11/17/21 07:55 Dose: 50 mg Documented by: ADIEL Omeprazole (Omeprazole 40 Mg Capsule.Dr) 40 mg PO BID [facility] Last Admin: 11/17/21 07:55 Dose: 40 mg Documented by: ADIEL Ondansetron HCl (Ondansetron Hcl 4 Mg/2 Ml Vial) 4 mg IVPUSH Q8H PRN PRN Reason: Nausea Last Admin: 11/13/21 09:22 Dose: 4 mg Documented by: LIVIER Quetiapine Fumarate (Quetiapine Fumarate 25 Mg Tablet) 12.5 mg PO BEDTIME [facility] Last Admin: 11/16/21 19:50 Dose: 12.5 mg Documented by: CHARY Senna (Sennosides 8.6 Mg Tablet) 17.2 mg PO BEDTIME PRN PRN Reason: Constipation Sodium Chloride (0.9 % Sodium Chloride Flush 3 Ml Syringe) 3 ml IVFLUSH QSHIFT [facility] Last Admin: 11/17/21 07:55 Dose: 3 ml Documented by: ADIEL Tamsulosin HCl (Tamsulosin Hcl 0.4 Mg Capsule) 0.8 mg PO BEDTIME [facility] Last Admin: 11/16/21 19:50 Dose: 0.8 mg Documented by: CHARY Thiamine HCl (Thiamine Hcl 100 Mg Tablet) 100 mg PO DAILY [facility] Last Admin: 11/17/21 07:55 Dose: 100 mg Documented by: ADIEL Warfarin Sodium (Warfarin Sodium 2.5 Mg Tablet) 2.5 mg PO TuThSa@1800 [facility] Last Admin: 11/16/21 15:56 Dose: 2.5 mg Documented by: CHARY Warfarin Sodium (Warfarin Sodium 5 Mg Tablet) 5 mg PO SuMoWeFr@1800 [facility] Last Admin: 11/15/21 16:47 Dose: 5 mg Documented by: CHARY Labs CBC & Chem 7: 11/16/21 06:15 11/17/21 05:54 Labs: Laboratory Results - last 24 hr 11/16/21 11/16/21 11/16/21 12:39 19:59 Unknown PT INR Anion Gap Estim Creat Clear Calc Estimated GFR Random Glucose Calcium Lactate Dehydrogenase 216 Urine Color YELLOW Urine Appearance CLEAR Urine pH 6.0 Ur Specific [place] 1.020 Urine Protein 1+ H Urine Glucose (UA) NEG Urine Ketones NEG Urine Blood 2+ H Urine Nitrite NEG Ur Leukocyte Esterase TRACE H Urine RBC 15-29 H Urine WBC 5-9 H Ur Squamous Epith Cells 1+ Urine Bacteria 1+ Urine Mucus 1+ Urine Yeast 1+ Urine Eosinophils % U Random Total Protein Ur Random Sodium Urine Creatinine 97.27 11/16/21 11/16/21 11/16/21 Unknown Unknown Unknown PT INR Anion Gap Estim Creat Clear Calc Estimated GFR Random Glucose Calcium Lactate Dehydrogenase Urine Color Urine Appearance Urine pH Ur Specific [place] Urine Protein Urine Glucose (UA) Urine Ketones Urine Blood Urine Nitrite Ur Leukocyte Esterase Urine RBC Urine WBC Ur Squamous Epith Cells Urine Bacteria Urine Mucus Urine Yeast Urine Eosinophils % 0.0 U Random Total Protein 85 H Ur Random Sodium 55.0 Urine Creatinine 11/17/21 11/17/21 05:54 05:54 PT 22.4 H INR 1.9 H Anion Gap 15 Estim Creat Clear Calc 20.2 Estimated GFR 22 Random Glucose 80 Calcium 8.2 L Lactate Dehydrogenase Urine Color Urine Appearance Urine pH Ur Specific [place] Urine Protein Urine Glucose (UA) Urine Ketones Urine Blood Urine Nitrite Ur Leukocyte Esterase Urine RBC Urine WBC Ur Squamous Epith Cells Urine Bacteria Urine Mucus Urine Yeast Urine Eosinophils % U Random Total Protein Ur Random Sodium Urine Creatinine Assessment and Plan (1) COVID-19: Status: Acute Assessment and Plan: 81-year-old male with a past medical history of hypertension, hyperlipidemia, peripheral vascular disease, CAD, AFib on Coumadin, neuropathy, CHF, history of mitral valve repair, history of Bioprosthetic Aortic valve, BPH presented to the hospital with a chief complaint of not feeling well.? Noted to be in AFib with RVR.? Admitted for further management.? DARNELL on CKD. Still elevated. Slowly improving baseline creatinine around 2.2 Avoid nephrotoxins. Lasix held. 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 Resolved follow INR AFib with RVR. No further episodes Reportedly patient has not been taking his home diltiazem.? continue home diltiazem and metoprolol. Monitor on telemetry.? Continue warfarin Elevated troponin Denies any chest pain but reports dyspnea on exertion/generalized weakness.? EKG nonischemic.? Cardiology consulted COVID-19 positive Patient asymptomatic? supportive care History of CHF. Stable.? Hold Lasix for Now History of BPH Continue home Flomax.? History of Type 2 diabetes mellitus with peripheral angiopathy Controlled.? currently not on meds. DISPO declining rehab, will likely go home with home PT if recommended DVT prophylaxis coumadin Code status: Full code Attending Dr. Ureña Quality Stroke Does the patient have a stroke diagnosis?: No VTE Prior VTE?: No VTE Risk Level:: Medical - moderate - high VTE Device Contraindication: Treatment Not Indicated VTE Drug Contraindication: N/A - Med Ordered
--- NOTE | 2021-11-17 11:01 | P.PNNP_ITS ---
Subjective Subjective Date of Service: 11/19/21 Interval history: Events noted Physical Exam Vital Signs: Vital Signs: Last Vital Signs Temp 98.8 F 11/17/21 10:53 Pulse 66 11/17/21 10:53 Resp 18 11/17/21 10:53 BP 137/62 11/17/21 10:53 Pulse Ox 96 11/17/21 10:53 BMI result Body Mass Index 29.3 Const: Other: Appearance: Alert. No acute distress. Eyes: Pupils equal, round and reactive to light. ENT: Pharynx normal. Neck: Normal inspection. Neck supple. No lymph nodes noted. No crepitus CVS: Irregularly irregular, heart rate approximately 100 Normal S1 and S2 Respiratory: No respiratory distress. Breath sounds normal. No Wheezing. No rales Abdomen: Soft and nontender. No rigidity. No distention. good BS x4 Skin: Skin warm and dry. Normal skin color. Normal skin turgor. 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 No Lacerations. No Rash Neuro: Oriented X 3. No motor deficit. No sensory deficit. Moving all extermities. No slurred speech. Objective Data Labs CBC & Chem 7: 11/19/21 05:34 11/19/21 05:34 Labs: Laboratory Results - last 24 hr 11/16/21 11/16/21 11/16/21 12:39 19:59 Unknown PT INR Sodium Potassium Chloride Carbon Dioxide Anion Gap BUN Creatinine Estim Creat Clear Calc Estimated GFR Random Glucose Calcium Lactate Dehydrogenase 216 Urine Color YELLOW Urine Appearance CLEAR Urine pH 6.0 Ur Specific [place] 1.020 Urine Protein 1+ H Urine Glucose (UA) NEG Urine Ketones NEG Urine Blood 2+ H Urine Nitrite NEG Ur Leukocyte Esterase TRACE H Urine RBC 15-29 H Urine WBC 5-9 H Ur Squamous Epith Cells 1+ Urine Bacteria 1+ Urine Mucus 1+ Urine Yeast 1+ Urine Eosinophils % U Random Total Protein Ur Random Sodium Urine Creatinine 97.27 11/16/21 11/16/21 11/16/21 Unknown Unknown Unknown PT INR Sodium Potassium Chloride Carbon Dioxide Anion Gap BUN Creatinine Estim Creat Clear Calc Estimated GFR Random Glucose Calcium Lactate Dehydrogenase Urine Color Urine Appearance Urine pH Ur Specific [place] Urine Protein Urine Glucose (UA) Urine Ketones Urine Blood Urine Nitrite Ur Leukocyte Esterase Urine RBC Urine WBC Ur Squamous Epith Cells Urine Bacteria Urine Mucus Urine Yeast Urine Eosinophils % 0.0 U Random Total Protein 85 H Ur Random Sodium 55.0 Urine Creatinine 11/17/21 11/17/21 05:54 05:54 PT 22.4 H INR 1.9 H Sodium 144 Potassium 4.6 Chloride 114 H Carbon Dioxide 20 L Anion Gap 15 BUN 57 H Creatinine 2.83 H Estim Creat Clear Calc 20.2 Estimated GFR 22 Random Glucose 80 Calcium 8.2 L Lactate Dehydrogenase Urine Color Urine Appearance Urine pH Ur Specific [place] Urine Protein Urine Glucose (UA) Urine Ketones Urine Blood Urine Nitrite Ur Leukocyte Esterase Urine RBC Urine WBC Ur Squamous Epith Cells Urine Bacteria Urine Mucus Urine Yeast Urine Eosinophils % U Random Total Protein Ur Random Sodium Urine Creatinine Microbiology Microbiology Results: Microbiology 11/12/21 17:45 Blood - Venous Blood Culture - Preliminary No growth after 48 hours. 11/12/21 16:17 Blood - Venous Blood Culture - Preliminary No growth after 48 hours. Procedures Date of Service Date of Service: 11/17/21 Assessment & Plan Assessment and plan (1) COVID-19: Status: Acute (2) Atrial fibrillation with RVR: Status: Acute (3) Acute on chronic renal failure: Status: Acute Assessment and Plan: DARNELL on CKD. baseline creatinine around 1.8 No obstruction by sono UA shows blood and protein- worirsome for GN Serology ordered Avoid nephrotoxins. Lasix on hold for now Keep I > O C is marginally beter COVID-19 positive Patient asymptomatic? supportive care Time Spent With Patient Time: Total time spent is greater than 50% in coordination of care (as d ocumented) at patient's floor/unit and/or counseling patient: Time with patient: 15 - 24 minutes Progress Note: Quality Stroke Does the patient have a stroke diagnosis?: No
[2021-11-17 11:52] LABS: Complement C3 54 mg/dL
[2021-11-17] MEDS: Warfarin Sodium 5 MG TABLET PO (16:36)
[2021-11-17] MEDS: QUEtiapine Fumarate 25 MG TABLET 12.5 MG PO (20:36)
[2021-11-17] MEDS: Tamsulosin HCL 0.4 MG CAPSULE 0.8 MG PO (20:36)
--- NOTE | 2021-11-17 22:36 | PC.NURSE ---
3 seconds pause ,heart rate slow afib 39-55 tonight , pt denied any symptoms. DR Alonso was notified
[2021-11-18] VITALS (7 sets, daily range): BP systolic 146–164; BP diastolic 53–73; PULSE 57–75; RESP 16–24; TEMP 36.5–37.2; O2SAT 95–98
[2021-11-18] MEDS: 0.9 % Sodium Chloride Flush 3 ML SYRINGE IVFLUSH ×3 (00:56→20:07)
[2021-11-18] MEDS: 0.9 % Sodium Chloride 1,000 ML 100 ML IVCONT (05:26)
[2021-11-18 07:31] LABS: INTERNATIONAL NORM RATIO 2.3 (0.9-1.1); Prothrombin Time 26.3 SEC (9.9-13.0)
[2021-11-18 07:47] LABS: Anion Gap 13 (12-20); Blood Urea Nitrogen 43 mg/dL (9-16); Calcium 8.4 mg/dL (8.4-10.2); Carbon Dioxide 19 mmol/L (22-29); Chloride 115 mmol/L (96-108); Creatinine Clr Calc Pharmacy 25.3; Estimated Glomerular Filt Rate 28; Glucose Random 84 mg/dL (60-115); Potassium 3.8 mmol/L (3.3-5.1); Sodium 143 mmol/L (135-145)
[2021-11-18] MEDS: Gabapentin 100 MG CAPSULE PO (08:26)
[2021-11-18] MEDS: Omeprazole 40 MG CAPSULE.DR PO ×2 (08:26→20:03)
[2021-11-18] MEDS: dilTIAZem HCL CD 120 MG CAP.ER.DEG PO (08:26)
[2021-11-18] MEDS: Thiamine HCL 100 MG TABLET PO (08:26)
[2021-11-18] MEDS: Metoprolol Tartrate 50 MG TABLET PO ×2 (08:26→20:03)
[2021-11-18] MEDS: Atorvastatin Calcium 40 MG TABLET PO (08:26)
--- NOTE | 2021-11-18 10:23 | PM.PNNEP ---
Subjective Subjective Date of Service: 11/19/21 Interval history: Events noted Physical Exam Vital Signs: Vital Signs: Last Vital Signs Temp 98.2 F 11/18/21 08:00 Pulse 75 11/18/21 08:00 Resp 18 11/18/21 08:00 BP 164/72 H 11/18/21 08:00 Pulse Ox 97 11/18/21 08:00 BMI result Body Mass Index 29.3 Const: Other: Appearance: Alert. No acute distress. Eyes: Pupils equal, round and reactive to light. ENT: Pharynx normal. Neck: Normal inspection. Neck supple. No lymph nodes noted. No crepitus CVS: Irregularly irregular, heart rate approximately 100 Normal S1 and S2 Respiratory: No respiratory distress. Breath sounds normal. No Wheezing. No rales Abdomen: Soft and nontender. No rigidity. No distention. good BS x4 Skin: Skin warm and dry. Normal skin color. Normal skin turgor. 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 No Lacerations. No Rash Neuro: Oriented X 3. No motor deficit. No sensory deficit. Moving all extermities. No slurred speech. Objective Data Labs CBC & Chem 7: 11/19/21 05:34 11/19/21 05:34 Labs: Laboratory Results - last 24 hr 11/16/21 11/18/21 11/18/21 12:39 06:22 06:22 PT 26.3 H INR 2.3 H Sodium 143 Potassium 3.8 Chloride 115 H Carbon Dioxide 19 L Anion Gap 13 BUN 43 H Creatinine 2.27 H Estim Creat Clear Calc 25.3 Estimated GFR 28 Random Glucose 84 Calcium 8.4 Complement C3 54 Complement C4 15 Microbiology Microbiology Results: Microbiology 11/16/21 22:42 Urine clean catch - Urine panda top Urine Culture - Final 11/12/21 17:45 Blood - Venous Blood Culture - Final No growth after 5 days. 11/12/21 16:17 Blood - Venous Blood Culture - Final No growth after 5 days. Procedures Date of Service Date of Service: 11/18/21 Assessment & Plan Assessment and plan (1) COVID-19: Status: Acute (2) Atrial fibrillation with RVR: Status: Acute (3) Acute on chronic renal failure: Status: Acute Assessment and Plan: DARNELL on CKD. baseline creatinine around 1.8 No obstruction by sono UA shows blood and protein- worrisome for GN Serology pending Compliments normal C is better - probably has resolving ATN Avoid nephrotoxins. Lasix on hold for now Keep I > O COVID-19 positive Patient asymptomatic? supportive care Time Spent With Patient Time: Total time spent is greater than 50% in coordination of care (as documented) at patient's floor/unit and/or counseling patient: Progress Note: Quality Stroke Does the patient have a stroke diagnosis?: No
--- NOTE | 2021-11-18 13:50 | PC.NURSE ---
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 Patient with no s/s. states he was truing to void. although has F/C and it is draining well.
--- NOTE | 2021-11-18 16:36 | HO.PM.IMPN ---
Subjective Subjective Date of Service: 11/18/21 Interval History: seen and examined this morning follow up for covid 19, darnell, afib not feeling well, although unable to articulate specific complaints appears comfortable Review of Systems Review of Systems: Yes all other systems are reviewed and are negative Constitutional Constitutional: Denies chills and Denies fever(s) Cardiovascular Cardiovascular: Denies chest pain Respiratory Respiratory: Denies cough Gastrointestinal Gastrointestinal: Denies abdominal pain Physical Exam Vital Signs: Vital Signs: Last Vital Signs Temp 97.9 F 11/18/21 16:00 Pulse 67 11/18/21 16:00 Resp 20 11/18/21 16:00 BP 146/68 H 11/18/21 16:00 Pulse Ox 97 11/18/21 16:00 BMI result Body Mass Index 29.3 Const: General: comfortable, no acute distress, alert and awake Nutritional Appearance: well nourished HENMT: Head: Yes normocephalic and Yes atraumatic Eyes: Sclerae: sclerae normal Resp: Effort & Inspection: normal respiratory effort and no respiratory distress Cardio: Rate: regular rate Rhythm: abnormal rhythm (irregular) GI: Inspection: No distended Palpation (GI): Soft to palpation and nontender Extrem: Other: aka left leg Objective Data Active Medications Atorvastatin Calcium (Atorvastatin Calcium 40 Mg Tablet) 40 mg PO DAILY [facility] Last Admin: 11/18/21 08:26 Dose: 40 mg Documented by: ANNIE Diltiazem HCl (Diltiazem Hcl Cd 120 Mg Cap.Er.Deg) 120 mg PO DAILY [facility]; Protocol Last Admin: 11/18/21 08:26 Dose: 120 mg Documented by: ANNIE Ferrous Sulfate (Ferrous Sulfate 324 Mg Tablet.Dr) 324 mg PO Q48H [facility] Last Admin: 11/17/21 07:56 Dose: 324 mg Documented by: ADIEL Furosemide (Furosemide 40 Mg Tablet) 40 mg PO BIDWM [facility]; Protocol Last Admin: 11/13/21 18:24 Dose: 40 mg Documented by: MAURO Gabapentin (Gabapentin 100 Mg Capsule) 100 mg PO DAILY [facility] Last Admin: 11/18/21 08:26 Dose: 100 mg Documented by: ANNIE Melatonin (Melatonin 3 Mg Tablet) 6 mg PO BEDTIME PRN PRN Reason: Insomnia Metoprolol Tartrate (Metoprolol Tartrate 50 Mg Tablet) 50 mg PO BID [facility]; Protocol Last Admin: 11/18/21 08:26 Dose: 50 mg Documented by: ANNIE Omeprazole (Omeprazole 40 Mg Capsule.) 40 mg PO BID [facility] Last Admin: 11/18/21 08:26 Dose: 40 mg Documented by: ANNIE Ondansetron HCl (Ondansetron Hcl 4 Mg/2 Ml Vial) 4 mg IVPUSH Q8H PRN PRN Reason: Nausea Last Admin: 11/13/21 09:22 Dose: 4 mg Documented by: LIVIER Quetiapine Fumarate (Quetiapine Fumarate 25 Mg Tablet) 12.5 mg PO BEDTIME [facility] Last Admin: 11/17/21 20:36 Dose: 12.5 mg Documented by: CHARY Senna (Sennosides 8.6 Mg Tablet) 17.2 mg PO BEDTIME PRN PRN Reason: Constipation Sodium Chloride (0.9 % Sodium Chloride Flush 3 Ml Syringe) 3 ml IVFLUSH QSHIFT [facility] Last Admin: 11/18/21 16:33 Dose: 3 ml Documented by: JUAN Tamsulosin HCl (Tamsulosin Hcl 0.4 Mg Capsule) 0.8 mg PO BEDTIME [facility] Last Admin: 11/17/21 20:36 Dose: 0.8 mg Documented by: CHARY Thiamine HCl (Thiamine Hcl 100 Mg Tablet) 100 mg PO DAILY [facility] Last Admin: 11/18/21 08:26 Dose: 100 mg Documented by: ANNIE Warfarin Sodium (Warfarin Sodium 2.5 Mg Tablet) 2.5 mg PO TuThSa@1800 [facility] Last Admin: 11/16/21 15:56 Dose: 2.5 mg Documented by: CHARY Warfarin Sodium (Warfarin Sodium 5 Mg Tablet) 5 mg PO SuMoWeFr@1800 [facility] Last Admin: 11/17/21 16:36 Dose: 5 mg Documented by: CHARY Labs CBC & Chem 7: 11/16/21 06:15 11/18/21 06:22 Labs: Laboratory Results - last 24 hr 11/18/21 11/18/21 06:22 06:22 PT 26.3 H INR 2.3 H Anion Gap 13 Estim Creat Clear Calc 25.3 Estimated GFR 28 Random Glucose 84 Calcium 8.4 Microbiology Microbiology Results: Microbiology 11/16/21 22:42 Urine Culture - Final Urine clean catch - Urine panda top 11/12/21 17:45 Blood Culture - Final Blood - Venous No growth after 5 days. 11/12/21 16:17 Blood Culture - Final Blood - Venous No growth after 5 days. Assessment and Plan (1) COVID-19: Status: Acute (2) Atrial fibrillation with RVR: Status: Acute (3) Acute on chronic renal failure: Status: Acute Assessment and Plan: This is a 81-year-old male with a past medical history of hypertension, hyperlipidemia, peripheral vascular disease, CAD, AFib on Coumadin, neuropathy, CHF, history of mitral valve repair, history of Bioprosthetic Aortic valve, BPH presented to the hospital with a chief complaint of not feeling well.? Noted to be in AFib with RVR.? Admitted for further management.? 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 creatinine improved to 2.27 baseline creatinine around 2.2 Avoid nephrotoxins. Lasix held. 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 Resolved follow INR AFib with RVR. No further episodes Reportedly patient has not been taking his home diltiazem.? continue home diltiazem and metoprolol. Monitor on telemetry.? Continue warfarin, goal INR 2-3; INR 2.3 Elevated troponin Denies any chest pain but reports dyspnea on exertion/generalized weakness.? EKG nonischemic.? seen by Cardiology COVID-19 positive Patient asymptomatic? supportive care HFpEF. Stable.? Lasix on hold for DARNELL History of BPH Continue home Flomax.? History of Type 2 diabetes mellitus with peripheral neuropathy Controlled.? currently not on meds. DISPO declining rehab, seen by PT, rec home with services DVT prophylaxis coumadin Code status: Full code Attending Dr. Ureña Quality Stroke Does the patient have a stroke diagnosis?: No VTE Prior VTE?: No VTE Risk Level:: Medical - moderate - high VTE Device Contraindication: Treatment Not Indicated VTE Drug Contraindication: N/A - Med Ordered
[2021-11-18] MEDS: Warfarin Sodium 2.5 MG TABLET PO (17:48)
[2021-11-18] MEDS: Tamsulosin HCL 0.4 MG CAPSULE 0.8 MG PO (20:03)
[2021-11-18] MEDS: Melatonin 3 MG TABLET 6 MG PO (20:03)
[2021-11-18] MEDS: QUEtiapine Fumarate 25 MG TABLET 12.5 MG PO (20:03)
[2021-11-18 22:52] LABS: Prot Elec - Albumin 3.1 g/dL (3.8-4.8); Prot Elec - Alpha1 0.4 g/dL (0.2-0.3); Prot Elec - Alpha2 0.9 g/dL (0.5-0.9); Prot Elec - Beta 1 0.5 g/dL (0.4-0.6); Prot Elec - Beta 2 0.5 g/dL (0.2-0.5); Prot Elec - Gamma 1.1 g/dL (0.8-1.7); Prot Elec - Total Protein 6.4 g/dL (6.1-8.1)
[2021-11-19] VITALS (11 sets, daily range): BP systolic 133–170; BP diastolic 56–79; PULSE 46–86; RESP 12–18; TEMP 36–37; O2SAT 94–98
[2021-11-19 05:53] LABS: MANUAL DIFF FLAG NO
[2021-11-19 05:58] LABS: Basophils Percent Auto 0.2 % (0-2); Eosinophils Absolute Auto 0.5 X10*3/uL (0.0-0.4); Eosinophils Percent Auto 10.4 % (0-4); Hematocrit 31.8 % (42.0-52.0); Hemoglobin 10.2 g/dl (14.0-18.0); Imm Gran Abs Auto 0.01 X10*3/uL (0.00-0.03); Imm Gran Pct Auto 0.2 % (0.0-0.4); Lymphocytes Absolute Auto 0.9 X10*3/uL (1.2-4.9); Lymphocytes Percent Auto 19.5 % (20-40); Mean Corpuscular HGB Conc 32.1 g/dl (31.0-36.0); Mean Corpuscular Hemoglobin 27.6 pg (27.0-33.0); Mean Corpuscular Volume 86.2 fL (80.0-98.0); Mean Platelet Volume 12.5 fL (9.4-12.4); Monocytes Absolute Auto 0.4 X10*3/uL (0.1-1.2); Monocytes Percent Auto 8.9 % (2-11); Neutrophils Absolute Auto 2.9 x10*3/uL (2.0-8.3); Neutrophils Percent Auto 60.8 % (45-73); Platelet Count 147 X10*3/uL (160-400); Red Blood Count 3.69 X10*6/uL (4.60-5.80); Red Cell Distribution Width 16.4 % (11.0-16.0); White Blood Count 4.7 X10*3/uL (4.8-10.8)
[2021-11-19 06:01] LABS: INTERNATIONAL NORM RATIO 3.6 (0.9-1.1); Prothrombin Time 42.5 SEC (9.9-13.0)
[2021-11-19 06:30] LABS: Anion Gap 9 (12-20); Blood Urea Nitrogen 36 mg/dL (9-16); Calcium 8.5 mg/dL (8.4-10.2); Carbon Dioxide 22 mmol/L (22-29); Chloride 114 mmol/L (96-108); Creatinine Clr Calc Pharmacy 27.4; Estimated Glomerular Filt Rate 31; Glucose Random 84 mg/dL (60-115); Potassium 3.5 mmol/L (3.3-5.1); Sodium 141 mmol/L (135-145)
[2021-11-19 06:46] LABS: Anti Glomerular Basement Memb <1.0 AI; Myeloperoxidase Antibody <1.0 AI; Proteinase 3 PR3 Antibodies <1.0 AI
--- NOTE | 2021-11-19 09:02 | HE.PHANOTE ---
RE Warfarin Dose changed to 3mg daily which is what patient was getting before being admitted. Nurse entered med rec incorrectly. When adjudicated (see previous note), I let attending know. Order was never changed. Changed secondary to INR 3.6 Thanks Gerson Elmore
[2021-11-19] MEDS: Omeprazole 40 MG CAPSULE.DR PO ×2 (11:15→21:37)
[2021-11-19] MEDS: Atorvastatin Calcium 40 MG TABLET PO (11:15)
[2021-11-19] MEDS: Gabapentin 100 MG CAPSULE PO (11:15)
[2021-11-19] MEDS: Metoprolol Tartrate 50 MG TABLET PO (11:15)
[2021-11-19] MEDS: 0.9 % Sodium Chloride Flush 3 ML SYRINGE IVFLUSH ×2 (11:15→15:07)
[2021-11-19] MEDS: Thiamine HCL 100 MG TABLET PO (11:16)
[2021-11-19] MEDS: dilTIAZem HCL CD 120 MG CAP.ER.DEG PO (11:16)
[2021-11-19] MEDS: Ferrous Sulfate 324 MG TABLET.DR PO (11:16)
--- NOTE | 2021-11-19 11:19 | PM.PNNEP ---
Subjective Subjective Date of Service: 11/20/21 Interval history: Events noted Physical Exam Vital Signs: Vital Signs: Last Vital Signs Temp 97.2 F 11/19/21 08:00 Pulse 80 11/19/21 11:13 Resp 16 11/19/21 11:13 BP 159/72 H 11/19/21 11:13 Pulse Ox 96 11/19/21 11:13 BMI result Body Mass Index 29.3 Const: Other: Appearance: Alert. No acute distress. Eyes: Pupils equal, round and reactive to light. ENT: Pharynx normal. Neck: Normal inspection. Neck supple. No lymph nodes noted. No crepitus CVS: Irregularly irregular, heart rate approximately 100 Normal S1 and S2 Respiratory: No respiratory distress. Breath sounds normal. No Wheezing. No rales Abdomen: Soft and nontender. No rigidity. No distention. good BS x4 Skin: Skin warm and dry. Normal skin color. Normal skin turgor. 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 No Lacerations. No Rash Neuro: Oriented X 3. No motor deficit. No sensory deficit. Moving all extermities. No slurred speech. Objective Data Labs CBC & Chem 7: 11/19/21 05:34 11/20/21 07:18 Labs: Laboratory Results - last 24 hr 11/16/21 11/19/21 11/19/21 12:39 05:34 05:34 WBC 4.7 L RBC 3.69 L Hgb 10.2 L Hct 31.8 L MCV 86.2 MCH 27.6 MCHC 32.1 RDW 16.4 H Plt Count 147 L MPV 12.5 H Immature Gran % (Auto) 0.2 Neut % (Auto) 60.8 Lymph % (Auto) 19.5 L [place] % (Auto) 8.9 Eos % (Auto) 10.4 H Baso % (Auto) 0.2 Lymph # (Auto) 0.9 L [place] # (Auto) 0.4 Eos # (Auto) 0.5 H Baso # (Auto) 0.0 Abs Immat Gran (auto) 0.01 Absolute Neuts (auto) 2.9 Absolute Nucleated RBC 0.000 Nucleated RBC % (auto) 0.0 PT INR Sodium 141 Potassium 3.5 Chloride 114 H Carbon Dioxide 22 Anion Gap 9 L BUN 36 H Creatinine 2.09 H Estim Creat Clear Calc 27.4 Estimated GFR 31 Random Glucose 84 Calcium 8.5 Total Protein (PEP) 6.4 Albumin (PEP) 3.1 L Yhfzo-7-Bvobqydei 0.4 H Kyscl-4-Wdpovggfs 0.9 Hryh-9-Kfzmfvyz 0.5 Ymmg-6-Zdqpuhkg 0.5 Gamma Globulins 1.1 Abnorm Protein Band 1 TNP Abnorm Protein Band 2 TNP Abnorm Protein Band 3 TNP PEP Interpretation SEE NOTE Proteinase 3 (PR3) Ab <1.0 Myeloperoxidase Ab <1.0 Glomerular Base Memb Ab <1.0 11/19/21 05:34 WBC RBC Hgb Hct MCV MCH MCHC RDW Plt Count MPV Immature Gran % (Auto) Neut % (Auto) Lymph % (Auto) [place] % (Auto) Eos % (Auto) Baso % (Auto) Lymph # (Auto) [place] # (Auto) Eos # (Auto) Baso # (Auto) Abs Immat Gran (auto) Absolute Neuts (auto) Absolute Nucleated RBC Nucleated RBC % (auto) PT 42.5 H INR 3.6 H Sodium Potassium Chloride Carbon Dioxide Anion Gap BUN Creatinine Estim Creat Clear Calc Estimated GFR Random Glucose Calcium Total Protein (PEP) Albumin (PEP) Ynsfx-4-Dznqkbdhp Ibffm-3-Eqgcdbeyq Ppqt-9-Kletriye Iwfr-1-Ejgpudsc Gamma Globulins Abnorm Protein Band 1 Abnorm Protein Band 2 Abnorm Protein Band 3 PEP Interpretation Proteinase 3 (PR3) Ab Myeloperoxidase Ab Glomerular Base Memb Ab Microbiology Microbiology Results: Microbiology 11/16/21 22:42 Urine clean catch - Urine panda top Urine Culture - Final 11/12/21 17:45 Blood - Venous Blood Culture - Final No growth after 5 days. 11/12/21 16:17 Blood - Venous Blood Culture - Final No growth after 5 days. Procedures Date of Service Date of Service: 11/19/21 Assessment & Plan Assessment and plan (1) COVID-19: Status: Acute (2) Atrial fibrillation with RVR: Status: Acute (3) Acute on chronic renal failure: Status: Acute Assessment and Plan: DARNELL on CKD. baseline creatinine around 1.8 No obstruction by sono UA shows blood and protein- worrisome for GN Serology pending Compliments normal C is better - probably has resolving ATN Avoid nephrotoxins. Lasix on hold for now Keep I > O COVID-19 positive Patient asymptomatic? supportive care Time Spent With Patient Time: Total time spent is greater than 50% in coordination of care (as documented) at patient's floor/unit and/or counseling patient: Time with patient: 15 - 24 minutes Progress Note: Quality Stroke Does the patient have a stroke diagnosis?: No
--- NOTE | 2021-11-19 11:44 | P.PNIM_ITS ---
Subjective Subjective Date of Service: 11/19/21 Interval History: seen and examined this morning follow up for darnell still somewhat confused this morning, has no specific complaints Review of Systems Review of Systems: Yes Unobtainable due to mental condition Physical Exam Vital Signs: Vital Signs: Last Vital Signs Temp 97.2 F 11/19/21 08:00 Pulse 80 11/19/21 11:13 Resp 16 11/19/21 11:13 BP 159/72 H 11/19/21 11:13 Pulse Ox 96 11/19/21 11:13 BMI result Body Mass Index 29.3 Const: Other: confused General: comfortable, no acute distress, alert and awake Nutritional Appearance: well nourished HENMT: Head: Yes normocephalic and Yes atraumatic Eyes: Sclerae: sclerae normal Resp: Effort & Inspection: normal respiratory effort and no respiratory distress Cardio: Rate: regular rate Rhythm: abnormal rhythm (irregular) GI: Inspection: No distended Palpation (GI): Soft to palpation and nontender Extrem: Other: aka left leg Objective Data Active Medications Atorvastatin Calcium (Atorvastatin Calcium 40 Mg Tablet) 40 mg PO DAILY [facility] Last Admin: 11/19/21 11:15 Dose: 40 mg Documented by: SHAY Diltiazem HCl (Diltiazem Hcl Cd 120 Mg Cap.Er.Deg) 120 mg PO DAILY [facility]; Protocol Last Admin: 11/19/21 11:16 Dose: 120 mg Documented by: SHAY Ferrous Sulfate (Ferrous Sulfate 324 Mg Tablet.Dr) 324 mg PO Q48H [facility] Last Admin: 11/19/21 11:16 Dose: 324 mg Documented by: SHAY Furosemide (Furosemide 40 Mg Tablet) 40 mg PO BIDWM [facility]; Protocol Last Admin: 11/13/21 18:24 Dose: 40 mg Documented by: MAURO Gabapentin (Gabapentin 100 Mg Capsule) 100 mg PO DAILY [facility] Last Admin: 11/19/21 11:15 Dose: 100 mg Documented by: SHAY Melatonin (Melatonin 3 Mg Tablet) 6 mg PO BEDTIME PRN PRN Reason: Insomnia Last Admin: 11/18/21 20:03 Dose: 6 mg Documented by: PRIYA Metoprolol Tartrate (Metoprolol Tartrate 50 Mg Tablet) 50 mg PO BID [facility]; Protocol Last Admin: 11/19/21 11:15 Dose: 50 mg Documented by: SHAY Omeprazole (Omeprazole 40 Mg Capsule.Dr) 40 mg PO BID [facility] Last Admin: 11/19/21 11:15 Dose: 40 mg Documented by: SHAY Ondansetron HCl (Ondansetron Hcl 4 Mg/2 Ml Vial) 4 mg IVPUSH Q8H PRN PRN Reason: Nausea Last Admin: 11/13/21 09:22 Dose: 4 mg Documented by: LIVIER Quetiapine Fumarate (Quetiapine Fumarate 25 Mg Tablet) 12.5 mg PO BEDTIME [facility] Last Admin: 11/18/21 20:03 Dose: 12.5 mg Documented by: PRIYA Senna (Sennosides 8.6 Mg Tablet) 17.2 mg PO BEDTIME PRN PRN Reason: Constipation Sodium Chloride (0.9 % Sodium Chloride Flush 3 Ml Syringe) 3 ml IVFLUSH QSHIFT [facility] Last Admin: 11/19/21 11:15 Dose: 3 ml Documented by: SHAY Tamsulosin HCl (Tamsulosin Hcl 0.4 Mg Capsule) 0.8 mg PO BEDTIME [facility] Last Admin: 11/18/21 20:03 Dose: 0.8 mg Documented by: PRIYA Thiamine HCl (Thiamine Hcl 100 Mg Tablet) 100 mg PO DAILY [facility] Last Admin: 11/19/21 11:16 Dose: 100 mg Documented by: SHAY Warfarin Sodium (Warfarin Sodium 3 Mg Tablet) 3 mg PO DAILY@1800 [facility] Labs CBC & Chem 7: 11/19/21 05:34 11/19/21 05:34 Labs: Laboratory Results - last 24 hr 11/16/21 11/19/21 11/19/21 12:39 05:34 05:34 MCV 86.2 MCH 27.6 MCHC 32.1 RDW 16.4 H Plt Count 147 L MPV 12.5 H Immature Gran % (Auto) 0.2 Neut % (Auto) 60.8 Lymph % (Auto) 19.5 L [place] % (Auto) 8.9 Eos % (Auto) 10.4 H Baso % (Auto) 0.2 Lymph # (Auto) 0.9 L [place] # (Auto) 0.4 Eos # (Auto) 0.5 H Baso # (Auto) 0.0 Abs Immat Gran (auto) 0.01 Absolute Neuts (auto) 2.9 Absolute Nucleated RBC 0.000 Nucleated RBC % (auto) 0.0 PT INR Anion Gap 9 L Estim Creat Clear Calc 27.4 Estimated GFR 31 Random Glucose 84 Calcium 8.5 Total Protein (PEP) 6.4 Albumin (PEP) 3.1 L Fspzz-8-Duetiafqv 0.4 H Pumat-3-Afxnyndsj 0.9 Rdif-3-Yzlnolrc 0.5 Zdhq-1-Mcemvwog 0.5 Gamma Globulins 1.1 Abnorm Protein Band 1 TNP Abnorm Protein Band 2 TNP Abnorm Protein Band 3 TNP PEP Interpretation SEE NOTE Proteinase 3 (PR3) Ab <1.0 Myeloperoxidase Ab <1.0 Glomerular Base Memb Ab <1.0 11/19/21 05:34 MCV MCH MCHC RDW Plt Count MPV Immature Gran % (Auto) Neut % (Auto) Lymph % (Auto) [place] % (Auto) Eos % (Auto) Baso % (Auto) Lymph # (Auto) [place] # (Auto) Eos # (Auto) Baso # (Auto) Abs Immat Gran (auto) Absolute Neuts (auto) Absolute Nucleated RBC Nucleated RBC % (auto) PT 42.5 H INR 3.6 H Anion Gap Estim Creat Clear Calc Estimated GFR Random Glucose Calcium Total Protein (PEP) Albumin (PEP) Dpjek-0-Vgpecshoe Zgpbl-2-Okcankdpi Pyzy-0-Ljzvnolm Nnke-0-Oahurqvb Gamma Globulins Abnorm Protein Band 1 Abnorm Protein Band 2 Abnorm Protein Band 3 PEP Interpretation Proteinase 3 (PR3) Ab Myeloperoxidase Ab Glomerular Base Memb Ab Microbiology Microbiology Results: Microbiology 11/16/21 22:42 Urine Culture - Final Urine clean catch - Urine panda top Assessment and Plan (1) COVID-19: Status: Acute (2) Atrial fibrillation with RVR: Status: Acute Assessment and Plan: This is a 81-year-old male with a past medical history of hypertension, hyperlipidemia, peripheral vascular disease, CAD, AFib on Coumadin, neuropathy, CHF, history of mitral valve repair, history of Bioprosthetic Aortic valve, BPH presented to the hospital with a chief complaint of not feeling well.? Noted to be in AFib with RVR.? Admitted for further management.? 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 creatinine improved to 2.27 baseline creatinine around 2.2 Avoid nephrotoxins, Lasix held. Initial concern for GN with protein and blood in urine. Compliment normal. Serology pending. Renal ultrasound negative for obstruction Patient refused Quintana catheter, No retention on Bladder scan Supratherapeutic INR.? Resolved follow INR AFib with RVR. No further episodes Reportedly patient has not been taking his home diltiazem.? continue home diltiazem and metoprolol. Monitor on telemetry.? Continue warfarin, goal INR 2-3; INR 2.3 Elevated troponin Denies any chest pain but reports dyspnea on exertion/generalized weakness.? EKG nonischemic.? seen by Cardiology COVID-19 positive Patient asymptomatic? supportive care HFpEF. Stable.? Lasix on hold for DARNELL History of BPH Continue home Flomax.? History of Type 2 diabetes mellitus with peripheral neuropathy Controlled.? currently not on meds. DISPO declining rehab, seen by PT, rec home with services DVT prophylaxis coumadin Code status: Full code Attending Dr. Ureña Quality Stroke Does the patient have a stroke diagnosis?: No VTE Prior VTE?: No VTE Risk Level:: Medical - moderate - high VTE Device Contraindication: Treatment Not Indicated VTE Drug Contraindication: N/A - Med Ordered
--- NOTE | 2021-11-19 12:05 | MHC.CM.PN ---
Per ROUNDS discussion, Patient is not yet medically cleared for dc; CM will follow for dc planning. The goal for dc is Home/resume [facility] services vs STR (PT questioning safety r/t confusion and returning home).
--- NOTE | 2021-11-19 14:14 | PC.NURSE ---
Assess pt if he would go to rehab after educating pt on reasoning and safety vs going home, pt said I guess so . PT needed to re-eval him before able to refer /7 dc but pt refused refused Physical Therapy x2.
[2021-11-19 15:15] LABS: PEU-Rand. Prot/Creat Ratio 990 mg/g creat (22-128); PEU-Random Ur. Gamma Globulin 12 %; PEU-Random Urine A1 Globulin 6 %; PEU-Random Urine A2 Globulin 6 %; PEU-Random Urine Albumin 61 %; PEU-Random Urine Beta Globulin 15 %; PEU-Random Urine Creatinine 98 mg/dL (20-320); PEU-Random Urine Protein 97 mg/dL (5-25)
[2021-11-19] MEDS: Tamsulosin HCL 0.4 MG CAPSULE 0.8 MG PO (21:37)
[2021-11-19] MEDS: QUEtiapine Fumarate 25 MG TABLET 12.5 MG PO (21:37)
[2021-11-20] MEDS: 0.9 % Sodium Chloride Flush 3 ML SYRINGE IVFLUSH ×4 (00:30→23:43)
[2021-11-20 03:45] VITALS: BP 168/84; PULSE 78; RESP 18; TEMP 36.7; O2SAT 97
[2021-11-20 06:38] LABS: INTERNATIONAL NORM RATIO 4.8 (0.9-1.1); Prothrombin Time 56.7 SEC (9.9-13.0)
[2021-11-20 07:56] VITALS: BP 160/82; PULSE 64; RESP 20; TEMP 36.3; O2SAT 97
[2021-11-20] MEDS: Atorvastatin Calcium 40 MG TABLET PO (08:27)
[2021-11-20] MEDS: Omeprazole 40 MG CAPSULE.DR PO ×2 (08:27→20:30)
[2021-11-20] MEDS: Thiamine HCL 100 MG TABLET PO (08:27)
[2021-11-20] MEDS: dilTIAZem HCL CD 120 MG CAP.ER.DEG PO (08:27)
[2021-11-20] MEDS: Gabapentin 100 MG CAPSULE PO (08:27)
[2021-11-20] MEDS: Metoprolol Tartrate 50 MG TABLET PO (08:28)
[2021-11-20 08:30] LABS: Anion Gap 14 (12-20); Blood Urea Nitrogen 29 mg/dL (9-16); Calcium 8.9 mg/dL (8.4-10.2); Carbon Dioxide 20 mmol/L (22-29); Chloride 115 mmol/L (96-108); Creatinine Clr Calc Pharmacy 28.5; Estimated Glomerular Filt Rate 32; Glucose Random 85 mg/dL (60-115); Potassium 3.8 mmol/L (3.3-5.1); Sodium 145 mmol/L (135-145)
[2021-11-20 11:42] VITALS: BP 127/57; PULSE 73; RESP 20; TEMP 36.2; O2SAT 98
--- NOTE | 2021-11-20 12:57 | P.PNNP_ITS ---
Subjective Subjective Date of Service: 11/21/21 Interval history: seen and examined this morning follow up for darnell still somewhat confused this morning, has no specific complaints Physical Exam Vital Signs: Vital Signs: Last Vital Signs Temp 97.1 F 11/20/21 11:42 Pulse 73 11/20/21 11:42 Resp 20 11/20/21 11:42 BP 127/57 L 11/20/21 11:42 Pulse Ox 98 11/20/21 11:42 BMI result Body Mass Index 29.3 Const: Other: Appearance: Alert. No acute distress. Eyes: Pupils equal, round and reactive to light. ENT: Pharynx normal. Neck: Normal inspection. Neck supple. No lymph nodes noted. No crepitus CVS: Irregularly irregular, heart rate approximately 100 Normal S1 and S2 Respiratory: No respiratory distress. Breath sounds normal. No Wheezing. No rales Abdomen: Soft and nontender. No rigidity. No distention. good BS x4 Skin: Skin warm and dry. Normal skin color. Normal skin turgor. 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 No Lacerations. No Rash Neuro: Oriented X 3. No motor deficit. No sensory deficit. Moving all extermities. No slurred speech. Objective Data Labs CBC & Chem 7: 11/19/21 05:34 11/20/21 07:18 Labs: Laboratory Results - last 24 hr 11/16/21 11/20/21 11/20/21 Unknown 06:12 07:18 PT 56.7 H INR 4.8 H Sodium 145 Potassium 3.8 Chloride 115 H Carbon Dioxide 20 L Anion Gap 14 BUN 29 H Creatinine 2.01 H Estim Creat Clear Calc 28.5 Estimated GFR 32 Random Glucose 85 Calcium 8.9 U [place] Prot/Creat Ratio 0.990 H Ur Creatinine mg/dL 98 U Total Protein mg/dL 97 H Protein/Creatinin Ratio 990 H Urine Albumin (%) 61 U Gwlpk-6-Tspfezgw (%) 6 U Hxgzl-9-Hjnktrqx (%) 6 U Beta Globulin (%) 15 U Gamma Globulin (%) 12 U Abnormal Prot Band 1 TNP U Abnormal Prot Band 2 TNP U Abnormal Prot Band 3 TNP Urine PEP Interpret SEE NOTE Microbiology Microbiology Results: Microbiology 11/16/21 22:42 Urine clean catch - Urine panda top Urine Culture - Final 11/12/21 17:45 Blood - Venous Blood Culture - Final No growth after 5 days. 11/12/21 16:17 Blood - Venous Blood Culture - Final No growth after 5 days. Procedures Date of Service Date of Service: 11/20/21 Assessment & Plan Assessment and plan (1) COVID-19: Status: Acute (2) Atrial fibrillation with RVR: Status: Acute (3) Acute on chronic renal failure: Status: Acute Assessment and Plan: DARNELL on CKD. baseline creatinine around 1.8 No obstruction by sono UA shows blood and protein- worrisome for GN Serology pending Compliments normal C is better - probably has resolving ATN Avoid nephrotoxins. Lasix on hold for now Keep I > O COVID-19 positive Patient asymptomatic? supportive care Time Spent With Patient Time: Total time spent is greater than 50% in coordination of care (as docume nted) at patient's floor/unit and/or counseling patient: Progress Note: Quality Stroke Does the patient have a stroke diagnosis?: No
--- NOTE | 2021-11-20 14:02 | HO.PM.IMPN ---
Subjective Subjective Date of Service: 11/20/21 Interval History: seen and examined this morning follow up for covid 19, darnell awake and alert; has some cough, no sob Review of Systems Review of Systems: Yes all other systems are reviewed and are negative Constitutional Constitutional: Denies chills and Denies fever(s) Cardiovascular Cardiovascular: Denies chest pain Gastrointestinal Gastrointestinal: Denies abdominal pain Physical Exam Vital Signs: Vital Signs: Last Vital Signs Temp 97.1 F 11/20/21 11:42 Pulse 73 11/20/21 11:42 Resp 20 11/20/21 11:42 BP 127/57 L 11/20/21 11:42 Pulse Ox 98 11/20/21 11:42 BMI result Body Mass Index 29.3 Const: General: comfortable, no acute distress, alert and awake Nutritional Appearance: well nourished HENMT: Head: Yes normocephalic and Yes atraumatic Eyes: Sclerae: sclerae normal Resp: Effort & Inspection: normal respiratory effort and no respiratory distress Cardio: Rate: regular rate Rhythm: abnormal rhythm (irregular) GI: Inspection: No distended Palpation (GI): Soft to palpation and nontender Extrem: Other: aka left leg Objective Data Active Medications Atorvastatin Calcium (Atorvastatin Calcium 40 Mg Tablet) 40 mg PO DAILY [facility] Last Admin: 11/20/21 08:27 Dose: 40 mg Documented by: JIGNA Diltiazem HCl (Diltiazem Hcl Cd 120 Mg Cap.Er.Deg) 120 mg PO DAILY [facility]; Protocol Last Admin: 11/20/21 08:27 Dose: 120 mg Documented by: JIGNA Ferrous Sulfate (Ferrous Sulfate 324 Mg Tablet.Dr) 324 mg PO Q48H [facility] Last Admin: 11/19/21 11:16 Dose: 324 mg Documented by: SHAY Furosemide (Furosemide 40 Mg Tablet) 40 mg PO BIDWM [facility]; Protocol Last Admin: 11/13/21 18:24 Dose: 40 mg Documented by: MAURO Gabapentin (Gabapentin 100 Mg Capsule) 100 mg PO DAILY [facility] Last Admin: 11/20/21 08:27 Dose: 100 mg Documented by: JIGNA Melatonin (Melatonin 3 Mg Tablet) 6 mg PO BEDTIME PRN PRN Reason: Insomnia Last Admin: 11/18/21 20:03 Dose: 6 mg Documented by: PRIYA Metoprolol Tartrate (Metoprolol Tartrate 50 Mg Tablet) 50 mg PO BID [facility]; Protocol Last Admin: 11/20/21 08:28 Dose: 50 mg Documented by: JIGNA Omeprazole (Omeprazole 40 Mg Capsule.) 40 mg PO BID [facility] Last Admin: 11/20/21 08:27 Dose: 40 mg Documented by: JIGNA Ondansetron HCl (Ondansetron Hcl 4 Mg/2 Ml Vial) 4 mg IVPUSH Q8H PRN PRN Reason: Nausea Last Admin: 11/13/21 09:22 Dose: 4 mg Documented by: LIVIER Quetiapine Fumarate (Quetiapine Fumarate 25 Mg Tablet) 12.5 mg PO BEDTIME [facility] Last Admin: 11/19/21 21:37 Dose: 12.5 mg Documented by: VENICE Senna (Sennosides 8.6 Mg Tablet) 17.2 mg PO BEDTIME PRN PRN Reason: Constipation Sodium Chloride (0.9 % Sodium Chloride Flush 3 Ml Syringe) 3 ml IVFLUSH QSHIFT [facility] Last Admin: 11/20/21 08:27 Dose: 3 ml Documented by: JIGNA Tamsulosin HCl (Tamsulosin Hcl 0.4 Mg Capsule) 0.8 mg PO BEDTIME [facility] Last Admin: 11/19/21 21:37 Dose: 0.8 mg Documented by: VENICE Thiamine HCl (Thiamine Hcl 100 Mg Tablet) 100 mg PO DAILY [facility] Last Admin: 11/20/21 08:27 Dose: 100 mg Documented by: JIGNA Warfarin Sodium (Warfarin Sodium 3 Mg Tablet) 3 mg PO DAILY@1800 [facility] Labs CBC & Chem 7: 11/19/21 05:34 11/20/21 07:18 Labs: Laboratory Results - last 24 hr 11/16/21 11/20/21 11/20/21 Unknown 06:12 07:18 PT 56.7 H INR 4.8 H Anion Gap 14 Estim Creat Clear Calc 28.5 Estimated GFR 32 Random Glucose 85 Calcium 8.9 U [place] Prot/Creat Ratio 0.990 H Ur Creatinine mg/dL 98 U Total Protein mg/dL 97 H Protein/Creatinin Ratio 990 H Urine Albumin (%) 61 U Cnchn-5-Oaeivrwu (%) 6 U Rdmyv-7-Gftnklas (%) 6 U Beta Globulin (%) 15 U Gamma Globulin (%) 12 U Abnormal Prot Band 1 TNP U Abnormal Prot Band 2 TNP U Abnormal Prot Band 3 TNP Urine PEP Interpret SEE NOTE Assessment and Plan (1) COVID-19: Status: Acute (2) Atrial fibrillation with RVR: Status: Acute (3) Acute on chronic renal failure: Status: Acute Assessment and Plan: This is a 81-year-old male with a past medical history of hypertension, hyperlipidemia, peripheral vascular disease, CAD, AFib on Coumadin, neuropathy, CHF, history of mitral valve repair, history of Bioprosthetic Aortic valve, BPH presented to the hospital with a chief complaint of not feeling well.? Noted to be in AFib with RVR.? Admitted for further management.? 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 creatinine improved to 2.01 baseline creatinine around 1.8-2 Avoid nephrotoxins, Lasix held. Initial concern for GN with protein and blood in urine. Compliment normal. Serology pending. Renal ultrasound negative for obstruction Patient refused Quintana catheter, No retention on Bladder scan AFib with RVR. No further episodes Reportedly had not been taking his home diltiazem.? continue home diltiazem and metoprolol. Monitor on telemetry.? Continue warfarin, goal INR 2-3; INR up to 4.8 today, coumadin on hold Elevated troponin Denies any chest pain but reports dyspnea on exertion/generalized weakness.? EKG nonischemic.? seen by Cardiology COVID-19 positive has cough, repeat cxr negative. still on room air supportive care HFpEF. Stable.? Lasix on hold for DARNELL History of BPH Continue home Flomax.? History of Type 2 diabetes mellitus with peripheral neuropathy Controlled.? currently not on meds. DISPO amenable to rehab. re-eval by PT pending DVT prophylaxis coumadin Code status: Full code Attending Dr. Ordonez Quality Stroke Does the patient have a stroke diagnosis?: No VTE Prior VTE?: No VTE Risk Level:: Medical - moderate - high VTE Device Contraindication: Treatment Not Indicated VTE Drug Contraindication: N/A - Med Ordered
[2021-11-20 16:00] VITALS: BP 139/65; PULSE 67; RESP 18; TEMP 36.1; O2SAT 97
[2021-11-20 20:00] VITALS: BP 171/78; PULSE 72; RESP 17; TEMP 36.4; O2SAT 98
[2021-11-20] MEDS: QUEtiapine Fumarate 25 MG TABLET 12.5 MG PO (20:30)
[2021-11-20] MEDS: Tamsulosin HCL 0.4 MG CAPSULE 0.8 MG PO (20:30)
[2021-11-20 23:37] VITALS: BP 140/60; PULSE 68; RESP 18; TEMP 36.5; O2SAT 95
[2021-11-21 03:19] VITALS: BP 130/70; PULSE 73; RESP 18; TEMP 36.4; O2SAT 97
[2021-11-21 07:39] VITALS: BP 158/62; PULSE 78; RESP 20; TEMP 36.4; O2SAT 96
[2021-11-21] MEDS: dilTIAZem HCL CD 120 MG CAP.ER.DEG PO (10:42)
[2021-11-21] MEDS: Ferrous Sulfate 324 MG TABLET.DR PO (10:43)
[2021-11-21] MEDS: Thiamine HCL 100 MG TABLET PO (10:43)
[2021-11-21] MEDS: Atorvastatin Calcium 40 MG TABLET PO (10:43)
[2021-11-21] MEDS: Metoprolol Tartrate 50 MG TABLET PO ×2 (10:43→20:55)
[2021-11-21] MEDS: Gabapentin 100 MG CAPSULE PO (10:44)
[2021-11-21] MEDS: 0.9 % Sodium Chloride Flush 3 ML SYRINGE IVFLUSH ×3 (10:44→21:01)
[2021-11-21 11:57] VITALS: BP 164/71; PULSE 68; RESP 20; TEMP 36.4; O2SAT 98
--- NOTE | 2021-11-21 12:16 | P.PNIM_ITS ---
Subjective Subjective Date of Service: 11/21/21 Interval History: seen and examined this morning follow up for covid, darnell sitting up eating breakfast, still very vague historian no specific complaints Review of Systems Review of Systems: Yes all other systems are reviewed and are negative Constitutional Constitutional: Denies chills and Denies fever(s) Cardiovascular Cardiovascular: Denies chest pain Gastrointestinal Gastrointestinal: Denies abdominal pain Physical Exam Vital Signs: Vital Signs: Last Vital Signs Temp 97.5 F 11/21/21 11:57 Pulse 68 11/21/21 11:57 Resp 20 11/21/21 11:57 BP 164/71 H 11/21/21 11:57 Pulse Ox 98 11/21/21 11:57 BMI result Body Mass Index 29.3 Const: Other: confused General: comfortable, no acute distress, alert and awake Nutritional Appearance: well nourished HENMT: Head: Yes normocephalic and Yes atraumatic Eyes: Sclerae: sclerae normal Resp: Effort & Inspection: normal respiratory effort and no respiratory distress Cardio: Rate: regular rate Rhythm: abnormal rhythm (irregular) GI: Inspection: No distended Palpation (GI): Soft to palpation and nontender Extrem: Other: aka left leg Objective Data Active Medications Atorvastatin Calcium (Atorvastatin Calcium 40 Mg Tablet) 40 mg PO DAILY [facility] Last Admin: 11/21/21 10:43 Dose: 40 mg Documented by: DARIUS Diltiazem HCl (Diltiazem Hcl Cd 120 Mg Cap.Er.Deg) 120 mg PO DAILY [facility]; Protocol Last Admin: 11/21/21 10:42 Dose: 120 mg Documented by: DARIUS Ferrous Sulfate (Ferrous Sulfate 324 Mg Tablet.Dr) 324 mg PO Q48H [facility] Last Admin: 11/21/21 10:43 Dose: 324 mg Documented by: DARIUS Furosemide (Furosemide 40 Mg Tablet) 40 mg PO BIDWM [facility]; Protocol Last Admin: 11/13/21 18:24 Dose: 40 mg Documented by: MAURO Gabapentin (Gabapentin 100 Mg Capsule) 100 mg PO DAILY [facility] Last Admin: 11/21/21 10:44 Dose: 100 mg Documented by: DARIUS Melatonin (Melatonin 3 Mg Tablet) 6 mg PO BEDTIME PRN PRN Reason: Insomnia Last Admin: 11/18/21 20:03 Dose: 6 mg Documented by: PRIYA Metoprolol Tartrate (Metoprolol Tartrate 50 Mg Tablet) 50 mg PO BID [facility]; Protocol Last Admin: 11/21/21 10:43 Dose: 50 mg Documented by: DARIUS Omeprazole (Omeprazole 40 Mg Capsule.Dr) 40 mg PO BID [facility] Last Admin: 11/21/21 10:49 Dose: Not Given Documented by: DARIUS Non-Admin Reason: medication on hold Ondansetron HCl (Ondansetron Hcl 4 Mg/2 Ml Vial) 4 mg IVPUSH Q8H PRN PRN Reason: Nausea Last Admin: 11/13/21 09:22 Dose: 4 mg Documented by: LIVIER Quetiapine Fumarate (Quetiapine Fumarate 25 Mg Tablet) 12.5 mg PO BEDTIME [facility] Last Admin: 11/20/21 20:30 Dose: 12.5 mg Documented by: CHARY Senna (Sennosides 8.6 Mg Tablet) 17.2 mg PO BEDTIME PRN PRN Reason: Constipation Sodium Chloride (0.9 % Sodium Chloride Flush 3 Ml Syringe) 3 ml IVFLUSH QSHIFT [facility] Last Admin: 11/21/21 10:44 Dose: 3 ml Documented by: DARIUS Tamsulosin HCl (Tamsulosin Hcl 0.4 Mg Capsule) 0.8 mg PO BEDTIME [facility] Last Admin: 11/20/21 20:30 Dose: 0.8 mg Documented by: CHARY Thiamine HCl (Thiamine Hcl 100 Mg Tablet) 100 mg PO DAILY [facility] Last Admin: 11/21/21 10:43 Dose: 100 mg Documented by: DRAIUS Warfarin Sodium (Warfarin Sodium 3 Mg Tablet) 3 mg PO DAILY@1800 [facility] Labs CBC & Chem 7: 11/19/21 05:34 11/20/21 07:18 Labs: Laboratory Results - last 24 hr 11/21/21 06:21 PT 59.0 H INR 5.0 H* Assessment and Plan (1) COVID-19: Status: Acute (2) Acute on chronic renal failure: Status: Acute Assessment and Plan: This is a 81-year-old male with a past medical history of hypertension, hyperlipidemia, peripheral vascular disease, CAD, AFib on Coumadin, neuropathy, CHF, history of mitral valve repair, history of Bioprosthetic Aortic valve, BPH presented to the hospital with a chief complaint of not feeling well.? Noted to be in AFib with RVR.? Admitted for further management.? 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 creatinine improved to 2.01 baseline creatinine around 1.8-2 Avoid nephrotoxins, Lasix held. Initial concern for GN with protein and blood in urine. Compliment normal. Serology pending. Renal ultrasound negative for obstruction Patient refused Quintana catheter, No retention on Bladder scan AFib with RVR. No further episodes Reportedly had not been taking his home diltiazem.? continue home diltiazem and metoprolol. Monitor on telemetry.? Continue warfarin, goal INR 2-3; INR up to 5.0 today, coumadin on hold Elevated troponin Denies any chest pain but reports dyspnea on exertion/generalized weakness.? EKG nonischemic.? seen by Cardiology COVID-19 positive has cough, repeat cxr negative. still on room air supportive care HFpEF. Stable.? Lasix on hold for DARNELL History of BPH Continue home Flomax.? History of Type 2 diabetes mellitus with peripheral neuropathy Controlled.? currently not on meds. DISPO resides in independent living at [facility] with services through [employer]. Awaiting PT re-eval. Amenable to STR if necessary. DVT prophylaxis coumadin Code status: Full code Attending Dr. Ordonez Quality Stroke Does the patient have a stroke diagnosis?: No VTE Prior VTE?: No VTE Risk Level:: Medical - moderate - high VTE Device Contraindication: Treatment Not Indicated VTE Drug Contraindication: N/A - Med Ordered
[2021-11-21 15:55] VITALS: BP 129/60; PULSE 69; RESP 18; TEMP 36.6; O2SAT 97
--- NOTE | 2021-11-21 17:18 | P.PNNP_ITS ---
Subjective Subjective Date of Service: 12/09/21 Interval history: seen and examined this morning follow up for covid, darnell sitting up eating breakfast, still very vague historian no specific complaints Physical Exam Verdana 4l Vital Signs: Verdana 4d Verdana 4d Vital Signs: Verdana 4d Verdana 4Bd Last Vital Signs Verdana 4d Assembly Machine Tender New 4d Assembly Machine Tender New 4d Temp 98 F 11/21/21 15:55 Assembly Machine Tender New 4d Pulse 69 11/21/21 15:55 Assembly Machine Tender New 4d Resp 18 11/21/21 15:55 BP 129/60 11/21/21 15:55 Pulse Ox 97 11/21/21 15:55 BMI result Body Mass Index 29.3 Const: Other: Appearance: Alert. No acute distress. Eyes: Pupils equal, round and reactive to light. ENT: Pharynx normal. Neck: Normal inspection. Neck supple. No lymph nodes noted. No crepitus CVS: Irregularly irregular, heart rate approximately 100 Normal S1 and S2 Respiratory: No respiratory distress. Breath sounds normal. No Wheezing. No rales Abdomen: Soft and nontender. No rigidity. No distention. good BS x4 Skin: Skin warm and dry. Normal skin color. Normal skin turgor. 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 No Lacerations. No Rash Neuro: Oriented X 3. No motor deficit. No sensory deficit. Moving all extermities. No slurred speech. Objective Data Labs CBC & Chem 7: 11/22/21 06:43 11/22/21 06:43 Labs: Laboratory Results - last 24 hr 11/21/21 06:21 PT 59.0 H INR 5.0 H* Microbiology Microbiology Results: Microbiology 11/16/21 22:42 Urine clean catch - Urine panda top Urine Culture - Final 11/12/21 17:45 Blood - Venous Blood Culture - Final No growth after 5 days. 11/12/21 16:17 Blood - Venous Blood Culture - Final No growth after 5 days. Procedures Date of Service Date of Service: 11/21/21 Assessment & Plan Assessment and plan (1) COVID-19: Status: Resolved (2) Atrial fibrillation with RVR: Status: Resolved (3) Acute on chronic renal failure: Status: Resolved Plan DARNELL on CKD. baseline creatinine around 1.8 No obstruction by sono UA shows blood and protein- worrisome for GN Serology noted. No evidence of GN Compliments normal C is better - probably has resolving ATN Avoid nephrotoxins. Lasix - hold Keep I > O COVID-19 positive Patient asymptomatic? supportive care Time Spent With Patient Time: Total time spent is greater than 50% in coordination of care (as documented) at patient's floor/unit and/or counseling patient: Time with patient: 15 - 24 minutes Progress Note: Quality Stroke Does the patient have a stroke diagnosis?: No
[2021-11-21 20:00] VITALS: BP 143/74; PULSE 80; RESP 19; TEMP 36.3; O2SAT 98
[2021-11-21] MEDS: Tamsulosin HCL 0.4 MG CAPSULE 0.8 MG PO (20:55)
[2021-11-21] MEDS: QUEtiapine Fumarate 25 MG TABLET 12.5 MG PO (20:55)
[2021-11-21 23:29] VITALS: BP 142/67; PULSE 80; RESP 18; TEMP 36.1; O2SAT 94
--- NOTE | 2021-11-22 00:25 | PC.NURSE ---
Pt HR shiraz down to 37, frequent 3 second pauses. Pt asymptomatic, will continue to monitor.
[2021-11-22 03:46] VITALS: BP 136/69; PULSE 69; RESP 18; TEMP 36.1; O2SAT 95
[2021-11-22 06:50] LABS: MANUAL DIFF FLAG NO
[2021-11-22 06:54] LABS: Basophils Percent Auto 0.3 % (0-2); Eosinophils Absolute Auto 0.7 X10*3/uL (0.0-0.4); Eosinophils Percent Auto 11.3 % (0-4); Hematocrit 29.9 % (42.0-52.0); Hemoglobin 9.7 g/dl (14.0-18.0); Imm Gran Abs Auto 0.03 X10*3/uL (0.00-0.03); Imm Gran Pct Auto 0.5 % (0.0-0.4); Lymphocytes Absolute Auto 1.2 X10*3/uL (1.2-4.9); Lymphocytes Percent Auto 19.1 % (20-40); Mean Corpuscular HGB Conc 32.4 g/dl (31.0-36.0); Mean Corpuscular Hemoglobin 27.9 pg (27.0-33.0); Mean Corpuscular Volume 85.9 fL (80.0-98.0); Mean Platelet Volume 12.7 fL (9.4-12.4); Monocytes Absolute Auto 0.7 X10*3/uL (0.1-1.2); Monocytes Percent Auto 11.8 % (2-11); Neutrophils Absolute Auto 3.5 x10*3/uL (2.0-8.3); Platelet Count 178 X10*3/uL (160-400); Red Blood Count 3.48 X10*6/uL (4.60-5.80); Red Cell Distribution Width 16.6 % (11.0-16.0); White Blood Count 6.1 X10*3/uL (4.8-10.8)
[2021-11-22 07:07] LABS: INTERNATIONAL NORM RATIO 3.4 (0.9-1.1); Prothrombin Time 39.3 SEC (9.9-13.0)
[2021-11-22 07:12] LABS: Anion Gap 13 (12-20); Blood Urea Nitrogen 29 mg/dL (9-16); Calcium 8.4 mg/dL (8.4-10.2); Carbon Dioxide 21 mmol/L (22-29); Chloride 113 mmol/L (96-108); Creatinine Clr Calc Pharmacy 24.8; Estimated Glomerular Filt Rate 27; Glucose Random 88 mg/dL (60-115); Potassium 3.9 mmol/L (3.3-5.1); Sodium 143 mmol/L (135-145)
[2021-11-22 08:09] VITALS: BP 137/68; PULSE 55; RESP 15; TEMP 36.6; O2SAT 96
[2021-11-22] MEDS: Atorvastatin Calcium 40 MG TABLET PO (09:38)
[2021-11-22] MEDS: Gabapentin 100 MG CAPSULE PO (09:38)
[2021-11-22] MEDS: Thiamine HCL 100 MG TABLET PO (09:38)
[2021-11-22] MEDS: 0.9 % Sodium Chloride Flush 3 ML SYRINGE IVFLUSH (09:38)
--- NOTE | 2021-11-22 11:38 | PM.DS ---
DS: Providers Provider Date of Service: 11/22/21 Date of admission: 11/13/21 05:35 Primary care physician: Surinder Crews MD Consults: 11/13/21 05:35 Consult to Cardiology Routine Consulting Provider: Nikos Alaniz Reason for consultation: afib 11/14/21 17:43 Consult to Nephrology Routine Consulting Provider: Osmany Huber Reason for consultation: worsening darnell on ckd Has provider been notified: No Attending physician on discharge: Jrerod Ureña Discharging clinician: Frances Wagner DS: Diagnosis Discharge Diagnosis (1) COVID-19: Status: Acute (2) Atrial fibrillation with RVR: Status: Acute (3) Acute on chronic renal failure: Status: Acute DS: Summary Hospital Course Hospital Course: HP as per admitting provider 81-year-old male with a past medical history of hypertension, hyperlipidemia, peripheral vascular disease, CAD, AFib on Coumadin, neuropathy, CHF, history of mitral valve repair, history of Bioprosthetic Aortic valve, BPH presented to the hospital with a chief complaint of not feeling well. Patient is a poor historian.?Patient reports that over the past 2 days he has been not feeling well, generally weak; denies any chest pain or palpitations.? Reports occasional cough and shortness of breath on exertion.?Denies any nausea vomiting diarrhea.?Denies any urinary symptoms.? Denies any falls or trauma.? Denies any numbness tingling or focal weakness.?Review of all other systems is negative except mentioned above ER course:Per ER team patient on presentation noted to be mildly dehydrated; patient was in AFib with rapid ventricular response.? ER team mentioned that patient was stopped on diltiazem recently-reasons unclear; patient unable to provide reasons.Patient was given diltiazem IV push with improvement in heart rate.Incidentally patient was noted to be positive for COVID-19.? Chest x-ray showed no acute findings.? Patient saturating well on room air. Admitted for further management ? 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 baseline creatinine around 1.8-2 Avoid nephrotoxins, Lasix held. Initial concern for GN with protein and blood in urine. likely resolving ATN Renal ultrasound negative for obstruction Patient refused Quintana catheter, No retention on Bladder scan Recheck BMP next week AFib with RVR. No further episodes Reportedly had not been taking his home diltiazem.? continue home diltiazem and metoprolol. Monitor on telemetry.? Continue warfarin, goal INR 2-3; INR, on hold for now, check PT INR daily until therapeutic Elevated troponin Denies any chest pain but reports dyspnea on exertion/generalized weakness.? EKG nonischemic.? seen by Cardiology no further cardiac workup warranted COVID-19 positive has cough, repeat cxr negative. still on room air supportive care Essentially asymptomatic Time Spent with Patient Time attestation: Total time spent providing and/or coordinating discharge services: Discharge coordination time: Greater than 30 minutes Quality: Stroke Does the patient have a stroke diagnosis?: No Physical Exam Vital Signs: Vital Signs: Last Vital Signs Temp 97.9 F 11/22/21 08:09 Pulse 55 11/22/21 08:09 Resp 15 11/22/21 08:09 BP 137/68 11/22/21 08:09 Pulse Ox 96 11/22/21 08:09 BMI result Body Mass Index 29.3 Appearing in no acute distress head is normocephalic atraumatic eyes pupils are PERRLA sclera is anicteric mouth throat mucous membranes are intact and moist neck is supple no lymphadenopathy, no JVD noted lung sounds are clear to auscultation heart regular rate rhythm, clear S1, S2 positive bowel sounds, abdomen is soft, nontender neuro patient is alert x3, no focal deficits DS: Data Data Completed and Pending Labs on day of discharge: Laboratory Results - last 24 hr 11/22/21 11/22/21 11/22/21 06:43 06:43 06:43 WBC 6.1 RBC 3.48 L Hgb 9.7 L Hct 29.9 L MCV 85.9 MCH 27.9 MCHC 32.4 RDW 16.6 H Plt Count 178 MPV 12.7 H Immature Gran % (Auto) 0.5 H Neut % (Auto) 57.0 Lymph % (Auto) 19.[address] [place] % (Auto) 11.8 H Eos % (Auto) 11.3 H Baso % (Auto) 0.3 Lymph # (Auto) 1.2 [place] # (Auto) 0.7 Eos # (Auto) 0.7 H Baso # (Auto) 0.0 Abs Immat Gran (auto) 0.03 Absolute Neuts (auto) 3.5 Absolute Nucleated RBC 0.000 Nucleated RBC % (auto) 0.0 PT 39.3 H INR 3.4 H Sodium 143 Potassium 3.9 Chloride 113 H Carbon Dioxide 21 L Anion Gap 13 BUN 29 H Creatinine 2.31 H Estim Creat Clear Calc 24.8 Estimated GFR 27 Random Glucose 88 Calcium 8.4 Discharge Plan Discharge Anticipated Discharge Date/Time: 11/22/21 14:41 Patient Disposition: Home Health Service Discharge Diagnosis: DARNELL on CKD Atrial fibrillation with rapid ventricular response Elevated troponin COVID-19 positive Referrals: servcies thru [facility] [Other] - 1 Week Surinder Crews MD [Primary Care Provider] - 1 Week Discharge Medications: Continued furosemide 40 mg tablet 20 mg PO DAILY RF: 0 Hold Instructions: Resume on 01/29/21. do not restart until seen by your primary care doctor pantoprazole 40 mg tablet,delayed release (DR/EC) 40 mg PO DAILY RF: 0 atorvastatin 40 mg tablet 40 mg PO DAILY RF: 0 potassium chloride 10 mEq tablet extended release 10 meq PO BID RF: 0 melatonin 5 mg Tablet 5 mg PO BEDTIME PRN (Reason: Insomnia) RF: 0 allopurinol 100 mg tablet 50 mg PO SUMOWEFR RF: 0 tamsulosin 0.4 mg capsule 0.4 cap PO DAILY RF: 0 docusate sodium 100 mg capsule 1 cap PO BID RF: 0 metoprolol succinate 25 mg Tablet Extended Release 24 Hr 25 mg PO DAILY RF: 0 Held warfarin 3 mg Tablet 3 mg PO DAILY RF: 0 Hold Instructions: Resume on 11/23/21. INR 3.4 Discharge Orders: Discharge Order (Routine); Ordered 11/22/21 Ordered By: Frances Wagner Diet: advance to usual diet Activity on Discharge: As tolerated Stand Alone Forms: Patient Portal Discharge page Other Ambulatory Orders: Prothrombin Time INR (DAILY) Timeframe: 20211124 Facility: [facility] - Location: Laboratory Ordered By: Frances Wagner Prothrombin Time INR (DAILY) Timeframe: 20211125 Facility: [facility] - Location: Laboratory Ordered By: Frances Wagner Prothrombin Time INR (DAILY) Timeframe: 20211126 Facility: [facility] - Location: Laboratory Ordered By: Frances Wagner Care Plan Goals: COMPLETE RESOLUTION OF SYMPTOMS Health Concerns: DARNELL on CKD Atrial fibrillation with rapid ventricular response Elevated troponin COVID-19 positive Plan of Treatment: your warfarin is on hold due to elevated INR. Please check your INR until therapeutic and then you may continue your your warfarin Assessment: see discharge summary
[2021-11-22 11:46] VITALS: BP 143/75; PULSE 78; RESP 18; TEMP 36.1; O2SAT 98
[2021-11-22 11:56] VITALS: BP 143/75; PULSE 78; O2SAT 98
--- NOTE | 2021-11-22 13:12 | MHC.CM.PN ---
spoke with kenney ugalde/ute arrangements complete for dc of pt at 3:00 today [facility] arranging transportaion for 3;00
== END 2021-11-22 15:30 | disposition home health service (06) | DRG 177 ==
LOC: HO.ED 11-13 02:37 → HO.EDOVER 11-13 05:40 → HO.IMC 11-15 12:10
PROVIDERS: Emergency Medicine; Internal Medicine Hypertension Specialist; Physician Assistant Medical; Admitting Provider Hospitalist; Emergency Provider Student in an Organized Health Care Education/Training Program; PCP Internal Medicine Rheumatology; Visit Provider Nurse Practitioner Acute Care
DX: U07.1 COVID-19 (principal); N17.0 Acute kidney failure with tubular necrosis; I50.32 Chronic diastolic (congestive) heart failure; I48.91 Unspecified atrial fibrillation; I25.10 Atherosclerotic heart disease of native coronary artery without angina pectoris; R79.1 Abnormal coagulation profile; E11.22 Type 2 diabetes mellitus with diabetic chronic kidney disease; E11.51 Type 2 diabetes mellitus with diabetic peripheral angiopathy without gangrene; N18.30 Chronic kidney disease, stage 3 unspecified; N40.0 Benign prostatic hyperplasia without lower urinary tract symptoms; Z95.2 Presence of prosthetic heart valve; Z20.822 Contact with and (suspected) exposure to COVID-19; Z89.612 Acquired absence of left leg above knee; Z79.01 Long term (current) use of anticoagulants; Z79.899 Other long term (current) drug therapy
CPT/HCPCS: 36415; 71045; 76775; 80048; 80076; 81001; 81003; 82570; 83520; 83605; 83615; 83735; 83880; 84156; 84165; 84166; 84300; 84484; 85025; 85027; 85610; 86021; 86160; 87040; 87086; 87635; 89190; 93005; 97110; 97116; 97162; 99285; J2405

== ENCOUNTER 2021-11-30 09:11 | Inpatient (IN) | payer OTHER, SELFPAY ==
[2021-11-30] VITALS (14 sets, daily range): BP systolic 101–186; BP diastolic 65–96; PULSE 76–150; RESP 15–21; TEMP 36.4–36.8; O2SAT 95–98
--- NOTE | ~2021-11-30 | XR_ITS ---
EXAMINATION: XR CHEST CLINICAL INFORMATION: SOB COMPARISON: None TECHNIQUE: 2 views of the chest were obtained. FINDINGS: There is mild cardiomegaly with normal pulmonary vascularity. There is evidence of previous CABG with median sternotomy sutures. The lungs are well-expanded with platelike atelectasis or scarring left lung base. Moderate spondylosis dorsal spine is noted. XR/XR chest 2V IMPRESSION: Mild cardiomegaly. Minimal platelike atelectasis or scarring left lung base.
--- NOTE | ~2021-11-30 | CT_ITS ---
EXAMINATION: CT HEAD WITHOUT CONTRAST CLINICAL INFORMATION: AMS. COMPARISON: CT brain 12/21/2018 TECHNIQUE: Contiguous axial imaging was performed from the skull base to vertex without intravenous administration of contrast. This CT examination was performed using dose optimization techniques as appropriate, variously including the following: *Automated exposure control *Adjustment of mA and/or kV according to patient size (this includes techniques or standardized protocols for targeted exams where dose is matched to indication/reason for exam; i.e. extremities or head) *Use of iterative reconstruction technique DLP: 1361 mGy-cm FINDINGS: There is no evidence of acute intracranial hemorrhage or territorial infarction. No abnormal mass effect or midline shift is seen. Mackenzie to white matter differentiation is well preserved. No extra-axial fluid collections are identified. The lateral ventricles are enlarged and so are the cortical sulci. There is diffuse periventricular hypodensity in both cerebral hemispheres consistent chronic small vessel ischemic changes in both cerebral hemispheres without mass effect. The osseous structures and soft tissues are normal. There is mild mucoperiosteal thickening bilateral frontal, ethmoid sinuses. The mastoid air cells are well-aerated. CT/CT head/brain wo con IMPRESSION: No acute intracranial process seen. Moderate cerebral volume loss with moderate chronic microangiopathy. Chronic bilateral ethmoid and frontal sinus inflammatory changes.
--- NOTE | 2021-11-30 09:22 | ED_ITS ---
HPI - General Adult General Chief complaint: Headache <LOS Travis Last Filed: 11/30/21 15:39> Stated complaint: NOT FEELING WELL,?AMS,HEADACHE <LOS Travis - Last Filed: 11/30/21 15:39> Time Seen by Provider: 11/30/21 09:22 <LOS Travis - Last Filed: 11/30/21 15:39> Source: patient and EMS <LOS Travis Last Filed: 11/30/21 15:39> Mode of arrival: EMS <LOS Travis Last Filed: 11/30/21 15:39> History of Present Illness HPI narrative: Patient is an 81 year old male presenting to the emergency department today with generalized weakness and a headache. Patient states that he lives at an assisted living facility and was evaluated here not long ago for something si milar. Patient states that he is COVID-19 positive. Patient states that last time he was here, he was told to stop taking his warfarin. Patient denies any dizziness, lightheadedness, abdominal pain, nausea, vomiting, fever, chills, blurry vision, double vision, loss of vision, chest pain, difficulty breathing, shortness of breath, back pain, night sweats, pain with urination, increased urinary frequency, increased urinary urgency, blood in his urine or stool, syncope or a near syncopal episode, recent trauma or falls, bowel incontinence, bladder incontinence, bowel retention, bladder retention, or any other complaints at this time. <LOS Travis Last Filed: 11/30/21 15:39> Onset (ago): day(s) <LOS Travis Last Filed: 11/30/21 15:39> Location: head <LOS Travis Last Filed: 11/30/21 15:39> Radiation: non-radiation <LOS Travis Last Filed: 11/30/21 15:39> Severity: mild <LOS Travis Last Filed: 11/30/21 15:39> Severity scale (1-10): 4 <LOS Travis Last Filed: 11/30/21 15:39> Quality: dull <LOS Travis Last Filed: 11/30/21 15:39> Pain Consistency: constant <LOS Travis - Last Filed: 11/30/21 15:39> Relieving factors: none <LOS Travis - Last Filed: 11/30/21 15:39> Exacerbating factors: none <LOS Travis - Last Filed: 11/30/21 15:39> Associated symptoms: weakness <LOS Travis - Last Filed: 11/30/21 15:39> Related Data Home medications: Home Medications Medication Instructions Recorded Confirmed atorvastatin 40 mg tablet 40 mg PO BEDTIME 01/19/21 11/30/21 pantoprazole 40 mg tablet,delayed 40 mg PO DAILY@1700 01/19/21 11/30/21 release melatonin 5 mg tablet 5 mg PO BEDTIME 01/20/21 11/30/21 allopurinol 100 mg tablet 50 mg PO SUMOWEFR 11/13/21 11/30/21 docusate sodium 100 mg capsule 2 cap PO BEDTIME 11/13/21 11/30/21 tamsulosin 0.4 mg capsule 0.4 mg PO BEDTIME 11/13/21 11/30/21 warfarin 3 mg tablet 3 mg PO DAILY 11/13/21 11/30/21 albuterol sulfate 90 mcg/actuation 2 puff INHALATION Q6H PRN 11/30/21 11/30/21 aerosol inhaler (Ventolin HFA) hydrocortisone valerate 0.2 % 1 appl TOPICAL BID PRN 11/30/21 11/30/21 topical cream metoprolol tartrate 25 mg tablet 25 mg PO DAILY 11/30/21 11/30/21 potassium chloride 20 mEq 20 meq PO DAILY@1700 11/30/21 11/30/21 tablet,extended release <LOS Travis - Last Filed: 11/30/21 15:39> Allergies/adverse reactions: Allergies Allergy/AdvReac Type Severity Reaction Status Date / Time oxycodone [OXYCODONE] Allergy Intermediate ITCHING Verified 11/30/21 09:34 ANTIBIOITIC-? NAME Allergy Intermediate ITCHING Uncoded 07/23/20 14:50 <LOS Travis Last Filed: 11/30/21 15:39> Review of Systems Constitutional: Constitutional: Reports no additional constitutional complaints, Denies chills, Denies fever(s), Reports headache(s) and Denies night sweats <LOS Travis Last Filed: 11/30/21 15:39> Eyes: Eyes: Reports no additional eye complaints, Denies blurry vision, Denies change in vision, Denies diplopia, Denies eye discharge, Denies loss of vision and Denies eye pain <LOS Travis - Last Filed: 11/30/21 15:39> ENT: Denies dizziness and Reports headache(s) <LOS Travis - Last Filed: 11/30/21 15:39> Cardiovascular: Cardiovascular: Reports no additional cardiovascular complaints, Denies chest pain, Denies lightheadedness, Denies Loss of Consciousness and Denies dyspnea <LOS Travis - Last Filed: 11/30/21 15:39> Respiratory: Respiratory: Reports no additional respiratory complaints and D enies dyspnea <LOS Travis - Last Filed: 11/30/21 15:39> Gastrointestinal: Gastrointestinal: Reports no additional gastrointestinal complaints, Denies abdominal pain, Denies melena, Denies hematochezia, Denies change in bowel habits and Denies change in stool character <LOS Travis - Last Filed: 11/30/21 15:39> Genitourinary: Genitourinary: Reports no additional male genitourinary complaints, Denies hematuria, Denies oliguria, Denies difficulty urinating, Denies dysuria, Denies urinary frequency, Denies urinary hesitancy, Denies urinary incontinence and Denies urinary urgency <LOS Travis - Last Filed: 11/30/21 15:39> Musculoskeletal: Musculoskeletal: Reports no additional musculoskeletal complaints, Denies numbness and Denies tingling <LOS Travis - Last Filed: 11/30/21 15:39> Neurologic: Reports confusion (Pleasantly), Denies dizziness, Reports heada bryanna(s), Denies loss of vision, Denies numbness and Denies tingling <LOS Travis - Last Filed: 11/30/21 15:39> Psychiatric: Psychiatric: Reports no additional psychiatric complaints and Reports confusion (Pleasantly) <LOS Travis - Last Filed: 11/30/21 15:39> Endocrine: Endocrine: Reports no additional endocrine complaints <LOS Travis - Last Filed: 11/30/21 15:39> Hematologic/Lymphatic: Hematologic/Lymphatic: Reports no additional hematologic/lymphatic complaints <LOS Travis - Last Filed: 11/30/21 15:39> Allergic/Immunologic: Allergic/Immunologic: Reports no additional allergic/immunologic complaints <LOS Travis - Last Filed: 11/30/21 15:39> [facility] Past Medical History Attestation statement: The following information was validated with the patient. 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 GERD (gastroesophageal reflux disease) Heart failure HLD (hyperlipidemia) HTN (hypertension) Neuropathy Persistent atrial fibrillation PVD (peripheral vascular disease) <LOS Travis - Last Filed: 11/30/21 15:39> Surgical History: Surgical History Status post aorto-coronary artery bypass graft Status post mitral valve repair Status post transcatheter aortic valve replacement <LOS Travis - Last Filed: 11/30/21 15:39> Family History Family History: Family History Other Hypertension <LOS Travis - Last Filed: 11/30/21 15:39> Social History Social History: Social History Household Members: Friend(s) Household Members Other:: facility Housing: Apartment Do you presently have visiting nurse or other home services: Yes Alcohol intake: unknown Patient Tobacco Use Status: Former Tobacco user Second Hand Smoke Exposure: No Use of substances other than those prescribed or required for medical reasons: No Advance Directives: Yes Advance Directives on File: Yes Advance Directives Date on File: 01/20/21 service: No Current occupational status: retired <LOS Travis - Last Filed: 11/30/21 15:39> Physical Exam Vital Signs: Vital Signs: Last Vital Signs Temp 98.1 F 11/30/21 15:50 Pulse 82 11/30/21 15:50 Resp 20 11/30/21 15:50 BP 140/77 H 11/30/21 15:50 Pulse Ox 97 11/30/21 15:50 BMI result Body Mass Index 0.0 <LOS Travis - Last Filed: 11/30/21 15:39> Vital Signs: Last Vital Signs Temp 98.1 F 11/30/21 15:50 Pulse 82 11/30/21 15:50 Resp 20 11/30/21 15:50 BP 140/77 H 11/30/21 15:50 Pulse Ox 97 11/30/21 15:50 BMI result Body Mass Index 0.0 <Garland Mccormick MD - Last Filed: 11/30/21 16:26> Const: General: cooperative, no acute distress, alert, awake and confusion (Pleasantly) <LOS Travis - Last Filed: 11/30/21 15:39> Nutritional Appearance: well nourished <LOS Travis - Last Filed: 11/30/21 15:39> Orientation/consciousness: patient oriented x3 and confusion (Pleasantly) <LOS Travis - Last Filed: 11/30/21 15:39> Limitations: no limitations <LOS Travis - Last Filed: 11/30/21 15:39> HENMT: Head: Yes normal to inspection and Yes atraumatic <LOS Travis - Last Filed: 11/30/21 15:39> Ears: hearing grossly normal bilaterally and external ears normal <LOS Travis - Last Filed: 11/30/21 15:39> General nose exam: Normal external nose present, no nasal discharge noted and no epistaxis <LOS Travis - Last Filed: 11/30/21 15:39> Face and sinus: Yes normal facial exam, No abrasion and No laceration <OLS Travis - Last Filed: 11/30/21 15:39> Mouth: Normal oral and palatal mucosa present, no drooling and no muffled voice <Monica Alejandra PA - Last Filed: 11/30/21 15:39> Eyes: General: appearance normal, both eyes and all related structures <Monica Alejandra PA - Last Filed: 11/30/21 15:39> Periorbital: periorbital findings normal <Monica Alejandra PA - Last Filed: 11/30/21 15:39> Eyelids: Yes eyelids normal <Monica Alejandra PA - Last Filed: 11/30/21 15:39> Conjunctivae: conjunctivae normal <Monica Alejandra PA - Last Filed: 11/30/21 15:39> Pupils: Equal, round and reactive pupils present <Monica Alejandra PA - Last Filed: 11/30/21 15:39> EOM: EOMs intact bilaterally <Monica Alejandra PA - Last Filed: 11/30/21 15:39> Neck: Neck: Yes normal visual inspection, Yes full ROM and Yes no lymphadenopathy <Monica Alejandra PA - Last Filed: 11/30/21 15:39> Chest: Chest palpation & inspection: normal inspection of the chest <Monica Alejandra PA - Last Filed: 11/30/21 15:39> Resp: Effort & Inspection: normal respiratory effort and able to speak in complete sentences <Monica Alejandra PA - Last Filed: 11/30/21 15:39> Auscultation: clear to auscultation bilaterally <Monica Alejandra PA - Last Filed: 11/30/21 15:39> Cardio: Rate: tachycardic <Monica Alejandra PA - Last Filed: 11/30/21 15:39> Rhythm: abnormal rhythm irregularly irregular <Monica Alejandra PA - Last Filed: 11/30/21 15:39> GI: Inspection: Yes normal to inspection <Monica Alejandra PA - Last Filed: 11/30/21 15:39> Neuro: General: patient oriented x3, moves all extremities and confusion (Pleasantly) <Monica Alejandra PA - Last Filed: 11/30/21 15:39> Cranial nerves: Yes Equal, round and reactive pupils present <Monica Alejandra PA - Last Filed: 11/30/21 15:39> Cognition (Neuro): normal cognition <Monica AlejandraLOS - Last Filed: 11/30/21 15:39> Motor exam (neuro): 5/5 motor strength present throughout <Monica AlejandraLOS - Last Filed: 11/30/21 15:39> Sensory Exam: Normal double simultaneous stimulation for sensation <Monica Alejandra PA - Last Filed: 11/30/21 15:39> Coordination: [id number] test normal <Monica AlejandraLOS - Last Filed: 11/30/21 15:39> Extrem: Other: Above-knee amputation of the left lower extremity, all extremities remaining have normal range of motion, sensation, and strength <Monica LedezmaLOS dorantes - Last Filed: 11/30/21 15:39> Psych: Appearance: grossly normal <Monica AlejandraLOS - Last Filed: 11/30/21 15:39> Mental Status: mental status grossly normal <Monica LedezmaLOS dorantes - Last Filed: 11/30/21 15:39> Affect: normal affect <Monica LedezmaLOS dorantes - Last Filed: 11/30/21 15:39> Attitude: cooperative <Monica LedezmaLOS dorantes - Last Filed: 11/30/21 15:39> Thought process: Normal thought process present <Monica LedezmaLOS dorantes - Last Filed: 11/30/21 15:39> Thought content: Normal thought content present <Monica LedezmaLOS dorantes - Last Filed: 11/30/21 15:39> Insight: Good insight present (Psych) <Monicadonny LedezmaLOS dorantes - Last Filed: 11/30/21 15:39> NIH Stroke Scale Internal: Initial- Upon Arrival <Monica LedezmaLOS dorantes - Last Filed: 11/30/21 15:39> Time: 09:22 <Monicadonny LedezmaLOS dorantes - Last Filed: 11/30/21 15:39> Level of Consciousness: Alert <Monicadonny LedezmaLOS dorantes - Last Filed: 11/30/21 15:39> Level of Consciousness Questions: Answers both questions correctly <Monica LOS Alejandra - Last Filed: 11/30/21 15:39> Level of Consciousness Commands: Performs both tasks correctly <LOS Travis - Last Filed: 11/30/21 15:39> Best Gaze: Normal <Monica AlejandraLOS - Last Filed: 11/30/21 15:39> Visual: No visual loss <Monica AlejandraLOS - Last Filed: 11/30/21 15:39> Motor Arm (Right): No drift <Monica AlejandraLOS - Last Filed: 11/30/21 15:39> Motor Arm (Left): No drift <Monica AlejandraLOS - Last Filed: 11/30/21 15:39> Motor Leg (Right): No drift <Monica Alejandra PA - Last Filed: 11/30/21 15:39> Motor Leg (Left): Amputation or joint fusion <Monica AlejandraLOS - Last Filed: 11/30/21 15:39> Limb Ataxia: Absent <Monica AlejandraLOS - Last Filed: 11/30/21 15:39> Sensory: Normal <Monica AlejandraLOS - Last Filed: 11/30/21 15:39> Best Language: No aphasia <Monica AlejandraLOS - Last Filed: 11/30/21 15:39> Dysarthia: Normal <Monica AlejandraLOS - Last Filed: 11/30/21 15:39> Extinction and Inattention: No abnormality <Monica AlejandraLOS - Last Filed: 11/30/21 15:39> Course Course Course Narrative: Patient's head CT and chest x-ray showed no acute process. <Monica Alejandra LOS - Last Filed: 11/30/21 15:39> Medical Decision Making MDM Narrative Medical decision making narrative: Patient is an 81 year old male presenting to the emergency department today with a headache and generalized weakness. Patient's physical exam showed the patient in a tachycardic rhythm that was irregularly irregular. Additionally, the patient is pleasantly confused but is oriented times person, place, and ti me. Patient's blood work showed an elevated INR, consistent with warfarin use. Patient's EKG showed atrial fibrillation with rapid ventricular response. Patient's chest x-ray and head CT showed no acute process. I explained my physical exam findings as well as all test results to the patient. I answered all questions asked by the patient. Patient received a bolus dose of Cardizem and was started on a Cardizem drip which decreased his heart rate to the 80s, consistently. I spoke with Dr. Padron, hospitalist, who agreed to admission. Patient verbalized agreement and understanding with this treatment plan and hospital admission. <LOS Travis - Last Filed: 11/30/21 15:39> Differential Diagnosis Differential Diagnosis: Weakness, atrial fibrillation with rapid ventricular response, COVID-19 <LOS Travis - Last Filed: 11/30/21 15:39> Medical Records Medical records reviewed: Yes I reviewed the patient's medical records. <LOS Travis - Last Filed: 11/30/21 15:39> Lab Data Lab results reviewed: Yes I reviewed the patient's lab results. <LOS Travis - Last Filed: 11/30/21 15:39> Result diagrams: : 11/30/21 10:56 11/30/21 11:14 <LOS Travis - Last Filed: 11/30/21 15:39> Labs: Lab Results 11/30/21 11/30/21 11/30/21 Range/Units 10:56 10:56 10:56 WBC 10.2 (4.8-10.8) X10*3/uL RBC 3.66 L (4.60-5.80) X10*6/uL Hgb 10.3 L (14.0-18.0) g/dl Hct 32.3 L (42.0-52.0) % MCV 88.3 (80.0-98.0) fL MCH 28.1 (27.0-33.0) pg MCHC 31.9 (31.0-36.0) g/dl RDW 17.2 H (11.0-16.0) % Plt Count 209 (160-400) X10*3/uL MPV 12.4 (9.4-12.4) fL Immature Gran % (Auto) 0.3 (0.0-0.4) % Neut % (Auto) 76.7 H (45-73) % Lymph % (Auto) 11.6 L (20-40) % Arthur % (Auto) 8.3 (2-11) % Eos % (Auto) 2.7 (0-4) % Baso % (Auto) 0.4 (0-2) % Lymph # (Auto) 1.2 (1.2-4.9) X10*3/uL Arthur # (Auto) 0.9 (0.1-1.2) X10*3/uL Eos # (Auto) 0.3 (0.0-0.4) X10*3/uL Baso # (Auto) 0.0 (0.0-0.2) X10*3/uL Abs Immat Gran (auto) 0.03 (0.00-0.03) X10*3/uL Absolute Neuts (auto) 7.8 (2.0-8.3) x10*3/uL Absolute Nucleated RBC 0.000 (0.0-0.012) X10*3/uL Nucleated RBC % (auto) 0.0 (0.0-0.2) /100WBC PT 27.1 H (9.9-13.0) SEC INR 2.3 H (0.9-1.1) APTT 40.1 H (24.1-38.0) SEC Sodium (135-145) mmol/L Potassium (3.3-5.1) mmol/L Chloride (96-108) mmol/L Carbon Dioxide (22-29) mmol/L Anion Gap (12-20) BUN (9-16) mg/dL Creatinine (0.5-1.4) mg/dL Estim Creat Clear Calc Estimated GFR Fasting Glucose (60-99) mg/dL Lactic Acid (0.5-2.0) mmol/L Calcium (8.4-10.2) mg/dL Magnesium (1.6-2.6) mg/dL Total Bilirubin (0.0-1.0) mg/dL AST (5-37) U/L ALT (0-40) U/L Alkaline Phosphatase (39-117) U/L Troponin I High Sens 61.5 H D (<3.5-35.0) ng/L Total Protein (6.5-8.0) g/dL Albumin (3.5-5.0) g/dL 11/30/21 11/30/21 Range/Units 11:10 11:14 WBC (4.8-10.8) X10*3/uL RBC (4.60-5.80) X10*6/uL Hgb (14.0-18.0) g/dl Hct (42.0-52.0) % MCV (80.0-98.0) fL MCH (27.0-33.0) pg MCHC (31.0-36.0) g/dl RDW (11.0-16.0) % Plt Count (160-400) X10*3/uL MPV (9.4-12.4) fL Immature Gran % (Auto) (0.0-0.4) % Neut % (Auto) (45-73) % Lymph % (Auto) (20-40) % Arthur % (Auto) (2-11) % Eos % (Auto) (0-4) % Baso % (Auto) (0-2) % Lymph # (Auto) (1.2-4.9) X10*3/uL Arthur # (Auto) (0.1-1.2) X10*3/uL Eos # (Auto) (0.0-0.4) X10*3/uL Baso # (Auto) (0.0-0.2) X10*3/uL Abs Immat Gran (auto) (0.00-0.03) X10*3/uL Absolute Neuts (auto) (2.0-8.3) x10*3/uL Absolute Nucleated RBC (0.0-0.012) X10*3/uL Nucleated RBC % (auto) (0.0-0.2) /100WBC PT (9.9-13.0) SEC INR (0.9-1.1) APTT (24.1-38.0) SEC Sodium 142 (135-145) mmol/L Potassium 4.6 (3.3-5.1) mmol/L Chloride 113 H (96-108) mmol/L Carbon Dioxide 18 L (22-29) mmol/L Anion Gap 16 (12-20) BUN 27 H (9-16) mg/dL Creatinine 2.06 H (0.5-1.4) mg/dL Estim Creat Clear Calc TNP Estimated GFR 31 Fasting Glucose 85 (60-99) mg/dL Lactic Acid 1.6 (0.5-2.0) mmol/L Calcium 9.3 D (8.4-10.2) mg/dL Magnesium 1.7 (1.6-2.6) mg/dL Total Bilirubin 1.2 H (0.0-1.0) mg/dL AST 27 (5-37) U/L ALT 20 (0-40) U/L Alkaline Phosphatase 129 H (39-117) U/L Troponin I High Sens (<3.5-35.0) ng/L Total Protein 7.1 (6.5-8.0) g/dL Albumin 3.6 (3.5-5.0) g/dL <LOS Travis - Last Filed: 11/30/21 15:39> Lab Results 11/30/21 11/30/21 11/30/21 Range/Units 10:56 10:56 10:56 WBC 10.2 (4.8-10.8) X10*3/uL RBC 3.66 L (4.60-5.80) X10*6/uL Hgb 10.3 L (14.0-18.0) g/dl Hct 32.3 L (42.0-52.0) % MCV 88.3 (80.0-98.0) fL MCH 28.1 (27.0-33.0) pg MCHC 31.9 (31.0-36.0) g/dl RDW 17.2 H (11.0-16.0) % Plt Count 209 (160-400) X10*3/uL MPV 12.4 (9.4-12.4) fL Immature Gran % (Auto) 0.3 (0.0-0.4) % Neut % (Auto) 76.7 H (45-73) % Lymph % (Auto) 11.6 L (20-40) % Arthur % (Auto) 8.3 (2-11) % Eos % (Auto) 2.7 (0-4) % Baso % (Auto) 0.4 (0-2) % Lymph # (Auto) 1.2 (1.2-4.9) X10*3/uL Arthur # (Auto) 0.9 (0.1-1.2) X10*3/uL Eos # (Auto) 0.3 (0.0-0.4) X10*3/uL Baso # (Auto) 0.0 (0.0-0.2) X10*3/uL Abs Immat Gran (auto) 0.03 (0.00-0.03) X10*3/uL Absolute Neuts (auto) 7.8 (2.0-8.3) x10*3/uL Absolute Nucleated RBC 0.000 (0.0-0.012) X10*3/uL Nucleated RBC % (auto) 0.0 (0.0-0.2) /100WBC PT 27.1 H (9.9-13.0) SEC INR 2.3 H (0.9-1.1) APTT 40.1 H (24.1-38.0) SEC Sodium (135-145) mmol/L Potassium (3.3-5.1) mmol/L Chloride (96-108) mmol/L Carbon Dioxide (22-29) mmol/L Anion Gap (12-20) BUN (9-16) mg/dL Creatinine (0.5-1.4) mg/dL Estim Creat Clear Calc Estimated GFR Fasting Glucose (60-99) mg/dL Lactic Acid (0.5-2.0) mmol/L Calcium (8.4-10.2) mg/dL Magnesium (1.6-2.6) mg/dL Total Bilirubin (0.0-1.0) mg/dL AST (5-37) U/L ALT (0-40) U/L Alkaline Phosphatase (39-117) U/L Troponin I High Sens 61.5 H D (<3.5-35.0) ng/L Total Protein (6.5-8.0) g/dL Albumin (3.5-5.0) g/dL 11/30/21 11/30/21 Range/Units 11:10 11:14 WBC (4.8-10.8) X10*3/uL RBC (4.60-5.80) X10*6/uL Hgb (14.0-18.0) g/dl Hct (42.0-52.0) % MCV (80.0-98.0) fL MCH (27.0-33.0) pg MCHC (31.0-36.0) g/dl RDW (11.0-16.0) % Plt Count (160-400) X10*3/uL MPV (9.4-12.4) fL Immature Gran % (Auto) (0.0-0.4) % Neut % (Auto) (45-73) % Lymph % (Auto) (20-40) % Arthur % (Auto) (2-11) % Eos % (Auto) (0-4) % Baso % (Auto) (0-2) % Lymph # (Auto) (1.2-4.9) X10*3/uL Arthur # (Auto) (0.1-1.2) X10*3/uL Eos # (Auto) (0.0-0.4) X10*3/uL Baso # (Auto) (0.0-0.2) X10*3/uL Abs Immat Gran (auto) (0.00-0.03) X10*3/uL Absolute Neuts (auto) (2.0-8.3) x10*3/uL Absolute Nucleated RBC (0.0-0.012) X10*3/uL Nucleated RBC % (auto) (0.0-0.2) /100WBC PT (9.9-13.0) SEC INR (0.9-1.1) APTT (24.1-38.0) SEC Sodium 142 (135-145) mmol/L Potassium 4.6 (3.3-5.1) mmol/L Chloride 113 H (96-108) mmol/L Carbon Dioxide 18 L (22-29) mmol/L Anion Gap 16 (12-20) BUN 27 H (9-16) mg/dL Creatinine 2.06 H (0.5-1.4) mg/dL Estim Creat Clear Calc TNP Estimated GFR 31 Fasting Glucose 85 (60-99) mg/dL Lactic Acid 1.6 (0.5-2.0) mmol/L Calcium 9.3 D (8.4-10.2) mg/dL Magnesium 1.7 (1.6-2.6) mg/dL Total Bilirubin 1.2 H (0.0-1.0) mg/dL AST 27 (5-37) U/L ALT 20 (0-40) U/L Alkaline Phosphatase 129 H (39-117) U/L Troponin I High Sens (<3.5-35.0) ng/L Total Protein 7.1 (6.5-8.0) g/dL Albumin 3.6 (3.5-5.0) g/dL <Garland Mccormcik MD - Last Filed: 11/30/21 16:26> ECG Data Attestation: I personally reviewed and interpreted this ECG as follows: <LOS Travis - Last Filed: 11/30/21 15:39> Prior ECG tracings: available for review <LOS Travis - Last Filed: 11/30/21 15:39> Interpretation: Atrial fibrillation with rapid ventricular response <LOS Travis - Last Filed: 11/30/21 15:39> Discharge Plan Discharge Clinical Impression: Atrial fibrillation with RVR, COVID-19 <LOS Travis - Last Filed: 11/30/21 15:39> Patient Disposition: Admitted As Inpatient <LOS Travis - Last Filed: 11/30/21 15:39>
--- NOTE | 2021-11-30 09:32 | ECG_ITS ---
Test Reason : weakness Blood Pressure : / mmHG Vent. Rate : 147 BPM Atrial Rate : 000 BPM P-R Int : 000 ms QRS Dur : 082 ms QT Int : 306 ms P-R-T Axes : 000 -19 166 degrees QTc Int : 478 ms Atrial fibrillation with rapid ventricular response Nonspecific ST and T wave abnormality Abnormal ECG When compared with ECG of 13-NOV-2021 01:57, No significant change was found Referred By: Monica Alejandra Electronically Signed By:CATERINA PROCTOR MD
[2021-11-30] MEDS: dilTIAZem HCL 50 MG/10 ML VIAL 20 MG IVPUSH (09:45)
--- NOTE | 2021-11-30 09:47 | PC.NURSE ---
after 20mg ivp cardizem pt is in controlled a fib in 90's
[2021-11-30 11:00] LABS: MANUAL DIFF FLAG NO
[2021-11-30 11:05] LABS: Basophils Percent Auto 0.4 % (0-2); Eosinophils Absolute Auto 0.3 X10*3/uL (0.0-0.4); Eosinophils Percent Auto 2.7 % (0-4); Hematocrit 32.3 % (42.0-52.0); Hemoglobin 10.3 g/dl (14.0-18.0); Imm Gran Abs Auto 0.03 X10*3/uL (0.00-0.03); Imm Gran Pct Auto 0.3 % (0.0-0.4); Lymphocytes Absolute Auto 1.2 X10*3/uL (1.2-4.9); Lymphocytes Percent Auto 11.6 % (20-40); Mean Corpuscular HGB Conc 31.9 g/dl (31.0-36.0); Mean Corpuscular Hemoglobin 28.1 pg (27.0-33.0); Mean Corpuscular Volume 88.3 fL (80.0-98.0); Mean Platelet Volume 12.4 fL (9.4-12.4); Monocytes Absolute Auto 0.9 X10*3/uL (0.1-1.2); Monocytes Percent Auto 8.3 % (2-11); Neutrophils Absolute Auto 7.8 x10*3/uL (2.0-8.3); Neutrophils Percent Auto 76.7 % (45-73); Platelet Count 209 X10*3/uL (160-400); Red Blood Count 3.66 X10*6/uL (4.60-5.80); Red Cell Distribution Width 17.2 % (11.0-16.0); White Blood Count 10.2 X10*3/uL (4.8-10.8)
[2021-11-30 11:07] LABS: INTERNATIONAL NORM RATIO 2.3 (0.9-1.1); Prothrombin Time 27.1 SEC (9.9-13.0)
[2021-11-30 11:09] LABS: Partial Thromboplastin Time 40.1 SEC (24.1-38.0)
[2021-11-30 11:23] LABS: Troponin-I High Sensitivity 61.5 ng/L (<3.5-35.0)
[2021-11-30 11:32] LABS: Lactic Acid 1.6 mmol/L (0.5-2.0)
[2021-11-30 11:44] LABS: Alanine Aminotransferase 20 U/L (0-40); Albumin Level 3.6 g/dL (3.5-5.0); Alkaline Phosphatase 129 U/L (39-117); Anion Gap 16 (12-20); Aspartate Amino Transferase 27 U/L (5-37); Bilirubin Total 1.2 mg/dL (0.0-1.0); Blood Urea Nitrogen 27 mg/dL (9-16); Calcium 9.3 mg/dL (8.4-10.2); Carbon Dioxide 18 mmol/L (22-29); Chloride 113 mmol/L (96-108); Estimated Glomerular Filt Rate 31; Glucose Fasting 85 mg/dL (60-99); Magnesium 1.7 mg/dL (1.6-2.6); Potassium 4.6 mmol/L (3.3-5.1); Sodium 142 mmol/L (135-145); Total Protein 7.1 g/dL (6.5-8.0)
[2021-11-30] MEDS: dilTIAZem HCL 125 MG in 0.9 % Sodium Chloride 100 ML 10 MG IVCONT (12:02)
--- NOTE | 2021-11-30 14:27 | PC.NURSE ---
resting quietly. no complaints. controlled a fib on monitor.
--- NOTE | 2021-11-30 14:44 | P.HPHOSP_ITS ---
History of Present Illness Date of Service: 11/30/21 Chief Complaint: weakness An 81 years old male with PMH of atrial fibrillation, bioprosthetic aortic valve, GERD among others who presented to the hospital complaining of increased weakness and feeling unwell for the last day. He was recently discharged from the hospital after being treated for COVID-19 infection as he developed atrial fibrillation with RVR during that admission. He was noted to have atrial fibrillation with rapid ventricular response. Sta rted on Cardizem drip with fair response. Admitted for further evaluation and treatment. 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 GERD (gastroesophageal reflux disease) Heart failure HLD (hyperlipidemia) HTN (hypertension) Neuropathy Persistent atrial fibrillation PVD (peripheral vascular disease) Family History Other Hypertension Surgical History Status post aorto-coronary artery bypass graft Status post mitral valve repair Status post transcatheter aortic valve replacement Social History Household Members: Friend(s) Household Members Other:: facility Housing: Apartment Do you presently have visiting nurse or other home services: Yes Alcohol intake: unknown Patient Tobacco Use Status: Former Tobacco user Second Hand Smoke Exposure: No Use of substances other than those prescribed or required for medical reasons: No Advance Directives: Yes Advance Directives on File: Yes Advance Directives Date on File: 01/20/21 service: No Current occupational status: retired Meds Allergies Allergy/AdvReac Type Severity Reaction Status Date / Time oxycodone [OXYCODONE] Allergy Intermediate ITCHING Verified 11/30/21 09:34 ANTIBIOITIC-? NAME Allergy Intermediate ITCHING Uncoded 07/23/20 14:50 Active Medications: Current Medications Acetaminophen (Acetaminophen 325 Mg Tablet) 650 mg PO Q6H PRN PRN Reason: Pain, Mild (Pain Scale 1-3) Diltiazem HCl 125 mg/ Sodium (Chloride) 125 mls @ 0 mls/hr IVCONT .Q0M [facility]; Protocol Last Admin: 11/30/21 12:02 Dose: 10 mg/hr, 10 mls/hr Documented by: Ondansetron HCl (Ondansetron Hcl 4 Mg/2 Ml Vial) 4 mg IVPUSH Q8H PRN PRN Reason: Nausea and Vomiting Pharmacy Consult (Consult Rx Perform Med Rec) 1 each MISCELLANE ONCE PRN PRN Reason: Consult order Sodium Chloride (0.9 % Sodium Chloride Flush 3 Ml Syringe) 3 ml IVFLUSH QSHIFT [facility] Home Medications Medication Instructions Recorded Confirmed Last Taken Type atorvastatin 40 40 mg PO BEDTIME 01/19/21 11/30/21 Unknown History mg tablet pantoprazole 40 40 mg PO 01/19/21 11/30/21 Unknown History mg tablet,delayed DAILY@1700 release melatonin 5 mg 5 mg PO BEDTIME 01/20/21 11/30/21 Unknown History tablet allopurinol 100 50 mg PO 11/13/21 11/30/21 Unknown History mg tablet SUMOWEFR docusate sodium 2 cap PO BEDTIME 11/13/21 11/30/21 Unknown History 100 mg capsule tamsulosin 0.4 mg 0.4 mg PO 11/13/21 11/30/21 Unknown History capsule BEDTIME warfarin 3 mg 3 mg PO DAILY 11/13/21 11/30/21 Unknown History tablet albuterol sulfate 2 puff 11/30/21 11/30/21 Unknown History 90 mcg/actuation INHALATION Q6H PRN aerosol inhaler (Ventolin HFA) hydrocortisone 1 appl TOPICAL 11/30/21 11/30/21 Unknown History valerate 0.2 % BID PRN topical cream metoprolol 25 mg PO DAILY 11/30/21 11/30/21 Unknown History tartrate 25 mg tablet potassium 20 meq PO 11/30/21 11/30/21 Unknown History chloride 20 mEq DAILY@1700 tablet,extended release Physical Exam Verdana 4l Vital Signs and Narrative: Verdana 4d Verdana 4d Vital Signs: Verdana 4d Verdana 4Bd Last Vital Signs Verdana 4d School Manager New 4d School Manager New 4d Temp 97.6 F 11/30/21 09:34 School Manager 4d Pulse 79 11/30/21 14:27 School Manager 4d Resp 18 11/30/21 14:27 BP 142/82 H 11/30/21 14:27 Pulse Ox 98 11/30/21 13:01 BMI result Body Mass Index 0.0 Const: Other: Constitutional : Alert, oriented, not in distress Neck : Normal inspection, Supple Cardiovascular : Irregular irregular, no lower extremity edema, on Cardizem drip Respiratory : Chest wall moving bilaterally, no wheezes or rhonchi Gastrointestinal: soft, lax, Normal bowel sounds, Non tender Skin : Warm, Dry Neurological : Alert & oriented x3, No focal deficit Results Labs CBC and Chem 7: 11/30/21 10:56 11/30/21 11:14 Labs: Laboratory Results - last 24 hr 11/30/21 11/30/21 11/30/21 10:56 10:56 10:56 MCV 88.3 MCH 28.1 MCHC 31.9 RDW 17.2 H Plt Count 209 MPV 12.4 Immature Gran % (Auto) 0.3 Neut % (Auto) 76.7 H Lymph % (Auto) 11.6 L [place] % (Auto) 8.3 Eos % (Auto) 2.7 Baso % (Auto) 0.4 Lymph # (Auto) 1.2 [place] # (Auto) 0.9 Eos # (Auto) 0.3 Baso # (Auto) 0.0 Abs Immat Gran (auto) 0.03 Absolute Neuts (auto) 7.8 Absolute Nucleated RBC 0.000 Nucleated RBC % (auto) 0.0 PT 27.1 H INR 2.3 H APTT 40.1 H Anion Gap Estim Creat Clear Calc Estimated GFR Fasting Glucose Lactic Acid Calcium Magnesium Total Bilirubin AST ALT Alkaline Phosphatase Troponin I High Sens 61.5 H D Total Protein Albumin 11/30/21 11/30/21 11:10 11:14 MCV MCH MCHC RDW Plt Count MPV Immature Gran % (Auto) Neut % (Auto) Lymph % (Auto) [place] % (Auto) Eos % (Auto) Baso % (Auto) Lymph # (Auto) [place] # (Auto) Eos # (Auto) Baso # (Auto) Abs Immat Gran (auto) Absolute Neuts (auto) Absolute Nucleated RBC Nucleated RBC % (auto) PT INR APTT Anion Gap 16 Estim Creat Clear Calc TNP Estimated GFR 31 Fasting Glucose 85 Lactic Acid 1.6 Calcium 9.3 D Magnesium 1.7 Total Bilirubin 1.2 H AST 27 ALT 20 Alkaline Phosphatase 129 H Troponin I High Sens Total Protein 7.1 Albumin 3.6 Imaging Radiologist's Impressions: Impressions Chest X-Ray 11/30/21 10:24 IMPRESSION: Mild cardiomegaly. Minimal platelike atelectasis or scarring left lung base. Head CT 11/30/21 10:32 IMPRESSION: No acute intracranial process seen. Moderate cerebral volume loss with moderate chronic microangiopathy. Chronic bilateral ethmoid and frontal sinus inflammatory changes. Assessment and Plan (1) Physical deconditioning: Status: Acute (2) Atrial fibrillation with rapid ventricular response: Status: Acute (3) COVID-19: Status: Acute Plan An 81 years old male with PMH of atrial fibrillation, bioprosthetic aortic valve, GERD among others who presented to the hospital complaining of increased weakness and feeling unwell for the last day. AFib with RVR Started on Cardizem drip Restart home does diltiazem and metoprolol. Monitor on telemetry.? 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 baseline creatinine around 1.8-2 Avoid nephrotoxins, Lasix held. Elevated troponin Denies any chest pain toxic EKG nonischemic.? Troponin lower than before, monitors and repeat if needed HFpEF? Lasix History of BPH Continue home Flomax.? History of Type 2 diabetes mellitus with peripheral neuropathy Controlled.? currently not on meds. DVT prophylaxis coumadin Code status: Full code Quality Stroke Does the patient have a stroke diagnosis?: No VTE Prior VTE?: No VTE Risk Level:: Medical - moderate - high VTE Device Contraindication: Treatment Not Indicated VTE Drug Contraindication: N/A - Med Ordered
--- NOTE | 2021-11-30 14:46 | PHA.MEDREC ---
Pharmacy Consult ? Medication Reconciliation Pharmacy has completed the medication reconciliation. No remarkable issues. Macy Lewis, TheresaD
[2021-11-30 14:53] LABS: Appearance Urine CLEAR; Color Urine YELLOW; Glucose Urine UA NEG (NEG); Leukocyte Esterase Urine NEG (NEG); Nitrite Urine NEG (NEG); PH 5.5 (5.0-8.0); Specific Gravity - Urine 1.025 (1.005-1.025); UACC Culture Trigger NO; Urine Blood 3+ (NEG); Urine Ketones NEG (NEG); Urine Protein 2+ MG/DL (NEG-TRACE)
[2021-11-30 15:03] LABS: Squamous Epithelial Cell Urine 1+ /LPF; WBC Urine 0-2 /HPF (0-4)
--- NOTE | 2021-11-30 15:09 | PC.NURSE ---
raghu Patel, given update on phone. [phone]. [facility] assists patient with meds. They are based out of [facility] [facility] in [place].
[2021-11-30 16:15] LABS: COVID-19 Test Positive (Negative); IDNOW Serial# 9DD0AD1C
--- NOTE | 2021-11-30 17:46 | PC.NURSE ---
pt sleeping. skin pwd controlled a fib on monitor. has been in 80-90's consistently for ast few hours. diltiazem drip held.
[2021-11-30] MEDS: Potassium Chloride ER 20 MEQ TAB.ER.PRT PO (18:50)
--- NOTE | 2021-11-30 20:39 | PC.NURSE ---
pt HR and BP elevated. per hospitalist, Diltiazem drip to be continued @ 10/hr
[2021-11-30] MEDS: Docusate Sodium 100 MG CAPSULE 200 MG PO (22:41)
[2021-11-30] MEDS: Metoprolol Tartrate 50 MG TABLET PO (22:43)
[2021-11-30] MEDS: Atorvastatin Calcium 40 MG TABLET PO (22:43)
[2021-11-30] MEDS: Tamsulosin HCL 0.4 MG CAPSULE PO (22:44)
[2021-12-01] VITALS (7 sets, daily range): BP systolic 131–162; BP diastolic 58–90; PULSE 61–98; RESP 16–20; TEMP 36.7–37.3; O2SAT 95–97
--- NOTE | 2021-12-01 01:30 | PC.NURSE ---
nurse to nurse report given to John PORRAS
[2021-12-01 02:28] LABS: Glucose, Whole Blood 86 mg/dL (60-115)
[2021-12-01] MEDS: 0.9 % Sodium Chloride Flush 3 ML SYRINGE IVFLUSH ×2 (07:54→18:15)
[2021-12-01] MEDS: Metoprolol Tartrate 50 MG TABLET PO (07:54)
[2021-12-01] MEDS: Acetaminophen 325 MG TABLET 650 MG PO (07:55)
[2021-12-01] MEDS: dilTIAZem HCL CD 120 MG CAP.ER.DEG PO (07:55)
[2021-12-01] MEDS: allopurinoL 100 MG TABLET 50 MG PO (07:57)
--- NOTE | 2021-12-01 08:40 | MHC.CM.PN ---
Patient is Covid (+); CM spoke with Primary Contact/Niece/HCP/Brandie. 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 CM has initiated and will follow for dc planning. IMM addressed with Brandie and the original will be mailed certified letter to her and a copy placed on the chart. PCP is Dr. Crews and Patient has received Lettuce X3w covid vaccinations. Patient is w/chair bound at baseline.HCP and [facility]OLST on file.
[2021-12-01 09:16] LABS: Hematocrit 30.4 % (42.0-52.0); Hemoglobin 9.8 g/dl (14.0-18.0); Mean Corpuscular HGB Conc 32.2 g/dl (31.0-36.0); Mean Corpuscular Hemoglobin 28.7 pg (27.0-33.0); Mean Corpuscular Volume 88.9 fL (80.0-98.0); Mean Platelet Volume 11.6 fL (9.4-12.4); Platelet Count 211 X10*3/uL (160-400); Red Blood Count 3.42 X10*6/uL (4.60-5.80); Red Cell Distribution Width 17.2 % (11.0-16.0); White Blood Count 8.6 X10*3/uL (4.8-10.8)
[2021-12-01 09:25] LABS: INTERNATIONAL NORM RATIO 2.8 (0.9-1.1)
[2021-12-01 09:29] LABS: Anion Gap 14 (12-20); Blood Urea Nitrogen 27 mg/dL (9-16); Calcium 9.3 mg/dL (8.4-10.2); Carbon Dioxide 19 mmol/L (22-29); Chloride 110 mmol/L (96-108); Estimated Glomerular Filt Rate 30; Glucose Random 163 mg/dL (60-115); Potassium 4.2 mmol/L (3.3-5.1); Sodium 139 mmol/L (135-145)
--- NOTE | 2021-12-01 10:27 | P.PNIM_ITS ---
Subjective Subjective Date of Service: 12/01/21 Interval History: the patient was seen and evaluated this morning Laying in bed, feels mild improvement today Heart under better controlled Denies any fever, chills or shortness of breath No reported other overnight events. Review of Systems No fever, chills but reports generalized weakness No chest pain, palpitation No shortness of breath or coughing No abdominal pain, nausea or vomiting No urinary symptoms No any rash or wounds Physical Exam Verdana 4l Vital Signs: Verdana 4d Verdana 4d Vital Signs: Verdana 4d Verdana 4Bd Last Vital Signs Verdana 4d Bacteriologist Soil New 4d Bacteriologist Soil New 4d Temp 98.1 F 12/01/21 07:11 Bacteriologist Soil New 4d Pulse 97 12/01/21 07:11 Bacteriologist Soil New 4d Resp 20 12/01/21 07:11 BP 162/84 H 12/01/21 07:11 Pulse Ox 96 12/01/21 07:11 BMI result Body Mass Index 0.0 Const: Other: Constitutional : Alert, oriented, not in distress Neck : Normal inspection, Supple Cardiovascular : Irregular irregular, no lower extremity edema, on Cardizem drip Respiratory : Chest wall moving bilaterally, no wheezes or rhonchi Gastrointestinal: soft, lax, Normal bowel sounds, Non tender Skin : Warm, Dry Extremities: Below left knee amputation Neurological : Alert & oriented x3, No focal deficit Objective Data Active Medications Acetaminophen (Acetaminophen 325 Mg Tablet) 650 mg PO Q6H PRN PRN Reason: Pain, Mild (Pain Scale 1-3) Last Admin: 12/01/21 07:55 Dose: 650 mg Documented by: DONNIE Albuterol Sulfate (Albuterol Sulfate 90 Mcg 8 Gm Inhaler) 2 puff INHALE Q6H PRN PRN Reason: Shortness Of Breath Allopurinol (Allopurinol 100 Mg Tablet) 50 mg PO SuMoWeFr@0900 [facility] Last Admin: 12/01/21 07:57 Dose: 50 mg Documented by: DONNIE Atorvastatin Calcium (Atorvastatin Calcium 40 Mg Tablet) 40 mg PO BEDTIME [facility] Last Admin: 11/30/21 22:43 Dose: 40 mg Documented by: CORINA Diltiazem HCl (Diltiazem Hcl Cd 120 Mg Cap.Er.Deg) 120 mg PO DAILY [facility]; Protocol Last Admin: 12/01/21 07:55 Dose: 120 mg Documented by: DONNIE Docusate Sodium (Docusate Sodium 100 Mg Capsule) 200 mg PO BEDTIME [facility] Last Admin: 11/30/21 22:41 Dose: 200 mg Documented by: CORINA Diltiazem HCl 125 mg/ Sodium (Chloride) 125 mls @ 0 mls/hr IVCONT .Q0M [facility]; Protocol Last Titration: 12/01/21 01:15 Dose: 0 mg/hr, 0 mls/hr Documented by: CORINA Metoprolol Tartrate (Metoprolol Tartrate 50 Mg Tablet) 50 mg PO BID [facility]; Protocol Last Admin: 12/01/21 07:54 Dose: 50 mg Documented by: DONNIE Ondansetron HCl (Ondansetron Hcl 4 Mg/2 Ml Vial) 4 mg IVPUSH Q8H PRN PRN Reason: Nausea and Vomiting Pharmacy Consult (Consult Rx Perform Med Rec) 1 each MISCELLANE ONCE PRN PRN Reason: Consult order Potassium Chloride (Potassium Chloride Er 20 Meq Tab.Er.Prt) 20 meq PO DAILY@1700 [facility] Last Admin: 11/30/21 18:50 Dose: 20 meq Documented by: MARBELLA Sodium Chloride (0.9 % Sodium Chloride Flush 3 Ml Syringe) 3 ml IVFLUSH QSHIFT [facility] Last Admin: 12/01/21 07:54 Dose: 3 ml Documented by: DONNIE Tamsulosin HCl (Tamsulosin Hcl 0.4 Mg Capsule) 0.4 mg PO BEDTIME [facility] Last Admin: 11/30/21 22:44 Dose: 0.4 mg Documented by: CORINA Warfarin Sodium (Warfarin Sodium 3 Mg Tablet) 3 mg PO DAILY@1800 [facility] Labs CBC & Chem 7: 12/01/21 09:03 12/01/21 09:03 Labs: Laboratory Results - last 24 hr 11/30/21 11/30/21 11/30/21 10:56 10:56 10:56 MCV 88.3 MCH 28.1 MCHC 31.9 RDW 17.2 H Plt Count 209 MPV 12.4 Immature Gran % (Auto) 0.3 Neut % (Auto) 76.7 H Lymph % (Auto) 11.6 L [place] % (Auto) 8.3 Eos % (Auto) 2.7 Baso % (Auto) 0.4 Lymph # (Auto) 1.2 [place] # (Auto) 0.9 Eos # (Auto) 0.3 Baso # (Auto) 0.0 Abs Immat Gran (auto) 0.03 Absolute Neuts (auto) 7.8 Absolute Nucleated RBC 0.000 Nucleated RBC % (auto) 0.0 PT 27.1 H INR 2.3 H APTT 40.1 H Anion Gap Estim Creat Clear Calc Estimated GFR POC Glucose Random Glucose Fasting Glucose Lactic Acid Calcium Magnesium Total Bilirubin AST ALT Alkaline Phosphatase Troponin I High Sens 61.5 H D Total Protein Albumin Urine Color Urine Appearance Urine pH Ur Specific [place] Urine Protein Urine Glucose (UA) Urine Ketones Urine Blood Urine Nitrite Ur Leukocyte Esterase Urine RBC Urine WBC Ur Squamous Epith Cells Urine Bacteria COVID-19 (NIALL) COVID-19 Zapper 11/30/21 11/30/21 11/30/21 11:10 11:14 14:33 MCV MCH MCHC RDW Plt Count MPV Immature Gran % (Auto) Neut % (Auto) Lymph % (Auto) [place] % (Auto) Eos % (Auto) Baso % (Auto) Lymph # (Auto) [place] # (Auto) Eos # (Auto) Baso # (Auto) Abs Immat Gran (auto) Absolute Neuts (auto) Absolute Nucleated RBC Nucleated RBC % (auto) PT INR APTT Anion Gap 16 Estim Creat Clear Calc TNP Estimated GFR 31 POC Glucose Random Glucose Fasting Glucose 85 Lactic Acid 1.6 Calcium 9.3 D Magnesium 1.7 Total Bilirubin 1.2 H AST 27 ALT 20 Alkaline Phosphatase 129 H Troponin I High Sens Total Protein 7.1 Albumin 3.6 Urine Color YELLOW Urine Appearance CLEAR Urine pH 5.5 Ur Specific [place] 1.025 Urine Protein 2+ H Urine Glucose (UA) NEG Urine Ketones NEG Urine Blood 3+ H Urine Nitrite NEG Ur Leukocyte Esterase NEG Urine RBC 5-9 H Urine WBC 0-2 Ur Squamous Epith Cells 1+ Urine Bacteria NONE COVID-19 (NIALL) COVID-19 Zapper 11/30/21 12/01/21 12/01/21 15:50 02:10 09:03 MCV 88.9 MCH 28.7 MCHC 32.2 RDW 17.2 H Plt Count 211 MPV 11.6 Immature Gran % (Auto) Neut % (Auto) Lymph % (Auto) [place] % (Auto) Eos % (Auto) Baso % (Auto) Lymph # (Auto) [place] # (Auto) Eos # (Auto) Baso # (Auto) Abs Immat Gran (auto) Absolute Neuts (auto) Absolute Nucleated RBC 0.000 Nucleated RBC % (auto) 0.0 PT INR APTT Anion Gap Estim Creat Clear Calc Estimated GFR POC Glucose 86 Random Glucose Fasting Glucose Lactic Acid Calcium Magnesium Total Bilirubin AST ALT Alkaline Phosphatase Troponin I High Sens Total Protein Albumin Urine Color Urine Appearance Urine pH Ur Specific [place] Urine Protein Urine Glucose (UA) Urine Ketones Urine Blood Urine Nitrite Ur Leukocyte Esterase Urine RBC Urine WBC Ur Squamous Epith Cells Urine Bacteria COVID-19 (NIALL) Positive A COVID-19 Clin Com See Note 12/01/21 12/01/21 09:03 09:03 MCV MCH MCHC RDW Plt Count MPV Immature Gran % (Auto) Neut % (Auto) Lymph % (Auto) [place] % (Auto) Eos % (Auto) Baso % (Auto) Lymph # (Auto) [place] # (Auto) Eos # (Auto) Baso # (Auto) Abs Immat Gran (auto) Absolute Neuts (auto) Absolute Nucleated RBC Nucleated RBC % (auto) PT 33.0 H INR 2.8 H APTT Anion Gap 14 Estim Creat Clear Calc TNP Estimated GFR 30 POC Glucose Random Glucose 163 H D Fasting Glucose Lactic Acid Calcium 9.3 Magnesium Total Bilirubin AST ALT Alkaline Phosphatase Troponin I High Sens Total Protein Albumin Urine Color Urine Appearance Urine pH Ur Specific [place] Urine Protein Urine Glucose (UA) Urine Ketones Urine Blood Urine Nitrite Ur Leukocyte Esterase Urine RBC Urine WBC Ur Squamous Epith Cells Urine Bacteria COVID-19 (NIALL) COVID-19 Clin Com Assessment and Plan (1) Atrial fibrillation with RVR: Status: Acute (2) Physical deconditioning: Status: Acute Plan An 81 years old male with PMH of atrial fibrillation, bioprosthetic aortic valve, GERD among others who presented to the hospital complaining of increased weakness and feeling unwell for the last day. AFib with RVR Better controlled Discontinue Cardizem drip Restart home does diltiazem 120 SR and metoprolol 50 b.i.d. Monitor on telemetry.? 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 baseline creatinine around 1.8-2 Avoid nephrotoxins, Lasix held. Elevated troponin Denies any chest pain toxic EKG nonischemic.? Troponin lower than before, monitors and repeat if needed HFpEF? Lasix History of BPH Continue home Flomax.? History of Type 2 diabetes mellitus with peripheral neuropathy Controlled.? currently not on meds. DVT prophylaxis coumadin Code status: Full code Quality Stroke Does the patient have a stroke diagnosis?: No VTE Prior VTE?: No VTE Risk Level:: Medical - moderate - high VTE Device Contraindication: Treatment Not Indicated VTE Drug Contraindication: N/A - Med Ordered
--- NOTE | 2021-12-01 12:42 | P.CDIC_ITS ---
CDI Concurrent Query Documentation Clarification: PHYSICIAN'S DOCUMENTATION REQUEST Date of Query: 12/01/21 1242 Patient Name: Arturo Zambrano Admit Date: 11/30/21 Dear Doctor, A review of the medical record indicates additional documentation may be needed. Please review below and update the documentation accordingly. Verdana 4Bd Risk Factors/Clinical Indicators/Treatments Verdana 4d PN: 12/01 - Assessment/plan - CKD 3-4 Avoid nephrotoxins, hold lasix. Baseline creatinine 1.8-2 Cr. 2.06 2.15 Gfr 31 30 Based on the above, could you clarify in the Progress Notes the appropriate diagnosis, if significant, that supports the above abnormalities and additional evaluation, monitoring, and/or treatment rendered: * Chronic kidney disease 3 * Chronic kidney disease 4 * Chronic kidney disease other * Unable to determine Use of terms such as suspected, likely, concern for, or probable (associated with a specific diagnosis that is being evaluated, monitored, or treated as if it exists) are acceptable and can be coded in the inpatient setting, when documented at the time of discharge. Thank you, Mariam Zarco [facility], CDIS Extension: [phone] Please use your independent medical judgment in providing your response. THIS QUERY IS PART OF THE PERMANENT MEDICAL RECORD Provider Response: CKD Stage 3
--- NOTE | 2021-12-01 18:34 | PC.NURSE ---
refused potassium and warfarin po, pt confused , made Dr Ferreira aware
[2021-12-02] VITALS: BP 162/69; PULSE 110; RESP 18; TEMP 38.2; O2SAT 96
--- NOTE | 2021-12-02 00:22 | PC.NURSE ---
Pt refused HS medications. Attempted to give them on two seperate occasions. Discussed giving at least his cardiac meds-pt was refused. Refused to eat or drink. Allowed me to do assessment. Later, pt refused personal care and pulled off his telemetry. Staff was able to clean patient up but he became aggressive when attempted to put telemetry back on. Bed alarm and camera on for safety. Will pass along to next nurse.
[2021-12-02] MEDS: 0.9 % Sodium Chloride Flush 3 ML SYRINGE IVFLUSH ×2 (01:02→09:50)
[2021-12-02 03:40] VITALS: BP 137/98; PULSE 105; RESP 19; TEMP 37.7; O2SAT 96
[2021-12-02 07:15] VITALS: BP 178/83; PULSE 100; RESP 18; TEMP 37.7; O2SAT 97
[2021-12-02] MEDS: Metoprolol Tartrate 50 MG TABLET PO (09:50)
[2021-12-02] MEDS: dilTIAZem HCL CD 120 MG CAP.ER.DEG PO (09:50)
[2021-12-02] MEDS: Sodium Bicarbonate 650 MG TABLET PO (09:50)
[2021-12-02 11:10] VITALS: BP 119/90; PULSE 71; RESP 18; TEMP 36.6; O2SAT 97
--- NOTE | 2021-12-02 11:42 | P.DS_ITS ---
DS: Providers Provider Date of Service: 12/02/21 Date of admission: 11/30/21 14:30 Primary care physician: Surinder Crews MD DS: Diagnosis Discharge Diagnosis (1) Atrial fibrillation with RVR: Status: Acute (2) Physical deconditioning: Status: Acute DS: Summary Hospital Course Hospital Course: admission note HPI An 81 years old male with PMH of atrial fibrillation, bioprosthetic aortic valve, GERD among others who presented to the hospital complaining of increased weakness and feeling unwell for the last day. He was recently discharged from the hospital after being treated for COVID-19 infection as he developed atrial fibrillation with RVR during that admission.? He was noted to have atrial fibrillation with rapid ventricular response.? Started on Cardizem drip with fair response. Admitted for further evaluation and treatment. Hospital course The patient was admitted for atrial fibrillation with rapid ventricular response. Started on Cardizem drip with fair response as his heart rate improved down to 70s. Restarted on home medications of metoprolol 50 mg b.i.d. and Cardizem 120 SR with fair response as heart rate remained stable in 70s. He was evaluated by physical therapy team for increased weakness. Found to be in physical deconditioning after the COVID infection. Plan to discharge home with home physical therapy. To start Cardizem 120 ESR and metoprolol 50 mg b.i.d. to follow up with Cardiology as outpatient Time Spent with Patient Time attestation: Total time spent providing and/or coordinating discharge services: Discharge coordination time: Less than 30 minutes Quality: Stroke Does the patient have a stroke diagnosis?: No Physical Exam Verdana 4l Vital Signs: Verdana 4d Verdana 4d Vital Signs: Verdana 4d Verdana 4Bd Last Vital Signs Verdana 4d Miner Assistant New 4d Miner Assistant New 4d Temp 97.8 F 12/02/21 11:10 Miner Assistant New 4d Pulse 71 12/02/21 11:10 Miner Assistant New 4d Resp 18 12/02/21 11:10 BP 119/90 H 12/02/21 11:10 Pulse Ox 97 12/02/21 11:10 BMI result Body Mass Index 0.0 Const: Other: Constitutional : Alert, oriented, not in distress Neck : Normal inspection, Supple Cardiovascular : Irregular irregular, no lower extremity edema, on Cardizem drip Respiratory : Chest wall moving bilaterally, no wheezes or rhonchi Gastrointestinal: soft, lax, Normal bowel sounds, Non tender Skin : Warm, Dry Extremities: Below left knee amputation Neurological : Alert & oriented x3, No focal deficit DS: Data Data Completed and Pending Labs on day of discharge: Preliminary micro results at discharge 11/30/21 11:10 Blood Culture - Preliminary Blood - Venous No growth after 24 hours. 11/30/21 10:56 Blood Culture - Preliminary Blood - Venous No growth after 24 hours. Discharge Plan Discharge Patient Disposition: Home Health Service Discharge Diagnosis: Atrial fibrillation with rapid ventricular response Physical deconditioning Referrals: Surinder Crews MD [Primary Care Provider] - 1 Week Discharge Medications: New metoprolol tartrate 50 mg Tablet 50 mg PO BID 30 Days Qty: 60 0RF Protocol: Hold for SBP/HR < HOLD for SBP < : 90 HOLD for HR < : 60 diltiazem HCl [Cardizem CD] 120 mg Capsule,Extended Release 24hr 120 mg PO DAILY 30 Days Qty: 30 0RF Protocol: Hold for SBP/HR < HOLD for SBP < : 90 HOLD for HR < : 60 Continued pantoprazole 40 mg tablet,delayed release (DR/EC) 40 mg PO DAILY@1700 0RF atorvastatin 40 mg tablet 40 mg PO BEDTIME 0RF melatonin 5 mg Tablet 5 mg PO BEDTIME 0RF allopurinol 100 mg tablet 50 mg PO SUMOWEFR 0RF warfarin 3 mg Tablet 3 mg PO DAILY 0RF Hold Instructions: Resume on 11/23/21. INR 3.4 tamsulosin 0.4 mg capsule 0.4 mg PO BEDTIME 0RF docusate sodium 100 mg capsule 2 cap PO BEDTIME 0RF hydrocortisone valerate 0.2 % Cream 1 appl TOPICAL BID PRN (Reason: Itching) 0RF albuterol sulfate [Ventolin HFA] 90 mcg/actuation Hfa Aerosol Inhaler 2 puff INHALATION Q6H PRN (Reason: Shortness Of Breath) 0RF potassium chloride 20 mEq Tablet Extended Release 20 meq PO DAILY@1700 0RF Discontinued metoprolol tartrate 25 mg Tablet 25 mg PO DAILY 0RF Discharge Orders: Discharge Order (Routine); Ordered 12/02/21 Ordered By: Tory Ferreira Diet: advance to usual diet Activity on Discharge: As tolerated Stand Alone Forms: Patient Portal Discharge page Print Language: Malay Care Plan Goals: Read below Health Concerns: Read below Plan of Treatment: Read below Assessment: You were admitted to the hospital for generalized weakness. Found to have rapid irregular heart rate. Treated with IV antibiotics with good response. Restarted home medications of metoprolol and Cardizem as your heart remained controlled. Evaluated by physical therapy team who recommended home therapy. Continue metoprolol and Cardizem as prescribed to follow up with Cardiology as outpatient.
== END 2021-12-02 15:45 | disposition home health service (06) | DRG 308 ==
LOC: HO.ED 15:10 → HO.EDOVER 15:23 → HO.IMC 12-01 00:12
PROVIDERS: Physician Assistant Medical; Admitting Provider Student in an Organized Health Care Education/Training Program; Emergency Provider Internal Medicine; PCP Internal Medicine Rheumatology; Visit Provider Student in an Organized Health Care Education/Training Program
DX: I48.19 Other persistent atrial fibrillation (principal); U07.1 COVID-19; I13.0 Hypertensive heart and chronic kidney disease with heart failure and stage 1 through stage 4 chronic kidney disease, or unspecified chronic kidney disease; I50.32 Chronic diastolic (congestive) heart failure; K21.9 Gastro-esophageal reflux disease without esophagitis; E11.22 Type 2 diabetes mellitus with diabetic chronic kidney disease; N18.30 Chronic kidney disease, stage 3 unspecified; E11.40 Type 2 diabetes mellitus with diabetic neuropathy, unspecified; N40.0 Benign prostatic hyperplasia without lower urinary tract symptoms; Z95.2 Presence of prosthetic heart valve; Z87.891 Personal history of nicotine dependence; Z88.5 Allergy status to narcotic agent; Z79.01 Long term (current) use of anticoagulants; Z79.899 Other long term (current) drug therapy
CPT/HCPCS: 36415; 70450; 71046; 80048; 80053; 81001; 82947; 83605; 83735; 84484; 85025; 85027; 85610; 85730; 87040; 87635; 93005; 96365; 96366; 96375; 97162; 99285

== ENCOUNTER 2021-12-03 13:44 | Emergency (ER) | payer OTHER, SELFPAY ==
--- NOTE | ~2021-12-03 | CT_ITS ---
EXAM: Noncontrast CT scan of the head and cervical spine. INDICATION: Fall out of bed. COMPARISON: Head CT 11/30/2021 TECHNIQUE: Axial slices were obtained from skull base to vertex and displayed. This was followed by helical, multislice, multidetector axial images from the occiput to the upper thorax. Coronal and sagittal reformats of the cervical spine in addition to coronal reformats of the head were obtained at the technologist workstation. DLP: 1326 mGy-cm FINDINGS: HEAD: There is no evidence of acute intracranial hemorrhage or territorial infarction. 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 No abnormal mass effect or midline shift is appreciated. Mackenzie-white differentiation is well preserved. No extra-axial fluid collections. The ventricular system and cortical sulci are prominent, consistent with age-appropriate volume loss. There are areas of low density in the periventricular and subcortical white matter, most consistent with sequelae of microvascular ischemic change. The osseous structures and soft tissues are normal. There is mild to moderate calcifications of the cavernous internal carotid arteries. The visualized paranasal sinuses and mastoid air cells are well aerated. SPINE: The cervical spine is visualized in its entirety. Alignment is within normal limits. Normal C1/C2 articulation. Cervical vertebral body heights are maintained. Disc spaces demonstrate moderate to severe narrowing at C4/C5, C5/C6 and C6/C7, most prominent at C6/C7. Moderate-sized osteophytes are noted throughout the mid and lower cervical spine. Prominent posterior disc osteophyte complexes also noted at C4/C5, C5/C6 and C6/C7. Moderate diffuse facet hypertrophy, more prominent on the left. Visualized lung apices are well aerated. CT/CT cervical spine wo con IMPRESSION: 1. No acute intracranial pathology. 2. No fractures or dislocations of the cervical spine. This CT examination was performed using dose optimization techniques as appropriate, variously including the following: *Automated exposure control *Adjustment of mA and/or kV according to patient size (this includes techniques or standardized protocols for targeted exams where dose is matched to indication/reason for exam; i.e. extremities or head) *Use of iterative reconstruction technique
[2021-12-03 13:52] VITALS: BP 174/67; BP 180/110; PULSE 100; PULSE 106; RESP 18; TEMP 36.6; O2SAT 99; BMI 29.2
[2021-12-03 15:20] VITALS: PULSE 105; RESP 19; TEMP 36.4; O2SAT 97
[2021-12-03 15:28] VITALS: BP 162/84
--- NOTE | 2021-12-03 16:03 | ED_ITS ---
HPI - General Adult General Chief complaint: General Medical <MOSHE Munguia - Last Filed: 12/03/21 21:24> Stated complaint: ams <MOSHE Munguia - Last Filed: 12/03/21 21:24> Time Seen by Provider: 12/03/21 16:03 <MOSHE Munguia - Last Filed: 12/03/21 21:24> Source: patient (Very poor historian), EMS and RN notes reviewed <MOSHE Munguia - Last Filed: 12/03/21 21:24> Mode of arrival: EMS <MOSHE Munguia - Last Filed: 12/03/21 21:24> History of Present Illness HPI narrative: 83-year-old male with past medical history of AFib, COVID-19, was brought to ED by EMS services. Patient was found outside in his wheelchair without a jock it and then again by this tear weigh without his pants. Patient lives in assisted living, has [facility] involved in his care. The nurse th at was visiting him felt that he needed to be in SNF facility rather than in assisted living. Patient was discharged yesterday from the hospital. Admitted for AFib with RVR. Patient is a very poor historian and is very hard to get any information from him. Patient denies any chest pain, palpitations, urinary frequency or burning. Denies any abdominal pain or discomfort. Patient does not know why he is here. <MOSHE Munguia - Last Filed: 12/03/21 21:24> Related Data Home medications: Home Medications Medication Instructions Recorded Confirmed atorvastatin 40 mg tablet 40 mg PO BEDTIME 01/19/21 12/04/21 pantoprazole 40 mg tablet,delayed 40 mg PO DAILY@1700 01/19/21 12/04/21 release melatonin 5 mg tablet 5 mg PO BEDTIME 01/20/21 12/04/21 allopurinol 100 mg tablet 50 mg PO SUMOWEFR 11/13/21 12/04/21 docusate sodium 100 mg capsule 2 cap PO BEDTIME 11/13/21 12/04/21 tamsulosin 0.4 mg capsule 0.4 mg PO BEDTIME 11/13/21 12/04/21 warfarin 3 mg tablet 3 mg PO DAILY 11/13/21 12/04/21 albuterol sulfate 90 mcg/actuation 2 puff INHALATION Q6H PRN 11/30/21 12/04/21 aerosol inhaler (Ventolin HFA) potassium chloride 20 mEq 20 meq PO DAILY@1700 11/30/21 12/04/21 tablet,extended release metoprolol tartrate 50 mg tablet 50 mg PO BID 12/04/21 12/04/21 Previous Rx's Medication Instructions Recorded diltiazem HCl 120 mg 120 mg PO DAILY 30 Days #30 cap 12/02/21 capsule,extended release 24 hr (Cardizem CD) <MOSHE Munguia - Last Filed: 12/03/21 21:24> Allergies/adverse reactions: Allergies Allergy/AdvReac Type Severity Reaction Status Date / Time oxycodone [OXYCODONE] Allergy Intermediate ITCHING Verified 11/30/21 09:34 ANTIBIOITIC-? NAME Allergy Intermediate ITCHING Uncoded 07/23/20 14:50 <MOSHE Munguia - Last Filed: 12/03/21 21:24> Review of Systems Review of Systems: Constitutional : No Weight loss, No Fever, No Chills, No Night Sweats, No Fatigue, No Malaise ENT/Mouth : No Hearing loss, No Ear Pain, No Nasal Congestion, No Sinus Pain, No Hoarseness, No sore throat, No Rhinorrhea, No Swallowing Difficulty Eyes: No Eye Pain, No Swelling, No Redness, No Foreign Body, No Discharge, No Vision Changes Cardiovascular : No Chest Pain, No SOB, No Dyspnea on Exertion, No Orthopnea, No Edema, No Palpitations Respiratory : No Cough, No Sputum, No Wheezing, No Smoke Exposure, No Dyspnea Gastrointestinal : No Nausea, No Vomiting, No Diarrhea, No Constipation, No abdominal Pain, No Hematochezia, No Melena Genitourinary : no irregular bleeding, No Dysuria, No Urinary Frequency, No Hematuria, No Urinary Incontinence, No Urgency, No Flank Pain, No Urinary Flow Changes, No Hesitancy Musculoskeletal : No joint pain, No Myalgias, No Joint Swelling Skin : No Skin Lesions, No rash Extremities: LAKA Neuro: No Numbness, No Paresthesias, No Loss of Consciousness, No Dizziness, No Headache Psych : No Anxiety/Panic, No Depression, No SI/HI/AH/VH, No Social Issues, <Tawana Villafuertejason SHAUNNA-BC - Last Filed: 12/03/21 21:24> Yes all other systems are reviewed and are negative <Tawana VillafuerteoSHAUNNA-BC - Last Filed: 12/03/21 21:24> [facility] Past Medical History Medical History: Medical History Above knee amputation of left lower extremity Afib 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 GERD (gastroesophageal reflux disease) Heart failure HLD (hyperlipidemia) HTN (hypertension) Neuropathy Persistent atrial fibrillation PVD (peripheral vascular disease) <Tawana Villafuertejason SHAUNNA-BC - Last Filed: 12/03/21 21:24> Surgical History: Surgical History Status post aorto-coronary artery bypass graft Status post mitral valve repair Status post transcatheter aortic valve replacement <Tawana Greer Brenden SHAUNNA-BC - Last Filed: 12/03/21 21:24> Family History Family History: Family History Other Hypertension <Tawana Wilcox SHAUNNA-BC - Last Filed: 12/03/21 21:24> Social History Social History: Social History Household Members: Other Household Members Other:: facility Housing: [facility]way Do you presently have visiting nurse or other home services: Yes Unable to assess alcohol history related to: Unknown Alcohol intake: unknown Patient Tobacco Use Status: Former Tobacco user Second Hand Smoke Exposure: No Use of substances other than those prescribed or required for medical reasons: No Advance Directives: Yes Advance Directives on File: Yes Advance Directives Date on File: 01/20/21 service: No Current occupational status: retired <Tawana Wilcox SHAUNNA-BC - Last Filed: 12/03/21 21:24> Physical Exam Vital Signs: Vital Signs: Last Vital Signs Temp 98.2 F 12/06/21 07:07 Pulse 92 12/06/21 07:07 Resp 16 12/06/21 07:07 BP 163/91 H 12/06/21 07:07 Pulse Ox 96 12/06/21 07:07 BMI result Body Mass Index 29.2 <KSENIA MunguiaP-BC - Last Filed: 12/03/21 21:24> Vital Signs: Last Vital Signs Temp 98.2 F 12/06/21 07:07 Pulse 92 12/06/21 07:07 Resp 16 12/06/21 07:07 BP 163/91 H 12/06/21 07:07 Pulse Ox 96 12/06/21 07:07 BMI result Body Mass Index 29.2 <LOS Mandel - Last Filed: 12/04/21 13:15> Vital Signs: Last Vital Signs Temp 98.2 F 12/06/21 07:07 Pulse 92 12/06/21 07:07 Resp 16 12/06/21 07:07 BP 163/91 H 12/06/21 07:07 Pulse Ox 96 12/06/21 07:07 BMI result Body Mass Index 29.2 <Chaya Turner NP - Last Filed: 12/06/21 08:35> Const: General: healthy appearing, no acute distress and well developed <SHAUNNA Munguia-BC - Last Filed: 12/03/21 21:24> Nutritional Appearance: well nourished <KSENIA MunguiaP-BC - Last Filed: 12/03/21 21:24> Orientation/consciousness: patient oriented x3 <SHAUNNA Munguia-BC - Last Filed: 12/03/21 21:24> HENMT: Head: Yes normal to inspection, Yes normocephalic and Yes atraumatic <KSENIA MunguiaP-BC - Last Filed: 12/03/21 21:24> Face and sinus: Yes normal facial exam <SHAUNNA Munguia-BC - Last Filed: 12/03/21 21:24> Mouth: Normal oral and palatal mucosa present <KSENIA MunguiaP-BC - Last Filed: 12/03/21 21:24> Throat: Yes posterior oropharynx normal, Yes tonsils normal and Yes uvula midline <SHAUNNA Munguia-BC - Last Filed: 12/03/21 21:24> Eyes: General: appearance normal, both eyes and all related structures <SHAUNNA Munguia-BC - Last Filed: 12/03/21 21:24> Neck: Neck: Yes normal visual inspection, Yes full ROM and Yes trachea midline <SHAUNNA Munguia-BC - Last Filed: 12/03/21 21:24> Thyroid: Thyroid normal <SHAUNNA Munguia-BC - Last Filed: 12/03/21 21:24> Resp: Effort & Inspection: normal respiratory effort, able to speak in complete sentences, no tracheal deviation and symmetric chest movement <MOSHE Munguia - Last Filed: 12/03/21 21:24> Auscultation: clear to auscultation bilaterally <MOSHE Munguia - Last Filed: 12/03/21 21:24> Cardio: Jugular venous distension: no JVD <SHAUNNA Munguia-BC - Last Filed: 12/03/21 21:24> Rate: regular rate <JOSUÉ MunguiaBC - Last Filed: 12/03/21 21:24> Heart sounds: S1 normal heart sound present, S2 normal heart sound present, no gallops and no murmurs <SHAUNNA Munguia-BC - Last Filed: 12/03/21 21:24> GI: Inspection: Yes normal to inspection and No distended <SHAUNNA Munguia-BC - Last Filed: 12/03/21 21:24> Palpation (GI): Soft to palpation, not firm, nontender and No hepatosplenomegaly present <Tawana VillafuerteoSHAUNNA-BC - Last Filed: 12/03/21 21:24> Auscultation: normal bowel sounds <SHAUNNA Munguia-BC - Last Filed: 12/03/21 21:24> : General: Yes no CVA tenderness <SHAUNNA Munguia-BC - Last Filed: 12/03/21 21:24> Back/Spine/Pelvis: Back: no CVA tenderness <Tawana Wilcox SWEATBAND CUTTING MACHINE OPERATOR-BC - Last Filed: 12/03/21 21:24> Skin: General skin exam: elasticity normal, turgor normal and dry skin <KSENIA MunguiaP-BC - Last Filed: 12/03/21 21:24> Neuro: General: patient oriented x3 <Tawana Wilcox SWEATBAND CUTTING MACHINE OPERATOR-BC - Last Filed: 12/03/21 21:24> Psych: Appearance: grossly normal <Tawana Wilcox, SWEATBAND CUTTING MACHINE OPERATOR-BC - Last Filed: 12/03/21 21:24> Mental Status: mental status grossly normal <Tawana Wilcox SWEATBAND CUTTING MACHINE OPERATOR-BC - Last Filed: 12/03/21 21:24> Speech and movement: Normal speech and movement present <Tawana Wilcox SWEATBAND CUTTING MACHINE OPERATOR-BC - Last Filed: 12/03/21 21:24> Affect: normal affect <Tawana Wilcox SWEATBAND CUTTING MACHINE OPERATOR-BC - Last Filed: 12/03/21 21:24> Attitude: cooperative <Tawana Wilcox SWEATBAND CUTTING MACHINE OPERATOR-BC - Last Filed: 12/03/21 21:24> Thought process: Normal thought process present <Tawana Wilcox SWEATBAND CUTTING MACHINE OPERATOR-BC - Last Filed: 12/03/21 21:24> Thought content: Normal thought content present <Tawana Wilcox SWEATBAND CUTTING MACHINE OPERATOR-BC - Last Filed: 12/03/21 21:24> Insight: Good insight present (Psych) <Tawana Wilcox, SWEATBAND CUTTING MACHINE OPERATOR-BC - Last Filed: 12/03/21 21:24> Judgement: Good judgement present (Psych) <Tawana Wilcox, SWEATBAND CUTTING MACHINE OPERATOR-BC - Last Filed: 12/03/21 21:24> Course Course Course Narrative: 81-year-old male with past medical history of AFib, COVID-19, was send for evaluation. Patient was seen outside in his wheelchair with no called on and then again inside the building without his hands on. Nurse from [facility] felt that patient was not safe to be living in assisted living and he needed higher level of care. Patient was discharged yesterday from the hospital and refuse to go to rehab. Upon exam patient has negative neuro so except for confusion that has been normal. Spoke to Case Management and they feel that [facility] Will order basic labs, COVID test and urinalysis. Patient is very poor historian <MOSHE Munguia - Last Filed: 12/03/21 21:24> Reevaluation(s) Reevaluation #1: Patient is resting, all lab work reviewed. No change from when patient was discharged. We will order Case Management for tomorrow morning to re- evaluate patient again. Will order physical therapy for safe discharge to either assisted living or <MOSHE Munguia - Last Filed: 12/03/21 21:24> Reevaluation #2: Report to Dr. Brito, patient will stay told morning for evaluation by Physical therapy and Case Management <MOSHE Munguia - Last Filed: 12/03/21 21:24> Reevaluation #3: Physician observation continues. Pt not safe for assisted living d/t AMS. Case management has referred to SNF, seeking placement. Pt on COumadin, this morning his INR is 2.7. Pt in no apparent distress. Respirations even and regular, lungs CTAB. Heart regular rate and rhythm. Vitals signs are stable. Pt resting comfortably. No acute events over night. Will continue to monitor. <LOS Mandel - Last Filed: 12/04/21 13:15> Time: 08:23 <LOS Mandel - Last Filed: 12/04/21 13:15> Additional Reevaluation(s): 0835 12/06 No complaints from nursing overnight. VSS. Resp even and unlabored. Awake and interactive. No complaints. Will continue physician observation pending disposition. <Chaya Turner NP - Last Filed: 12/06/21 08:35> Medical Decision Making Lab Data Result diagrams: : 12/03/21 17:02 12/03/21 17:02 <MOSHE Munguia - Last Filed: 12/03/21 21:24> Labs: Lab Results 12/03/21 12/03/21 12/03/21 Range/Units 17:01 17:02 17:02 WBC 7.4 (4.8-10.8) X10*3/uL RBC 3.41 L (4.60-5.80) X10*6/uL Hgb 9.7 L (14.0-18.0) g/dl Hct 29.8 L (42.0-52.0) % MCV 87.4 (80.0-98.0) fL MCH 28.4 (27.0-33.0) pg MCHC 32.6 (31.0-36.0) g/dl RDW 17.6 H (11.0-16.0) % Plt Count 236 (160-400) X10*3/uL MPV 11.0 (9.4-12.4) fL Immature Gran % (Auto) 0.4 (0.0-0.4) % Neut % (Auto) 62.2 (45-73) % Lymph % (Auto) 17.9 L (20-40) % Hall % (Auto) 12.3 H (2-11) % Eos % (Auto) 6.4 H (0-4) % Baso % (Auto) 0.8 (0-2) % Lymph # (Auto) 1.3 (1.2-4.9) X10*3/uL Hall # (Auto) 0.9 (0.1-1.2) X10*3/uL Eos # (Auto) 0.5 H (0.0-0.4) X10*3/uL Baso # (Auto) 0.1 (0.0-0.2) X10*3/uL Abs Immat Gran (auto) 0.03 (0.00-0.03) X10*3/uL Absolute Neuts (auto) 4.6 (2.0-8.3) x10*3/uL Absolute Nucleated RBC 0.000 (0.0-0.012) X10*3/uL Nucleated RBC % (auto) 0.0 (0.0-0.2) /100WBC PT (9.9-13.0) SEC INR (0.9-1.1) Sodium 142 (135-145) mmol/L Potassium 3.8 (3.3-5.1) mmol/L Chloride 111 H (96-108) mmol/L Carbon Dioxide 22 (22-29) mmol/L Anion Gap 13 (12-20) BUN 28 H (9-16) mg/dL Creatinine 2.23 H (0.5-1.4) mg/dL Estim Creat Clear Calc 23.1 Estimated GFR 28 Random Glucose 93 D (60-115) mg/dL Calcium 8.9 (8.4-10.2) mg/dL Urine Color Urine Appearance Urine pH (5.0-8.0) Ur Specific [place] (1.005-1.025) Urine Protein (NEG-TRACE) MG/DL Urine Glucose (UA) (NEG) MG/DL Urine Ketones (NEG) MG/DL Urine Blood (NEG) Urine Nitrite (NEG) Ur Leukocyte Esterase (NEG) Urine RBC (0) /HPF Urine WBC (0-4) /HPF Ur Squamous Epith Cells /LPF Urine Bacteria /LPF Urine Yeast /HPF COVID-19 (NIALL) Negative (Negative) COVID-19 Clin Com See Note 12/03/21 12/04/21 12/05/21 Range/Units 18:11 07:27 07:59 WBC (4.8-10.8) X10*3/uL RBC (4.60-5.80) X10*6/uL Hgb (14.0-18.0) g/dl Hct (42.0-52.0) % MCV (80.0-98.0) fL MCH (27.0-33.0) pg MCHC (31.0-36.0) g/dl RDW (11.0-16.0) % Plt Count (160-400) X10*3/uL MPV (9.4-12.4) fL Immature Gran % (Auto) (0.0-0.4) % Neut % (Auto) (45-73) % Lymph % (Auto) (20-40) % Hall % (Auto) (2-11) % Eos % (Auto) (0-4) % Baso % (Auto) (0-2) % Lymph # (Auto) (1.2-4.9) X10*3/uL Hall # (Auto) (0.1-1.2) X10*3/uL Eos # (Auto) (0.0-0.4) X10*3/uL Baso # (Auto) (0.0-0.2) X10*3/uL Abs Immat Gran (auto) (0.00-0.03) X10*3/uL Absolute Neuts (auto) (2.0-8.3) x10*3/uL Absolute Nucleated RBC (0.0-0.012) X10*3/uL Nucleated RBC % (auto) (0.0-0.2) /100WBC PT 31.8 H 29.7 H (9.9-13.0) SEC INR 2.7 H 2.6 H (0.9-1.1) Sodium (135-145) mmol/L Potassium (3.3-5.1) mmol/L Chloride (96-108) mmol/L Carbon Dioxide (22-29) mmol/L Anion Gap (12-20) BUN (9-16) mg/dL Creatinine (0.5-1.4) mg/dL Estim Creat Clear Calc Estimated GFR Random Glucose (60-115) mg/dL Calcium (8.4-10.2) mg/dL Urine Color YELLOW Urine Appearance CLEAR Urine pH 5.5 (5.0-8.0) Ur Specific [place] >= 1.030 H (1.005-1.025) Urine Protein 2+ H (NEG-TRACE) MG/DL Urine Glucose (UA) NEG (NEG) MG/DL Urine Ketones NEG (NEG) MG/DL Urine Blood 3+ H (NEG) Urine Nitrite NEG (NEG) Ur Leukocyte Esterase NEG (NEG) Urine RBC 15-29 H (0) /HPF Urine WBC 0 (0-4) /HPF Ur Squamous Epith Cells 2+ /LPF Urine Bacteria 1+ /LPF Urine Yeast 1+ /HPF COVID-19 (NIALL) (Negative) COVID-19 Clin Com 12/06/21 Range/Units 05:57 WBC (4.8-10.8) X10*3/uL RBC (4.60-5.80) X10*6/uL Hgb (14.0-18.0) g/dl Hct (42.0-52.0) % MCV (80.0-98.0) fL MCH (27.0-33.0) pg MCHC (31.0-36.0) g/dl RDW (11.0-16.0) % Plt Count (160-400) X10*3/uL MPV (9.4-12.4) fL Immature Gran % (Auto) (0.0-0.4) % Neut % (Auto) (45-73) % Lymph % (Auto) (20-40) % Hall % (Auto) (2-11) % Eos % (Auto) (0-4) % Baso % (Auto) (0-2) % Lymph # (Auto) (1.2-4.9) X10*3/uL Hall # (Auto) (0.1-1.2) X10*3/uL Eos # (Auto) (0.0-0.4) X10*3/uL Baso # (Auto) (0.0-0.2) X10*3/uL Abs Immat Gran (auto) (0.00-0.03) X10*3/uL Absolute Neuts (auto) (2.0-8.3) x10*3/uL Absolute Nucleated RBC (0.0-0.012) X10*3/uL Nucleated RBC % (auto) (0.0-0.2) /100WBC PT 28.2 H (9.9-13.0) SEC INR 2.4 H (0.9-1.1) Sodium (135-145) mmol/L Potassium (3.3-5.1) mmol/L Chloride (96-108) mmol/L Carbon Dioxide (22-29) mmol/L Anion Gap (12-20) BUN (9-16) mg/dL Creatinine (0.5-1.4) mg/dL Estim Creat Clear Calc Estimated GFR Random Glucose (60-115) mg/dL Calcium (8.4-10.2) mg/dL Urine Color Urine Appearance Urine pH (5.0-8.0) Ur Specific [place] (1.005-1.025) Urine Protein (NEG-TRACE) MG/DL Urine Glucose (UA) (NEG) MG/DL Urine Ketones (NEG) MG/DL Urine Blood (NEG) Urine Nitrite (NEG) Ur Leukocyte Esterase (NEG) Urine RBC (0) /HPF Urine WBC (0-4) /HPF Ur Squamous Epith Cells /LPF Urine Bacteria /LPF Urine Yeast /HPF COVID-19 (NIALL) (Negative) COVID-19 Clin Com <Tawana Wilcox, SWEATBAND CUTTING MACHINE OPERATOR-BC - Last Filed: 12/03/21 21:24> Lab Results 12/03/21 12/03/21 12/03/21 Range/Units 17:01 17:02 17:02 WBC 7.4 (4.8-10.8) X10*3/uL RBC 3.41 L (4.60-5.80) X10*6/uL Hgb 9.7 L (14.0-18.0) g/dl Hct 29.8 L (42.0-52.0) % MCV 87.4 (80.0-98.0) fL MCH 28.4 (27.0-33.0) pg MCHC 32.6 (31.0-36.0) g/dl RDW 17.6 H (11.0-16.0) % Plt Count 236 (160-400) X10*3/uL MPV 11.0 (9.4-12.4) fL Immature Gran % (Auto) 0.4 (0.0-0.4) % Neut % (Auto) 62.2 (45-73) % Lymph % (Auto) 17.9 L (20-40) % Hall % (Auto) 12.3 H (2-11) % Eos % (Auto) 6.4 H (0-4) % Baso % (Auto) 0.8 (0-2) % Lymph # (Auto) 1.3 (1.2-4.9) X10*3/uL Hall # (Auto) 0.9 (0.1-1.2) X10*3/uL Eos # (Auto) 0.5 H (0.0-0.4) X10*3/uL Baso # (Auto) 0.1 (0.0-0.2) X10*3/uL Abs Immat Gran (auto) 0.03 (0.00-0.03) X10*3/uL Absolute Neuts (auto) 4.6 (2.0-8.3) x10*3/uL Absolute Nucleated RBC 0.000 (0.0-0.012) X10*3/uL Nucleated RBC % (auto) 0.0 (0.0-0.2) /100WBC PT (9.9-13.0) SEC INR (0.9-1.1) Sodium 142 (135-145) mmol/L Potassium 3.8 (3.3-5.1) mmol/L Chloride 111 H (96-108) mmol/L Carbon Dioxide 22 (22-29) mmol/L Anion Gap 13 (12-20) BUN 28 H (9-16) mg/dL Creatinine 2.23 H (0.5-1.4) mg/dL Estim Creat Clear Calc 23.1 Estimated GFR 28 Random Glucose 93 D (60-115) mg/dL Calcium 8.9 (8.4-10.2) mg/dL Urine Color Urine Appearance Urine pH (5.0-8.0) Ur Specific [place] (1.005-1.025) Urine Protein (NEG-TRACE) MG/DL Urine Glucose (UA) (NEG) MG/DL Urine Ketones (NEG) MG/DL Urine Blood (NEG) Urine Nitrite (NEG) Ur Leukocyte Esterase (NEG) Urine RBC (0) /HPF Urine WBC (0-4) /HPF Ur Squamous Epith Cells /LPF Urine Bacteria /LPF Urine Yeast /HPF COVID-19 (NIALL) Negative (Negative) COVID-19 Clin Com See Note 12/03/21 12/04/21 12/05/21 Range/Units 18:11 07:27 07:59 WBC (4.8-10.8) X10*3/uL RBC (4.60-5.80) X10*6/uL Hgb (14.0-18.0) g/dl Hct (42.0-52.0) % MCV (80.0-98.0) fL MCH (27.0-33.0) pg MCHC (31.0-36.0) g/dl RDW (11.0-16.0) % Plt Count (160-400) X10*3/uL MPV (9.4-12.4) fL Immature Gran % (Auto) (0.0-0.4) % Neut % (Auto) (45-73) % Lymph % (Auto) (20-40) % Hall % (Auto) (2-11) % Eos % (Auto) (0-4) % Baso % (Auto) (0-2) % Lymph # (Auto) (1.2-4.9) X10*3/uL Hall # (Auto) (0.1-1.2) X10*3/uL Eos # (Auto) (0.0-0.4) X10*3/uL Baso # (Auto) (0.0-0.2) X10*3/uL Abs Immat Gran (auto) (0.00-0.03) X10*3/uL Absolute Neuts (auto) (2.0-8.3) x10*3/uL Absolute Nucleated RBC (0.0-0.012) X10*3/uL Nucleated RBC % (auto) (0.0-0.2) /100WBC PT 31.8 H 29.7 H (9.9-13.0) SEC INR 2.7 H 2.6 H (0.9-1.1) Sodium (135-145) mmol/L Potassium (3.3-5.1) mmol/L Chloride (96-108) mmol/L Carbon Dioxide (22-29) mmol/L Anion Gap (12-20) BUN (9-16) mg/dL Creatinine (0.5-1.4) mg/dL Estim Creat Clear Calc Estimated GFR Random Glucose (60-115) mg/dL Calcium (8.4-10.2) mg/dL Urine Color YELLOW Urine Appearance CLEAR Urine pH 5.5 (5.0-8.0) Ur Specific [place] >= 1.030 H (1.005-1.025) Urine Protein 2+ H (NEG-TRACE) MG/DL Urine Glucose (UA) NEG (NEG) MG/DL Urine Ketones NEG (NEG) MG/DL Urine Blood 3+ H (NEG) Urine Nitrite NEG (NEG) Ur Leukocyte Esterase NEG (NEG) Urine RBC 15-29 H (0) /HPF Urine WBC 0 (0-4) /HPF Ur Squamous Epith Cells 2+ /LPF Urine Bacteria 1+ /LPF Urine Yeast 1+ /HPF COVID-19 (NIALL) (Negative) COVID-19 Clin Com 12/06/21 Range/Units 05:57 WBC (4.8-10.8) X10*3/uL RBC (4.60-5.80) X10*6/uL Hgb (14.0-18.0) g/dl Hct (42.0-52.0) % MCV (80.0-98.0) fL MCH (27.0-33.0) pg MCHC (31.0-36.0) g/dl RDW (11.0-16.0) % Plt Count (160-400) X10*3/uL MPV (9.4-12.4) fL Immature Gran % (Auto) (0.0-0.4) % Neut % (Auto) (45-73) % Lymph % (Auto) (20-40) % Hall % (Auto) (2-11) % Eos % (Auto) (0-4) % Baso % (Auto) (0-2) % Lymph # (Auto) (1.2-4.9) X10*3/uL Hall # (Auto) (0.1-1.2) X10*3/uL Eos # (Auto) (0.0-0.4) X10*3/uL Baso # (Auto) (0.0-0.2) X10*3/uL Abs Immat Gran (auto) (0.00-0.03) X10*3/uL Absolute Neuts (auto) (2.0-8.3) x10*3/uL Absolute Nucleated RBC (0.0-0.012) X10*3/uL Nucleated RBC % (auto) (0.0-0.2) /100WBC PT 28.2 H (9.9-13.0) SEC INR 2.4 H (0.9-1.1) Sodium (135-145) mmol/L Potassium (3.3-5.1) mmol/L Chloride (96-108) mmol/L Carbon Dioxide (22-29) mmol/L Anion Gap (12-20) BUN (9-16) mg/dL Creatinine (0.5-1.4) mg/dL Estim Creat Clear Calc Estimated GFR Random Glucose (60-115) mg/dL Calcium (8.4-10.2) mg/dL Urine Color Urine Appearance Urine pH (5.0-8.0) Ur Specific [place] (1.005-1.025) Urine Protein (NEG-TRACE) MG/DL Urine Glucose (UA) (NEG) MG/DL Urine Ketones (NEG) MG/DL Urine Blood (NEG) Urine Nitrite (NEG) Ur Leukocyte Esterase (NEG) Urine RBC (0) /HPF Urine WBC (0-4) /HPF Ur Squamous Epith Cells /LPF Urine Bacteria /LPF Urine Yeast /HPF COVID-19 ([facility]) (Negative) COVID-19 Clin Com <LOS Mandel - Last Filed: 12/04/21 13:15> Lab Results 12/03/21 12/03/21 12/03/21 Range/Units 17:01 17:02 17:02 WBC 7.4 (4.8-10.8) X10*3/uL RBC 3.41 L (4.60-5.80) X10*6/uL Hgb 9.7 L (14.0-18.0) g/dl Hct 29.8 L (42.0-52.0) % MCV 87.4 (80.0-98.0) fL MCH 28.4 (27.0-33.0) pg MCHC 32.6 (31.0-36.0) g/dl RDW 17.6 H (11.0-16.0) % Plt Count 236 (160-400) X10*3/uL MPV 11.0 (9.4-12.4) fL Immature Gran % (Auto) 0.4 (0.0-0.4) % Neut % (Auto) 62.2 (45-73) % Lymph % (Auto) 17.9 L (20-40) % Hall % (Auto) 12.3 H (2-11) % Eos % (Auto) 6.4 H (0-4) % Baso % (Auto) 0.8 (0-2) % Lymph # (Auto) 1.3 (1.2-4.9) X10*3/uL Hall # (Auto) 0.9 (0.1-1.2) X10*3/uL Eos # (Auto) 0.5 H (0.0-0.4) X10*3/uL Baso # (Auto) 0.1 (0.0-0.2) X10*3/uL Abs Immat Gran (auto) 0.03 (0.00-0.03) X10*3/uL Absolute Neuts (auto) 4.6 (2.0-8.3) x10*3/uL Absolute Nucleated RBC 0.000 (0.0-0.012) X10*3/uL Nucleated RBC % (auto) 0.0 (0.0-0.2) /100WBC PT (9.9-13.0) SEC INR (0.9-1.1) Sodium 142 (135-145) mmol/L Potassium 3.8 (3.3-5.1) mmol/L Chloride 111 H (96-108) mmol/L Carbon Dioxide 22 (22-29) mmol/L Anion Gap 13 (12-20) BUN 28 H (9-16) mg/dL Creatinine 2.23 H (0.5-1.4) mg/dL Estim Creat Clear Calc 23.1 Estimated GFR 28 Random Glucose 93 D (60-115) mg/dL Calcium 8.9 (8.4-10.2) mg/dL Urine Color Urine Appearance Urine pH (5.0-8.0) Ur Specific [place] (1.005-1.025) Urine Protein (NEG-TRACE) MG/DL Urine Glucose (UA) (NEG) MG/DL Urine Ketones (NEG) MG/DL Urine Blood (NEG) Urine Nitrite (NEG) Ur Leukocyte Esterase (NEG) Urine RBC (0) /HPF Urine WBC (0-4) /HPF Ur Squamous Epith Cells /LPF Urine Bacteria /LPF Urine Yeast /HPF COVID-19 ([facility]) Negative (Negative) COVID-19 Clin Com See Note 12/03/21 12/04/21 12/05/21 Range/Units 18:11 07:27 07:59 WBC (4.8-10.8) X10*3/uL RBC (4.60-5.80) X10*6/uL Hgb (14.0-18.0) g/dl Hct (42.0-52.0) % MCV (80.0-98.0) fL MCH (27.0-33.0) pg MCHC (31.0-36.0) g/dl RDW (11.0-16.0) % Plt Count (160-400) X10*3/uL MPV (9.4-12.4) fL Immature Gran % (Auto) (0.0-0.4) % Neut % (Auto) (45-73) % Lymph % (Auto) (20-40) % Hall % (Auto) (2-11) % Eos % (Auto) (0-4) % Baso % (Auto) (0-2) % Lymph # (Auto) (1.2-4.9) X10*3/uL Hall # (Auto) (0.1-1.2) X10*3/uL Eos # (Auto) (0.0-0.4) X10*3/uL Baso # (Auto) (0.0-0.2) X10*3/uL Abs Immat Gran (auto) (0.00-0.03) X10*3/uL Absolute Neuts (auto) (2.0-8.3) x10*3/uL Absolute Nucleated RBC (0.0-0.012) X10*3/uL Nucleated RBC % (auto) (0.0-0.2) /100WBC PT 31.8 H 29.7 H (9.9-13.0) SEC INR 2.7 H 2.6 H (0.9-1.1) Sodium (135-145) mmol/L Potassium (3.3-5.1) mmol/L Chloride (96-108) mmol/L Carbon Dioxide (22-29) mmol/L Anion Gap (12-20) BUN (9-16) mg/dL Creatinine (0.5-1.4) mg/dL Estim Creat Clear Calc Estimated GFR Random Glucose (60-115) mg/dL Calcium (8.4-10.2) mg/dL Urine Color YELLOW Urine Appearance CLEAR Urine pH 5.5 (5.0-8.0) Ur Specific [place] >= 1.030 H (1.005-1.025) Urine Protein 2+ H (NEG-TRACE) MG/DL Urine Glucose (UA) NEG (NEG) MG/DL Urine Ketones NEG (NEG) MG/DL Urine Blood 3+ H (NEG) Urine Nitrite NEG (NEG) Ur Leukocyte Esterase NEG (NEG) Urine RBC 15-29 H (0) /HPF Urine WBC 0 (0-4) /HPF Ur Squamous Epith Cells 2+ /LPF Urine Bacteria 1+ /LPF Urine Yeast 1+ /HPF COVID-19 ([facility]) (Negative) COVID-19 Clin Com 12/06/21 Range/Units 05:57 WBC (4.8-10.8) X10*3/uL RBC (4.60-5.80) X10*6/uL Hgb (14.0-18.0) g/dl Hct (42.0-52.0) % MCV (80.0-98.0) fL MCH (27.0-33.0) pg MCHC (31.0-36.0) g/dl RDW (11.0-16.0) % Plt Count (160-400) X10*3/uL MPV (9.4-12.4) fL Immature Gran % (Auto) (0.0-0.4) % Neut % (Auto) (45-73) % Lymph % (Auto) (20-40) % Hall % (Auto) (2-11) % Eos % (Auto) (0-4) % Baso % (Auto) (0-2) % Lymph # (Auto) (1.2-4.9) X10*3/uL Hall # (Auto) (0.1-1.2) X10*3/uL Eos # (Auto) (0.0-0.4) X10*3/uL Baso # (Auto) (0.0-0.2) X10*3/uL Abs Immat Gran (auto) (0.00-0.03) X10*3/uL Absolute Neuts (auto) (2.0-8.3) x10*3/uL Absolute Nucleated RBC (0.0-0.012) X10*3/uL Nucleated RBC % (auto) (0.0-0.2) /100WBC PT 28.2 H (9.9-13.0) SEC INR 2.4 H (0.9-1.1) Sodium (135-145) mmol/L Potassium (3.3-5.1) mmol/L Chloride (96-108) mmol/L Carbon Dioxide (22-29) mmol/L Anion Gap (12-20) BUN (9-16) mg/dL Creatinine (0.5-1.4) mg/dL Estim Creat Clear Calc Estimated GFR Random Glucose (60-115) mg/dL Calcium (8.4-10.2) mg/dL Urine Color Urine Appearance Urine pH (5.0-8.0) Ur Specific [place] (1.005-1.025) Urine Protein (NEG-TRACE) MG/DL Urine Glucose (UA) (NEG) MG/DL Urine Ketones (NEG) MG/DL Urine Blood (NEG) Urine Nitrite (NEG) Ur Leukocyte Esterase (NEG) Urine RBC (0) /HPF Urine WBC (0-4) /HPF Ur Squamous Epith Cells /LPF Urine Bacteria /LPF Urine Yeast /HPF COVID-19 (NIALL) (Negative) COVID-19 Clin Com <Chaya Turner NP - Last Filed: 12/06/21 08:35> Discharge Plan Discharge Clinical Impression: Physical deconditioning <MOSHE Munguia - Last Filed: 12/03/21 21:24> Patient Disposition: Still a Patient <MOSHE Munguia - Last Filed: 12/03/21 21:24> Prescriptions: No Action pantoprazole 40 mg tablet,delayed release (DR/EC) 40 mg PO DAILY@1700 0RF atorvastatin 40 mg tablet 40 mg PO BEDTIME 0RF melatonin 5 mg Tablet 5 mg PO BEDTIME 0RF allopurinol 100 mg tablet 50 mg PO SUMOWEFR 0RF warfarin 3 mg Tablet 3 mg PO DAILY 0RF Hold Instructions: Resume on 11/23/21. INR 3.4 tamsulosin 0.4 mg capsule 0.4 mg PO BEDTIME 0RF docusate sodium 100 mg capsule 2 cap PO BEDTIME 0RF albuterol sulfate [Ventolin HFA] 90 mcg/actuation Hfa Aerosol Inhaler 2 puff INHALATION Q6H PRN (Reason: Shortness Of Breath) 0RF potassium chloride 20 mEq Tablet Extended Release 20 meq PO DAILY@1700 0RF diltiazem HCl [Cardizem CD] 120 mg Capsule,Extended Release 24hr 120 mg PO DAILY 30 Days Qty: 30 0RF Protocol: Hold for SBP/HR < HOLD for SBP < : 90 HOLD for HR < : 60 metoprolol tartrate 50 mg tablet 50 mg PO BID 0RF <MOSHE Munguia - Last Filed: 12/03/21 21:24>
--- NOTE | 2021-12-03 16:17 | MHC.CM.ED ---
Received case management consult from MARCELINO Shanks. Briseida came to ER due to AMS. Patient was d/c'd from [facility] on 12/02. Patient is active with [facility]. T/W spoke with Chely Lugo at [facility]. They will authorize placement. Referral broadcasted to all facilities contracted with [facility]: [facility], [facility] and [facility]. Attempted to reach patient's niece/HCP, Brandie via telephone at [phone]. Left message explaining placement was unlikely tonight. Case management contact info also provided. Continue to monitor for d/c needs.
[2021-12-03 17:13] LABS: MANUAL DIFF FLAG NO
[2021-12-03 17:15] LABS: Basophils Absolute Auto 0.1 X10*3/uL (0.0-0.2); Basophils Percent Auto 0.8 % (0-2); Eosinophils Absolute Auto 0.5 X10*3/uL (0.0-0.4); Eosinophils Percent Auto 6.4 % (0-4); Hematocrit 29.8 % (42.0-52.0); Hemoglobin 9.7 g/dl (14.0-18.0); Imm Gran Abs Auto 0.03 X10*3/uL (0.00-0.03); Imm Gran Pct Auto 0.4 % (0.0-0.4); Lymphocytes Absolute Auto 1.3 X10*3/uL (1.2-4.9); Lymphocytes Percent Auto 17.9 % (20-40); Mean Corpuscular HGB Conc 32.6 g/dl (31.0-36.0); Mean Corpuscular Hemoglobin 28.4 pg (27.0-33.0); Mean Corpuscular Volume 87.4 fL (80.0-98.0); Monocytes Absolute Auto 0.9 X10*3/uL (0.1-1.2); Monocytes Percent Auto 12.3 % (2-11); Neutrophils Absolute Auto 4.6 x10*3/uL (2.0-8.3); Neutrophils Percent Auto 62.2 % (45-73); Platelet Count 236 X10*3/uL (160-400); Red Blood Count 3.41 X10*6/uL (4.60-5.80); Red Cell Distribution Width 17.6 % (11.0-16.0); White Blood Count 7.4 X10*3/uL (4.8-10.8)
[2021-12-03 17:34] LABS: COVID-19 Test Negative (Negative); IDNOW Serial# 9DD0AD1C
[2021-12-03 17:36] LABS: Anion Gap 13 (12-20); Blood Urea Nitrogen 28 mg/dL (9-16); Calcium 8.9 mg/dL (8.4-10.2); Carbon Dioxide 22 mmol/L (22-29); Chloride 111 mmol/L (96-108); Creatinine Clr Calc Pharmacy 23.1; Estimated Glomerular Filt Rate 28; Glucose Random 93 mg/dL (60-115); Potassium 3.8 mmol/L (3.3-5.1); Sodium 142 mmol/L (135-145)
[2021-12-03 18:02] VITALS: BP 167/68; PULSE 98; RESP 18; TEMP 36.4; O2SAT 96
[2021-12-03 18:40] LABS: Appearance Urine CLEAR; Color Urine YELLOW; Glucose Urine UA NEG (NEG); Leukocyte Esterase Urine NEG (NEG); Nitrite Urine NEG (NEG); PH 5.5 (5.0-8.0); Specific Gravity - Urine >= 1.030 (1.005-1.025); UACC Culture Trigger NO; Urine Blood 3+ (NEG); Urine Ketones NEG (NEG); Urine Protein 2+ MG/DL (NEG-TRACE)
[2021-12-03 18:52] LABS: Bacteria Urine 1+ /LPF; Squamous Epithelial Cell Urine 2+ /LPF; WBC Urine 0 /HPF (0-4)
--- NOTE | 2021-12-03 19:30 | PC.NURSE ---
assumed care of pt. pt resting in stretcher watching tv. pt denies any complaints and awaiting for case mgt salvatore in am.
[2021-12-03 20:33] VITALS: BP 157/79; PULSE 95; RESP 18; TEMP 36.4; O2SAT 96
--- NOTE | 2021-12-03 22:00 | PC.NURSE ---
No chg in pt's condition. pt remains alert, on monitor, and in NAD at this time. awaiting for case mgt.
[2021-12-04] VITALS (8 sets, daily range): BP systolic 155–164; BP diastolic 82–96; PULSE 77–113; RESP 13–20; TEMP 36.3–36.7; O2SAT 95–98
--- NOTE | 2021-12-04 00:30 | PC.NURSE ---
med rec done.
--- NOTE | 2021-12-04 04:35 | PC.NURSE ---
pt sleeping, wakes to voice, respirations easy, n/l. pt awaiting for case mgt.
[2021-12-04] MEDS: dilTIAZem HCL CD 120 MG CAP.ER.DEG PO (06:05)
[2021-12-04] MEDS: Metoprolol Succinate ER 100 MG TAB.ER.24H PO (06:05)
--- NOTE | 2021-12-04 06:20 | PC.NURSE ---
Pt is constantly removing leads from chest. pt reattached to monitor with hr 128-138, aware and ordered cardizem and metoprolol for high HR. will continue to monitor pt.
[2021-12-04 07:41] LABS: INTERNATIONAL NORM RATIO 2.7 (0.9-1.1); Prothrombin Time 31.8 SEC (9.9-13.0)
--- NOTE | 2021-12-04 09:41 | PC.NURSE ---
patient found sitting on floor. states he wanted to get up from bed. patient states he has no pain and did not hit his head but not completely sure. PA aware of fall. patient on Coumadin and will have head CT.
[2021-12-04] MEDS: Potassium Chloride ER 20 MEQ TAB.ER.PRT PO (18:00)
[2021-12-04] MEDS: Omeprazole 20 MG CAPSULE.DR PO (18:00)
[2021-12-04] MEDS: Warfarin Sodium 3 MG TABLET PO (18:01)
--- NOTE | 2021-12-04 19:20 | PC.NURSE ---
Provider (González) notified of HR and BP no new orders at this time
--- NOTE | 2021-12-04 19:47 | PC.NURSE ---
this RN notified by cmm technician that pt is refusing to eat or drink anything, tech also reports increased confusion in pt. provider notified.
[2021-12-04] MEDS: Docusate Sodium 100 MG CAPSULE 200 MG PO (21:05)
[2021-12-04] MEDS: Tamsulosin HCL 0.4 MG CAPSULE PO (21:06)
[2021-12-04] MEDS: Melatonin 3 MG TABLET 6 MG PO (21:07)
[2021-12-04] MEDS: Atorvastatin Calcium 40 MG TABLET PO (21:07)
--- NOTE | 2021-12-04 21:11 | PC.NURSE ---
pt had a few bites of dinner and drank a carton of milk. pt states he is not hungry. pt in no distress at this time. call dao in reach. video monitor in place.
[2021-12-05] VITALS (7 sets, daily range): BP systolic 126–160; BP diastolic 53–86; PULSE 67–86; RESP 16–18; TEMP 36.6; O2SAT 95–98
[2021-12-05 08:08] LABS: INTERNATIONAL NORM RATIO 2.6 (0.9-1.1); Prothrombin Time 29.7 SEC (9.9-13.0)
--- NOTE | 2021-12-05 08:15 | MHC.CM.ED ---
Addendum entered by Karie Zarate 12/05/21 11:49: Call placed to [facility] city plant supervisor [place]ylie, she states they do no have a male bed available today and suggest trying again on Monday when the admissions team is back. ED care team and pt aware of plan Original Note: Review of EMR and STR referrals: [facility] bed availability. Message left with facility to inquire on status today. Awaiting callback.
[2021-12-05] MEDS: dilTIAZem HCL CD 120 MG CAP.ER.DEG PO (08:40)
[2021-12-05] MEDS: allopurinoL 100 MG TABLET 50 MG PO (08:42)
--- NOTE | 2021-12-05 13:30 | PC.NURSE ---
pt sleeping most of the day, pt woken up for lunch but refusing to eat lunch. pt did eat 100% of his breakfast
[2021-12-05] MEDS: Omeprazole 20 MG CAPSULE.DR PO (18:21)
[2021-12-05] MEDS: Potassium Chloride ER 20 MEQ TAB.ER.PRT PO (18:22)
--- NOTE | 2021-12-05 19:34 | PC.NURSE ---
PATIENT ATE A FEW BITES ,PATIENT STATED HE NOT HUNGRY ,PATIENT IS DRY AND REPOSITION .
--- NOTE | 2021-12-05 21:19 | PC.NURSE ---
PATIENT WAS GIVEN A BED BATH BY THIS PCT .
[2021-12-05] MEDS: Atorvastatin Calcium 40 MG TABLET PO (21:53)
[2021-12-05] MEDS: Warfarin Sodium 3 MG TABLET PO (21:53)
[2021-12-05] MEDS: Docusate Sodium 100 MG CAPSULE 200 MG PO (21:54)
[2021-12-05] MEDS: Tamsulosin HCL 0.4 MG CAPSULE PO (21:55)
[2021-12-05] MEDS: Melatonin 3 MG TABLET 6 MG PO (21:55)
--- NOTE | 2021-12-05 22:04 | PC.NURSE ---
PATIENT OUT PUT IS 500 ML ,PATIENT WAS GIVEN A HOSPITAL BED .
[2021-12-06] VITALS (7 sets, daily range): BP systolic 154–175; BP diastolic 59–92; PULSE 75–104; RESP 14–18; TEMP 36.5–36.8; O2SAT 94–98
[2021-12-06 06:11] LABS: INTERNATIONAL NORM RATIO 2.4 (0.9-1.1); Prothrombin Time 28.2 SEC (9.9-13.0)
[2021-12-06] MEDS: dilTIAZem HCL CD 120 MG CAP.ER.DEG PO (08:35)
[2021-12-06] MEDS: allopurinoL 100 MG TABLET 50 MG PO (08:35)
--- NOTE | 2021-12-06 08:38 | PC.NURSE ---
pt is a/o x 2, pt did not know the yr. pt denies any pain/disc
--- NOTE | 2021-12-06 08:44 | MHC.CM.ED ---
Addendum entered by Kim Whipple 12/06/21 11:03: Jaison Mo, patient did not received booster. Original Note: Patient remains in ER. Clinical updates sent to all facilities that are contracted with [facility]: [facility]. Patient received Pfizer vaccines on 12/12 and 01/05. Left a voicemail for Violat at [facility] via telephone at [phone] requesting Covid booster info. Continue to monitor for d/c needs.
--- NOTE | 2021-12-06 15:12 | MHC.CM.ED ---
Spoke with patient's HCP/niece, Brandie via telephone. T/W explained no bed offers were available yet. Brandie verbalized understanding. Continue to monitor for d/c needs.
[2021-12-06] MEDS: Omeprazole 20 MG CAPSULE.DR PO (16:24)
[2021-12-06] MEDS: Potassium Chloride ER 20 MEQ TAB.ER.PRT PO (16:24)
[2021-12-06] MEDS: Warfarin Sodium 3 MG TABLET PO (17:34)
[2021-12-06] MEDS: Atorvastatin Calcium 40 MG TABLET PO (19:57)
[2021-12-06] MEDS: Tamsulosin HCL 0.4 MG CAPSULE PO (19:57)
[2021-12-06] MEDS: Docusate Sodium 100 MG CAPSULE 200 MG PO (19:57)
[2021-12-06] MEDS: Melatonin 3 MG TABLET 6 MG PO (19:58)
[2021-12-07 00:10] VITALS: BP 157/90; PULSE 80; RESP 22; TEMP 36.6; O2SAT 94
[2021-12-07 02:39] VITALS: BP 181/67; PULSE 85; RESP 16; TEMP 36.8; O2SAT 96
--- NOTE | 2021-12-07 06:02 | PC.NURSE ---
Recieve report from Merle at 3am, pt sleeping most of the evening. pt trying to get out of bed but redirected and able to follow instructions.
[2021-12-07 06:10] VITALS: BP 147/109; PULSE 122; RESP 20; TEMP 36.9; O2SAT 96
[2021-12-07 06:25] VITALS: BP 183/80; PULSE 94; RESP 18
--- NOTE | 2021-12-07 06:26 | PC.NURSE ---
complete be change and eh care complete.
[2021-12-07 07:31] LABS: INTERNATIONAL NORM RATIO 2.9 (0.9-1.1); Prothrombin Time 33.5 SEC (9.9-13.0)
--- NOTE | 2021-12-07 10:22 | MHC.CM.ED ---
Patient remains in ER. Jaison Mattson at [facility], they will accept patient and are in the process of obtaining insurance auth. Anabelle patient will leave us at 1pm. T/W left a voicemail for Chely at [facility], explaining BLS transport will be needed. Continue to monitor for d/c needs.
--- NOTE | 2021-12-07 10:48 | MHC.CM.ED ---
Addendum entered by Kim Whipple 12/07/21 12:13: Received telephone call from Chely at [facility]. They will arrange transport for patient to be picked up at 1pm. [facility] cancelled. Original Note: Attempted to book transport through [facility]. They are unable to transport until 5pm. [facility] booked. [facility] with chart. Patient, Cielo RN and [facility] aware. Left voicemail for Chely at [facility] explainging transportation issue. Attempted to notify patient's niece/HCP, Brandie via telephone at [phone]. Left voicemail explaining discharge plan. Continue to monitor for d/c needs.
[2021-12-07 11:21] LABS: COVID-19 Test Negative (Negative)
== END 2021-12-07 13:33 | disposition skilled nursing facility (03) ==
PROVIDERS: Emergency Medicine; Nurse Practitioner Family; Physician Assistant; Emergency Provider Emergency Medicine; PCP Internal Medicine Rheumatology
DX: S09.90XA Unspecified injury of head, initial encounter (principal); R41.82 Altered mental status, unspecified; M54.2 Cervicalgia; I48.91 Unspecified atrial fibrillation; W06.XXXA Fall from bed, initial encounter; Y93.9 Activity, unspecified; Y92.099 Unspecified place in other non-institutional residence as the place of occurrence of the external cause; Y99.9 Unspecified external cause status; Z79.01 Long term (current) use of anticoagulants; Z20.822 Contact with and (suspected) exposure to COVID-19; Z79.899 Other long term (current) drug therapy
CPT/HCPCS: 36415; 70450; 72125; 80048; 81001; 85025; 85610; 87635; 97163; 99284; 99285

== ENCOUNTER 2021-12-08 07:25 | Outpatient (REF) | payer OTHER, SELFPAY ==
[2021-12-08 07:29] LABS: MANUAL DIFF FLAG NO
[2021-12-08 07:33] LABS: Basophils Percent Auto 0.5 % (0-2); Eosinophils Absolute Auto 0.5 X10*3/uL (0.0-0.4); Eosinophils Percent Auto 6.3 % (0-4); Hematocrit 32.7 % (42.0-52.0); Hemoglobin 10.3 g/dl (14.0-18.0); Imm Gran Abs Auto 0.03 X10*3/uL (0.00-0.03); Imm Gran Pct Auto 0.4 % (0.0-0.4); Lymphocytes Absolute Auto 1.2 X10*3/uL (1.2-4.9); Lymphocytes Percent Auto 15.4 % (20-40); Mean Corpuscular HGB Conc 31.5 g/dl (31.0-36.0); Mean Corpuscular Hemoglobin 28.1 pg (27.0-33.0); Mean Corpuscular Volume 89.3 fL (80.0-98.0); Mean Platelet Volume 11.7 fL (9.4-12.4); Monocytes Absolute Auto 0.9 X10*3/uL (0.1-1.2); Monocytes Percent Auto 11.7 % (2-11); Neutrophils Percent Auto 65.7 % (45-73); Platelet Count 259 X10*3/uL (160-400); Red Blood Count 3.66 X10*6/uL (4.60-5.80); Red Cell Distribution Width 17.5 % (11.0-16.0); White Blood Count 7.6 X10*3/uL (4.8-10.8)
[2021-12-08 07:42] LABS: Prothrombin Time 34.5 SEC (9.9-13.0)
[2021-12-08 07:49] LABS: Alanine Aminotransferase 10 U/L (0-40); Albumin Level 3.4 g/dL (3.5-5.0); Alkaline Phosphatase 127 U/L (39-117); Anion Gap 13 (12-20); Aspartate Amino Transferase 18 U/L (5-37); Bilirubin Total 1.5 mg/dL (0.0-1.0); Blood Urea Nitrogen 23 mg/dL (9-16); Calcium 8.9 mg/dL (8.4-10.2); Carbon Dioxide 21 mmol/L (22-29); Chloride 111 mmol/L (96-108); Estimated Glomerular Filt Rate 34; Glucose Random 68 mg/dL (60-115); Potassium 4.4 mmol/L (3.3-5.1); Sodium 141 mmol/L (135-145); Total Protein 6.7 g/dL (6.5-8.0)
== END 2021-12-08 07:26 | disposition home or self-care (01) ==
LOC: HO.MMNH2L 07:25
PROVIDERS: Visit Provider Family Medicine
DX: I10 Essential (primary) hypertension (principal); I48.0 Paroxysmal atrial fibrillation; Z79.01 Long term (current) use of anticoagulants
CPT/HCPCS: 36415; 80053; 85025; 85610

== ENCOUNTER 2021-12-13 | Outpatient (REF) | payer OTHER, SELFPAY ==
[2021-12-13 10:08] LABS: Hematocrit 32.4 % (42.0-52.0); Hemoglobin 10.3 g/dl (14.0-18.0); Mean Corpuscular HGB Conc 31.8 g/dl (31.0-36.0); Mean Corpuscular Hemoglobin 27.9 pg (27.0-33.0); Mean Corpuscular Volume 87.8 fL (80.0-98.0); Mean Platelet Volume 10.9 fL (9.4-12.4); Platelet Count 312 X10*3/uL (160-400); Red Blood Count 3.69 X10*6/uL (4.60-5.80)
[2021-12-13 10:21] LABS: Anion Gap 11 (12-20); Blood Urea Nitrogen 24 mg/dL (9-16); Calcium 9.6 mg/dL (8.4-10.2); Carbon Dioxide 22 mmol/L (22-29); Chloride 111 mmol/L (96-108); Estimated Glomerular Filt Rate 28; Glucose Random 120 mg/dL (60-115); Potassium 4.3 mmol/L (3.3-5.1); Sodium 140 mmol/L (135-145)
== END 2021-12-13 00:01 | disposition home or self-care (01) ==
LOC: HO.MMNH2L
PROVIDERS: Visit Provider Family Medicine
DX: I10 Essential (primary) hypertension (principal)
CPT/HCPCS: 36415; 80048; 85027

== ENCOUNTER 2021-12-13 | Outpatient (REF) | payer OTHER, SELFPAY ==
[2021-12-13 07:39] LABS: INTERNATIONAL NORM RATIO 2.9 (0.9-1.1); Prothrombin Time 34.2 SEC (9.9-13.0)
[2021-12-13 07:48] LABS: Hematocrit 31.9 % (42.0-52.0); Hemoglobin 10.2 g/dl (14.0-18.0); Mean Corpuscular Volume 87.6 fL (80.0-98.0); Mean Platelet Volume 11.6 fL (9.4-12.4); Platelet Count 276 X10*3/uL (160-400); Red Blood Count 3.64 X10*6/uL (4.60-5.80); Red Cell Distribution Width 16.9 % (11.0-16.0); White Blood Count 9.2 X10*3/uL (4.8-10.8)
[2021-12-13 08:36] LABS: Anion Gap 14 (12-20); Blood Urea Nitrogen 24 mg/dL (9-16); Calcium 8.9 mg/dL (8.4-10.2); Carbon Dioxide 19 mmol/L (22-29); Chloride 111 mmol/L (96-108); Estimated Glomerular Filt Rate 29; Glucose Random 75 mg/dL (60-115); Potassium 4.5 mmol/L (3.3-5.1); Sodium 139 mmol/L (135-145)
== END 2021-12-13 00:01 | disposition home or self-care (01) ==
LOC: HO.MMNH2L
PROVIDERS: Visit Provider Family Medicine
DX: I48.0 Paroxysmal atrial fibrillation (principal)
CPT/HCPCS: 36415; 80048; 85027; 85610

== ENCOUNTER 2021-12-16 | Outpatient (REF) | payer OTHER, SELFPAY ==
[2021-12-16 09:20] LABS: INTERNATIONAL NORM RATIO 2.3 (0.9-1.1); Prothrombin Time 27.1 SEC (9.9-13.0)
== END 2021-12-16 00:01 | disposition home or self-care (01) ==
LOC: HO.MMNH3L
PROVIDERS: Visit Provider Family Medicine
DX: I48.19 Other persistent atrial fibrillation (principal)
CPT/HCPCS: 36415; 85610

== ENCOUNTER 2021-12-20 | Outpatient (REF) | payer OTHER, SELFPAY ==
[2021-12-20 07:30] LABS: MANUAL DIFF FLAG NO
[2021-12-20 07:39] LABS: Basophils Absolute Auto 0.1 X10*3/uL (0.0-0.2); Basophils Percent Auto 0.6 % (0-2); Eosinophils Absolute Auto 0.8 X10*3/uL (0.0-0.4); Eosinophils Percent Auto 7.6 % (0-4); Hematocrit 35.5 % (42.0-52.0); Hemoglobin 11.3 g/dl (14.0-18.0); Imm Gran Abs Auto 0.02 X10*3/uL (0.00-0.03); Imm Gran Pct Auto 0.2 % (0.0-0.4); Lymphocytes Absolute Auto 1.8 X10*3/uL (1.2-4.9); Lymphocytes Percent Auto 18.3 % (20-40); Mean Corpuscular HGB Conc 31.8 g/dl (31.0-36.0); Mean Corpuscular Hemoglobin 27.8 pg (27.0-33.0); Mean Corpuscular Volume 87.2 fL (80.0-98.0); Mean Platelet Volume 11.8 fL (9.4-12.4); Monocytes Absolute Auto 0.9 X10*3/uL (0.1-1.2); Monocytes Percent Auto 9.5 % (2-11); Neutrophils Absolute Auto 6.3 x10*3/uL (2.0-8.3); Neutrophils Percent Auto 63.8 % (45-73); Platelet Count 276 X10*3/uL (160-400); Red Blood Count 4.07 X10*6/uL (4.60-5.80); Red Cell Distribution Width 16.6 % (11.0-16.0); White Blood Count 9.9 X10*3/uL (4.8-10.8)
[2021-12-20 08:02] LABS: Anion Gap 15 (12-20); Blood Urea Nitrogen 20 mg/dL (9-16); Calcium 9.2 mg/dL (8.4-10.2); Carbon Dioxide 22 mmol/L (22-29); Chloride 108 mmol/L (96-108); Estimated Glomerular Filt Rate 32; Glucose Random 65 mg/dL (60-115); Potassium 4.6 mmol/L (3.3-5.1); Sodium 140 mmol/L (135-145)
[2021-12-20 13:34] LABS: INTERNATIONAL NORM RATIO 2.2 (0.9-1.1); Prothrombin Time 25.8 SEC (9.9-13.0)
== END 2021-12-20 00:01 | disposition home or self-care (01) ==
LOC: HO.MMNH2L
PROVIDERS: Visit Provider Family Medicine
DX: I10 Essential (primary) hypertension (principal)
CPT/HCPCS: 36415; 80048; 85025; 85610

== ENCOUNTER 2021-12-27 | Outpatient (REF) | payer OTHER, SELFPAY ==
[2021-12-27 07:39] LABS: MANUAL DIFF FLAG NO
[2021-12-27 07:43] LABS: Basophils Absolute Auto 0.1 X10*3/uL (0.0-0.2); Basophils Percent Auto 0.9 % (0-2); Eosinophils Absolute Auto 0.9 X10*3/uL (0.0-0.4); Eosinophils Percent Auto 9.6 % (0-4); Hematocrit 32.9 % (42.0-52.0); Hemoglobin 10.3 g/dl (14.0-18.0); Imm Gran Abs Auto 0.03 X10*3/uL (0.00-0.03); Imm Gran Pct Auto 0.3 % (0.0-0.4); Lymphocytes Absolute Auto 1.6 X10*3/uL (1.2-4.9); Lymphocytes Percent Auto 17.1 % (20-40); Mean Corpuscular HGB Conc 31.3 g/dl (31.0-36.0); Mean Corpuscular Hemoglobin 27.5 pg (27.0-33.0); Mean Platelet Volume 11.8 fL (9.4-12.4); Monocytes Absolute Auto 0.7 X10*3/uL (0.1-1.2); Monocytes Percent Auto 7.6 % (2-11); Neutrophils Percent Auto 64.5 % (45-73); Platelet Count 263 X10*3/uL (160-400); Red Blood Count 3.74 X10*6/uL (4.60-5.80); Red Cell Distribution Width 16.6 % (11.0-16.0); White Blood Count 9.4 X10*3/uL (4.8-10.8)
[2021-12-27 07:48] LABS: INTERNATIONAL NORM RATIO 2.8 (0.9-1.1); Prothrombin Time 32.3 SEC (9.9-13.0)
[2021-12-27 07:55] LABS: Anion Gap 14 (12-20); Blood Urea Nitrogen 23 mg/dL (9-16); Calcium 9.1 mg/dL (8.4-10.2); Carbon Dioxide 21 mmol/L (22-29); Chloride 111 mmol/L (96-108); Estimated Glomerular Filt Rate 30; Glucose Random 69 mg/dL (60-115); Potassium 4.7 mmol/L (3.3-5.1); Sodium 141 mmol/L (135-145)
== END 2021-12-27 00:01 | disposition home or self-care (01) ==
LOC: HO.MMNH2L
PROVIDERS: Visit Provider Family Medicine
DX: I10 Essential (primary) hypertension (principal); I48.91 Unspecified atrial fibrillation; Z79.01 Long term (current) use of anticoagulants
CPT/HCPCS: 36415; 80048; 85025; 85610

== ENCOUNTER 2022-01-03 05:39 | Outpatient (REF) | payer OTHER, SELFPAY | END 2022-01-03 05:40 | disposition home or self-care (01) | LOC: HO.MMNH2L 05:39 | PROVIDERS: Visit Provider Family Medicine | DX: Z13.89 Encounter for screening for other disorder (principal) ==